=== PATIENT | female | born 1945 | race Hispanic/Latino ===

== ENCOUNTER 2025-04-10 13:24 | Inpatient (IN) | payer OTHER ==
--- OUTSIDE RECORDS SUMMARY | 2025-04-10 13:35 | XMS REPORT | Continuity of Care Document ---
Author Name Unknown Address [address] [facility] [address] [place] [address] [facility] Address [address] [facility] [address] [place] [address] Care Team Providers [employer] Name Role Phone Fidel Jeana MILLER Primary Care Physician Mariely Santo CNP Attending Clinician [phone] Ying Georges RN Attending Clinician EDDIE Nogueira Attending Clinician EDDIE Leonard Admitting Clinician William evans Payers Payer Name Policy Type Policy Number Effective Date Expirati on Date Source [facility] DUAL COMP HMO-POS D SNP [id number] 2024 00:00:00 [facility] (MEDICARE REPLACEMENT HMO) [id number] 2020 00:00:00 Problems Condition Name Condition Details Condition Category Status Onset Date Resolution Date Last Treatment Date Treating Clinician Comments Source DEBBIE (acute kidney injury) DEBBIE (acute kidney injury) Disease Active 03-27 00:00: 00 [facility] HTN (hypertens ion) HTN (hypertens ion) Disease Active 03-27 00:00: 00 [facility] HLD (hyperlipi demia) HLD (hyperlipi demia) Disease Active 03-27 00:00: 00 [facility] Type 2 diabetes mellitus without complicati on Type 2 diabetes mellitus without complicati on Disease Active 03-27 00:00: 00 [facility] High anion gap metabolic acidosis High anion gap metabolic acidosis Disease Active 03-27 00:00: 00 [facility] Uremia Uremia Disease Active 03-27 00:00: 00 [facility] Acute cystitis Acute cystitis Disease Active 03-27 00:00: 00 [facility] Dehydratio n Dehydratio n Disease Active 03-27 00:00: 00 [facility] Allergies, Adverse Reactions, Alerts Allergy Name Allergy Type Status Severity Reaction(s) Onset Date Inactive Date Treating Clinician Comments Source NO KNOWN ALLERGIE S Drug Class Active [facility] Social History Social Habit Start Date Stop Date Quantity Comments Source ASSERTION Possible [facility] Tobacco use and exposure 2025-03-26 00:00:00 2025-03-26 00:00:00 Smokeless tobacco non-user [facility] History of Social function 2025-03-26 00:00:00 2025-03-26 00:00:00 [facility] Sex assigned at 1945 00:00:00 1945 00:00:00 [facility] Smoking Status Start Date Stop Date Source Never smoked tobacco [facility] Medications Ordered Medication Name Filled Medication Name Start Date Stop Date Current Medication? Ordering Clinician Indication Dosage Frequency Signature (SIG) Comments Components Source Nitrofurant oin&Nit. Macrocryst 100 mg capsule 04-10 00:00: 00 04-18 04:59 :00 Yes [id number] 100mg Take 1 capsule by mouth 2 times daily for 7 days. [facility] doxycycline hyclate 100 mg capsule 04-10 00:00: 00 04-18 04:59 :00 Yes [id number] 100mg Take 1 capsule by mouth 2 times daily for 7 days. [facility] D5W 0.45% NaCl (1/2NS) IV infusion 1,000 mL D5W 0.45% NaCl (1/2NS) IV infusion 1,000 mL 03-28 15:45: 00 03-30 01:55 :42 Yes 1000mL at 125 mL/hr, 1,000 mL, IV Infusion, CONTINUOUS , Starting on Mon03/28/25 at 1045, Until Mon03/29/25 at 2055, Routine [facility] lactated ringers IV infusion 1,000 mL 03-28 12:00: 00 03-28 14:36 :48 No 1000mL at 150 mL/hr, 1,000 mL, IV Infusion, CONTINUOUS , Starting on Mon03/28/25 at 0700, Until Mon03/28/25 at 0936, Routine [facility] lactated ringers IV infusion 1,000 mL 03-27 21:00: 00 03-28 11:51 :07 No 1000mL at 100 mL/hr, 1,000 mL, IV Infusion, CONTINUOUS , Starting on Mon03/27/25 at 1600, Until Mon03/28/25 at 0651, Routine [facility] cefTRIAXone (ROCEPHIN) 1,000 mg in sterile water for injection 10 mL IV Push cefTRIAXone (ROCEPHIN) 1,000 mg in sterile water for injection 10 mL IV Push 03-27 20:00: 00 03-28 17:09 :59 Yes 1000mg 1,000 mg, Intravenou s, DAILY AT 1500, 6 doses, First dose on Mon03/27/25 at 1500, Last dose on Mon04/01/25 at 1500, 10 mL, Reason for Anti-Infec tive: Documented Infection, Documented Infection Site: Urine, Duration of therapy: 7 days [facility] cholecalcif kvng (vitamin D3) tablet 1,000 unit cholecalcif kvng (vitamin D3) tablet 1,000 unit 03-27 14:00: 00 03-30 01:55 :42 Yes 1000U 1,000 unit, Oral, DAILY, First dose on Mon03/27/25 at 0900, Until Discontinu ed, Routine [facility] aspirin chewable tablet 81 mg aspirin chewable tablet 81 mg 03-27 14:00: 00 03-27 21:07 :41 Yes 81mg 81 mg, Oral, DAILY, First dose on Mon03/27/25 at 0900, Until Discontinu ed, Routine [facility] lactated ringers IV infusion 1,000 mL 03-27 03:30: 00 03-27 17:29 :00 No 1000mL at 100 mL/hr, 1,000 mL, IV Infusion, CONTINUOUS , Starting on Mon03/26/25 at 2230, Until Angelia 03/27/25 at 1229, Routine [facility] heparin (porcine) injection 5,000 unit [id number] 9858-0 9-11 03:00: 00 03-30 01:55 :42 Yes 5000U 5,000 unit, Subcutaneo us, Q8H, First dose on Mon03/26/25 at 2200, Until Discontinu ed, Routine [facility] Sliding Scale Insulin - Lispro (HumaLOG) [id number] 1996-0 9-11 02:00: 00 03-30 01:55 :42 Yes Subcutaneo us, TID MEALS+HS, First dose on Mon03/26/25 at 2100, Until Discontinu ed, Routine [facility] acetaminoph en (TYLENOL) tablet 650 mg 03-26 23:45: 24 03-30 01:55 :42 No 650mg 650 mg, Oral, Q6HPRN, Starting on Mon03/26/25 at 1845, Until 03/29/25 at 2055, Routine, Pain (scale 1-3) [facility] NaCl 0.9% (NS) bolus infusion 500 mL 03-26 21:15: 00 03-26 21:35 :00 No 500mL at 999 mL/hr, 500 mL, IV Infusion, ONCE, 1 dose, On Mon03/26/25 at 1615, ROSA [facility] aspirin chewable tablet 324 mg 03-26 19:30: 00 03-26 18:40 :00 No 324mg 324 mg, Oral, ONCE NOW, 1 dose, On Mon03/26/25 at 1430, Routine [facility] cefTRIAXone (ROCEPHIN) 1,000 mg in sterile water for injection 10 mL IV Push 03-26 19:15: 00 03-26 19:36 :00 No 1000mg 1,000 mg, Intravenou s, ONCE, 1 dose, On Mon03/26/25 at 1415, 10 mL, Reason for Anti-Infec tive: Empiric Therapy for Suspected Infection, Empiric Therapy Site: Urine, Duration of therapy: Once (ED) [facility] NaCl 0.9% (NS) bolus infusion 1,000 mL 03-26 18:00: 00 03-26 19:32 :00 No 1000mL at 350 mL/hr, 1,000 mL, IV Infusion, ONCE, 1 dose, On Mon03/26/25 at 1300, ROSA [facility] amlodipine 10 mg tablet 03-07 00:00: 00 Yes 1mg Kentrell Almanza lisinopril 20 mg-hydrochl orothiazide 25 mg tablet 03-07 00:00: 00 Yes 1mg Kentrell Almanza Farxiga 5 mg tablet 03-07 00:00: 00 Yes 1mg Kentrell Almanza carvedilol 3.125 mg tablet 03-07 00:00: 00 Yes 1mg Kentrell Almanza amoxicillin 875 mg-potassiu saman clavulanate 125 mg tablet 03-07 00:00: 00 Yes 1mg Kentrell Almanza Lipitor 40 mg tablet 03-07 00:00: 00 Yes 1mg Kentrell Almanza Tylenol Extra Strength 500 mg tablet 03-07 00:00: 00 Yes 1mg Kentrell Almanza gabapentin 300 mg capsule 03-07 00:00: 00 Yes 1mg Kentrell Almanza amlodipine 10 mg tablet 12-23 00:00: 00 Yes 1mg Kentrell Almanza lisinopril 20 mg-hydrochl orothiazide 25 mg tablet 12-23 00:00: 00 Yes 1mg Kentrell Almanza Farxiga 5 mg tablet 12-23 00:00: 00 Yes 1mg Kentrell Almanza carvedilol 3.125 mg tablet 12-23 00:00: 00 Yes 1mg Kentrell Almanza Lipitor 40 mg tablet 12-23 00:00: 00 Yes 1mg Kentrell Almanza gabapentin 300 mg capsule 6-09 00:00: 00 Yes 1mg Kentrell Almanza carvedilol 3.125 mg tablet - 00:00: 00 Yes 1mg Kentrell Almanza amlodipine 10 mg tablet 2023-07- 00:00: 00 Yes 1mg Kentrell Almanza lisinopril 20 mg-hydrochl orothiazide 25 mg tablet 2023-07- 00:00: 00 Yes 1mg Kentrell Almanza Farxiga 5 mg tablet 2023-07- 00:00: 00 Yes 1mg Kentrell Almanza Lipitor 40 mg tablet 2023-07- 00:00: 00 Yes 1mg Kentrell Almanza Lipitor 20 mg tablet 2023-07 0-18 00:00: 00 Yes 1mg Kentrell Almanza amlodipine 10 mg tablet 2023-07 0-18 00:00: 00 Yes 1mg Kentrell Almanza lisinopril 20 mg-hydrochl orothiazide 25 mg tablet 2023-07 0-18 00:00: 00 Yes 1mg Kentrell Almanza metformin ER 1,000 mg tablet,exte nded release 24hr (osmotic) 2023-07 0-18 00:00: 00 Yes 1mg Kentrell Almanza gabapentin 300 mg capsule 2023-07 0-18 00:00: 00 Yes 1mg Kentrell Almanza metformin ER 1,000 mg 24 hr tablet,exte nded release (gastric reten.) 2023-07 0-18 00:00: 00 Yes 1mg Kentrell Almanza AMLODIPINE BESYLATE 10 MG TABS 2021-07 0-13 00:00: 00 06-06 00:00 :00 No Kentrell Almanza AMLODIPINE BESYLATE 5 MG TABS 2021-07 0-10 00:00: 00 No LISINOPRIL/ HYDROCHLORO THIAZIDE 20-25 MG TABS 2021-07 0-10 00:00: 00 No AMLODIPINE BESYLATE 5 MG TABS 2021-07 0-10 00:00: 00 Yes Kentrell Almanza LISINOPRIL/ HYDROCHLORO THIAZIDE 20-25 MG TABS 2021-07 0-10 00:00: 00 06-06 00:00 :00 No Kentrell Genoveva Archie Dose Unknown 2021-0 4-06 00:00: 00 No Dose Unknown 2-0 4-06 00:00: 00 No Dose Unknown 2021-0 4-06 00:00: 00 No Dose Unknown 2021-0 4-06 00:00: 00 No Dose Unknown 2021-0 4-06 00:00: 00 No Dose Unknown 2021-0 4-06 00:00: 00 Yes Kentrell Tomas Archie Dose Unknown 2021-0 4-06 00:00: 00 Yes Kentrell F Archie Dose Unknown 2021-0 4-06 00:00: 00 Yes Kentrell F Archie Dose Unknown 2021-0 4-06 00:00: 00 Yes Kentrell F Archie Dose Unknown 2021-0 4-06 00:00: 00 Yes Kentrell Tomas Archie Dose Unknown 0 4- 00:00: 00 No Dose Unknown 2021-0 4- 00:00: 00 Yes Kentrell Genoveva Archie Dose Unknown 1 2-07 00:00: 00 No Dose Unknown 1 2-07 00:00: 00 No Dose Unknown 1 2-07 00:00: 00 No Dose Unknown 1 2-07 00:00: 00 No Dose Unknown 1 2-07 00:00: 00 Yes Kentrell Genoveva Archie Dose Unknown 1 2-07 00:00: 00 Yes Kentrell Tomas Archie Dose Unknown 1 2-07 00:00: 00 Yes Kentrell Tomas Archie Dose Unknown 1 2-07 00:00: 00 Yes Kentrell Tomas Archie Dose Unknown 2019-0 5-18 00:00: 00 No Dose Unknown 2019-0 5-18 00:00: 00 Yes Kentrell Almanza amlodipine 5 mg tablet 2018-07- 00:00: 00 No 1mg lisinopril 20 mg-hydrochl orothiazide 25 mg tablet 2018-07 2- 00:00: 00 No 1mg metformin 1,000 mg tablet 2018-07- 00:00: 00 No 1mg lovastatin 20 mg tablet 2018-07 2 00:00: 00 No 1mg amlodipine 5 mg tablet 2018-07 2- 00:00: 00 Yes 1mg Kentrell Almanza lisinopril 20 mg-hydrochl orothiazide 25 mg tablet 2018-07 00:00: 00 Yes 1mg Kentrell Almanza metformin 1,000 mg tablet 2018-07 00:00: 00 Yes 1mg Kentrell Almanza lovastatin 20 mg tablet 2018-07 00:00: 00 Yes 1mg Kentrell Almanza amlodipine 5 mg tablet 12-27 00:00: 00 No 1mg lisinopril 20 mg-hydrochl orothiazide 25 mg tablet 12-27 00:00: 00 No 1mg metformin 1,000 mg tablet 12-27 00:00: 00 No 1mg lovastatin 20 mg tablet 12-27 00:00: 00 No 1mg amlodipine 5 mg tablet 12-27 00:00: 00 Yes 1mg Kentrell Almanza lisinopril 20 mg-hydrochl orothiazide 25 mg tablet 12-27 00:00: 00 Yes 1mg Kentrell Almanza metformin 1,000 mg tablet 12-27 00:00: 00 Yes 1mg Kentrell Almanza lovastatin 20 mg tablet 12-27 00:00: 00 Yes 1mg Kentrell Almanza amlodipine 5 mg tablet 09-13 00:00: 00 No 1mg amlodipine 5 mg tablet 09-13 00:00: 00 Yes 1mg Kentrell Almanza lisinopril 20 mg-hydrochl orothiazide 25 mg tablet 08-09 00:00: 00 No 1mg metformin 1,000 mg tablet 08-09 00:00: 00 No 1mg lovastatin 20 mg tablet 08-09 00:00: 00 No 1mg lisinopril 20 mg-hydrochl orothiazide 25 mg tablet 08-09 00:00: 00 Yes 1mg Kentrell Almanza metformin 1,000 mg tablet 08-09 00:00: 00 Yes 1mg Kentrell Almanza lovastatin 20 mg tablet 08-09 00:00: 00 Yes 1mg Kentrell Almanza lisinopril 20 mg-hydrochl orothiazide 25 mg tablet 2016-07 00:00: 00 No 1mg metformin 1,000 mg tablet 2016-07 00:00: 00 No 1mg lovastatin 20 mg tablet 2016-07 00:00: 00 No 1mg lisinopril 20 mg-hydrochl orothiazide 25 mg tablet 2016-07 00:00: 00 Yes 1mg Kentrell Almanza metformin 1,000 mg tablet 2016-07 00:00: 00 Yes 1mg Kentrell Almanza lovastatin 20 mg tablet 2016-07 00:00: 00 Yes 1mg Kentrell Almanza lovastatin 10 mg tablet 2016-07 00:00: 00 No 1mg lisinopril 20 mg-hydrochl orothiazide 25 mg tablet 2016-07 00:00: 00 No 1mg metformin 500 mg tablet 2016-07 00:00: 00 No 1mg lovastatin 10 mg tablet 2016-07 00:00: 00 Yes 1mg Kentrell Almanza lisinopril 20 mg-hydrochl orothiazide 25 mg tablet 2016-07 00:00: 00 Yes 1mg Kentrell Almanza metformin 500 mg tablet 2016-07 00:00: 00 Yes 1mg Kentrell Almanza metformin 500 mg tablet 12-28 00:00: 00 No 1mg lisinopril 20 mg-hydrochl orothiazide 25 mg tablet 12-28 00:00: 00 No 1mg lovastatin 10 mg tablet 12-28 00:00: 00 No 1mg lisinopril 20 mg-hydrochl orothiazide 25 mg tablet 12-28 00:00: 00 Yes 1mg Kentrell Almanza lovastatin 10 mg tablet 12-28 00:00: 00 Yes 1mg Kentrell Almanza metformin 500 mg tablet 12-28 00:00: 00 Yes 1mg Kentrell Almanza lisinopril 20 mg-hydrochl orothiazide 25 mg tablet 11-04 00:00: 00 No 1mg glipizide 5 mg tablet 11-04 00:00: 00 No 1mg lisinopril 20 mg-hydrochl orothiazide 25 mg tablet 11-04 00:00: 00 Yes 1mg Kentrell Almanza glipizide 5 mg tablet 11-04 00:00: 00 Yes 1mg Kentrell Almanza lisinopril 20 mg-hydrochl orothiazide 25 mg tablet 09-09 00:00: 00 No 1mg glipizide 5 mg tablet 09-09 00:00: 00 No 1mg lisinopril 20 mg-hydrochl orothiazide 25 mg tablet 09-09 00:00: 00 Yes 1mg Kentrell Almanza glipizide 5 mg tablet 09-09 00:00: 00 Yes 1mg Kentrell Almanza metformin 500 mg tablet 2014-07 00:00: 00 No mg metformin 500 mg tablet 2014-07 00:00: 00 Yes mg Kentrell Almanza Vital Signs Vital Name Observation Time Observation Value Comments S aiden Systolic blood pressure 2025-03-29 20:29:00 153 mm[Hg] Andreas o [facility] Diastolic blood pressure 2025-03-29 20:29:00 56 mm[Hg] [facility] Heart rate 2025-03-29 20:29:00 64 /min [facility] Oxygen saturation in Arterial blood by Pulse oximetry 2025-03-29 20:29:00 97 /min [facility] Body temperature 2025-03-29 20:28:00 36.28 Mela [facility] Respiratory rate 2025-03-29 20:28:00 16 /min [facility] Body height 2025-03-26 23:56:00 160 cm [facility] Body weight 2025-03-26 23:56:00 65 kg [facility] BMI 2025-03-26 23:56:00 25.38 kg/m2 [facility] BP Systolic 2025-03-07 13:27:00 158 mm[Hg] Jefry Almanza BP Diastolic 2025-03-07 13:27:00 70 mm[Hg] Tom Almanza Weight Measured 2025-03-07 13:27:00 153.40 pounds Kentrell Almanza Height Measured 2025-03-07 13:27:00 63.00 inches Kentrell Almanza Body Temperature 2025-03-07 13:27:00 97.60 degrees Kentrell Almanza Heart Rate 2025-03-07 13:27:00 89.00 /min Mariia Almanza Respiratory Rate 2025-03-07 13:27:00 Kentrell F Archie BP Systolic 2024-12-23 14:46:00 188 mm[Hg] Step hen F Archie BP Diastolic 2024-12-23 14:46:00 76 mm[Hg] Tom phen F Archie Weight Measured 2024-12-23 14:46:00 170.80 pounds Kentrell F Archie Height Measured 2024-12-23 14:46:00 63.00 inches Kentrell F Archie Body Temperature 2024-12-23 14:46:00 97.90 degrees Kentrell F Archie Heart Rate 2024-12-23 14:46:00 71.00 /min Mariia en F Archie Respiratory Rate 2024-12-23 14:46:00 Kentrell F Archie BP Systolic 2024-07-23 10:43:00 172 mm[Hg] Step hen F Archie BP Diastolic 2024-07-23 10:43:00 68 mm[Hg] Tom phen F Archie Weight Measured 2024-07-23 10:43:00 157.00 pounds Kentrell F Archie Height Measured 2024-07-23 10:43:00 63.00 inches Kentrell F Archie Body Temperature 2024-07-23 10:43:00 97.20 degrees Kentrell F Archie Heart Rate 2024-07-23 10:43:00 67.00 /min Mariia en F Archie Respiratory Rate 2024-07-23 10:43:00 Kentrell F Archie BP Systolic 2024-06-17 09:28:00 166 mm[Hg] Step hen F Archie BP Diastolic 2024-06-17 09:28:00 64 mm[Hg] Tom phen F Archie Weight Measured 2024-06-17 09:28:00 160.20 pounds Kentrell F Archie Height Measured 2024-06-17 09:28:00 63.00 inches Kentrell F Archie Body Temperature 2024-06-17 09:28:00 97.60 degrees Kentrell F Archie Heart Rate 2024-06-17 09:28:00 76.00 /min Mariia en F Archie Respiratory Rate 2024-06-17 09:28:00 17.00 /min Kentrell F Archie Heart Rate 2024-05-03 09:20:00 73.00 /min Mariia en F Archie Respiratory Rate 2024-05-03 09:20:00 18.00 /min Kentrell F Archie BP Systolic 2024-05-03 09:20:00 185 mm[Hg] Step hen F Archie BP Diastolic 2024-05-03 09:20:00 66 mm[Hg] Tom phen F Archie Weight Measured 2024-05-03 09:20:00 161.60 pounds Kentrell F Archie Height Measured 2024-05-03 09:20:00 63.00 inches Kentrell F Archie Body Temperature 2024-05-03 09:20:00 97.20 degrees Kentrell F Archie BP Systolic 2022-05-02 10:36:00 138 mm[Hg] Step hen F Archie BP Diastolic 2022-05-02 10:36:00 72 mm[Hg] Tom phen F Archie Weight Measured 2022-05-02 10:36:00 161.20 pounds Kentrell F Archie Height Measured 2022-05-02 10:36:00 63.00 inches Kentrell F Archie Body Temperature 2022-05-02 10:36:00 97.20 degrees Kentrell F Archie Heart Rate 2022-05-02 10:36:00 66.00 /min Mariia en F Archie Respiratory Rate 2022-05-02 10:36:00 Kentrell F Archie BP Systolic 2022-04-25 10:41:00 Step hen F Archie BP Diastolic 2022-04-25 10:41:00 Tom phen F Archie Weight Measured 2022-04-25 10:41:00 Kentrell F Archie Height Measured 2022-04-25 10:41:00 Kentrell F Archie Body Temperature 2022-04-25 10:41:00 Kentrell F Archie Heart Rate 2022-04-25 10:41:00 Mariia en F Archie Respiratory Rate 2022-04-25 10:41:00 Kentrell F Archie BP Systolic 2022-04-25 10:29:00 179 mm[Hg] Step hen F Archie BP Diastolic 2022-04-25 10:29:00 66 mm[Hg] Tom phen F Archie Weight Measured 2022-04-25 10:29:00 164.20 pounds Kentrell F Archie Height Measured 2022-04-25 10:29:00 63.00 inches Kentrell F Archie Body Temperature 2022-04-25 10:29:00 97.60 degrees Kentrell F Archie Heart Rate 2022-04-25 10:29:00 67.00 /min Mariia en F Archie Respiratory Rate 2022-04-25 10:29:00 Kentrell F Archie BP Systolic 2021-10-20 10:13:00 196 mm[Hg] Step hen F Archie BP Diastolic 2021-10-20 10:13:00 71 mm[Hg] Otm phen F Archie Weight Measured 2021-10-20 10:13:00 165.00 pounds Kentrell F Archie Height Measured 2021-10-20 10:13:00 63.00 inches Kentrell F Archie Body Temperature 2021-10-20 10:13:00 97.60 degrees Kentrell F Archie Heart Rate 2021-10-20 10:13:00 96.00 /min Mariia en F Archie Respiratory Rate 2021-10-20 10:13:00 21.00 /min Kentrell F Archie BP Systolic 2020-06-22 10:41:00 191 mm[Hg] Step hen F Archie BP Diastolic 2020-06-22 10:41:00 67 mm[Hg] Tom phen F Archie Weight Measured 2020-06-22 10:41:00 161.40 pounds Kentrell F Archie Height Measured 2020-06-22 10:41:00 63.00 inches Kentrell F Archie Body Temperature 2020-06-22 10:41:00 98.40 degrees Kentrell F Archie Heart Rate 2020-06-22 10:41:00 70.00 /min Mariia en F Archie Respiratory Rate 2020-06-22 10:41:00 17.00 /min Kentrell F Archie BP Systolic 2019-12-02 16:53:00 147 mm[Hg] Step hen F Archie BP Diastolic 2019-12-02 16:53:00 63 mm[Hg] Tom phen F Archie Weight Measured 2019-12-02 16:53:00 157.20 pounds Kentrell F Archie Height Measured 2019-12-02 16:53:00 63.00 inches Kentrell F Archie Body Temperature 2019-12-02 16:53:00 98.60 degrees Kentrell F Archie Heart Rate 2019-12-02 16:53:00 81.00 /min Mariia en F Archie Respiratory Rate 2019-12-02 16:53:00 16.00 /min Kentrell F Archie BP Systolic 2019-06-21 10:52:00 127 mm[Hg] Step hen F Archie BP Diastolic 2019-06-21 10:52:00 67 mm[Hg] Tom phen F Archie Weight Measured 2019-06-21 10:52:00 159.60 pounds Kentrell F Archie Height Measured 2019-06-21 10:52:00 63.00 inches Kentrell F Archie Body Temperature 2019-06-21 10:52:00 98.50 degrees Kentrell F Archie Heart Rate 2019-06-21 10:52:00 68.00 /min Mariia en F Archie Respiratory Rate 2019-06-21 10:52:00 16.00 /min Kentrell F Archie BP Systolic 2018-12-27 15:30:00 132 mm[Hg] Step hen F Archie BP Diastolic 2018-12-27 15:30:00 58 mm[Hg] Tom phen F Archie Weight Measured 2018-12-27 15:30:00 163.00 pounds Kentrell F Archie Height Measured 2018-12-27 15:30:00 63.00 inches Kentrell F Archie Body Temperature 2018-12-27 15:30:00 97.70 degrees Kentrell F Archie Heart Rate 2018-12-27 15:30:00 63.00 /min Mariia en F Archie Respiratory Rate 2018-12-27 15:30:00 16.00 /min Kentrell F Archie BP Systolic 2018-09-21 10:27:00 129 mm[Hg] Step hen F Archie BP Diastolic 2018-09-21 10:27:00 61 mm[Hg] Tom phen F Archie Weight Measured 2018-09-21 10:27:00 164.60 pounds Kentrell F Archie Height Measured 2018-09-21 10:27:00 63.00 inches Kentrell F Archie Body Temperature 2018-09-21 10:27:00 98.70 degrees Kentrell F Archie Heart Rate 2018-09-21 10:27:00 69.00 /min Mariia en F Archie Respiratory Rate 2018-09-21 10:27:00 16.00 /min Kentrell F Archie BP Systolic 2018-09-13 10:10:00 166 mm[Hg] BP Diastolic 2018-09-13 10:10:00 74 mm[Hg] Weight Measured 2018-09-13 10:10:00 165.60 pounds Height Measured 2018-09-13 10:10:00 63.00 inches Body Temperature 2018-09-13 10:10:00 97.50 degrees Heart Rate 2018-09-13 10:10:00 63.00 /min Respiratory Rate 2018-09-13 10:10:00 16.00 /min BP Systolic 2018-08-09 17:22:00 178 mm[Hg] BP Diastolic 2018-08-09 17:22:00 70 mm[Hg] Weight Measured 2018-08-09 17:22:00 167.80 pounds Height Measured 2018-08-09 17:22:00 63.00 inches Body Temperature 2018-08-09 17:22:00 98.20 degrees Heart Rate 2018-08-09 17:22:00 68.00 /min Respiratory Rate 2018-08-09 17:22:00 16.00 /min Procedures Procedure Date / Time Performed Performing Clinician Source BASIC METABOLIC PANEL (NA, K, CL, CO2, GLUCOSE, BUN, CREATININE, CA) 2025-03-29 21:59:00 Shelia Dwyer [facility] POCT GLUCOSE (AUTOMATED) 2025-03-29 17:01:00 Barby Sherwood [facility] POCT GLUCOSE (AUTOMATED) 2025-03-29 14:11:00 Barby Sherwood [facility] MAGNESIUM 2025-03-29 10:12:00 [facility] (NA, K, CL, CO2, GLUCOSE, BUN, CREATININE, CA) 2025-03-29 10:12:00 Marcus Llanes [facility] LIPID PANEL (04694)(TOTAL CHOLESTEROL, TRIGLYCERIDES, HDL) 2025-03-29 10:12:00 Marcus Llanes [facility] CBC WITH DIFF 2025-03-29 10:12:00 Marcus Llanes [facility] POCT GLUCOSE (AUTOMATED) 2025-03-29 01:58:00 Barby Sherwood [facility] POCT GLUCOSE (AUTOMATED) 2025-03-28 23:00:00 Barby Sherwood [facility] BASIC METABOLIC PANEL (NA, K, CL, CO2, GLUCOSE, BUN, CREATININE, CA) 2025-03-28 19:57:00 Marcus Llanes [facility] POCT GLUCOSE (AUTOMATED) 2025-03-28 17:13:00 Barby Sherwood [facility] POCT GLUCOSE (AUTOMATED) 2025-03-28 14:33:00 Barby Sherwood [facility] MAGNESIUM 2025-03-28 08:45:00 Shelia Dwyer [facility] BASIC METABOLIC PANEL (NA, K, CL, CO2, GLUCOSE, BUN, CREATININE, CA) 2025-03-28 08:45:00 Shelia Dwyer [facility] CBC WITH DIFF 2025-03-28 08:45:00 Shelia Dwyer [facility] POCT GLUCOSE (AUTOMATED) 2025-03-28 02:08:00 Barby Sherwood [facility] BASIC METABOLIC PANEL (NA, K, CL, CO2, GLUCOSE, BUN, CREATININE, CA) 2025-03-28 01:43:00 Shelia Dwyer [facility] POCT GLUCOSE (AUTOMATED) 2025-03-27 22:09:00 Barby Sherwood [facility] POCT GLUCOSE (AUTOMATED) 2025-03-27 17:06:00 [facility] POCT GLUCOSE (AUTOMATED) 2025-03-27 14:28:00 Barby Sherwood [facility] US RETROPERITONEAL LIMITED 2025-03-27 12:34:56 Asya Jones [facility] MAGNESIUM 2025-03-27 08:59:[address] [facility] BASIC METABOLIC PANEL (NA, K, CL, CO2, GLUCOSE, BUN, CREATININE, CA) 2025-03-27 08:59:00 Winifred Cohen [facility] CBC WITH DIFF 2025-03-27 08:59:00 Winifred Cohen [facility] VITAMIN D, 25-OH 2025-03-27 08:59:00 Asya Jones [facility] PHOSPHORUS 2025-03-27 03:08:00 Asya Jones [facility] TROPONIN I 2025-03-27 03:08:00 Winifred Cohen [facility] BASIC METABOLIC PANEL (NA, K, CL, CO2, GLUCOSE, BUN, CREATININE, CA) 2025-03-27 03:08:00 Winifred Cohen [facility] AC PANEL 21 + LACTIC ACID 2025-03-27 03:07:00 Asya Jones [facility] HB ECG ROUTINE & RHYTHM STRIP 2025-03-27 02:36:02 Asya Jones [facility] CBC WITH DIFF 2025-03-27 02:09:00 Winifred Cohen [facility] CREATININE, URINE RANDOM 2025-03-27 02:06:00 Asya Jones [facility] UREA NITROGEN, URINE RANDOM 2025-03-27 02:06:00 Asya Jones [facility] SODIUM, URINE RANDOM 2025-03-27 02:06:00 Norah Jones [facility] POCT GLUCOSE (AUTOMATED) 2025-03-27 01:58:00 Barby Sherwood [facility] LACTIC ACID WITH 2 HOUR REFLEX 2025-03-26 21:35:00 Farrah Espitia [facility] XR CHEST 1 VW 2025-03-26 19:49:31 Farrah Espitia [facility] BLOOD CULTURE SCREEN 2025-03-26 19:37:00 Lay Espitia [facility] LACTIC ACID WITH 2 HOUR REFLEX 2025-03-26 19:30:00 Farrah Espitia [facility] CREATINE KINASE 2025-03-26 19:30:00 Farrah Espitia [facility] BLOOD CULTURE SCREEN 2025-03-26 19:23:00 Lay Espitia [facility] ACUTE CARE VENOUS BLOOD GAS 2025-03-26 18:50:00 Farrah Espitia [facility] URINE CULTURE 2025-03-26 18:08:00 Farrah Espitia [facility] URINALYSIS 2025-03-26 18:03:00 Farrah Espitia [facility] CT HEAD WO CONTRAST 2025-03-26 17:34:35 Farrah Espitia [facility] MAGNESIUM 2025-03-26 17:07:00 Farrah Espitia [facility] TROPONIN I 2025-03-26 17:07:00 Farrah Espitia [facility] THYROID STIMULATING HORMONE 2025-03-26 17:07:00 Farrah Espitia [facility] COMP. METABOLIC PANEL (77187) 2025-03-26 17:07:00 Farrah Espitia [facility] CBC WITH DIFF 2025-03-26 17:07:00 Farrah Espitia [facility] GLYCOSYLATED HEMOGLOBIN (A1C) 2025-03-26 17:07:00 Winifred Cohen [facility] INFLUENZA A/B RSV COVID NAAT 2025-03-26 17:07:00 Farrah Espitia [facility] EKG-12 LEAD 2025-03-26 17:00:53 Farrah Espitia [facility] HB ECG ROUTINE & RHYTHM STRIP 2025-03-26 16:48:33 Farrah Espitia [facility] CRITICAL CARE 2025-03-26 16:05:00 Farrah Espitia [facility] Plan of Care Planned Activity Planned Date Details Comments Source Goal Plan of Care Note [code = 50188-5] Goal Plan of Care Note [code = 85452-6] Goal Plan of Care Note [code = 09651-8] Goal Plan of Care Note [code = 13228-8] Goal Plan of Care Note [code = 12078-5] Goal Plan of Care Note [code = 04853-0] Goal Plan of Care Note [code = 03989-4] Goal Plan of Care Note [code = 42971-0] Goal Plan of Care Note [code = 53917-0] Goal Plan of Care Note [code = 17943-4] Goal Plan of Care Note [code = 17226-2] Goal Plan of Care Note [code = 71504-3] Goal Plan of Care Note [code = 89062-5] Goal Plan of Care Note [code = 56043-3] Goal Plan of Care Note [code = 11482-0] Goal Plan of Care Note [code = 28476-6] Goal Plan of Care Note [code = 76550-7] Goal Plan of Care Note [code = 96073-2] Encounters Start Date/Time End Date/Time Encounter Type Admission Type Attending [facility] Care Department Encounter ID Source 2025-04-10 00:00:00 2025-04-10 10:34:10 Telephone Mariely Santo [facility] ([facility]) [id number] [facility] 2025-03-31 00:00:00 2025-04-01 14:04:27 Transition of Care Ying Georges Christine [facility] [address] [address] [facility] [id number] [id number] [facility] 2025-03-26 11:22:00 2025-03-29 19:00:00 Hospital Encounter [facility] [id number] [facility] 2025-03-07 13:23:10 2025-03-07 13:23:10 Outpatient [facility] [id number] Kentrell Tomas Archie 2025-03-07 00:00:00 2025-03-07 00:00:00 Outpatient Visit [facility] [id number] Kentrell Tomas Archie 2024-12-23 14:36:14 2024-12-23 14:36:14 Outpatient [facility] [id number] Kentrell F Archie 2024-12-23 00:00:00 2024-12-23 00:00:00 Outpatient Visit [facility] [id number] Kentrell Almanza 2024-07-23 10:38:53 2024-07-23 10:38:53 Outpatient [facility] [id number] Kentrell Almanza 2024-07-23 00:00:00 2024-07-23 00:00:00 Outpatient Visit [facility] [id number] Kentrell Almanza 2024-06-17 09:16:11 2024-06-17 09:16:11 Outpatient [facility] [id number] Kentrell Almanza 2024-06-17 00:00:00 2024-06-17 00:00:00 Outpatient Visit [facility] [id number] Kentrell Almanza 2024-05-03 09:09:40 2024-05-03 09:09:40 Outpatient [facility] [id number] Kentrell Almanza 2024-05-03 00:00:00 2024-05-03 00:00:00 Outpatient Visit [facility] [id number] Kentrell Almanza 2022-05-02 10:15:01 2022-05-02 10:15:01 Outpatient [facility] 1017 Kentrell Almanza 2022-04-25 10:31:21 2022-04-25 10:31:21 Outpatient [facility] 1010 Kentrell Almanza 2022-04-25 00:00:00 2022-04-25 00:00:00 Outpatient Visit [id number] Results Test Description Test Time Test Comments Results Result Co mments Source [facility] Metabolic Panel (NA, K, CL, CO2, GLUCOSE, BUN, CREATININE, CA)2025-03-29 14:24:55* Test Item Value Reference Range Interpretation Comme nts NA (test code = 3384273856) 152 mmol/L 135-145 H K (test code = 3863983730) 3.9 mmol/L 3.5-5.0 Slight hemolysis CL (test code = 7363541652) 121 mmol/L 98-108 H CO2 TOTAL (test code = 1186704280) 25 mmol/L 23-31 AGAP (test code = 4507252699) 6 2-16 BUN (test code = 3532911841) 52 mg/dL 7-23 H Slight hemolysis GLUCOSE (test code = 8113651453) 215 mg/dL 70-110 H CREATININE (test code = 2160-0) 1.22 mg/dL 0.50-1.04 H CALCIUM (test code = 3264649890) 8.7 mg/dL 8.6-10.6 eGFR (test code = 91103-3) 44.7 mL/min/1.73m2 CKD-EPI eGFR (2020). Assuming creatinine has been stable day-to-day for at least three months, the eGFR indicates Category G3a (45 - 59 mL/min/1.73 m2) Lab Interpretation (test code = 65513-5) [facility] 14:15:35* Test Item Value Reference Range Interpretation Comme nts MAGNESIUM (test code = 1880513323) 1.9 mg/dL 1.7-2.4 Slight hemolysis Lab Interpretation (test code = 17624-6) [facility]2025-03-29 14:13:09* Test Item Value Reference Range Interpretation Comme nts POCT GLU (test code = 3699038429) 201 mg/dL 70-110 H Lab Interpretation (test cod e = 99212-5) Abnormal [facility] Hospital[facility] (00800)(Total Cholesterol, Triglycerides, HDL)2025-03-29 11:30:34* Test Item Value Reference Range Interpretation Comme nts CHOL (test code = 7002614823) 120 mg/dL 120-200 HDL (test code = 4240728831) 39 mg/dL >=50 L HDLC RATIO (test code = 0118062990) 3.1 <=4.5 TRIG (test code = 8132060192) 102 mg/dL 30-170 LDL CHOL (test code = 43335-1) 61 mg/dL <=160 VLDL (test code = 2095481241) 20 mg/dL 5-60 Lab Interpretation (test cod e = 81996-7) Abnormal [facility] with [id number] 11:18:28* Test Item Value Reference Range Interpretation Comme nts WBC (test code = 6690-2) 10.1 4.30-11.10 RBC (test code = 789-8) 3.76 3.93-5.25 L HGB (test code = 718-7) 10.8 g/dL 11.6-15.0 L HCT (test code = 4544-3) 35.4 % 35.7-45.2 L MCV (test code = 787-2) 94.1 fL 80.6-95.5 MCH (test code = 785-6) 28.7 pg 25.9-32.8 MCHC (test code = 786-4) 30.5 g/dL 31.6-35.1 L RDW-SD (test code = 77144-1) 46.1 fL 39.0-49.9 RDW-CV (test code = 788-0) 13.5 % 12.0-15.5 PLT (test code = 777-3) 236 166-358 MPV (test code = 56210-4) 11.2 fL 9.5-12.9 NRBC/100 WBC (test code = 1804875671) 0 0.0-10.0 NRBC x10^3 (test code = 7298959376) See_Comment [Automated messa ge] The system which generated this result transmitted reference range: 10*3/?L. The reference range was not used to interpret this result as normal/abnormal. GRAN MAT (NEUT) % (test code = 770-8) 71.9 % IMM GRAN % (test code = 9483831507) 1.7 % LYMPH % (test code = 736-9) 16.8 % MONO % (test code = 5905-5) 7.5 % EOS % (test code = 713-8) 1.6 % BASO % (test code = 706-2) 0.5 % GRAN MAT x10^3(ANC) (test code = 9273451664) 7.26 10*3/uL 1.88-7.09 H IMM GRAN x10^3 (test code = 1930775092) 0.17 10*3/uL 0.00-0.06 H LYMPH x10^3 (test code = 731-0) 1.7 10*3/uL 1.32-3.29 MONO x10^3 (test code = 742-7) 0.76 10*3/uL 0.33-0.92 EOS x10^3 (test code = 711-2) 0.16 10*3/uL 0.03-0.39 BASO x10^3 (test code = 704-7) 0.05 10*3/uL 0.01-0.07 Lab Interpretation (test code = 76385-0) Abnormal [facility] GLUCOSE (AUTOMATED)2025-03-29 01:58:37* Test Item Value Reference Range Interpretation Comme nts POCT GLU (test code = 9504075637) 214 mg/dL 70-110 H Lab Interpretation (test cod e = 15515-9) Abnormal [facility] GLUCOSE (AUTOMATED)2025-03-28 23:02:04* Test Item Value Reference Range Interpretation Comme nts POCT GLU (test code = 2558484197) 252 mg/dL 70-110 H Lab Interpretation (test cod e = 28569-8) Abnormal [facility] Metabolic Panel (NA, K, CL, CO2, GLUCOSE, BUN, CREATININE, CA)2025-03-28 20:22:08* Test Item Value Reference Range Interpretation Comme nts NA (test code = 0063224629) 155 mmol/L 135-145 H K (test code = 3353119320) 4.1 mmol/L 3.5-5.0 CL (test code = 8103349855) 118 mmol/L 98-108 H CO2 TOTAL (test code = 9448600447) 23 mmol/L 23-31 AGAP (test code = 6810514760) 14 2-16 BUN (test code = 4972272674) 71 mg/dL 7-23 H GLUCOSE (test code = 4858903003) 249 mg/dL 70-110 H CREATININE (test code = 2160-0) 1.49 mg/dL 0.50-1.04 H CALCIUM (test code = 3605933608) 9.1 mg/dL 8.6-10.6 eGFR (test code = 87526-4) 35.1 mL/min/1.73m2 CKD-EPI eGFR (2020). Assuming creatinine has been stable day-to-day for at least three months, the eGFR indicates Category G3b (30 - 44 mL/min/1.73 m2) Lab Interpretation (test code = 30704-1) Abnormal [facility] GLUCOSE (AUTOMATED)2025-03-28 17:14:06* Test Item Value Reference Range Interpretation Comme nts POCT GLU (test code = 8126759332) 149 mg/dL 70-110 H Lab Interpretation (test cod e = 43232-3) Abnormal [facility] GLUCOSE (AUTOMATED)2025-03-28 14:34:33* Test Item Value Reference Range Interpretation Comme nts POCT GLU (test code = 9825921939) 118 mg/dL 70-110 H Lab Interpretation (test cod e = 07747-0) Abnormal [facility] GLUCOSE (AUTOMATED)2025-03-28 02:09:30* Test Item Value Reference Range Interpretation Comme nts POCT GLU (test code = 4688670088) 139 mg/dL 70-110 H Lab Interpretation (test cod e = 57159-6) Abnormal [facility] GLUCOSE (AUTOMATED)2025-03-27 22:10:27* Test Item Value Reference Range Interpretation Comme nts POCT GLU (test code = 8636837324) 140 mg/dL 70-110 H Lab Interpretation (test cod e = 23204-0) Abnormal [facility] GLUCOSE (AUTOMATED)2025-03-27 17:08:28* Test Item Value Reference Range Interpretation Comme nts POCT GLU (test code = 0549941685) 126 mg/dL 70-110 H Lab Interpretation (test cod e = 77730-8) [facility] Ret[facility]peritoneal [id number] 15:13:02 EXAM: US RETROPERITONEAL LIMITED HISTORY: 79 years-old Female; rule out hydronephrosis or signs of CKD TECHNIQUE: Survey ultrasound of the kidneys was performed. Representativeimages were obtained for the record. COMPARISON: None FINDINGS: Limited study due to the patient's body habitus and limited mobility, aswell as shadowing from bowel gas. RIGHT KIDNEY:Size: The right kidney is small and measures 7.6 x 3.7 x 3.8 cm.Parenchyma: The renal cortex appears hyperechoic. No solid or cystic lesionis detected.Collecting System: No hydronephrosis is seen. LEFT KIDNEY:Size: The left kidney is smalland measures 9.2 x 4.7 x 4.6 cm.Parenchyma: The renal parenchyma exhibits normal cortical echogenicity andthickness. No solid or cystic lesion is detected.Collecting System: No hydronephrosis is seen.[facility] GLUCOSE (AUTOMATED)2025-03-27 14:34:25* Test Item Value Reference Range Interpretation Comme [facility] POCT GLU (test code = 7653585694) 128 mg/dL 70-110 H Lab Interpretation (test cod e = 16305-4) Abnormal [facility] GLUCOSE (AUTOMATED)2025-03-27 01:59:51* Test Item Value Reference Range Interpretation Comme [facility] POCT GLU (test code = 2054446275) 138 mg/dL 70-110 H Lab Interpretation (test cod e = 88786-0) Abnormal [facility] HospitalGlycosylated Hemoglobin [id number] 00:26:30 * Test Item Value Reference Range Interpretation Comme [facility] HGB A1C (test code = 4548-4) 7.3 % 4.0-5.7 H ZULMA (test code = ZULMA) Reference RangesNormal: <5.7%Prediabetes: 5.7 - 6.4%Diabetes: > 6.5% Lab Interpretation (test code = 09521-9) Abnormal [facility] HospitalLanvic Acid with 2 Hour [id number] 21:42:05* Test Item Value Reference Range Interpretation Comme [facility] LACTIC ACID (test code = 9437199475) 2.04 mmol/L 0.50-2.20 Lab Interpretation (test cod e = 95781-2) Normal [facility] 1 [id number] 21:30:14EXAM: XR CHEST 1 VW COMPARISON: None HISTORY: weakness, ? DEBBIE FINDINGS: Lungs: Low lung volumes. Nofocal consolidation, pleural effusion, orpneumothorax. Heart/Mediastinum: The cardiac silhouette appears normal. Bones and soft tissues: No acute findings are detected.[facility] Creatine [id number] 19:59:46* Test Item Value Reference Range Interpretation Comme nts CK (test code = 5893182405) 67 U/L 33-194 Lab Interpretation (test cod e = 85263-3) Normal [facility] HospitalLactic Acid with 2 Hour [id number] 19:45:28* Test Item Value Reference Range Interpretation Comme nts LACTIC ACID (test code = 2141432163) 2.55 mmol/L 0.50-2.20 H Lab Interpretation (test cod e = 48406-5) Abnormal [facility] VEN[facility] BLOOD [id number] 18:51:58 * Test Item Value Reference Range Interpretation Comme nts PH (test code = 6970525310) 7.27 7.32-7.42 L PCO2 ALEJANDRO (test code = 2079223993) 47 41-51 PO2 ALEJANDRO (test code = 5454731342) 26 25-40 HCO3 ALEJANDRO (test code = 9225536740) 21 24-28 L AC VBE (test code = 5611287362) -5.8 -3.0-3.0 Lab Interpretation (test cod e = 01348-1) Abnormal [facility] HospitalTROPONIN [id number] 18:24:15* Test Item Value Reference Range Interpretation Comme nts TROPONIN I (test code = 9548760565) 0.055 ng/mL <=0.034 H ZULMA (test code = ZULMA) Reference (Normal) Range (defined by the 99th percentile reference limit): <= 0.034 ng/mL Note: Cardiac troponin begins to rise 3-4 hours after the onset of ischemia. Repeat in 4-6 hours if the sample was drawn within 3-4 hours of the onset of the symptom and found normal. Diagnosis of myocardial injury is made with acute changes in cTn concentrations with at least one serial sample above the 99th percentile upper reference limit (URL), taken together with the patient's clinical presentation. Biotin has been reported to cause a negative bias, interpret results relative to patient's use of biotin. Lab Interpretation (test code = 31808-0) Abnormal [facility]. METABOLIC PANEL (48385)2025-03-26 18:22:27* Test Item Value Reference Range Interpretation Comme nts NA (test code = 9962286041) 146 mmol/L 135-145 H K (test code = 2814478203) 4.7 mmol/L 3.5-5.0 CL (test code = 7860419561) 109 mmol/L 98-108 H CO2 TOTAL (test code = 9143378368) 16 mmol/L 23-31 L AGAP (test code = 2214724994) 21 2-16 H BUN (test code = 6225379448) 144 mg/dL 7-23 H Previous prelimi nary verified result was >120 mg/dL on 03/26/2025 at 1240 CDT GLUCOSE (test code = 5078874984) 235 mg/dL 70-110 H CREATININE (test code = 2160-0) 3.56 mg/dL 0.50-1.04 H TOTAL BILI (test code = 7479957504) 1 mg/dL 0.1-1.1 CALCIUM (test code = 1810359711) 9.4 mg/dL 8.6-10.6 T PROTEIN (test code = 2775991894) 8.8 g/dL 6.3-8.2 H ALBUMIN (test code = 4771788123) 4.2 g/dL 3.5-5.0 ALK PHOS (test code = 1798476267) 93 U/L 34-122 ALTv (test code = 1742-6) 16 U/L 5-35 AST(SGOT) (test code = 9289759926) 20 U/L 13-40 eGFR (test code = 98067-5) 12.4 mL/min/1.73m2 CKD-EPI eGFR (20 21). Assuming creatinine has been stable day-to-day for at least three months, the eGFR indicates Category G5 (<= 14mL/min/1.73 m2) Lab Interpretation (test code = 02455-7) Abnormal [facility] HospitalThyroid Stimulating [id number] 18:03:30 * Test Item Value Reference Range Interpretation Comme nts TSH (test code = 4514309710) 2.42 0.45-4.70 Biotin has been reported to cause a negative bias, interpret results relative to patient's use of biotin. Lab Interpretation (test code = 83580-8) Normal [facility] WITH [id number] 17:53:37* Test Item Value Reference Range Interpretation Comme nts WBC (test code = 6690-2) 15.15 4.30-11.10 H RBC (test code = 789-8) 5.12 3.93-5.25 HGB (test code = 718-7) 14.2 g/dL 11.6-15.0 HCT (test code = 4544-3) 48 % 35.7-45.2 H MCV (test code = 787-2) 93.8 fL 80.6-95.5 MCH (test code = 785-6) 27.7 pg 25.9-32.8 MCHC (test code = 786-4) 29.6 g/dL 31.6-35.1 L RDW-SD (test code = 72839-9) 46.2 fL 39.0-49.9 RDW-CV (test code = 788-0) 13.4 % 12.0-15.5 PLT (test code = 777-3) 350 166-358 MPV (test code = 26444-5) 10.2 fL 9.5-12.9 NRBC/100 WBC (test code = 3848129129) 0 0.0-10.0 NRBC x10^3 (test code = 4801634840) See_Comment [Automated message] The system which generated this result transmitted reference range: 10*3/?L. The reference range was not used to interpret this result as normal/abnormal. GRAN MAT (NEUT) % (test code = 770-8) 81.2 % IMM GRAN % (test code = 5600251168) 2.2 % LYMPH % (test code = 736-9) 10.1 % MONO % (test code = 5905-5) 5.7 % EOS % (test code = 713-8) 0.3 % BASO % (test code = 706-2) 0.5 % GRAN MAT x10^3(ANC) (test code = 9806750063) 12.28 10*3/uL 1.88-7.09 H IMM GRAN x10^3 (test code = 5073627940) 0.34 10*3/uL 0.00-0.06 H LYMPH x10^3 (test code = 731-0) 1.53 10*3/uL 1.32-3.29 MONO x10^3 (test code = 742-7) 0.87 10*3/uL 0.33-0.92 EOS x10^3 (test code = 711-2) 0.05 10*3/uL 0.03-0.39 BASO x10^3 (test code = 704-7) 0.08 10*3/uL 0.01-0.07 H REACT LYMPHS (test code = 9626784252) Rare PLT ESTIMATE (test code = 9317-9) Normal Normal Lab Interpretation (test code = 96190-0) [facility]normal [facility] wo [id number] 17:46:34CT HEAD WO CONTRAST HISTORY: Mental status change, unknown cause COMPARISON: None TECHNIQUE: Non-contrast CT head with multi-planar reformats. FINDINGS: The ventricles and cerebral sulci are normal in caliber and configuration.No hydrocephalus, midline shift or pathological extra-axial fluidcollection is present. The basal cisterns are unremarkable. There is no acute intracranial hemorrhage or significant mass effect. Noparenchymal attenuation abnormality. The florian-white matter differentiationis preserved. Partial right mastoidectomy with opacification of the residual rightmastoid air cells and right tympanic cavity. The calvarium and centralskull base are unremarkable.[facility] HospitalMagnesium2025-09-10 17:33:46* Test Item Value Reference Range Interpretation Comme nts MAGNESIUM (test code = 0618611581) 2.9 mg/dL 1.7-2.4 H Lab Interpretation (test cod e = 22686-7) Abnormal [facility] HospitalCritical [id number] 16:05:00Leandro Lau DO ? ? 03/26/2025 11:18 PMCritical Care Performed by: Farrah Espitia FNPAuthorized by: Farrah Espitia FNP ?Critical care provider statement: ?Critical care time (minutes): ?35 ?Critical care time was exclusive of: ?Separately billable procedures and treating other patients and teaching time ?Critical care was necessary to treat or prevent imminent or life-threatening deterioration of the following conditions: ?Renal failure, shock, sepsis and dehydration ?Critical care was time spent personally by me on the following activities: ?Development of treatment plan with patientor surrogate, evaluation of patient's response to treatment, examination of patient, obtaining history from patient or surrogate, re-evaluation of patient's condition, pulse oximetry, ordering and review of radiographic studies, ordering and review of laboratory studies and ordering and performing treatments and interventions ?Care discussed with: admitting provider and accepting provider at another facility ?[facility] HospitalCOMPREHENSIVE METABOLIC [id number] 00:00:00* Test Item Value Reference Range Interpretation Comme nts GLUCOSE (test code = 2345-7) 118 mg/dL UREA NITROGEN (BUN) (test code = 3094-0) 26 mg/dL CREATININE (test code = 2160-0) 1.50 mg/dL EGFR (test code = 79453-8) 35 mL/min/1.73m2 BUN/CREATININE RATIO (test code = 3097-3) 17 (calc) SODIUM (test code = 2951-2) 137 mmol/L POTASSIUM (test code = 2823-3) 3.8 mmol/L CHLORIDE (test code = 2075-0) 106 mmol/L CARBON DIOXIDE (test code = 2027-9) 26 mmol/L CALCIUM (test code = 64272-3) 8.6 mg/dL PROTEIN, TOTAL (test code = 2885-2) 6.4 g/dL ALBUMIN (test code = 1751-7) 3.8 g/dL GLOBULIN (test code = 93059-3) 2.6 g/dL(calc) ALBUMIN/GLOBULIN RATIO (test code = 1759-0) 1.5 (calc) BILIRUBIN, TOTAL (test code = 1975-2) 0.8 mg/dL ALKALINE PHOSPHATASE (test code = 6768-6) 100 U/L AST (test code = 1920-8) 18 U/L ALT (test code = 1742-6) 6 U/L Kentrell AlmanzaHEMOGLOBIN [id number] 00:00:00* Test Item Value Reference Range Interpretation Comme nts HEMOGLOBIN A1c (test code = 4548-4) 6.8 % Kentrell AlmanzaLIPID [id number] 00:00:00* Test Item Value Reference Range Interpretation Comme nts CHOLESTEROL, TOTAL (test cod e = 2093-3) 214 mg/dL HDL CHOLESTEROL (test code = 2085-9) 64 mg/dL TRIGLYCERIDES (test code = 2571-8) 127 mg/dL LDL-CHOLESTEROL (test code = 01284-2) 126 mg/dL(calc) CHOL/HDLC RATIO (test code = 9830-1) 3.3 (calc) NON HDL CHOLESTEROL (test code = 38557-8) 150 mg/dL(calc) Kentrell AlmanzaRjfiusDBL4702-95-88 00:00:00* Test Item Value Reference Range Interpretation Comme nts TSH (test code = 3016-3) 4.14 mIU/L Kentrell AlmanzaCOMPREHENSIVE METABOLIC [id number] 00:00:00* Test Item Value Reference Range Interpretation Comme nts GLUCOSE (test code = 2345-7) 118 mg/dL UREA NITROGEN (BUN) (test code = 3094-0) 26 mg/dL CREATININE (test code = 2160-0) 1.50 mg/dL EGFR (test code = 04946-6) 35 mL/min/1.73m2 BUN/CREATININE RATIO (test code = 3097-3) 17 (calc) SODIUM (test code = 2951-2) 137 mmol/L POTASSIUM (test code = 2823-3) 3.8 mmol/L CHLORIDE (test code = 2075-0) 106 mmol/L CARBON DIOXIDE (test code = 2027-9) 26 mmol/L CALCIUM (test code = 45987-6) 8.6 mg/dL PROTEIN, TOTAL (test code = 2885-2) 6.4 g/dL ALBUMIN (test code = 1751-7) 3.8 g/dL GLOBULIN (test code = 05082-3) 2.6 g/dL(calc) ALBUMIN/GLOBULIN RATIO (test code = 1759-0) 1.5 (calc) BILIRUBIN, TOTAL (test code = 1975-2) 0.8 mg/dL ALKALINE PHOSPHATASE (test code = 6768-6) 100 U/L AST (test code = 1920-8) 18 U/L ALT (test code = 1742-6) 6 U/L Kentrell AlmanzaHEMOGLOBIN [id number] 00:00:00* Test Item Value Reference Range Interpretation Comme nts HEMOGLOBIN A1c (test code = 4548-4) 6.8 % Kentrell AlmanzaLIPID [id number] 00:00:00* Test Item Value Reference Range Interpretation Comme nts CHOLESTEROL, TOTAL (test cod e = 2093-3) 214 mg/dL HDL CHOLESTEROL (test code = 2085-9) 64 mg/dL TRIGLYCERIDES (test code = 2571-8) 127 mg/dL LDL-CHOLESTEROL (test code = 45822-2) 126 mg/dL(calc) CHOL/HDLC RATIO (test code = 9830-1) 3.3 (calc) NON HDL CHOLESTEROL (test code = 67840-1) 150 mg/dL(calc) Kentrell [id number] 00:00:00* Test Item Value Reference Range Interpretation Comme nts TSH (test code = 3016-3) 4.14 mIU/L Kentrell AlmanzaALBUMIN/CREATININE RATIO, URINE, [id number] 05:56:30* Test Item Value Reference Range Interpretation Comme nts CREATININE, URINE, CONC. (test code = 207) 83.5 MG/DL NOT ESTAB ALBUMIN, URINE, RANDOM (test code = 22596) 1.6 MG/DL NOT ESTAB CALC ALBUMIN/CREAT, RND (test code = 62894) 19 MG/G <30 Note: Albumin/Cr eatinine ratio reference interval reflects ADA and NKF guidelines. UNLESS OTHERWISE INDICATED, ALL TESTING PERFORMED AT [facility] [address] [place] [id number] [place] HEAD: YING ABRAMS M.D. CLIA NUMBER [id number] [place]. [id number] ALBUMIN/CREATININE RATIO, RANDOM [id number] 00:00:00* Test Item Value Reference Range Interpretation Comme nts CREATININE, URINE, CONC. (te st code = 207) 83.5 MG/DL ALBUMIN, URINE, RANDOM (test code = 25987) 1.6 MG/DL CALC ALBUMIN/CREAT, RND (mayo t code = 14325) 19 MG/G Kentrell AlmanzaALBUMIN/CREATININE RATIO, RANDOM [id number] 00:00:00* Test Item Value Reference Range Interpretation Comme nts CREATININE, URINE, CONC. (te st code = 2071) 83.5 MG/DL ALBUMIN, URINE, RANDOM (test code = 30376) 1.6 MG/DL CALC ALBUMIN/CREAT, RND (mayo t code = 50357) 19 MG/G Kentrell AlmanzaALBUMIN/CREATININE RATIO, RANDOM [id number] 00:00:00* Test Item Value Reference Range Interpretation Comme nts CREATININE, URINE, CONC. (te st code = 2071) 83.5 MG/DL ALBUMIN, URINE, RANDOM (test code = 73656) 1.6 MG/DL CALC ALBUMIN/CREAT, RND (mayo t code = 75876) 19 MG/G Kentrell AlmanzaCOMPREHENSIVE METABOLIC [id number] 05:08:30* Test Item Value Reference Range Interpretation Comme nts GLUCOSE (test code = 2216) 149 MG/DL 70-99 H BUN (test code = 2207) 21 MG/DL 8-23 CREATININE (test code = 221) 1.43 MG/DL 0.60-1.30 H eGFR (2020 CKD-EPI) (test co de = 93396) 37 ML/MIN/1.73 >60 L CALC BUN/CREAT (test code = 2235) 15 RATIO 6-28 SODIUM (test code = 223) 143 MEQ/L 133-146 POTASSIUM (test code = 2228) 4.0 MEQ/L 3.5-5.4 CHLORIDE (test code = 2215) 104 MEQ/L 95-107 CARBON DIOXIDE (test code = 2206) 26 MEQ/L 19-31 CALCIUM (test code = 2209) 9.4 MG/DL 8.5-10.5 PROTEIN, TOTAL (test code = 222) 7.0 G/DL 6.1-8.3 ALBUMIN (test code = 220) 4.2 G/DL 3.5-5.2 CALC GLOBULIN (test code = 2240) 2.8 G/DL 1.9-3.7 CALC A/G RATIO (test code = 2234) 1.5 RATIO 1.0-2.6 BILIRUBIN, TOTAL (test code = 2207) 0.7 MG/DL <=1.2 ALKALINE PHOSPHATASE (test code = 2204) 102 U/L 40-142 AST (test code = 2218) 18 U/L 9-40 ALT (test code = 2219) 12 U/L 5-40 LIPID [id number] 05:08:30* Test Item Value Reference Range Interpretation Comme nts CHOLESTEROL (test code = 2210) 217 MG/DL <200 H TRIGLYCERIDES (test code = 2232) 99 MG/DL <150 HDL CHOLESTEROL (test code = 2220) 66 MG/DL >39 CALC LDL CHOL (test code = 2237) 130 MG/DL <100 H NOTE: CALCULATED LDL IS BASED ON BENSON-VARGAS METHOD WHICHINCLUDES ADJUSTABLE TRIGLYCERIDE:VLDL CHOLESTEROL RATIO.THIS FACTOR VARIES BY MEASURED TRIGLYCERIDE AND NON-HDLCHOLESTEROL CONCENTRATIONS WITH INCREASED CALCULATED LDL SEENIN HIGHER TRIGLYCERIDE OR LOWER NON-HDL SPECIMENS. FOR MOREINFORMATION, SEE CLIENT ANNOUNCEMENT AT [email or web address] RISK RATIO LDL/HDL (test code = 2238) 1.97 RATIO <3.22 HEMOGLOBIN [id number] 02:52:01* Test Item Value Reference Range Interpretation Comme nts HEMOGLOBIN A1c (test code = 05214) 6.0 % 4.2-5.6 H [employer] GUIDELINES FOR HGB A1C: PREDIABETES/INCREASED RISK . . . . . . . 5.7-6.4% DIAGNOSIS OF DIABETES . . . . . . . . . >=6.5% WITH CONFIRMATION OR APPROPRIATE SYMPTOMS NOTE: ASSAY MAY BE AFFECTED BY HEMOGLOBINOPATHIES (SICKLE CELL ANEMIA, S-C DISEASE, OTHERS) OR ARTIFICIALLY LOWERED BY DECREASED RED CELL SURVIVAL (HEMOLYTIC ANEMIAS, BLOOD LOSS, ETC.). CONSIDER ALTERNATE TESTING OR LABORATORY CONSULTATION. UNLESS OTHERWISE INDICATED, ALL TESTING PERFORMED AT [facility] [address] [place] [address] BUTCHER HEAD: YING ABRAMS M.D. CLIA NUMBER [id number] [facility] [place]. [id number] COMPREHENSIVE METABOLIC [id number] 00:00:00* Test Item Value Reference Range Interpretation Comme nts GLUCOSE (test code = 2217) 149 MG/DL BUN (test code = 2208) 21 MG/DL CREATININE (test code = 2214) 1.43 MG/DL eGFR (2020 CKD-EPI) (test co de = 22503) 37 ML/MIN/1.73 CALC BUN/CREAT (test code = 2235) 15 RATIO SODIUM (test code = 2231) 143 MEQ/L POTASSIUM (test code = 2228) 4.0 MEQ/L CHLORIDE (test code = 2215) 104 MEQ/L CARBON DIOXIDE (test code = 2206) 26 MEQ/L CALCIUM (test code = 2209) 9.4 MG/DL PROTEIN, TOTAL (test code = 2229) 7.0 G/DL ALBUMIN (test code = 2201) 4.2 G/DL CALC GLOBULIN (test code = 2240) 2.8 G/DL CALC A/G RATIO (test code = 2234) 1.5 RATIO BILIRUBIN, TOTAL (test code = 2207) 0.7 MG/DL ALKALINE PHOSPHATASE (test code = 2204) 102 U/L AST (test code = 2218) 18 U/L ALT (test code = 2219) 12 U/L Kentrell AlmanzaLIPID [id number] 00:00:00* Test Item Value Reference Range Interpretation Comme nts CHOLESTEROL (test code = 2210) 217 MG/DL TRIGLYCERIDES (test code = 2232) 99 MG/DL HDL CHOLESTEROL (test code = 2220) 66 MG/DL CALC LDL CHOL (test code = 2237) 130 MG/DL RISK RATIO LDL/HDL (test cod e = 2238) 1.97 RATIO Kentrell AlmanzaHEMOGLOBIN [id number] 00:00:00* Test Item Value Reference Range Interpretation Comme nts HEMOGLOBIN A1c (test code = 82721) 6.0 % Kentrell AlmanzaCOMPREHENSIVE METABOLIC [id number] 00:00:00* Test Item Value Reference Range Interpretation Comme nts GLUCOSE (test code = 2217) 149 MG/DL BUN (test code = 2208) 21 MG/DL CREATININE (test code = 2214) 1.43 MG/DL eGFR (2020 CKD-EPI) (test co de = 82401) 37 ML/MIN/1.73 CALC BUN/CREAT (test code = 2235) 15 RATIO SODIUM (test code = 2231) 143 MEQ/L POTASSIUM (test code = 2228) 4.0 MEQ/L CHLORIDE (test code = 2215) 104 MEQ/L CARBON DIOXIDE (test code = 2206) 26 MEQ/L CALCIUM (test code = 2209) 9.4 MG/DL PROTEIN, TOTAL (test code = 2229) 7.0 G/DL ALBUMIN (test code = 2201) 4.2 G/DL CALC GLOBULIN (test code = 2240) 2.8 G/DL CALC A/G RATIO (test code = 2234) 1.5 RATIO BILIRUBIN, TOTAL (test code = 2207) 0.7 MG/DL ALKALINE PHOSPHATASE (test code = 2204) 102 U/L AST (test code = 2218) 18 U/L ALT (test code = 2219) 12 U/L Kentrell AlmanzaLIPID [id number] 00:00:00* Test Item Value Reference Range Interpretation Comme nts CHOLESTEROL (test code = 2210) 217 MG/DL TRIGLYCERIDES (test code = 2232) 99 MG/DL HDL CHOLESTEROL (test code = 2220) 66 MG/DL CALC LDL CHOL (test code = 2237) 130 MG/DL RISK RATIO LDL/HDL (test cod e = 2238) 1.97 RATIO Kentrell AlmanzaHEMOGLOBIN [id number] 00:00:00* Test Item Value Reference Range Interpretation Comme [facility] HEMOGLOBIN A1c (test code = 00944) 6.0 % Kentrell AlmanzaCOMPREHENSIVE METABOLIC [id number] 00:00:00* Test Item Value Reference Range Interpretation Comme nts GLUCOSE (test code = 2217) 149 MG/DL BUN (test code = 2208) 21 MG/DL CREATININE (test code = 2214) 1.43 MG/DL eGFR (2020 CKD-EPI) (test co de = 88367) 37 ML/MIN/1.73 CALC BUN/CREAT (test code = 2235) 15 RATIO SODIUM (test code = 2231) 143 MEQ/L POTASSIUM (test code = 2228) 4.0 MEQ/L CHLORIDE (test code = 2215) 104 MEQ/L CARBON DIOXIDE (test code = 2206) 26 MEQ/L CALCIUM (test code = 2209) 9.4 MG/DL PROTEIN, TOTAL (test code = 2229) 7.0 G/DL ALBUMIN (test code = 2201) 4.2 G/DL CALC GLOBULIN (test code = 2240) 2.8 G/DL CALC A/G RATIO (test code = 2234) 1.5 RATIO BILIRUBIN, TOTAL (test code = 2207) 0.7 MG/DL ALKALINE PHOSPHATASE (test code = 2204) 102 U/L AST (test code = 2218) 18 U/L ALT (test code = 2219) 12 U/L Kentrell Tomas AustinLIPID [id number] 00:00:00* Test Item Value Reference Range Interpretation Comme nts CHOLESTEROL (test code = 2210) 217 MG/DL TRIGLYCERIDES (test code = 2232) 99 MG/DL HDL CHOLESTEROL (test code = 2220) 66 MG/DL CALC LDL CHOL (test code = 2237) 130 MG/DL RISK RATIO LDL/HDL (test cod e = 2238) 1.97 RATIO Kentrell AlmanzaHEMOGLOBIN [id number] 00:00:00* Test Item Value Reference Range Interpretation Comme nts HEMOGLOBIN A1c (test code = 09882) 6.0 % Kentrell AlmanzaCOMPREHENSIVE METABOLIC [id number] 00:00:00* Test Item Value Reference Range Interpretation Comme nts GLUCOSE (test code = 2217) 149 MG/DL BUN (test code = 2208) 21 MG/DL CREATININE (test code = 2214) 1.43 MG/DL eGFR (2020 CKD-EPI) (test co de = 47024) 37 ML/MIN/1.73 CALC BUN/CREAT (test code = 2235) 15 RATIO SODIUM (test code = 2231) 143 MEQ/L POTASSIUM (test code = 2228) 4.0 MEQ/L CHLORIDE (test code = 2215) 104 MEQ/L CARBON DIOXIDE (test code = 2206) 26 MEQ/L CALCIUM (test code = 2209) 9.4 MG/DL PROTEIN, TOTAL (test code = 2229) 7.0 G/DL ALBUMIN (test code = 2201) 4.2 G/DL CALC GLOBULIN (test code = 2240) 2.8 G/DL CALC A/G RATIO (test code = 2234) 1.5 RATIO BILIRUBIN, TOTAL (test code = 2207) 0.7 MG/DL ALKALINE PHOSPHATASE (test code = 2204) 102 U/L AST (test code = 2218) 18 U/L ALT (test code = 2219) 12 U/L Kentrell AlmanzaLIPID [id number] 00:00:00* Test Item Value Reference Range Interpretation Comme nts CHOLESTEROL (test code = 2210) 217 MG/DL TRIGLYCERIDES (test code = 2232) 99 MG/DL HDL CHOLESTEROL (test code = 2220) 66 MG/DL CALC LDL CHOL (test code = 2237) 130 MG/DL RISK RATIO LDL/HDL (test cod e = 2238) 1.97 RATIO Kentrell AlmanzaHEMOGLOBIN [id number] 00:00:00* Test Item Value Reference Range Interpretation Comme nts HEMOGLOBIN A1c (test code = 46066) 6.0 % Kentrell Tomas AustinLIPID [id number] 05:05:28* Test Item Value Reference Range Interpretation Comme nts CHOLESTEROL (test code = 2210) 205 MG/DL <200 H TRIGLYCERIDES (test code = 2232) 125 MG/DL <150 HDL CHOLESTEROL (test code = 2220) 63 MG/DL >39 CALC LDL CHOL (test code = 2237) 118 MG/DL <100 H NOTE: CALCULATED LDL IS BASED ON BENSON-VARGAS METHOD WHICHINCLUDES ADJUSTABLE TRIGLYCERIDE:VLDL CHOLESTEROL RATIO.THIS FACTOR VARIES BY MEASURED TRIGLYCERIDE AND NON-HDLCHOLESTEROL CONCENTRATIONS WITH INCREASED CALCULATED LDL SEENIN HIGHER TRIGLYCERIDE OR LOWER NON-HDL SPECIMENS. FOR MOREINFORMATION, SEE CLIENT ANNOUNCEMENT AT [email or web address] RISK RATIO LDL/HDL (test code = 2238) 1.87 RATIO <3.22 COMPREHENSIVE METABOLIC [id number] 05:05:28* Test Item Value Reference Range Interpretation Comme nts GLUCOSE (test code = 2217) 125 MG/DL 70-99 H BUN (test code = 2208) 22 MG/DL 8-23 CREATININE (test code = 2214) 1.30 MG/DL 0.60-1.30 eGFR (2020 CKD-EPI) (test code = 18340) 42 ML/MIN/1.73 >60 L CALC BUN/CREAT (test code = 2235) 17 RATIO 6-28 SODIUM (test code = 2231) 144 MEQ/L 133-146 POTASSIUM (test code = 2228) 3.9 MEQ/L 3.5-5.4 CHLORIDE (test code = 2215) 108 MEQ/L 95-107 H CARBON DIOXIDE (test code = 2206) 23 MEQ/L 19-31 CALCIUM (test code = 2209) 8.5 MG/DL 8.5-10.5 PROTEIN, TOTAL (test code = 2229) 6.3 G/DL 6.1-8.3 ALBUMIN (test code = 2201) 4.0 G/DL 3.5-5.2 CALC GLOBULIN (test code = 2240) 2.3 G/DL 1.9-3.7 CALC A/G RATIO (test code = 2234) 1.7 RATIO 1.0-2.6 BILIRUBIN, TOTAL (test code = 2207) 0.5 MG/DL See_Comment [Automated me ssage] The system which generated this result transmitted reference range: <=1.2. The reference range was not used to interpret this result as normal/abnormal. ALKALINE PHOSPHATASE (test code = 2204) 92 U/L 40-142 AST (test code = 2218) 17 U/L 9-40 ALT (test code = 2219) 11 U/L 5-40 UNLESS OTHERWISE INDICATED, ALL TESTING PERFORMED [facility] [address] [place] [address] BUTCHER HEAD: ROBIN KING M.D. IA NUMBER [id number] [facility] [place]. [id number] HEMOGLOBIN [id number] 02:12:00* Test Item Value Reference Range Interpretation Comme nts HEMOGLOBIN A1c (test code = 37720) 6.6 % 4.2-5.6 H [employer] GUIDELINES FOR HGB A1C: PREDIABETES/INCREASED RISK . . . . . . . 5.7-6.4% DIAGNOSIS OF DIABETES . . . . . . . . . >=6.5% WITH CONFIRMATION OR APPROPRIATE SYMPTOMS NOTE: ASSAY MAY BE AFFECTED BY HEMOGLOBINOPATHIES (SICKLE CELL ANEMIA, S-C DISEASE, OTHERS) OR ARTIFICIALLY LOWERED BY DECREASED RED CELL SURVIVAL (HEMOLYTIC ANEMIAS, BLOOD LOSS, ETC.). CONSIDER ALTERNATE TESTING OR LABORATORY CONSULTATION. HEMOGLOBIN [id number] 00:00:00* Test Item Value Reference Range Interpretation Comme nts HEMOGLOBIN A1c (test code = 22794) 6.6 % Kentrell Tomas AustinLIPID [id number] 00:00:00* Test Item Value Reference Range Interpretation Comme nts CHOLESTEROL (test code = 2210) 205 MG/DL TRIGLYCERIDES (test code = 2232) 125 MG/DL HDL CHOLESTEROL (test code = 2220) 63 MG/DL CALC LDL CHOL (test code = 2237) 118 MG/DL RISK RATIO LDL/HDL (test cod e = 2238) 1.87 RATIO Kentrell AlmanzaCOMPREHENSIVE METABOLIC [id number] 00:00:00* Test Item Value Reference Range Interpretation Comme nts GLUCOSE (test code = 2217) 125 MG/DL BUN (test code = 2208) 22 MG/DL CREATININE (test code = 2214) 1.30 MG/DL eGFR (2020 CKD-EPI) (test co de = 10223) 42 ML/MIN/1.73 CALC BUN/CREAT (test code = 2235) 17 RATIO SODIUM (test code = 2231) 144 MEQ/L POTASSIUM (test code = 2228) 3.9 MEQ/L CHLORIDE (test code = 2215) 108 MEQ/L CARBON DIOXIDE (test code = 2206) 23 MEQ/L CALCIUM (test code = 2209) 8.5 MG/DL PROTEIN, TOTAL (test code = 2229) 6.3 G/DL ALBUMIN (test code = 2201) 4.0 G/DL CALC GLOBULIN (test code = 2240) 2.3 G/DL CALC A/G RATIO (test code = 2234) 1.7 RATIO BILIRUBIN, TOTAL (test code = 2207) 0.5 MG/DL ALKALINE PHOSPHATASE (test code = 2204) 92 U/L AST (test code = 2218) 17 U/L ALT (test code = 2219) 11 U/L Kentrell AlmanzaHEMOGLOBIN [id number] 00:00:00* Test Item Value Reference Range Interpretation Comme nts HEMOGLOBIN A1c (test code = 05559) 6.6 % Kentrell AlmanzaLIPID [id number] 00:00:00* Test Item Value Reference Range Interpretation Comme nts CHOLESTEROL (test code = 2210) 205 MG/DL TRIGLYCERIDES (test code = 2232) 125 MG/DL HDL CHOLESTEROL (test code = 2220) 63 MG/DL CALC LDL CHOL (test code = 2237) 118 MG/DL RISK RATIO LDL/HDL (test cod e = 2238) 1.87 RATIO Kentrell Tomas AustinCOMPREHENSIVE METABOLIC [id number] 00:00:00* Test Item Value Reference Range Interpretation Comme nts GLUCOSE (test code = 2217) 125 MG/DL BUN (test code = 2208) 22 MG/DL CREATININE (test code = 2214) 1.30 MG/DL eGFR (2020 CKD-EPI) (test co de = 41712) 42 ML/MIN/1.73 CALC BUN/CREAT (test code = 2235) 17 RATIO SODIUM (test code = 2231) 144 MEQ/L POTASSIUM (test code = 2228) 3.9 MEQ/L CHLORIDE (test code = 2215) 108 MEQ/L CARBON DIOXIDE (test code = 2206) 23 MEQ/L CALCIUM (test code = 2209) 8.5 MG/DL PROTEIN, TOTAL (test code = 2229) 6.3 G/DL ALBUMIN (test code = 2201) 4.0 G/DL CALC GLOBULIN (test code = 2240) 2.3 G/DL CALC A/G RATIO (test code = 2234) 1.7 RATIO BILIRUBIN, TOTAL (test code = 2207) 0.5 MG/DL ALKALINE PHOSPHATASE (test code = 2204) 92 U/L AST (test code = 2218) 17 U/L ALT (test code = 2219) 11 U/L Kentrell AlmanzaHEMOGLOBIN [id number] 00:00:00* Test Item Value Reference Range Interpretation Comme nts HEMOGLOBIN A1c (test code = 80710) 6.6 % Kentrell AlmanzaLIPID [id number] 00:00:00* Test Item Value Reference Range Interpretation Comme nts CHOLESTEROL (test code = 2210) 205 MG/DL TRIGLYCERIDES (test code = 2232) 125 MG/DL HDL CHOLESTEROL (test code = 2220) 63 MG/DL CALC LDL CHOL (test code = 2237) 118 MG/DL RISK RATIO LDL/HDL (test cod e = 2238) 1.87 RATIO Kentrell AlmanzaCOMPREHENSIVE METABOLIC [id number] 00:00:00* Test Item Value Reference Range Interpretation Comme nts GLUCOSE (test code = 2217) 125 MG/DL BUN (test code = 2208) 22 MG/DL CREATININE (test code = 2214) 1.30 MG/DL eGFR (2020 CKD-EPI) (test co de = 62345) 42 ML/MIN/1.73 CALC BUN/CREAT (test code = 2235) 17 RATIO SODIUM (test code = 2231) 144 MEQ/L POTASSIUM (test code = 2228) 3.9 MEQ/L CHLORIDE (test code = 2215) 108 MEQ/L CARBON DIOXIDE (test code = 2206) 23 MEQ/L CALCIUM (test code = 2209) 8.5 MG/DL PROTEIN, TOTAL (test code = 2229) 6.3 G/DL ALBUMIN (test code = 2201) 4.0 G/DL CALC GLOBULIN (test code = 2240) 2.3 G/DL CALC A/G RATIO (test code = 2234) 1.7 RATIO BILIRUBIN, TOTAL (test code = 2207) 0.5 MG/DL ALKALINE PHOSPHATASE (test code = 2204) 92 U/L AST (test code = 2218) 17 U/L ALT (test code = 2219) 11 U/L Kentrell AlmanzaHEMOGLOBIN [id number] 00:00:00* Test Item Value Reference Range Interpretation Comme nts HEMOGLOBIN A1c (test code = 14590) 6.6 % Kentrell AlmanzaLIPID [id number] 00:00:00* Test Item Value Reference Range Interpretation Comme nts CHOLESTEROL (test code = 2210) 205 MG/DL TRIGLYCERIDES (test code = 2232) 125 MG/DL HDL CHOLESTEROL (test code = 2220) 63 MG/DL CALC LDL CHOL (test code = 2237) 118 MG/DL RISK RATIO LDL/HDL (test cod e = 2238) 1.87 RATIO Kentrell AlmanzaCOMPREHENSIVE METABOLIC [id number] 00:00:00* Test Item Value Reference Range Interpretation Comme nts GLUCOSE (test code = 2217) 125 MG/DL BUN (test code = 2208) 22 MG/DL CREATININE (test code = 2214) 1.30 MG/DL eGFR (2020 CKD-EPI) (test co de = 40450) 42 ML/MIN/1.73 CALC BUN/CREAT (test code = 2235) 17 RATIO SODIUM (test code = 2231) 144 MEQ/L POTASSIUM (test code = 2228) 3.9 MEQ/L CHLORIDE (test code = 2215) 108 MEQ/L CARBON DIOXIDE (test code = 2206) 23 MEQ/L CALCIUM (test code = 2209) 8.5 MG/DL PROTEIN, TOTAL (test code = 2229) 6.3 G/DL ALBUMIN (test code = 2201) 4.0 G/DL CALC GLOBULIN (test code = 2240) 2.3 G/DL CALC A/G RATIO (test code = 2234) 1.7 RATIO BILIRUBIN, TOTAL (test code = 2207) 0.5 MG/DL ALKALINE PHOSPHATASE (test code = 2204) 92 U/L AST (test code = 2218) 17 U/L ALT (test code = 2219) 11 U/L Kentrell AlmanzaHEMOGLOBIN [id number] 00:00:00* Test Item Value Reference Range Interpretation Comme nts HEMOGLOBIN A1c (test code = 21859) 6.6 % Kentrell Tomas AustinLIPID [id number] 00:00:00* Test Item Value Reference Range Interpretation Comme nts CHOLESTEROL (test code = 2210) 205 MG/DL TRIGLYCERIDES (test code = 2232) 125 MG/DL HDL CHOLESTEROL (test code = 2220) 63 MG/DL CALC LDL CHOL (test code = 2237) 118 MG/DL RISK RATIO LDL/HDL (test cod e = 2238) 1.87 RATIO Kentrell AlmanzaCOMPREHENSIVE METABOLIC [id number] 00:00:00* Test Item Value Reference Range Interpretation Comme nts GLUCOSE (test code = 2217) 125 MG/DL BUN (test code = 2208) 22 MG/DL CREATININE (test code = 2214) 1.30 MG/DL eGFR (2020 CKD-EPI) (test co de = 10889) 42 ML/MIN/1.73 CALC BUN/CREAT (test code = 2235) 17 RATIO SODIUM (test code = 2231) 144 MEQ/L POTASSIUM (test code = 2228) 3.9 MEQ/L CHLORIDE (test code = 2215) 108 MEQ/L CARBON DIOXIDE (test code = 2206) 23 MEQ/L CALCIUM (test code = 2209) 8.5 MG/DL PROTEIN, TOTAL (test code = 2229) 6.3 G/DL ALBUMIN (test code = 2201) 4.0 G/DL CALC GLOBULIN (test code = 2240) 2.3 G/DL CALC A/G RATIO (test code = 2234) 1.7 RATIO BILIRUBIN, TOTAL (test code = 2207) 0.5 MG/DL ALKALINE PHOSPHATASE (test code = 2204) 92 U/L AST (test code = 2218) 17 U/L ALT (test code = 2219) 11 U/L Kentrell AlmanzaHEMOGLOBIN [id number] 09:35:46* Test Item Value Reference Range Interpretation Comme nts HEMOGLOBIN A1c (test code = 79532) 6.2 % 4.2-5.6 H UNLESS OTHERWISE INDICATED, ALL TESTING PERFORMED [facility] [address] [place] [address] BUTCHER HEAD: ROBIN KING M.D. IA NUMBER [id number] [facility] [place]. [id number] CBC W/AUTO DIFF WITH [id number] 08:35:24* Test Item Value Reference Range Interpretation Comme nts WBC (test code = 1001) 6.5 K/UL 3.5-11.0 RBC (test code = 1002) 4.00 M/UL 3.80-5.40 HEMOGLOBIN (test code = 1003) 11.8 G/DL 11.5-15.5 HEMATOCRIT (test code = 1004) 35.3 % 34.0-45.0 MCV (test code = 1005) 88.3 fL 80.0-99.0 MCH (test code = 1006) 29.5 PG 25.0-33.0 MCHC (test code = 1007) 33.4 G/DL 31.0-36.0 RDW (test code = 1038) 13.4 % 11.5-15.0 NEUTROPHILS (test code = 1008) 52.8 % LYMPHOCYTES (test code = 1010) 32.1 % MONOCYTES (test code = 1011) 6.4 % EOSINOPHILS (test code = 1012) 6.6 % BASOPHILS (test code = 1013) 1.8 % IMMATURE GRANULOCYTES (test code = 1036) 0.3 % NUCLEATED RBCS (test code = 1065) 0.0 /100 WBC'S See_Comment [Automated messa ge] The system which generated this result transmitted reference range: 0.0. The reference range was not used to interpret this result as normal/abnormal. PLATELET COUNT (test code = 1015) 255 K/UL 130-400 ABSOLUTE NEUTROPHILS (test code = 1066) 3.44 K/UL 1.50-7.50 ABSOLUTE LYMPHOCYTES (test code = 1067) 2.09 K/UL 1.00-4.00 ABSOLUTE MONOCYTES (test code = 1068) 0.42 K/UL 0.20-1.00 ABSOLUTE EOSINOPHILS (test code = 1040) 0.43 K/UL 0.00-0.50 ABSOLUTE BASOPHILS (test code = 1069) 0.12 K/UL 0.00-0.20 ABS IMMATURE GRANULOCYTES (test code = 1020) 0.02 K/UL 0.00-0.10 ABS NUCLEATED RBCS (test code = 84634) 0.00 K/UL 0.00-0.11 CBC W/AUTO [id number] 00:00:00* Test Item Value Reference Range Interpretation Comme nts WBC (test code = 1001) 6.5 K/UL RBC (test code = 1002) 4.00 M/UL HEMOGLOBIN (test code = 1003) 11.8 G/DL HEMATOCRIT (test code = 1004) 35.3 % MCV (test code = 1005) 88.3 fL MCH (test code = 1006) 29.5 PG MCHC (test code = 1007) 33.4 G/DL RDW (test code = 1038) 13.4 % NEUTROPHILS (test code = 1008) 52.8 % LYMPHOCYTES (test code = 1010) 32.1 % MONOCYTES (test code = 1011) 6.4 % EOSINOPHILS (test code = 1012) 6.6 % BASOPHILS (test code = 1013) 1.8 % IMMATURE GRANULOCYTES (test code = 1036) 0.3 % NUCLEATED RBCS (test code = 1065) 0.0 /100WBC'S PLATELET COUNT (test code = 1015) 255 K/UL ABSOLUTE NEUTROPHILS (test c ode = 1066) 3.44 K/UL ABSOLUTE LYMPHOCYTES (test c ode = 1067) 2.09 K/UL ABSOLUTE MONOCYTES (test cod e = 1068) 0.42 K/UL ABSOLUTE EOSINOPHILS (test c ode = 1040) 0.43 K/UL ABSOLUTE BASOPHILS (test cod e = 1069) 0.12 K/UL ABS IMMATURE GRANULOCYTES (t est code = 1020) 0.02 K/UL ABS NUCLEATED RBCS (test cod e = 74517) 0.00 K/UL HEMOGLOBIN [id number] 00:00:00* Test Item Value Reference Range Interpretation Comme nts HEMOGLOBIN A1c (test code = 91756) 6.2 % CBC W/AUTO [id number] 00:00:00* Test Item Value Reference Range Interpretation Comme nts WBC (test code = 1001) 6.5 K/UL RBC (test code = 1002) 4.00 M/UL HEMOGLOBIN (test code = 1003) 11.8 G/DL HEMATOCRIT (test code = 1004) 35.3 % MCV (test code = 1005) 88.3 fL MCH (test code = 1006) 29.5 PG MCHC (test code = 1007) 33.4 G/DL RDW (test code = 1038) 13.4 % NEUTROPHILS (test code = 1008) 52.8 % LYMPHOCYTES (test code = 1010) 32.1 % MONOCYTES (test code = 1011) 6.4 % EOSINOPHILS (test code = 1012) 6.6 % BASOPHILS (test code = 1013) 1.8 % IMMATURE GRANULOCYTES (test code = 1036) 0.3 % NUCLEATED RBCS (test code = 1065) 0.0 /100WBC'S PLATELET COUNT (test code = 1015) 255 K/UL ABSOLUTE NEUTROPHILS (test c ode = 1066) 3.44 K/UL ABSOLUTE LYMPHOCYTES (test c ode = 1067) 2.09 K/UL ABSOLUTE MONOCYTES (test cod e = 1068) 0.42 K/UL ABSOLUTE EOSINOPHILS (test c ode = 1040) 0.43 K/UL ABSOLUTE BASOPHILS (test cod e = 1069) 0.12 K/UL ABS IMMATURE GRANULOCYTES (t est code = 1020) 0.02 K/UL ABS NUCLEATED RBCS (test cod e = 78811) 0.00 K/UL Kentrellnona AlmanzaHEMOGLOBIN [id number] 00:00:00* Test Item Value Reference Range Interpretation Comme nts HEMOGLOBIN A1c (test code = 17857) 6.2 % Kentrell Genoveva AlmanzaCBC W/AUTO [id number] 00:00:00* Test Item Value Reference Range Interpretation Comme nts WBC (test code = 1001) 6.5 K/UL RBC (test code = 1002) 4.00 M/UL HEMOGLOBIN (test code = 1003) 11.8 G/DL HEMATOCRIT (test code = 1004) 35.3 % MCV (test code = 1005) 88.3 fL MCH (test code = 1006) 29.5 PG MCHC (test code = 1007) 33.4 G/DL RDW (test code = 1038) 13.4 % NEUTROPHILS (test code = 1008) 52.8 % LYMPHOCYTES (test code = 1010) 32.1 % MONOCYTES (test code = 1011) 6.4 % EOSINOPHILS (test code = 1012) 6.6 % BASOPHILS (test code = 1013) 1.8 % IMMATURE GRANULOCYTES (test code = 1036) 0.3 % NUCLEATED RBCS (test code = 1065) 0.0 /100WBC'S PLATELET COUNT (test code = 1015) 255 K/UL ABSOLUTE NEUTROPHILS (test c ode = 1066) 3.44 K/UL ABSOLUTE LYMPHOCYTES (test c ode = 1067) 2.09 K/UL ABSOLUTE MONOCYTES (test cod e = 1068) 0.42 K/UL ABSOLUTE EOSINOPHILS (test c ode = 1040) 0.43 K/UL ABSOLUTE BASOPHILS (test cod e = 1069) 0.12 K/UL ABS IMMATURE GRANULOCYTES (t est code = 1020) 0.02 K/UL ABS NUCLEATED RBCS (test cod e = 55536) 0.00 K/UL Kentrell AlmanzaHEMOGLOBIN [id number] 00:00:00* Test Item Value Reference Range Interpretation Comme nts HEMOGLOBIN A1c (test code = 62440) 6.2 % Kentrell AlmanzaCBC W/AUTO [id number] 00:00:00* Test Item Value Reference Range Interpretation Comme nts WBC (test code = 1001) 6.5 K/UL RBC (test code = 1002) 4.00 M/UL HEMOGLOBIN (test code = 1003) 11.8 G/DL HEMATOCRIT (test code = 1004) 35.3 % MCV (test code = 1005) 88.3 fL MCH (test code = 1006) 29.5 PG MCHC (test code = 1007) 33.4 G/DL RDW (test code = 1038) 13.4 % NEUTROPHILS (test code = 1008) 52.8 % LYMPHOCYTES (test code = 1010) 32.1 % MONOCYTES (test code = 1011) 6.4 % EOSINOPHILS (test code = 1012) 6.6 % BASOPHILS (test code = 1013) 1.8 % IMMATURE GRANULOCYTES (test code = 1036) 0.3 % NUCLEATED RBCS (test code = 1065) 0.0 /100WBC'S PLATELET COUNT (test code = 1015) 255 K/UL ABSOLUTE NEUTROPHILS (test c ode = 1066) 3.44 K/UL ABSOLUTE LYMPHOCYTES (test c ode = 1067) 2.09 K/UL ABSOLUTE MONOCYTES (test cod e = 1068) 0.42 K/UL ABSOLUTE EOSINOPHILS (test c ode = 1040) 0.43 K/UL ABSOLUTE BASOPHILS (test cod e = 1069) 0.12 K/UL ABS IMMATURE GRANULOCYTES (t est code = 1020) 0.02 K/UL ABS NUCLEATED RBCS (test cod e = 27223) 0.00 K/UL Kentrell AlmanzaHEMOGLOBIN [id number] 00:00:00* Test Item Value Reference Range Interpretation Comme nts HEMOGLOBIN A1c (test code = 78153) 6.2 % Kentrell AlmanzaCBC W/AUTO [id number] 00:00:00* Test Item Value Reference Range Interpretation Comme nts WBC (test code = 1001) 6.5 K/UL RBC (test code = 1002) 4.00 M/UL HEMOGLOBIN (test code = 1003) 11.8 G/DL HEMATOCRIT (test code = 1004) 35.3 % MCV (test code = 1005) 88.3 fL MCH (test code = 1006) 29.5 PG MCHC (test code = 1007) 33.4 G/DL RDW (test code = 1038) 13.4 % NEUTROPHILS (test code = 1008) 52.8 % LYMPHOCYTES (test code = 1010) 32.1 % MONOCYTES (test code = 1011) 6.4 % EOSINOPHILS (test code = 1012) 6.6 % BASOPHILS (test code = 1013) 1.8 % IMMATURE GRANULOCYTES (test code = 1036) 0.3 % NUCLEATED RBCS (test code = 1065) 0.0 /100WBC'S PLATELET COUNT (test code = 1015) 255 K/UL ABSOLUTE NEUTROPHILS (test c ode = 1066) 3.44 K/UL ABSOLUTE LYMPHOCYTES (test c ode = 1067) 2.09 K/UL ABSOLUTE MONOCYTES (test cod e = 1068) 0.42 K/UL ABSOLUTE EOSINOPHILS (test c ode = 1040) 0.43 K/UL ABSOLUTE BASOPHILS (test cod e = 1069) 0.12 K/UL ABS IMMATURE GRANULOCYTES (t est code = 1020) 0.02 K/UL ABS NUCLEATED RBCS (test cod e = 82208) 0.00 K/UL Kentrell Tomas AustinHEMOGLOBIN [id number] 00:00:00* Test Item Value Reference Range Interpretation Comme nts HEMOGLOBIN A1c (test code = 38388) 6.2 % Kentrell AlmanzaCBC W/AUTO [id number] 00:00:00* Test Item Value Reference Range Interpretation Comme nts WBC (test code = 1001) 6.5 K/UL RBC (test code = 1002) 4.00 M/UL HEMOGLOBIN (test code = 1003) 11.8 G/DL HEMATOCRIT (test code = 1004) 35.3 % MCV (test code = 1005) 88.3 fL MCH (test code = 1006) 29.5 PG MCHC (test code = 1007) 33.4 G/DL RDW (test code = 1038) 13.4 % NEUTROPHILS (test code = 1008) 52.8 % LYMPHOCYTES (test code = 1010) 32.1 % MONOCYTES (test code = 1011) 6.4 % EOSINOPHILS (test code = 1012) 6.6 % BASOPHILS (test code = 1013) 1.8 % IMMATURE GRANULOCYTES (test code = 1036) 0.3 % NUCLEATED RBCS (test code = 1065) 0.0 /100WBC'S PLATELET COUNT (test code = 1015) 255 K/UL ABSOLUTE NEUTROPHILS (test c ode = 1066) 3.44 K/UL ABSOLUTE LYMPHOCYTES (test c ode = 1067) 2.09 K/UL ABSOLUTE MONOCYTES (test cod e = 1068) 0.42 K/UL ABSOLUTE EOSINOPHILS (test c ode = 1040) 0.43 K/UL ABSOLUTE BASOPHILS (test cod e = 1069) 0.12 K/UL ABS IMMATURE GRANULOCYTES (t est code = 1020) 0.02 K/UL ABS NUCLEATED RBCS (test cod e = 08200) 0.00 K/UL Kentrell Tomas AustinHEMOGLOBIN [id number] 00:00:00* Test Item Value Reference Range Interpretation Comme nts HEMOGLOBIN A1c (test code = 88523) 6.2 % Kentrell AlmanzaLIPID [id number] 00:00:00* Test Item Value Reference Range Interpretation Comme nts CHOLESTEROL (test code = 2210) 251 MG/DL TRIGLYCERIDES (test code = 2232) 173 MG/DL HDL CHOLESTEROL (test code = 2220) 69 MG/DL CALC LDL CHOL (test code = 2237) 151 MG/DL RISK RATIO LDL/HDL (test cod e = 2238) 2.19 RATIO COMPREHENSIVE METABOLIC [id number] 00:00:00* Test Item Value Reference Range Interpretation Comme nts GLUCOSE (test code = 2217) 119 MG/DL BUN (test code = 2208) 17 MG/DL CREATININE (test code = 2214) 1.14 MG/DL eGFR AMER. (test cod e = 75835) 54 ML/MIN/1.73 eGFR NON- AMER. (test code = 25779) 46 ML/MIN/1.73 CALC BUN/CREAT (test code = 2235) 15 RATIO SODIUM (test code = 2231) 142 MEQ/L POTASSIUM (test code = 2228) 4.6 MEQ/L CHLORIDE (test code = 2215) 105 MEQ/L CARBON DIOXIDE (test code = 2206) 19 MEQ/L CALCIUM (test code = 2209) 8.9 MG/DL PROTEIN, TOTAL (test code = 2229) 6.8 G/DL ALBUMIN (test code = 2201) 4.1 G/DL CALC GLOBULIN (test code = 2240) 2.7 G/DL CALC A/G RATIO (test code = 2234) 1.5 RATIO BILIRUBIN, TOTAL (test code = 2207) 0.5 MG/DL ALKALINE PHOSPHATASE (test code = 2204) 97 U/L AST (test code = 2218) 25 U/L ALT (test code = 2219) 8 U/L CBC W/AUTO [id number] 00:00:00* Test Item Value Reference Range Interpretation Comme nts WBC (test code = 1001) 6.9 K/UL RBC (test code = 1002) 4.18 M/UL HEMOGLOBIN (test code = 1003) 12.3 G/DL HEMATOCRIT (test code = 1004) 37.2 % MCV (test code = 1005) 89.0 fL MCH (test code = 1006) 29.4 PG MCHC (test code = 1007) 33.1 G/DL RDW (test code = 1038) 12.8 % NEUTROPHILS (test code = 1008) 63.9 % LYMPHOCYTES (test code = 1010) 27.2 % MONOCYTES (test code = 1011) 6.7 % EOSINOPHILS (test code = 1012) 1.0 % BASOPHILS (test code = 1013) 1.2 % PLATELET COUNT (test code = 1015) 222 K/UL HEMOGLOBIN [id number] 00:00:00* Test Item Value Reference Range Interpretation Comme nts HEMOGLOBIN A1c (test code = 83569) 5.7 % COMPREHENSIVE METABOLIC [id number] 00:00:00* Test Item Value Reference Range Interpretation Comme nts GLUCOSE (test code = 2217) 119 MG/DL BUN (test code = 2208) 17 MG/DL CREATININE (test code = 2214) 1.14 MG/DL eGFR AMER. (test cod e = 36209) 54 ML/MIN/1.73 eGFR NON- AMER. (test code = 95409) 46 ML/MIN/1.73 CALC BUN/CREAT (test code = 2235) 15 RATIO SODIUM (test code = 2231) 142 MEQ/L POTASSIUM (test code = 2228) 4.6 MEQ/L CHLORIDE (test code = 2215) 105 MEQ/L CARBON DIOXIDE (test code = 2206) 19 MEQ/L CALCIUM (test code = 2209) 8.9 MG/DL PROTEIN, TOTAL (test code = 2229) 6.8 G/DL ALBUMIN (test code = 2201) 4.1 G/DL CALC GLOBULIN (test code = 2240) 2.7 G/DL CALC A/G RATIO (test code = 2234) 1.5 RATIO BILIRUBIN, TOTAL (test code = 2207) 0.5 MG/DL ALKALINE PHOSPHATASE (test code = 2204) 97 U/L AST (test code = 2218) 25 U/L ALT (test code = 2219) 8 U/L Kentrell AlmanzaCBC W/AUTO [id number] 00:00:00* Test Item Value Reference Range Interpretation Comme nts WBC (test code = 1001) 6.9 K/UL RBC (test code = 1002) 4.18 M/UL HEMOGLOBIN (test code = 1003) 12.3 G/DL HEMATOCRIT (test code = 1004) 37.2 % MCV (test code = 1005) 89.0 fL MCH (test code = 1006) 29.4 PG MCHC (test code = 1007) 33.1 G/DL RDW (test code = 1038) 12.8 % NEUTROPHILS (test code = 1008) 63.9 % LYMPHOCYTES (test code = 1010) 27.2 % MONOCYTES (test code = 1011) 6.7 % EOSINOPHILS (test code = 1012) 1.0 % BASOPHILS (test code = 1013) 1.2 % PLATELET COUNT (test code = 1015) 222 K/UL Kentrell AlmanzaHEMOGLOBIN [id number] 00:00:00* Test Item Value Reference Range Interpretation Comme [facility] HEMOGLOBIN A1c (test code = 85272) 5.7 % Kentrell AlmanzaLIPID [id number] 00:00:00* Test Item Value Reference Range Interpretation Comme nts CHOLESTEROL (test code = 2210) 251 MG/DL TRIGLYCERIDES (test code = 2232) 173 MG/DL HDL CHOLESTEROL (test code = 2220) 69 MG/DL CALC LDL CHOL (test code = 2237) 151 MG/DL RISK RATIO LDL/HDL (test cod e = 2238) 2.19 RATIO Kentrell AlmanzaCOMPREHENSIVE METABOLIC [id number] 00:00:00* Test Item Value Reference Range Interpretation Comme nts GLUCOSE (test code = 2217) 119 MG/DL BUN (test code = 2208) 17 MG/DL CREATININE (test code = 2214) 1.14 MG/DL eGFR AMER. (test cod e = 23428) 54 ML/MIN/1.73 eGFR NON- AMER. (test code = 10348) 46 ML/MIN/1.73 CALC BUN/CREAT (test code = 2235) 15 RATIO SODIUM (test code = 2231) 142 MEQ/L POTASSIUM (test code = 2228) 4.6 MEQ/L CHLORIDE (test code = 2215) 105 MEQ/L CARBON DIOXIDE (test code = 2206) 19 MEQ/L CALCIUM (test code = 2209) 8.9 MG/DL PROTEIN, TOTAL (test code = 2229) 6.8 G/DL ALBUMIN (test code = 2201) 4.1 G/DL CALC GLOBULIN (test code = 2240) 2.7 G/DL CALC A/G RATIO (test code = 2234) 1.5 RATIO BILIRUBIN, TOTAL (test code = 2207) 0.5 MG/DL ALKALINE PHOSPHATASE (test code = 2204) 97 U/L AST (test code = 2218) 25 U/L ALT (test code = 2219) 8 U/L Kentrell AlmanzaCBC W/AUTO [id number] 00:00:00* Test Item Value Reference Range Interpretation Comme nts WBC (test code = 1001) 6.9 K/UL RBC (test code = 1002) 4.18 M/UL HEMOGLOBIN (test code = 1003) 12.3 G/DL HEMATOCRIT (test code = 1004) 37.2 % MCV (test code = 1005) 89.0 fL MCH (test code = 1006) 29.4 PG MCHC (test code = 1007) 33.1 G/DL RDW (test code = 1038) 12.8 % NEUTROPHILS (test code = 1008) 63.9 % LYMPHOCYTES (test code = 1010) 27.2 % MONOCYTES (test code = 1011) 6.7 % EOSINOPHILS (test code = 1012) 1.0 % BASOPHILS (test code = 1013) 1.2 % PLATELET COUNT (test code = 1015) 222 K/UL Kentrell AlmanzaHEMOGLOBIN [id number] 00:00:00* Test Item Value Reference Range Interpretation Comme [facility] HEMOGLOBIN A1c (test code = 51429) 5.7 % Kentrell AlmanzaLIPID [id number] 00:00:00* Test Item Value Reference Range Interpretation Comme nts CHOLESTEROL (test code = 2210) 251 MG/DL TRIGLYCERIDES (test code = 2232) 173 MG/DL HDL CHOLESTEROL (test code = 2220) 69 MG/DL CALC LDL CHOL (test code = 2237) 151 MG/DL RISK RATIO LDL/HDL (test cod e = 2238) 2.19 RATIO Kentrell AlmanzaCOMPREHENSIVE METABOLIC [id number] 00:00:00* Test Item Value Reference Range Interpretation Comme nts GLUCOSE (test code = 2217) 119 MG/DL BUN (test code = 2208) 17 MG/DL CREATININE (test code = 2214) 1.14 MG/DL eGFR AMER. (test cod e = 65607) 54 ML/MIN/1.73 eGFR NON- AMER. (test code = 54922) 46 ML/MIN/1.73 CALC BUN/CREAT (test code = 2235) 15 RATIO SODIUM (test code = 2231) 142 MEQ/L POTASSIUM (test code = 2228) 4.6 MEQ/L CHLORIDE (test code = 2215) 105 MEQ/L CARBON DIOXIDE (test code = 2206) 19 MEQ/L CALCIUM (test code = 2209) 8.9 MG/DL PROTEIN, TOTAL (test code = 2229) 6.8 G/DL ALBUMIN (test code = 2201) 4.1 G/DL CALC GLOBULIN (test code = 2240) 2.7 G/DL CALC A/G RATIO (test code = 2234) 1.5 RATIO BILIRUBIN, TOTAL (test code = 2207) 0.5 MG/DL ALKALINE PHOSPHATASE (test code = 2204) 97 U/L AST (test code = 2218) 25 U/L ALT (test code = 2219) 8 U/L Kentrell AlmanzaCBC W/AUTO [id number] 00:00:00* Test Item Value Reference Range Interpretation Comme nts WBC (test code = 1001) 6.9 K/UL RBC (test code = 1002) 4.18 M/UL HEMOGLOBIN (test code = 1003) 12.3 G/DL HEMATOCRIT (test code = 1004) 37.2 % MCV (test code = 1005) 89.0 fL MCH (test code = 1006) 29.4 PG MCHC (test code = 1007) 33.1 G/DL RDW (test code = 1038) 12.8 % NEUTROPHILS (test code = 1008) 63.9 % LYMPHOCYTES (test code = 1010) 27.2 % MONOCYTES (test code = 1011) 6.7 % EOSINOPHILS (test code = 1012) 1.0 % BASOPHILS (test code = 1013) 1.2 % PLATELET COUNT (test code = 1015) 222 K/UL Kentrell AlmanzaHEMOGLOBIN [id number] 00:00:00* Test Item Value Reference Range Interpretation Comme nts HEMOGLOBIN A1c (test code = 90722) 5.7 % Kentrell Genoveva ArchieLIPID [id number] 00:00:00* Test Item Value Reference Range Interpretation Comme nts CHOLESTEROL (test code = 2210) 251 MG/DL TRIGLYCERIDES (test code = 2232) 173 MG/DL HDL CHOLESTEROL (test code = 2220) 69 MG/DL CALC LDL CHOL (test code = 2237) 151 MG/DL RISK RATIO LDL/HDL (test cod e = 2238) 2.19 RATIO Kentrell AlmanzaCOMPREHENSIVE METABOLIC [id number] 00:00:00* Test Item Value Reference Range Interpretation Comme nts GLUCOSE (test code = 2217) 119 MG/DL BUN (test code = 2208) 17 MG/DL CREATININE (test code = 2214) 1.14 MG/DL eGFR AMER. (test cod e = 01579) 54 ML/MIN/1.73 eGFR NON- AMER. (test code = 33261) 46 ML/MIN/1.73 CALC BUN/CREAT (test code = 2235) 15 RATIO SODIUM (test code = 2231) 142 MEQ/L POTASSIUM (test code = 2228) 4.6 MEQ/L CHLORIDE (test code = 2215) 105 MEQ/L CARBON DIOXIDE (test code = 2206) 19 MEQ/L CALCIUM (test code = 2209) 8.9 MG/DL PROTEIN, TOTAL (test code = 2229) 6.8 G/DL ALBUMIN (test code = 2201) 4.1 G/DL CALC GLOBULIN (test code = 2240) 2.7 G/DL CALC A/G RATIO (test code = 2234) 1.5 RATIO BILIRUBIN, TOTAL (test code = 2207) 0.5 MG/DL ALKALINE PHOSPHATASE (test code = 2204) 97 U/L AST (test code = 2218) 25 U/L ALT (test code = 2219) 8 U/L Kentrell AlmanzaCBC W/AUTO [id number] 00:00:00* Test Item Value Reference Range Interpretation Comme nts WBC (test code = 1001) 6.9 K/UL RBC (test code = 1002) 4.18 M/UL HEMOGLOBIN (test code = 1003) 12.3 G/DL HEMATOCRIT (test code = 1004) 37.2 % MCV (test code = 1005) 89.0 fL MCH (test code = 1006) 29.4 PG MCHC (test code = 1007) 33.1 G/DL RDW (test code = 1038) 12.8 % NEUTROPHILS (test code = 1008) 63.9 % LYMPHOCYTES (test code = 1010) 27.2 % MONOCYTES (test code = 1011) 6.7 % EOSINOPHILS (test code = 1012) 1.0 % BASOPHILS (test code = 1013) 1.2 % PLATELET COUNT (test code = 1015) 222 K/UL Kentrell AlmanzaHEMOGLOBIN [id number] 00:00:00* Test Item Value Reference Range Interpretation Comme nts HEMOGLOBIN A1c (test code = 50543) 5.7 % Kentrell AlmanzaLIPID [id number] 00:00:00* Test Item Value Reference Range Interpretation Comme nts CHOLESTEROL (test code = 2210) 251 MG/DL TRIGLYCERIDES (test code = 2232) 173 MG/DL HDL CHOLESTEROL (test code = 2220) 69 MG/DL CALC LDL CHOL (test code = 2237) 151 MG/DL RISK RATIO LDL/HDL (test cod e = 2238) 2.19 RATIO Kentrell AlmanzaCOMPREHENSIVE METABOLIC [id number] 00:00:00* Test Item Value Reference Range Interpretation Comme nts GLUCOSE (test code = 2217) 119 MG/DL BUN (test code = 2208) 17 MG/DL CREATININE (test code = 2214) 1.14 MG/DL eGFR AMER. (test cod e = 61472) 54 ML/MIN/1.73 eGFR NON- AMER. (test code = 18346) 46 ML/MIN/1.73 CALC BUN/CREAT (test code = 2235) 15 RATIO SODIUM (test code = 2231) 142 MEQ/L POTASSIUM (test code = 2228) 4.6 MEQ/L CHLORIDE (test code = 2215) 105 MEQ/L CARBON DIOXIDE (test code = 2206) 19 MEQ/L CALCIUM (test code = 2209) 8.9 MG/DL PROTEIN, TOTAL (test code = 2229) 6.8 G/DL ALBUMIN (test code = 2201) 4.1 G/DL CALC GLOBULIN (test code = 2240) 2.7 G/DL CALC A/G RATIO (test code = 2234) 1.5 RATIO BILIRUBIN, TOTAL (test code = 2207) 0.5 MG/DL ALKALINE PHOSPHATASE (test code = 2204) 97 U/L AST (test code = 2218) 25 U/L ALT (test code = 2219) 8 U/L Kentrell AlmanzaCBC W/AUTO [id number] 00:00:00* Test Item Value Reference Range Interpretation Comme nts WBC (test code = 1001) 6.9 K/UL RBC (test code = 1002) 4.18 M/UL HEMOGLOBIN (test code = 1003) 12.3 G/DL HEMATOCRIT (test code = 1004) 37.2 % MCV (test code = 1005) 89.0 fL MCH (test code = 1006) 29.4 PG MCHC (test code = 1007) 33.1 G/DL RDW (test code = 1038) 12.8 % NEUTROPHILS (test code = 1008) 63.9 % LYMPHOCYTES (test code = 1010) 27.2 % MONOCYTES (test code = 1011) 6.7 % EOSINOPHILS (test code = 1012) 1.0 % BASOPHILS (test code = 1013) 1.2 % PLATELET COUNT (test code = 1015) 222 K/UL Kentrell Tomas AustinHEMOGLOBIN [id number] 00:00:00* Test Item Value Reference Range Interpretation Comme nts HEMOGLOBIN A1c (test code = 97338) 5.7 % Kentrell Tomas AustinLIPID [id number] 00:00:00* Test Item Value Reference Range Interpretation Comme nts CHOLESTEROL (test code = 2210) 251 MG/DL TRIGLYCERIDES (test code = 2232) 173 MG/DL HDL CHOLESTEROL (test code = 2220) 69 MG/DL CALC LDL CHOL (test code = 2237) 151 MG/DL RISK RATIO LDL/HDL (test cod e = 2238) 2.19 RATIO Kentrell Tomas AustinHEMOGLOBIN [id number] 00:00:00* Test Item Value Reference Range Interpretation Comme nts HEMOGLOBIN A1c (test code = 62085) 6.3 % LIPID [id number] 00:00:00* Test Item Value Reference Range Interpretation Comme nts CHOLESTEROL (test code = 2210) 199 MG/DL TRIGLYCERIDES (test code = 2232) 162 MG/DL HDL CHOLESTEROL (test code = 2220) 59 MG/DL CALC LDL CHOL (test code = 2237) 108 MG/DL RISK RATIO LDL/HDL (test cod e = 2238) 1.82 RATIO [id number] 00:00:00* Test Item Value Reference Range Interpretation Comme nts TSH, THIRD GENERATION (test code = 2821) 3.220 UIU/ML ALBUMIN/CREATININE RATIO, RANDOM URINE [ADDED]2019-06-22 00:00:00* Test Item Value Reference Range Interpretation Comme nts CREATININE, URINE, CONC. (te st code = 2072) 72.5 MG/DL ALBUMIN, URINE, RANDOM (test code = 36537) 3.8 MG/DL CALC ALBUMIN/CREAT, RND (mayo t code = 38974) 52 MG/G CBC W/AUTO [id number] 00:00:00* Test Item Value Reference Range Interpretation Comme nts WBC (test code = 1001) 7.1 K/UL RBC (test code = 1002) 3.62 M/UL HEMOGLOBIN (test code = 1003) 10.8 G/DL HEMATOCRIT (test code = 1004) 30.7 % MCV (test code = 1005) 84.8 fL MCH (test code = 1006) 29.8 PG MCHC (test code = 1007) 35.2 G/DL RDW (test code = 1038) 12.8 % NEUTROPHILS (test code = 1008) 63.7 % LYMPHOCYTES (test code = 1010) 29.0 % MONOCYTES (test code = 1011) 5.5 % EOSINOPHILS (test code = 1012) 0.8 % BASOPHILS (test code = 1013) 1.0 % PLATELET COUNT (test code = 1015) 247 K/UL COMPREHENSIVE METABOLIC [id number] 00:00:00* Test Item Value Reference Range Interpretation Comme nts GLUCOSE (test code = 2217) 147 MG/DL BUN (test code = 2208) 18 MG/DL CREATININE (test code = 2214) 1.35 MG/DL eGFR AMER. (test cod e = 96661) 44 ML/MIN/1.73 eGFR NON- AMER. (test code = 38466) 38 ML/MIN/1.73 CALC BUN/CREAT (test code = 2235) 13 RATIO SODIUM (test code = 2231) 137 MEQ/L POTASSIUM (test code = 2228) 4.0 MEQ/L CHLORIDE (test code = 2215) 99 MEQ/L CARBON DIOXIDE (test code = 2206) 26 MEQ/L CALCIUM (test code = 2209) 8.9 MG/DL PROTEIN, TOTAL (test code = 2229) 6.6 G/DL ALBUMIN (test code = 2201) 4.2 G/DL CALC GLOBULIN (test code = 2240) 2.4 G/DL CALC A/G RATIO (test code = 2234) 1.8 RATIO BILIRUBIN, TOTAL (test code = 2207) 0.5 MG/DL ALKALINE PHOSPHATASE (test code = 2204) 86 U/L AST (test code = 2218) 17 U/L ALT (test code = 2219) 10 U/L LIPID [id number] 00:00:00* Test Item Value Reference Range Interpretation Comme nts CHOLESTEROL (test code = 2210) 199 MG/DL TRIGLYCERIDES (test code = 2232) 162 MG/DL HDL CHOLESTEROL (test code = 2220) 59 MG/DL CALC LDL CHOL (test code = 2237) 108 MG/DL RISK RATIO LDL/HDL (test cod e = 2238) 1.82 RATIO Kentrell [id number] 00:00:00* Test Item Value Reference Range Interpretation Comme [facility] TSH, THIRD GENERATION (test code = 2821) 3.220 UIU/ML Kentrell Tomas ArchieALBUMIN/CREATININE RATIO, RANDOM URINE [ADDED]2019-06-22 00:00:00* Test Item Value Reference Range Interpretation Comme nts CREATININE, URINE, CONC. (te st code = 2072) 72.5 MG/DL ALBUMIN, URINE, RANDOM (test code = 25812) 3.8 MG/DL CALC ALBUMIN/CREAT, RND (mayo t code = 92346) 52 MG/G Kentrell AlmanzaCBC W/AUTO [id number] 00:00:00* Test Item Value Reference Range Interpretation Comme nts WBC (test code = 1001) 7.1 K/UL RBC (test code = 1002) 3.62 M/UL HEMOGLOBIN (test code = 1003) 10.8 G/DL HEMATOCRIT (test code = 1004) 30.7 % MCV (test code = 1005) 84.8 fL MCH (test code = 1006) 29.8 PG MCHC (test code = 1007) 35.2 G/DL RDW (test code = 1038) 12.8 % NEUTROPHILS (test code = 1008) 63.7 % LYMPHOCYTES (test code = 1010) 29.0 % MONOCYTES (test code = 1011) 5.5 % EOSINOPHILS (test code = 1012) 0.8 % BASOPHILS (test code = 1013) 1.0 % PLATELET COUNT (test code = 1015) 247 K/UL Kentrell AlmanzaCOMPREHENSIVE METABOLIC [id number] 00:00:00* Test Item Value Reference Range Interpretation Comme nts GLUCOSE (test code = 2217) 147 MG/DL BUN (test code = 2208) 18 MG/DL CREATININE (test code = 2214) 1.35 MG/DL eGFR AMER. (test cod e = 59437) 44 ML/MIN/1.73 eGFR NON- AMER. (test code = 52738) 38 ML/MIN/1.73 CALC BUN/CREAT (test code = 2235) 13 RATIO SODIUM (test code = 2231) 137 MEQ/L POTASSIUM (test code = 2228) 4.0 MEQ/L CHLORIDE (test code = 2215) 99 MEQ/L CARBON DIOXIDE (test code = 2206) 26 MEQ/L CALCIUM (test code = 2209) 8.9 MG/DL PROTEIN, TOTAL (test code = 2229) 6.6 G/DL ALBUMIN (test code = 2201) 4.2 G/DL CALC GLOBULIN (test code = 2240) 2.4 G/DL CALC A/G RATIO (test code = 2234) 1.8 RATIO BILIRUBIN, TOTAL (test code = 2207) 0.5 MG/DL ALKALINE PHOSPHATASE (test code = 2204) 86 U/L AST (test code = 2218) 17 U/L ALT (test code = 2219) 10 U/L Kentrell AlmanzaHEMOGLOBIN [id number] 00:00:00* Test Item Value Reference Range Interpretation Comme [facility] HEMOGLOBIN A1c (test code = 91110) 6.3 % Kentrell AlmanzaLIPID [id number] 00:00:00* Test Item Value Reference Range Interpretation Comme nts CHOLESTEROL (test code = 2210) 199 MG/DL TRIGLYCERIDES (test code = 2232) 162 MG/DL HDL CHOLESTEROL (test code = 2220) 59 MG/DL CALC LDL CHOL (test code = 2237) 108 MG/DL RISK RATIO LDL/HDL (test cod e = 2238) 1.82 RATIO Kentrell [id number] 00:00:00* Test Item Value Reference Range Interpretation Comme nts TSH, THIRD GENERATION (test code = 2821) 3.220 UIU/ML Kentrell AlmanzaALBUMIN/CREATININE RATIO, RANDOM URINE [ADDED]2019-06-22 00:00:00* Test Item Value Reference Range Interpretation Comme nts CREATININE, URINE, CONC. (te st code = 2072) 72.5 MG/DL ALBUMIN, URINE, RANDOM (test code = 42699) 3.8 MG/DL CALC ALBUMIN/CREAT, RND (mayo t code = 06785) 52 MG/G Kentrell AlmanzaCBC W/AUTO [id number] 00:00:00* Test Item Value Reference Range Interpretation Comme nts WBC (test code = 1001) 7.1 K/UL RBC (test code = 1002) 3.62 M/UL HEMOGLOBIN (test code = 1003) 10.8 G/DL HEMATOCRIT (test code = 1004) 30.7 % MCV (test code = 1005) 84.8 fL MCH (test code = 1006) 29.8 PG MCHC (test code = 1007) 35.2 G/DL RDW (test code = 1038) 12.8 % NEUTROPHILS (test code = 1008) 63.7 % LYMPHOCYTES (test code = 1010) 29.0 % MONOCYTES (test code = 1011) 5.5 % EOSINOPHILS (test code = 1012) 0.8 % BASOPHILS (test code = 1013) 1.0 % PLATELET COUNT (test code = 1015) 247 K/UL Kentrell AlmanzaCOMPREHENSIVE METABOLIC [id number] 00:00:00* Test Item Value Reference Range Interpretation Comme nts GLUCOSE (test code = 2217) 147 MG/DL BUN (test code = 2208) 18 MG/DL CREATININE (test code = 2214) 1.35 MG/DL eGFR AMER. (test cod e = 69179) 44 ML/MIN/1.73 eGFR NON- AMER. (test code = 77361) 38 ML/MIN/1.73 CALC BUN/CREAT (test code = 2235) 13 RATIO SODIUM (test code = 2231) 137 MEQ/L POTASSIUM (test code = 2228) 4.0 MEQ/L CHLORIDE (test code = 2215) 99 MEQ/L CARBON DIOXIDE (test code = 2206) 26 MEQ/L CALCIUM (test code = 2209) 8.9 MG/DL PROTEIN, TOTAL (test code = 2229) 6.6 G/DL ALBUMIN (test code = 2201) 4.2 G/DL CALC GLOBULIN (test code = 2240) 2.4 G/DL CALC A/G RATIO (test code = 2234) 1.8 RATIO BILIRUBIN, TOTAL (test code = 2207) 0.5 MG/DL ALKALINE PHOSPHATASE (test code = 2204) 86 U/L AST (test code = 2218) 17 U/L ALT (test code = 2219) 10 U/L Kentrell AlmanzaHEMOGLOBIN [id number] 00:00:00* Test Item Value Reference Range Interpretation Comme quinn HEMOGLOBIN A1c (test code = 32909) 6.3 % Kentrell AlmanzaLIPID [id number] 00:00:00* Test Item Value Reference Range Interpretation Comme nts CHOLESTEROL (test code = 2210) 199 MG/DL TRIGLYCERIDES (test code = 2232) 162 MG/DL HDL CHOLESTEROL (test code = 2220) 59 MG/DL CALC LDL CHOL (test code = 2237) 108 MG/DL RISK RATIO LDL/HDL (test cod e = 2238) 1.82 RATIO Kentrell [id number] 00:00:00* Test Item Value Reference Range Interpretation Comme nts TSH, THIRD GENERATION (test code = 2821) 3.220 UIU/ML Kentrell AlmanzaALBUMIN/CREATININE RATIO, RANDOM URINE [ADDED]2019-06-22 00:00:00* Test Item Value Reference Range Interpretation Comme quinn CREATININE, URINE, CONC. (te st code = 2072) 72.5 MG/DL ALBUMIN, URINE, RANDOM (test code = 99303) 3.8 MG/DL CALC ALBUMIN/CREAT, RND (mayo t code = 76762) 52 MG/G Kentrell AlmanzaCBC W/AUTO [id number] 00:00:00* Test Item Value Reference Range Interpretation Comme nts WBC (test code = 1001) 7.1 K/UL RBC (test code = 1002) 3.62 M/UL HEMOGLOBIN (test code = 1003) 10.8 G/DL HEMATOCRIT (test code = 1004) 30.7 % MCV (test code = 1005) 84.8 fL MCH (test code = 1006) 29.8 PG MCHC (test code = 1007) 35.2 G/DL RDW (test code = 1038) 12.8 % NEUTROPHILS (test code = 1008) 63.7 % LYMPHOCYTES (test code = 1010) 29.0 % MONOCYTES (test code = 1011) 5.5 % EOSINOPHILS (test code = 1012) 0.8 % BASOPHILS (test code = 1013) 1.0 % PLATELET COUNT (test code = 1015) 247 K/UL Kentrell AlmanzaCOMPREHENSIVE METABOLIC [id number] 00:00:00* Test Item Value Reference Range Interpretation Comme nts GLUCOSE (test code = 2217) 147 MG/DL BUN (test code = 2208) 18 MG/DL CREATININE (test code = 2214) 1.35 MG/DL eGFR AMER. (test cod e = 17370) 44 ML/MIN/1.73 eGFR NON- AMER. (test code = 20420) 38 ML/MIN/1.73 CALC BUN/CREAT (test code = 2235) 13 RATIO SODIUM (test code = 2231) 137 MEQ/L POTASSIUM (test code = 2228) 4.0 MEQ/L CHLORIDE (test code = 2215) 99 MEQ/L CARBON DIOXIDE (test code = 2206) 26 MEQ/L CALCIUM (test code = 2209) 8.9 MG/DL PROTEIN, TOTAL (test code = 2229) 6.6 G/DL ALBUMIN (test code = 2201) 4.2 G/DL CALC GLOBULIN (test code = 2240) 2.4 G/DL CALC A/G RATIO (test code = 2234) 1.8 RATIO BILIRUBIN, TOTAL (test code = 2207) 0.5 MG/DL ALKALINE PHOSPHATASE (test code = 2204) 86 U/L AST (test code = 2218) 17 U/L ALT (test code = 2219) 10 U/L Kentrell AlmanzaHEMOGLOBIN [id number] 00:00:00* Test Item Value Reference Range Interpretation Comme nts HEMOGLOBIN A1c (test code = 95105) 6.3 % Kentrell AlmanzaLIPID [id number] 00:00:00* Test Item Value Reference Range Interpretation Comme nts CHOLESTEROL (test code = 2210) 199 MG/DL TRIGLYCERIDES (test code = 2232) 162 MG/DL HDL CHOLESTEROL (test code = 2220) 59 MG/DL CALC LDL CHOL (test code = 2237) 108 MG/DL RISK RATIO LDL/HDL (test cod e = 2238) 1.82 RATIO Kentrell [id number] 00:00:00* Test Item Value Reference Range Interpretation Comme nts TSH, THIRD GENERATION (test code = 2821) 3.220 UIU/ML Kentrell AlmanzaALBUMIN/CREATININE RATIO, RANDOM URINE [ADDED]2019-06-22 00:00:00* Test Item Value Reference Range Interpretation Comme nts CREATININE, URINE, CONC. (te st code = 2072) 72.5 MG/DL ALBUMIN, URINE, RANDOM (test code = 62659) 3.8 MG/DL CALC ALBUMIN/CREAT, RND (mayo t code = 89142) 52 MG/G Kentrell AlmanzaCBC W/AUTO [id number] 00:00:00* Test Item Value Reference Range Interpretation Comme nts WBC (test code = 1001) 7.1 K/UL RBC (test code = 1002) 3.62 M/UL HEMOGLOBIN (test code = 1003) 10.8 G/DL HEMATOCRIT (test code = 1004) 30.7 % MCV (test code = 1005) 84.8 fL MCH (test code = 1006) 29.8 PG MCHC (test code = 1007) 35.2 G/DL RDW (test code = 1038) 12.8 % NEUTROPHILS (test code = 1008) 63.7 % LYMPHOCYTES (test code = 1010) 29.0 % MONOCYTES (test code = 1011) 5.5 % EOSINOPHILS (test code = 1012) 0.8 % BASOPHILS (test code = 1013) 1.0 % PLATELET COUNT (test code = 1015) 247 K/UL Kentrell AlmanzaCOMPREHENSIVE METABOLIC [id number] 00:00:00* Test Item Value Reference Range Interpretation Comme nts GLUCOSE (test code = 2217) 147 MG/DL BUN (test code = 2208) 18 MG/DL CREATININE (test code = 2214) 1.35 MG/DL eGFR AMER. (test cod e = 33241) 44 ML/MIN/1.73 eGFR NON- AMER. (test code = 47276) 38 ML/MIN/1.73 CALC BUN/CREAT (test code = 2235) 13 RATIO SODIUM (test code = 2231) 137 MEQ/L POTASSIUM (test code = 2228) 4.0 MEQ/L CHLORIDE (test code = 2215) 99 MEQ/L CARBON DIOXIDE (test code = 2206) 26 MEQ/L CALCIUM (test code = 2209) 8.9 MG/DL PROTEIN, TOTAL (test code = 2229) 6.6 G/DL ALBUMIN (test code = 2201) 4.2 G/DL CALC GLOBULIN (test code = 2240) 2.4 G/DL CALC A/G RATIO (test code = 2234) 1.8 RATIO BILIRUBIN, TOTAL (test code = 2207) 0.5 MG/DL ALKALINE PHOSPHATASE (test code = 2204) 86 U/L AST (test code = 2218) 17 U/L ALT (test code = 2219) 10 U/L Kentrell AlmanzaHEMOGLOBIN [id number] 00:00:00* Test Item Value Reference Range Interpretation Comme [facility] HEMOGLOBIN A1c (test code = 78758) 6.3 % Kentrell AlmanzaLIPID [id number] 00:00:00* Test Item Value Reference Range Interpretation Comme nts CHOLESTEROL (test code = 2210) 199 MG/DL TRIGLYCERIDES (test code = 2232) 162 MG/DL HDL CHOLESTEROL (test code = 2220) 59 MG/DL CALC LDL CHOL (test code = 2237) 108 MG/DL RISK RATIO LDL/HDL (test cod e = 2238) 1.82 RATIO Kentrell [id number] 00:00:00* Test Item Value Reference Range Interpretation Comme [facility] TSH, THIRD GENERATION (test code = 2821) 3.220 UIU/ML Kentrell AlmanzaALBUMIN/CREATININE RATIO, RANDOM URINE [ADDED]2019-06-22 00:00:00* Test Item Value Reference Range Interpretation Comme nts CREATININE, URINE, CONC. (te st code = 2072) 72.5 MG/DL ALBUMIN, URINE, RANDOM (test code = 39048) 3.8 MG/DL CALC ALBUMIN/CREAT, RND (mayo t code = 35826) 52 MG/G Kentrell AlmanzaCBC W/AUTO [id number] 00:00:00* Test Item Value Reference Range Interpretation Comme nts WBC (test code = 1001) 7.1 K/UL RBC (test code = 1002) 3.62 M/UL HEMOGLOBIN (test code = 1003) 10.8 G/DL HEMATOCRIT (test code = 1004) 30.7 % MCV (test code = 1005) 84.8 fL MCH (test code = 1006) 29.8 PG MCHC (test code = 1007) 35.2 G/DL RDW (test code = 1038) 12.8 % NEUTROPHILS (test code = 1008) 63.7 % LYMPHOCYTES (test code = 1010) 29.0 % MONOCYTES (test code = 1011) 5.5 % EOSINOPHILS (test code = 1012) 0.8 % BASOPHILS (test code = 1013) 1.0 % PLATELET COUNT (test code = 1015) 247 K/UL Kentrell AlmanzaCOMPREHENSIVE METABOLIC [id number] 00:00:00* Test Item Value Reference Range Interpretation Comme nts GLUCOSE (test code = 2217) 147 MG/DL BUN (test code = 2208) 18 MG/DL CREATININE (test code = 2214) 1.35 MG/DL eGFR AMER. (test cod e = 28586) 44 ML/MIN/1.73 eGFR NON- AMER. (test code = 25574) 38 ML/MIN/1.73 CALC BUN/CREAT (test code = 2235) 13 RATIO SODIUM (test code = 2231) 137 MEQ/L POTASSIUM (test code = 2228) 4.0 MEQ/L CHLORIDE (test code = 2215) 99 MEQ/L CARBON DIOXIDE (test code = 2206) 26 MEQ/L CALCIUM (test code = 2209) 8.9 MG/DL PROTEIN, TOTAL (test code = 2229) 6.6 G/DL ALBUMIN (test code = 2201) 4.2 G/DL CALC GLOBULIN (test code = 2240) 2.4 G/DL CALC A/G RATIO (test code = 2234) 1.8 RATIO BILIRUBIN, TOTAL (test code = 2207) 0.5 MG/DL ALKALINE PHOSPHATASE (test code = 2204) 86 U/L AST (test code = 2218) 17 U/L ALT (test code = 2219) 10 U/L Kentrell AlmanzaHEMOGLOBIN [id number] 00:00:00* Test Item Value Reference Range Interpretation Comme nts HEMOGLOBIN A1c (test code = 07899) 6.3 % Kentrell Tomas MonticelloCOMPREHENSIVE METABOLIC [id number] 00:00:00* Test Item Value Reference Range Interpretation Comme nts GLUCOSE (test code = 2217) 117 MG/DL BUN (test code = 2208) 30 MG/DL CREATININE (test code = 2214) 1.64 MG/DL eGFR AMER. (test cod e = 62441) 35 ML/MIN/1.73 eGFR NON- AMER. (test code = 35305) 30 ML/MIN/1.73 CALC BUN/CREAT (test code = 2235) 18 RATIO SODIUM (test code = 2231) 138 MEQ/L POTASSIUM (test code = 2228) 4.5 MEQ/L CHLORIDE (test code = 2215) 102 MEQ/L CARBON DIOXIDE (test code = 2206) 23 MEQ/L CALCIUM (test code = 2209) 8.9 MG/DL PROTEIN, TOTAL (test code = 2229) 6.7 G/DL ALBUMIN (test code = 2201) 4.1 G/DL CALC GLOBULIN (test code = 2240) 2.6 G/DL CALC A/G RATIO (test code = 2234) 1.6 RATIO BILIRUBIN, TOTAL (test code = 2207) 0.4 MG/DL ALKALINE PHOSPHATASE (test code = 2204) 83 U/L AST (test code = 2218) 18 U/L ALT (test code = 2219) 11 U/L COMPREHENSIVE METABOLIC [id number] 00:00:00* Test Item Value Reference Range Interpretation Comme nts GLUCOSE (test code = 2217) 117 MG/DL BUN (test code = 2208) 30 MG/DL CREATININE (test code = 2214) 1.64 MG/DL eGFR AMER. (test cod e = 88146) 35 ML/MIN/1.73 eGFR NON- AMER. (test code = 39034) 30 ML/MIN/1.73 CALC BUN/CREAT (test code = 2235) 18 RATIO SODIUM (test code = 2231) 138 MEQ/L POTASSIUM (test code = 2228) 4.5 MEQ/L CHLORIDE (test code = 2215) 102 MEQ/L CARBON DIOXIDE (test code = 2206) 23 MEQ/L CALCIUM (test code = 2209) 8.9 MG/DL PROTEIN, TOTAL (test code = 2229) 6.7 G/DL ALBUMIN (test code = 2201) 4.1 G/DL CALC GLOBULIN (test code = 2240) 2.6 G/DL CALC A/G RATIO (test code = 2234) 1.6 RATIO BILIRUBIN, TOTAL (test code = 2207) 0.4 MG/DL ALKALINE PHOSPHATASE (test code = 2204) 83 U/L AST (test code = 2218) 18 U/L ALT (test code = 2219) 11 U/L Kentrell F MonticelloCOMPREHENSIVE METABOLIC [id number] 00:00:00* Test Item Value Reference Range Interpretation Comme nts GLUCOSE (test code = 2217) 117 MG/DL BUN (test code = 2208) 30 MG/DL CREATININE (test code = 2214) 1.64 MG/DL eGFR AMER. (test cod e = 20537) 35 ML/MIN/1.73 eGFR NON- AMER. (test code = 62239) 30 ML/MIN/1.73 CALC BUN/CREAT (test code = 2235) 18 RATIO SODIUM (test code = 2231) 138 MEQ/L POTASSIUM (test code = 2228) 4.5 MEQ/L CHLORIDE (test code = 2215) 102 MEQ/L CARBON DIOXIDE (test code = 2206) 23 MEQ/L CALCIUM (test code = 2209) 8.9 MG/DL PROTEIN, TOTAL (test code = 2229) 6.7 G/DL ALBUMIN (test code = 2201) 4.1 G/DL CALC GLOBULIN (test code = 2240) 2.6 G/DL CALC A/G RATIO (test code = 2234) 1.6 RATIO BILIRUBIN, TOTAL (test code = 2207) 0.4 MG/DL ALKALINE PHOSPHATASE (test code = 2204) 83 U/L AST (test code = 2218) 18 U/L ALT (test code = 2219) 11 U/L Kentrell F MonticelloCOMPREHENSIVE METABOLIC [id number] 00:00:00* Test Item Value Reference Range Interpretation Comme nts GLUCOSE (test code = 2217) 117 MG/DL BUN (test code = 2208) 30 MG/DL CREATININE (test code = 2214) 1.64 MG/DL eGFR AMER. (test cod e = 31735) 35 ML/MIN/1.73 eGFR NON- AMER. (test code = 51939) 30 ML/MIN/1.73 CALC BUN/CREAT (test code = 2235) 18 RATIO SODIUM (test code = 2231) 138 MEQ/L POTASSIUM (test code = 2228) 4.5 MEQ/L CHLORIDE (test code = 2215) 102 MEQ/L CARBON DIOXIDE (test code = 2206) 23 MEQ/L CALCIUM (test code = 2209) 8.9 MG/DL PROTEIN, TOTAL (test code = 2229) 6.7 G/DL ALBUMIN (test code = 2201) 4.1 G/DL CALC GLOBULIN (test code = 2240) 2.6 G/DL CALC A/G RATIO (test code = 2234) 1.6 RATIO BILIRUBIN, TOTAL (test code = 2207) 0.4 MG/DL ALKALINE PHOSPHATASE (test code = 2204) 83 U/L AST (test code = 2218) 18 U/L ALT (test code = 2219) 11 U/L Kentrell AlmanzaCOMPREHENSIVE METABOLIC [id number] 00:00:00* Test Item Value Reference Range Interpretation Comme nts GLUCOSE (test code = 2217) 117 MG/DL BUN (test code = 2208) 30 MG/DL CREATININE (test code = 2214) 1.64 MG/DL eGFR AMER. (test cod e = 52771) 35 ML/MIN/1.73 eGFR NON- AMER. (test code = 00915) 30 ML/MIN/1.73 CALC BUN/CREAT (test code = 2235) 18 RATIO SODIUM (test code = 2231) 138 MEQ/L POTASSIUM (test code = 2228) 4.5 MEQ/L CHLORIDE (test code = 2215) 102 MEQ/L CARBON DIOXIDE (test code = 2206) 23 MEQ/L CALCIUM (test code = 2209) 8.9 MG/DL PROTEIN, TOTAL (test code = 2229) 6.7 G/DL ALBUMIN (test code = 2201) 4.1 G/DL CALC GLOBULIN (test code = 2240) 2.6 G/DL CALC A/G RATIO (test code = 2234) 1.6 RATIO BILIRUBIN, TOTAL (test code = 2207) 0.4 MG/DL ALKALINE PHOSPHATASE (test code = 2204) 83 U/L AST (test code = 2218) 18 U/L ALT (test code = 2219) 11 U/L Kentrell AlmanzaCOMPREHENSIVE METABOLIC [id number] 00:00:00* Test Item Value Reference Range Interpretation Comme nts GLUCOSE (test code = 2217) 117 MG/DL BUN (test code = 2208) 30 MG/DL CREATININE (test code = 2214) 1.64 MG/DL eGFR AMER. (test cod e = 11251) 35 ML/MIN/1.73 eGFR NON- AMER. (test code = 84065) 30 ML/MIN/1.73 CALC BUN/CREAT (test code = 2235) 18 RATIO SODIUM (test code = 2231) 138 MEQ/L POTASSIUM (test code = 2228) 4.5 MEQ/L CHLORIDE (test code = 2215) 102 MEQ/L CARBON DIOXIDE (test code = 2206) 23 MEQ/L CALCIUM (test code = 2209) 8.9 MG/DL PROTEIN, TOTAL (test code = 2229) 6.7 G/DL ALBUMIN (test code = 2201) 4.1 G/DL CALC GLOBULIN (test code = 2240) 2.6 G/DL CALC A/G RATIO (test code = 2234) 1.6 RATIO BILIRUBIN, TOTAL (test code = 2207) 0.4 MG/DL ALKALINE PHOSPHATASE (test code = 2204) 83 U/L AST (test code = 2218) 18 U/L ALT (test code = 2219) 11 U/L Kentrell AlmanzaHEMOGLOBIN [id number] 00:00:00* Test Item Value Reference Range Interpretation Comme nts HEMOGLOBIN A1c (test code = 16408) 7.0 % [id number] 00:00:00* Test Item Value Reference Range Interpretation Comme nts TSH, THIRD GENERATION (test code = 2821) 3.380 UIU/ML MICROALBUMIN/CREATININE, RANDOM AND [id number] 00:00:00* Test Item Value Reference Range Interpretation Comme nts CREATININE, URINE, CONC. (te st code = 2072) 63.2 MG/DL ALBUMIN, URINE, RANDOM (test code = 18140) 21.8 MG/DL CALC ALBUMIN/CREAT, RND (mayo t code = 82898) 345 MG/G COMPREHENSIVE METABOLIC [id number] 00:00:00* Test Item Value Reference Range Interpretation Comme nts GLUCOSE (test code = 2217) 128 MG/DL BUN (test code = 2208) 29 MG/DL CREATININE (test code = 2214) 1.40 MG/DL eGFR AMER. (test cod e = 74396) 42 ML/MIN/1.73 eGFR NON- AMER. (test code = 37164) 37 ML/MIN/1.73 CALC BUN/CREAT (test code = 2235) 21 RATIO SODIUM (test code = 2231) 145 MEQ/L POTASSIUM (test code = 2228) 4.4 MEQ/L CHLORIDE (test code = 2215) 103 MEQ/L CARBON DIOXIDE (test code = 2206) 25 MEQ/L CALCIUM (test code = 2209) 9.3 MG/DL PROTEIN, TOTAL (test code = 2229) 6.8 G/DL ALBUMIN (test code = 2201) 4.4 G/DL CALC GLOBULIN (test code = 2240) 2.4 G/DL CALC A/G RATIO (test code = 2234) 1.8 RATIO BILIRUBIN, TOTAL (test code = 2207) 0.5 MG/DL ALKALINE PHOSPHATASE (test code = 2204) 91 U/L AST (test code = 2218) 20 U/L ALT (test code = 2219) 12 U/L LIPID [id number] 00:00:00* Test Item Value Reference Range Interpretation Comme nts CHOLESTEROL (test code = 2210) 226 MG/DL TRIGLYCERIDES (test code = 2232) 165 MG/DL HDL CHOLESTEROL (test code = 2220) 67 MG/DL CALC LDL CHOL (test code = 2237) 126 MG/DL RISK RATIO LDL/HDL (test cod e = 2238) 1.88 RATIO CBC W/AUTO [id number] 00:00:00* Test Item Value Reference Range Interpretation Comme nts WBC (test code = 1001) 8.5 K/UL RBC (test code = 1002) 4.39 M/UL HEMOGLOBIN (test code = 1003) 12.8 G/DL HEMATOCRIT (test code = 1004) 37.7 % MCV (test code = 1005) 85.9 fL MCH (test code = 1006) 29.2 PG MCHC (test code = 1007) 34.0 G/DL RDW (test code = 1038) 13.0 % NEUTROPHILS (test code = 1008) 64.6 % LYMPHOCYTES (test code = 1010) 28.4 % MONOCYTES (test code = 1011) 5.4 % EOSINOPHILS (test code = 1012) 0.9 % BASOPHILS (test code = 1013) 0.7 % PLATELET COUNT (test code = 1015) 222 K/UL [id number] 00:00:00* Test Item Value Reference Range Interpretation Comme nts TSH, THIRD GENERATION (test code = 2821) 3.380 UIU/ML Kentrell Tomas AustinMICROALBUMIN/CREATININE, RANDOM AND [id number] 00:00:00* Test Item Value Reference Range Interpretation Comme nts CREATININE, URINE, CONC. (te st code = 2072) 63.2 MG/DL ALBUMIN, URINE, RANDOM (test code = 87461) 21.8 MG/DL CALC ALBUMIN/CREAT, RND (mayo t code = 65318) 345 MG/G Kentrell Tomas ArchieCOMPREHENSIVE METABOLIC [id number] 00:00:00* Test Item Value Reference Range Interpretation Comme nts GLUCOSE (test code = 2217) 128 MG/DL BUN (test code = 2208) 29 MG/DL CREATININE (test code = 2214) 1.40 MG/DL eGFR AMER. (test cod e = 49481) 42 ML/MIN/1.73 eGFR NON- AMER. (test code = 59746) 37 ML/MIN/1.73 CALC BUN/CREAT (test code = 2235) 21 RATIO SODIUM (test code = 2231) 145 MEQ/L POTASSIUM (test code = 2228) 4.4 MEQ/L CHLORIDE (test code = 2215) 103 MEQ/L CARBON DIOXIDE (test code = 2206) 25 MEQ/L CALCIUM (test code = 2209) 9.3 MG/DL PROTEIN, TOTAL (test code = 2229) 6.8 G/DL ALBUMIN (test code = 2201) 4.4 G/DL CALC GLOBULIN (test code = 2240) 2.4 G/DL CALC A/G RATIO (test code = 2234) 1.8 RATIO BILIRUBIN, TOTAL (test code = 2207) 0.5 MG/DL ALKALINE PHOSPHATASE (test code = 2204) 91 U/L AST (test code = 2218) 20 U/L ALT (test code = 2219) 12 U/L Kentrell AlmanzaLIPID [id number] 00:00:00* Test Item Value Reference Range Interpretation Comme nts CHOLESTEROL (test code = 2210) 226 MG/DL TRIGLYCERIDES (test code = 2232) 165 MG/DL HDL CHOLESTEROL (test code = 2220) 67 MG/DL CALC LDL CHOL (test code = 2237) 126 MG/DL RISK RATIO LDL/HDL (test cod e = 2238) 1.88 RATIO Kentrell AlmanzaCBC W/AUTO [id number] 00:00:00* Test Item Value Reference Range Interpretation Comme nts WBC (test code = 1001) 8.5 K/UL RBC (test code = 1002) 4.39 M/UL HEMOGLOBIN (test code = 1003) 12.8 G/DL HEMATOCRIT (test code = 1004) 37.7 % MCV (test code = 1005) 85.9 fL MCH (test code = 1006) 29.2 PG MCHC (test code = 1007) 34.0 G/DL RDW (test code = 1038) 13.0 % NEUTROPHILS (test code = 1008) 64.6 % LYMPHOCYTES (test code = 1010) 28.4 % MONOCYTES (test code = 1011) 5.4 % EOSINOPHILS (test code = 1012) 0.9 % BASOPHILS (test code = 1013) 0.7 % PLATELET COUNT (test code = 1015) 222 K/UL Kentrell AlmanzaHEMOGLOBIN [id number] 00:00:00* Test Item Value Reference Range Interpretation Comme [facility] HEMOGLOBIN A1c (test code = 95018) 7.0 % Kentrell [id number] 00:00:00* Test Item Value Reference Range Interpretation Comme [facility] TSH, THIRD GENERATION (test code = 2821) 3.380 UIU/ML Kentrell AlmanzaMICROALBUMIN/CREATININE, RANDOM AND [id number] 00:00:00* Test Item Value Reference Range Interpretation Comme nts CREATININE, URINE, CONC. (te st code = 2072) 63.2 MG/DL ALBUMIN, URINE, RANDOM (test code = 47200) 21.8 MG/DL CALC ALBUMIN/CREAT, RND (mayo t code = 03900) 345 MG/G Kentrell AlmanzaCOMPREHENSIVE METABOLIC [id number] 00:00:00* Test Item Value Reference Range Interpretation Comme nts GLUCOSE (test code = 2217) 128 MG/DL BUN (test code = 2208) 29 MG/DL CREATININE (test code = 2214) 1.40 MG/DL eGFR AMER. (test cod e = 47357) 42 ML/MIN/1.73 eGFR NON- AMER. (test code = 02770) 37 ML/MIN/1.73 CALC BUN/CREAT (test code = 2235) 21 RATIO SODIUM (test code = 2231) 145 MEQ/L POTASSIUM (test code = 2228) 4.4 MEQ/L CHLORIDE (test code = 2215) 103 MEQ/L CARBON DIOXIDE (test code = 2206) 25 MEQ/L CALCIUM (test code = 2209) 9.3 MG/DL PROTEIN, TOTAL (test code = 2229) 6.8 G/DL ALBUMIN (test code = 2201) 4.4 G/DL CALC GLOBULIN (test code = 2240) 2.4 G/DL CALC A/G RATIO (test code = 2234) 1.8 RATIO BILIRUBIN, TOTAL (test code = 2207) 0.5 MG/DL ALKALINE PHOSPHATASE (test code = 2204) 91 U/L AST (test code = 2218) 20 U/L ALT (test code = 2219) 12 U/L Kentrell AlmanzaLIPID [id number] 00:00:00* Test Item Value Reference Range Interpretation Comme nts CHOLESTEROL (test code = 2210) 226 MG/DL TRIGLYCERIDES (test code = 2232) 165 MG/DL HDL CHOLESTEROL (test code = 2220) 67 MG/DL CALC LDL CHOL (test code = 2237) 126 MG/DL RISK RATIO LDL/HDL (test cod e = 2238) 1.88 RATIO Kentrell AlmanzaCBC W/AUTO [id number] 00:00:00* Test Item Value Reference Range Interpretation Comme nts WBC (test code = 1001) 8.5 K/UL RBC (test code = 1002) 4.39 M/UL HEMOGLOBIN (test code = 1003) 12.8 G/DL HEMATOCRIT (test code = 1004) 37.7 % MCV (test code = 1005) 85.9 fL MCH (test code = 1006) 29.2 PG MCHC (test code = 1007) 34.0 G/DL RDW (test code = 1038) 13.0 % NEUTROPHILS (test code = 1008) 64.6 % LYMPHOCYTES (test code = 1010) 28.4 % MONOCYTES (test code = 1011) 5.4 % EOSINOPHILS (test code = 1012) 0.9 % BASOPHILS (test code = 1013) 0.7 % PLATELET COUNT (test code = 1015) 222 K/UL Kentrell AlmanzaHEMOGLOBIN [id number] 00:00:00* Test Item Value Reference Range Interpretation Comme [facility] HEMOGLOBIN A1c (test code = 97849) 7.0 % Kentrell [id number] 00:00:00* Test Item Value Reference Range Interpretation Comme [facility] TSH, THIRD GENERATION (test code = 2821) 3.380 UIU/ML Kentrell AlmanzaMICROALBUMIN/CREATININE, RANDOM AND [id number] 00:00:00* Test Item Value Reference Range Interpretation Comme [facility] CREATININE, URINE, CONC. (te st code = 2072) 63.2 MG/DL ALBUMIN, URINE, RANDOM (test code = 98845) 21.8 MG/DL CALC ALBUMIN/CREAT, RND (mayo t code = 31122) 345 MG/G Kentrell AlmanzaCOMPREHENSIVE METABOLIC [id number] 00:00:00* Test Item Value Reference Range Interpretation Comme nts GLUCOSE (test code = 2217) 128 MG/DL BUN (test code = 2208) 29 MG/DL CREATININE (test code = 2214) 1.40 MG/DL eGFR AMER. (test cod e = 07811) 42 ML/MIN/1.73 eGFR NON- AMER. (test code = 24900) 37 ML/MIN/1.73 CALC BUN/CREAT (test code = 2235) 21 RATIO SODIUM (test code = 2231) 145 MEQ/L POTASSIUM (test code = 2228) 4.4 MEQ/L CHLORIDE (test code = 2215) 103 MEQ/L CARBON DIOXIDE (test code = 2206) 25 MEQ/L CALCIUM (test code = 2209) 9.3 MG/DL PROTEIN, TOTAL (test code = 2229) 6.8 G/DL ALBUMIN (test code = 2201) 4.4 G/DL CALC GLOBULIN (test code = 2240) 2.4 G/DL CALC A/G RATIO (test code = 2234) 1.8 RATIO BILIRUBIN, TOTAL (test code = 2207) 0.5 MG/DL ALKALINE PHOSPHATASE (test code = 2204) 91 U/L AST (test code = 2218) 20 U/L ALT (test code = 2219) 12 U/L Kentrell AlmanzaLIPID [id number] 00:00:00* Test Item Value Reference Range Interpretation Comme nts CHOLESTEROL (test code = 2210) 226 MG/DL TRIGLYCERIDES (test code = 2232) 165 MG/DL HDL CHOLESTEROL (test code = 2220) 67 MG/DL CALC LDL CHOL (test code = 2237) 126 MG/DL RISK RATIO LDL/HDL (test cod e = 2238) 1.88 RATIO Kentrell AlmanzaCBC W/AUTO [id number] 00:00:00* Test Item Value Reference Range Interpretation Comme nts WBC (test code = 1001) 8.5 K/UL RBC (test code = 1002) 4.39 M/UL HEMOGLOBIN (test code = 1003) 12.8 G/DL HEMATOCRIT (test code = 1004) 37.7 % MCV (test code = 1005) 85.9 fL MCH (test code = 1006) 29.2 PG MCHC (test code = 1007) 34.0 G/DL RDW (test code = 1038) 13.0 % NEUTROPHILS (test code = 1008) 64.6 % LYMPHOCYTES (test code = 1010) 28.4 % MONOCYTES (test code = 1011) 5.4 % EOSINOPHILS (test code = 1012) 0.9 % BASOPHILS (test code = 1013) 0.7 % PLATELET COUNT (test code = 1015) 222 K/UL Kentrell AlmanzaHEMOGLOBIN [id number] 00:00:00* Test Item Value Reference Range Interpretation Comme [facility] HEMOGLOBIN A1c (test code = 46349) 7.0 % Kentrell [id number] 00:00:00* Test Item Value Reference Range Interpretation Comme nts TSH, THIRD GENERATION (test code = 2821) 3.380 UIU/ML Kentrell AlmanzaMICROALBUMIN/CREATININE, RANDOM AND [id number] 00:00:00* Test Item Value Reference Range Interpretation Comme nts CREATININE, URINE, CONC. (te st code = 2072) 63.2 MG/DL ALBUMIN, URINE, RANDOM (test code = 70709) 21.8 MG/DL CALC ALBUMIN/CREAT, RND (mayo t code = 42976) 345 MG/G Kentrell AlmanzaCOMPREHENSIVE METABOLIC [id number] 00:00:00* Test Item Value Reference Range Interpretation Comme nts GLUCOSE (test code = 2217) 128 MG/DL BUN (test code = 2208) 29 MG/DL CREATININE (test code = 2214) 1.40 MG/DL eGFR AMER. (test cod e = 73491) 42 ML/MIN/1.73 eGFR NON- AMER. (test code = 63932) 37 ML/MIN/1.73 CALC BUN/CREAT (test code = 2235) 21 RATIO SODIUM (test code = 2231) 145 MEQ/L POTASSIUM (test code = 2228) 4.4 MEQ/L CHLORIDE (test code = 2215) 103 MEQ/L CARBON DIOXIDE (test code = 2206) 25 MEQ/L CALCIUM (test code = 2209) 9.3 MG/DL PROTEIN, TOTAL (test code = 2229) 6.8 G/DL ALBUMIN (test code = 2201) 4.4 G/DL CALC GLOBULIN (test code = 2240) 2.4 G/DL CALC A/G RATIO (test code = 2234) 1.8 RATIO BILIRUBIN, TOTAL (test code = 2207) 0.5 MG/DL ALKALINE PHOSPHATASE (test code = 2204) 91 U/L AST (test code = 2218) 20 U/L ALT (test code = 2219) 12 U/L Kentrell AlmanzaLIPID [id number] 00:00:00* Test Item Value Reference Range Interpretation Comme nts CHOLESTEROL (test code = 2210) 226 MG/DL TRIGLYCERIDES (test code = 2232) 165 MG/DL HDL CHOLESTEROL (test code = 2220) 67 MG/DL CALC LDL CHOL (test code = 2237) 126 MG/DL RISK RATIO LDL/HDL (test cod e = 2238) 1.88 RATIO Kentrell AlmanzaCBC W/AUTO [id number] 00:00:00* Test Item Value Reference Range Interpretation Comme nts WBC (test code = 1001) 8.5 K/UL RBC (test code = 1002) 4.39 M/UL HEMOGLOBIN (test code = 1003) 12.8 G/DL HEMATOCRIT (test code = 1004) 37.7 % MCV (test code = 1005) 85.9 fL MCH (test code = 1006) 29.2 PG MCHC (test code = 1007) 34.0 G/DL RDW (test code = 1038) 13.0 % NEUTROPHILS (test code = 1008) 64.6 % LYMPHOCYTES (test code = 1010) 28.4 % MONOCYTES (test code = 1011) 5.4 % EOSINOPHILS (test code = 1012) 0.9 % BASOPHILS (test code = 1013) 0.7 % PLATELET COUNT (test code = 1015) 222 K/UL Kentrell AlmanzaHEMOGLOBIN [id number] 00:00:00* Test Item Value Reference Range Interpretation Comme [facility] HEMOGLOBIN A1c (test code = 41674) 7.0 % Kentrell [id number] 00:00:00* Test Item Value Reference Range Interpretation Comme [facility] TSH, THIRD GENERATION (test code = 2821) 3.380 UIU/ML Kentrell AlmanzaMICROALBUMIN/CREATININE, RANDOM AND [id number] 00:00:00* Test Item Value Reference Range Interpretation Comme [facility] CREATININE, URINE, CONC. (te st code = 2072) 63.2 MG/DL ALBUMIN, URINE, RANDOM (test code = 52511) 21.8 MG/DL CALC ALBUMIN/CREAT, RND (mayo t code = 30041) 345 MG/G Kentrell AlmanzaCOMPREHENSIVE METABOLIC [id number] 00:00:00* Test Item Value Reference Range Interpretation Comme nts GLUCOSE (test code = 2217) 128 MG/DL BUN (test code = 2208) 29 MG/DL CREATININE (test code = 2214) 1.40 MG/DL eGFR AMER. (test cod e = 66200) 42 ML/MIN/1.73 eGFR NON- AMER. (test code = 97005) 37 ML/MIN/1.73 CALC BUN/CREAT (test code = 2235) 21 RATIO SODIUM (test code = 2231) 145 MEQ/L POTASSIUM (test code = 2228) 4.4 MEQ/L CHLORIDE (test code = 2215) 103 MEQ/L CARBON DIOXIDE (test code = 2206) 25 MEQ/L CALCIUM (test code = 2209) 9.3 MG/DL PROTEIN, TOTAL (test code = 2229) 6.8 G/DL ALBUMIN (test code = 2201) 4.4 G/DL CALC GLOBULIN (test code = 2240) 2.4 G/DL CALC A/G RATIO (test code = 2234) 1.8 RATIO BILIRUBIN, TOTAL (test code = 2207) 0.5 MG/DL ALKALINE PHOSPHATASE (test code = 2204) 91 U/L AST (test code = 2218) 20 U/L ALT (test code = 2219) 12 U/L Kentrell Genoveva MonticelloLIPID [id number] 00:00:00* Test Item Value Reference Range Interpretation Comme nts CHOLESTEROL (test code = 2210) 226 MG/DL TRIGLYCERIDES (test code = 2232) 165 MG/DL HDL CHOLESTEROL (test code = 2220) 67 MG/DL CALC LDL CHOL (test code = 2237) 126 MG/DL RISK RATIO LDL/HDL (test cod e = 2238) 1.88 RATIO Kentrell Tomas ArchieCBC W/AUTO [id number] 00:00:00* Test Item Value Reference Range Interpretation Comme nts WBC (test code = 1001) 8.5 K/UL RBC (test code = 1002) 4.39 M/UL HEMOGLOBIN (test code = 1003) 12.8 G/DL HEMATOCRIT (test code = 1004) 37.7 % MCV (test code = 1005) 85.9 fL MCH (test code = 1006) 29.2 PG MCHC (test code = 1007) 34.0 G/DL RDW (test code = 1038) 13.0 % NEUTROPHILS (test code = 1008) 64.6 % LYMPHOCYTES (test code = 1010) 28.4 % MONOCYTES (test code = 1011) 5.4 % EOSINOPHILS (test code = 1012) 0.9 % BASOPHILS (test code = 1013) 0.7 % PLATELET COUNT (test code = 1015) 222 K/UL eKntrell Tomas AustinHEMOGLOBIN [id number] 00:00:00* Test Item Value Reference Range Interpretation Comme nts HEMOGLOBIN A1c (test code = 06494) 7.0 % Kentrell Tomas AustinHEMOGLOBIN [id number] 00:00:00* Test Item Value Reference Range Interpretation Comme nts HEMOGLOBIN A1c (test code = 24812) 7.0 % COMPREHENSIVE METABOLIC [id number] 00:00:00* Test Item Value Reference Range Interpretation Comme nts GLUCOSE (test code = 2217) 137 MG/DL BUN (test code = 2208) 20 MG/DL CREATININE (test code = 2214) 1.01 MG/DL eGFR AMER. (test cod e = 64614) 64 ML/MIN/1.73 eGFR NON- AMER. (test code = 09635) 55 ML/MIN/1.73 CALC BUN/CREAT (test code = 2235) 20 RATIO SODIUM (test code = 2231) 141 MEQ/L POTASSIUM (test code = 2228) 4.4 MEQ/L CHLORIDE (test code = 2215) 103 MEQ/L CARBON DIOXIDE (test code = 2206) 22 MEQ/L CALCIUM (test code = 2209) 9.0 MG/DL PROTEIN, TOTAL (test code = 2229) 6.8 G/DL ALBUMIN (test code = 2201) 4.0 G/DL CALC GLOBULIN (test code = 2240) 2.8 G/DL CALC A/G RATIO (test code = 2234) 1.4 RATIO BILIRUBIN, TOTAL (test code = 2207) 0.3 MG/DL ALKALINE PHOSPHATASE (test code = 2204) 80 U/L AST (test code = 2218) 20 U/L ALT (test code = 2219) 14 U/L LIPID [id number] 00:00:00* Test Item Value Reference Range Interpretation Comme nts CHOLESTEROL (test code = 2210) 232 MG/DL TRIGLYCERIDES (test code = 2232) 214 MG/DL HDL CHOLESTEROL (test code = 2220) 57 MG/DL CALC LDL CHOL (test code = 2237) 132 MG/DL RISK RATIO LDL/HDL (test cod e = 2238) 2.32 RATIO COMPREHENSIVE METABOLIC [id number] 00:00:00* Test Item Value Reference Range Interpretation Comme nts GLUCOSE (test code = 7) 137 MG/DL BUN (test code = 2208) 20 MG/DL CREATININE (test code = 2214) 1.01 MG/DL eGFR AMER. (test cod e = 85790) 64 ML/MIN/1.73 eGFR NON- AMER. (test code = 89986) 55 ML/MIN/1.73 CALC BUN/CREAT (test code = 2235) 20 RATIO SODIUM (test code = 2231) 141 MEQ/L POTASSIUM (test code = 2228) 4.4 MEQ/L CHLORIDE (test code = 2215) 103 MEQ/L CARBON DIOXIDE (test code = 2206) 22 MEQ/L CALCIUM (test code = 2209) 9.0 MG/DL PROTEIN, TOTAL (test code = 2229) 6.8 G/DL ALBUMIN (test code = 2201) 4.0 G/DL CALC GLOBULIN (test code = 2240) 2.8 G/DL CALC A/G RATIO (test code = 2234) 1.4 RATIO BILIRUBIN, TOTAL (test code = 2207) 0.3 MG/DL ALKALINE PHOSPHATASE (test code = 2204) 80 U/L AST (test code = 2218) 20 U/L ALT (test code = 2219) 14 U/L Kentrell AlmanzaLIPID [id number] 00:00:00* Test Item Value Reference Range Interpretation Comme nts CHOLESTEROL (test code = 2210) 232 MG/DL TRIGLYCERIDES (test code = 2232) 214 MG/DL HDL CHOLESTEROL (test code = 2220) 57 MG/DL CALC LDL CHOL (test code = 223) 132 MG/DL RISK RATIO LDL/HDL (test cod e = 2238) 2.32 RATIO Kentrell AlmanzaHEMOGLOBIN [id number] 00:00:00* Test Item Value Reference Range Interpretation Comme nts HEMOGLOBIN A1c (test code = 00940) 7.0 % Kentrell Tomas ArchieCOMPREHENSIVE METABOLIC [id number] 00:00:00* Test Item Value Reference Range Interpretation Comme nts GLUCOSE (test code = 2216) 137 MG/DL BUN (test code = 8) 20 MG/DL CREATININE (test code = 2214) 1.01 MG/DL eGFR AMER. (test cod e = 75650) 64 ML/MIN/1.73 eGFR NON- AMER. (test code = 85052) 55 ML/MIN/1.73 CALC BUN/CREAT (test code = 2235) 20 RATIO SODIUM (test code = 2231) 141 MEQ/L POTASSIUM (test code = 2228) 4.4 MEQ/L CHLORIDE (test code = 2215) 103 MEQ/L CARBON DIOXIDE (test code = 2206) 22 MEQ/L CALCIUM (test code = 2209) 9.0 MG/DL PROTEIN, TOTAL (test code = 2229) 6.8 G/DL ALBUMIN (test code = 2201) 4.0 G/DL CALC GLOBULIN (test code = 2240) 2.8 G/DL CALC A/G RATIO (test code = 2234) 1.4 RATIO BILIRUBIN, TOTAL (test code = 220) 0.3 MG/DL ALKALINE PHOSPHATASE (test code = 220) 80 U/L AST (test code = 2218) 20 U/L ALT (test code = 2219) 14 U/L Kentrell Tomas MonticelloLIPID [id number] 00:00:00* Test Item Value Reference Range Interpretation Comme nts CHOLESTEROL (test code = 2210) 232 MG/DL TRIGLYCERIDES (test code = 2232) 214 MG/DL HDL CHOLESTEROL (test code = 0) 57 MG/DL CALC LDL CHOL (test code = 7) 132 MG/DL RISK RATIO LDL/HDL (test cod e = 2238) 2.32 RATIO Kentrell AlmanzaHEMOGLOBIN [id number] 00:00:00* Test Item Value Reference Range Interpretation Comme nts HEMOGLOBIN A1c (test code = 73813) 7.0 % Kentrell Tomas MonticelloCOMPREHENSIVE METABOLIC [id number] 00:00:00* Test Item Value Reference Range Interpretation Comme nts GLUCOSE (test code = 2217) 137 MG/DL BUN (test code = 2208) 20 MG/DL CREATININE (test code = 2214) 1.01 MG/DL eGFR AMER. (test cod e = 75188) 64 ML/MIN/1.73 eGFR NON- AMER. (test code = 13035) 55 ML/MIN/1.73 CALC BUN/CREAT (test code = 2235) 20 RATIO SODIUM (test code = 2231) 141 MEQ/L POTASSIUM (test code = 2228) 4.4 MEQ/L CHLORIDE (test code = 2215) 103 MEQ/L CARBON DIOXIDE (test code = 2206) 22 MEQ/L CALCIUM (test code = 2209) 9.0 MG/DL PROTEIN, TOTAL (test code = 2229) 6.8 G/DL ALBUMIN (test code = 2201) 4.0 G/DL CALC GLOBULIN (test code = 2240) 2.8 G/DL CALC A/G RATIO (test code = 2234) 1.4 RATIO BILIRUBIN, TOTAL (test code = 2207) 0.3 MG/DL ALKALINE PHOSPHATASE (test code = 2204) 80 U/L AST (test code = 2218) 20 U/L ALT (test code = 2219) 14 U/L Kentrell AlmanzaLIPID [id number] 00:00:00* Test Item Value Reference Range Interpretation Comme nts CHOLESTEROL (test code = 2210) 232 MG/DL TRIGLYCERIDES (test code = 2232) 214 MG/DL HDL CHOLESTEROL (test code = 2220) 57 MG/DL CALC LDL CHOL (test code = 223) 132 MG/DL RISK RATIO LDL/HDL (test cod e = 2238) 2.32 RATIO Kentrell AlmanzaHEMOGLOBIN [id number] 00:00:00* Test Item Value Reference Range Interpretation Comme nts HEMOGLOBIN A1c (test code = 85144) 7.0 % Kentrell AlmanzaCOMPREHENSIVE METABOLIC [id number] 00:00:00* Test Item Value Reference Range Interpretation Comme nts GLUCOSE (test code = 2217) 137 MG/DL BUN (test code = 8) 20 MG/DL CREATININE (test code = 2214) 1.01 MG/DL eGFR AMER. (test cod e = 27821) 64 ML/MIN/1.73 eGFR NON- AMER. (test code = 08864) 55 ML/MIN/1.73 CALC BUN/CREAT (test code = 2235) 20 RATIO SODIUM (test code = 2231) 141 MEQ/L POTASSIUM (test code = 2228) 4.4 MEQ/L CHLORIDE (test code = 2215) 103 MEQ/L CARBON DIOXIDE (test code = 2206) 22 MEQ/L CALCIUM (test code = 2209) 9.0 MG/DL PROTEIN, TOTAL (test code = 2229) 6.8 G/DL ALBUMIN (test code = 2201) 4.0 G/DL CALC GLOBULIN (test code = 2240) 2.8 G/DL CALC A/G RATIO (test code = 2234) 1.4 RATIO BILIRUBIN, TOTAL (test code = 2207) 0.3 MG/DL ALKALINE PHOSPHATASE (test code = 2204) 80 U/L AST (test code = 2218) 20 U/L ALT (test code = 2219) 14 U/L Kentrell Tomas MonticelloLIPID [id number] 00:00:00* Test Item Value Reference Range Interpretation Comme nts CHOLESTEROL (test code = 2210) 232 MG/DL TRIGLYCERIDES (test code = 2232) 214 MG/DL HDL CHOLESTEROL (test code = 2220) 57 MG/DL CALC LDL CHOL (test code = 223) 132 MG/DL RISK RATIO LDL/HDL (test cod e = 2238) 2.32 RATIO Kentrell AlmanzaHEMOGLOBIN [id number] 00:00:00* Test Item Value Reference Range Interpretation Comme quinn HEMOGLOBIN A1c (test code = 31145) 7.0 % Kentrell AlmanzaCOMPREHENSIVE METABOLIC [id number] 00:00:00* Test Item Value Reference Range Interpretation Comme nts GLUCOSE (test code = 2216) 137 MG/DL BUN (test code = 2207) 20 MG/DL CREATININE (test code = 2214) 1.01 MG/DL eGFR AMER. (test cod e = 17968) 64 ML/MIN/1.73 eGFR NON- AMER. (test code = 88377) 55 ML/MIN/1.73 CALC BUN/CREAT (test code = 2235) 20 RATIO SODIUM (test code = 2231) 141 MEQ/L POTASSIUM (test code = 2228) 4.4 MEQ/L CHLORIDE (test code = 2215) 103 MEQ/L CARBON DIOXIDE (test code = 2206) 22 MEQ/L CALCIUM (test code = 2209) 9.0 MG/DL PROTEIN, TOTAL (test code = 2229) 6.8 G/DL ALBUMIN (test code = 2201) 4.0 G/DL CALC GLOBULIN (test code = 2240) 2.8 G/DL CALC A/G RATIO (test code = 2234) 1.4 RATIO BILIRUBIN, TOTAL (test code = 2207) 0.3 MG/DL ALKALINE PHOSPHATASE (test code = 2204) 80 U/L AST (test code = 2218) 20 U/L ALT (test code = 2219) 14 U/L Kentrell AlmanzaLIPID [id number] 00:00:00* Test Item Value Reference Range Interpretation Comme nts CHOLESTEROL (test code = 2210) 232 MG/DL TRIGLYCERIDES (test code = 2232) 214 MG/DL HDL CHOLESTEROL (test code = 2220) 57 MG/DL CALC LDL CHOL (test code = 2237) 132 MG/DL RISK RATIO LDL/HDL (test cod e = 2238) 2.32 RATIO Kentrell AlmanzaHEMOGLOBIN [id number] 00:00:00* Test Item Value Reference Range Interpretation Comme quinn HEMOGLOBIN A1c (test code = 12259) 7.0 % Kentrell AlmanzaMICROALBUMIN/CREATININE, RANDOM AND RATIO [ADDED]2016-12-28 00:00:00* Test Item Value Reference Range Interpretation Comme nts CREATININE, URINE, CONC. (te st code = 2072) 121.2 MG/DL MICROALBUMIN, RANDOM (test c ode = 29876) 37.8 MG/DL CALC MICROALB/CREAT RND (mayo t code = 45022) 312 MG/G HEMOGLOBIN [id number] 00:00:00* Test Item Value Reference Range Interpretation Comme quinn HEMOGLOBIN A1c (test code = 04842) 6.2 % COMPREHENSIVE METABOLIC [id number] 00:00:00* Test Item Value Reference Range Interpretation Comme nts GLUCOSE (test code = 2217) 109 MG/DL BUN (test code = 2208) 28 MG/DL CREATININE (test code = 2214) 1.33 MG/DL eGFR AMER. (test cod e = 02527) 46 ML/MIN/1.73 eGFR NON- AMER. (test code = 22441) 40 ML/MIN/1.73 CALC BUN/CREAT (test code = 2235) 21 RATIO SODIUM (test code = 2231) 143 MEQ/L POTASSIUM (test code = 2228) 4.7 MEQ/L CHLORIDE (test code = 2215) 105 MEQ/L CARBON DIOXIDE (test code = 2206) 18 MEQ/L CALCIUM (test code = 2209) 9.4 MG/DL PROTEIN, TOTAL (test code = 2229) 7.3 G/DL ALBUMIN (test code = 2201) 4.3 G/DL CALC GLOBULIN (test code = 2240) 3.0 G/DL CALC A/G RATIO (test code = 2234) 1.4 RATIO BILIRUBIN, TOTAL (test code = 2207) 0.4 MG/DL ALKALINE PHOSPHATASE (test code = 2204) 94 U/L AST (test code = 2218) 25 U/L ALT (test code = 2219) 14 U/L HEMOGLOBIN [id number] 00:00:00* Test Item Value Reference Range Interpretation Comme nts HEMOGLOBIN A1c (test code = 00156) 6.2 % Kentrell AlmanzaCOMPREHENSIVE METABOLIC [id number] 00:00:00* Test Item Value Reference Range Interpretation Comme nts GLUCOSE (test code = 2217) 109 MG/DL BUN (test code = 2208) 28 MG/DL CREATININE (test code = 2214) 1.33 MG/DL eGFR AMER. (test cod e = 80644) 46 ML/MIN/1.73 eGFR NON- AMER. (test code = 75949) 40 ML/MIN/1.73 CALC BUN/CREAT (test code = 2235) 21 RATIO SODIUM (test code = 2231) 143 MEQ/L POTASSIUM (test code = 2228) 4.7 MEQ/L CHLORIDE (test code = 2215) 105 MEQ/L CARBON DIOXIDE (test code = 2206) 18 MEQ/L CALCIUM (test code = 2209) 9.4 MG/DL PROTEIN, TOTAL (test code = 2229) 7.3 G/DL ALBUMIN (test code = 2201) 4.3 G/DL CALC GLOBULIN (test code = 2240) 3.0 G/DL CALC A/G RATIO (test code = 2234) 1.4 RATIO BILIRUBIN, TOTAL (test code = 2207) 0.4 MG/DL ALKALINE PHOSPHATASE (test code = 2204) 94 U/L AST (test code = 2218) 25 U/L ALT (test code = 2219) 14 U/L Kentrell AlmanzaMICROALBUMIN/CREATININE, RANDOM AND RATIO [ADDED]2016-12-28 00:00:00* Test Item Value Reference Range Interpretation Comme nts CREATININE, URINE, CONC. (te st code = 2071) 121.2 MG/DL MICROALBUMIN, RANDOM (test c ode = 20686) 37.8 MG/DL CALC MICROALB/CREAT RND (mayo t code = 86286) 312 MG/G Kentrell AlmanzaHEMOGLOBIN [id number] 00:00:00* Test Item Value Reference Range Interpretation Comme nts HEMOGLOBIN A1c (test code = 88311) 6.2 % Kentrell AlmanzaCOMPREHENSIVE METABOLIC [id number] 00:00:00* Test Item Value Reference Range Interpretation Comme nts GLUCOSE (test code = 2217) 109 MG/DL BUN (test code = 2208) 28 MG/DL CREATININE (test code = 2214) 1.33 MG/DL eGFR AMER. (test cod e = 72096) 46 ML/MIN/1.73 eGFR NON- AMER. (test code = 00990) 40 ML/MIN/1.73 CALC BUN/CREAT (test code = 2235) 21 RATIO SODIUM (test code = 2231) 143 MEQ/L POTASSIUM (test code = 2228) 4.7 MEQ/L CHLORIDE (test code = 2215) 105 MEQ/L CARBON DIOXIDE (test code = 2206) 18 MEQ/L CALCIUM (test code = 2209) 9.4 MG/DL PROTEIN, TOTAL (test code = 2229) 7.3 G/DL ALBUMIN (test code = 2201) 4.3 G/DL CALC GLOBULIN (test code = 2240) 3.0 G/DL CALC A/G RATIO (test code = 2234) 1.4 RATIO BILIRUBIN, TOTAL (test code = 2207) 0.4 MG/DL ALKALINE PHOSPHATASE (test code = 2204) 94 U/L AST (test code = 2218) 25 U/L ALT (test code = 2219) 14 U/L Kentrell AlmanzaMICROALBUMIN/CREATININE, RANDOM AND RATIO [ADDED]2016-12-28 00:00:00* Test Item Value Reference Range Interpretation Comme nts CREATININE, URINE, CONC. (te st code = 2071) 121.2 MG/DL MICROALBUMIN, RANDOM (test c ode = 71183) 37.8 MG/DL CALC MICROALB/CREAT RND (mayo t code = 25210) 312 MG/G Kentrell Tomas AustinHEMOGLOBIN [id number] 00:00:00* Test Item Value Reference Range Interpretation Comme nts HEMOGLOBIN A1c (test code = 26598) 6.2 % Kentrell Tomas AustinCOMPREHENSIVE METABOLIC [id number] 00:00:00* Test Item Value Reference Range Interpretation Comme nts GLUCOSE (test code = 2217) 109 MG/DL BUN (test code = 2208) 28 MG/DL CREATININE (test code = 2214) 1.33 MG/DL eGFR AMER. (test cod e = 26503) 46 ML/MIN/1.73 eGFR NON- AMER. (test code = 00525) 40 ML/MIN/1.73 CALC BUN/CREAT (test code = 2235) 21 RATIO SODIUM (test code = 2231) 143 MEQ/L POTASSIUM (test code = 2228) 4.7 MEQ/L CHLORIDE (test code = 2215) 105 MEQ/L CARBON DIOXIDE (test code = 2206) 18 MEQ/L CALCIUM (test code = 2209) 9.4 MG/DL PROTEIN, TOTAL (test code = 2229) 7.3 G/DL ALBUMIN (test code = 2201) 4.3 G/DL CALC GLOBULIN (test code = 2240) 3.0 G/DL CALC A/G RATIO (test code = 2234) 1.4 RATIO BILIRUBIN, TOTAL (test code = 2207) 0.4 MG/DL ALKALINE PHOSPHATASE (test code = 2204) 94 U/L AST (test code = 2218) 25 U/L ALT (test code = 2219) 14 U/L Kentrell AlmanzaMICROALBUMIN/CREATININE, RANDOM AND RATIO [ADDED]2016-12-28 00:00:00* Test Item Value Reference Range Interpretation Comme nts CREATININE, URINE, CONC. (te st code = 2072) 121.2 MG/DL MICROALBUMIN, RANDOM (test c ode = 46200) 37.8 MG/DL CALC MICROALB/CREAT RND (mayo t code = 46312) 312 MG/G Kentrell AlmanzaHEMOGLOBIN [id number] 00:00:00* Test Item Value Reference Range Interpretation Comme nts HEMOGLOBIN A1c (test code = 47720) 6.2 % Kentrell Tomas AustinCOMPREHENSIVE METABOLIC [id number] 00:00:00* Test Item Value Reference Range Interpretation Comme nts GLUCOSE (test code = 2217) 109 MG/DL BUN (test code = 2208) 28 MG/DL CREATININE (test code = 2214) 1.33 MG/DL eGFR AMER. (test cod e = 91781) 46 ML/MIN/1.73 eGFR NON- AMER. (test code = 59115) 40 ML/MIN/1.73 CALC BUN/CREAT (test code = 2235) 21 RATIO SODIUM (test code = 2231) 143 MEQ/L POTASSIUM (test code = 2228) 4.7 MEQ/L CHLORIDE (test code = 2215) 105 MEQ/L CARBON DIOXIDE (test code = 2206) 18 MEQ/L CALCIUM (test code = 2209) 9.4 MG/DL PROTEIN, TOTAL (test code = 2229) 7.3 G/DL ALBUMIN (test code = 2201) 4.3 G/DL CALC GLOBULIN (test code = 2240) 3.0 G/DL CALC A/G RATIO (test code = 2234) 1.4 RATIO BILIRUBIN, TOTAL (test code = 2207) 0.4 MG/DL ALKALINE PHOSPHATASE (test code = 2204) 94 U/L AST (test code = 2218) 25 U/L ALT (test code = 2219) 14 U/L Kentrell AlmanzaMICROALBUMIN/CREATININE, RANDOM AND RATIO [ADDED]2016-12-28 00:00:00* Test Item Value Reference Range Interpretation Comme nts CREATININE, URINE, CONC. (te st code = 2072) 121.2 MG/DL MICROALBUMIN, RANDOM (test c ode = 04915) 37.8 MG/DL CALC MICROALB/CREAT RND (mayo t code = 14492) 312 MG/G Kentrell AlmanzaHEMOGLOBIN [id number] 00:00:00* Test Item Value Reference Range Interpretation Comme nts HEMOGLOBIN A1c (test code = 53222) 6.2 % Kentrell AlmanzaCOMPREHENSIVE METABOLIC [id number] 00:00:00* Test Item Value Reference Range Interpretation Comme nts GLUCOSE (test code = 2217) 109 MG/DL BUN (test code = 2208) 28 MG/DL CREATININE (test code = 2214) 1.33 MG/DL eGFR AMER. (test cod e = 72154) 46 ML/MIN/1.73 eGFR NON- AMER. (test code = 01448) 40 ML/MIN/1.73 CALC BUN/CREAT (test code = 2235) 21 RATIO SODIUM (test code = 2231) 143 MEQ/L POTASSIUM (test code = 2228) 4.7 MEQ/L CHLORIDE (test code = 2215) 105 MEQ/L CARBON DIOXIDE (test code = 2206) 18 MEQ/L CALCIUM (test code = 2209) 9.4 MG/DL PROTEIN, TOTAL (test code = 2229) 7.3 G/DL ALBUMIN (test code = 2201) 4.3 G/DL CALC GLOBULIN (test code = 2240) 3.0 G/DL CALC A/G RATIO (test code = 2234) 1.4 RATIO BILIRUBIN, TOTAL (test code = 2207) 0.4 MG/DL ALKALINE PHOSPHATASE (test code = 2204) 94 U/L AST (test code = 2218) 25 U/L ALT (test code = 2219) 14 U/L Kentrell AlmanzaMICROALBUMIN/CREATININE, RANDOM AND RATIO [ADDED]2016-12-28 00:00:00* Test Item Value Reference Range Interpretation Comme nts CREATININE, URINE, CONC. (te st code = 2072) 121.2 MG/DL MICROALBUMIN, RANDOM (test c ode = 89596) 37.8 MG/DL CALC MICROALB/CREAT RND (mayo t code = 03986) 312 MG/G Kentrell Tomas AustinHEMOGLOBIN [id number] 00:00:00* Test Item Value Reference Range Interpretation Comme nts HEMOGLOBIN A1c (test code = 66143) 6.8 % COMPREHENSIVE METABOLIC [id number] 00:00:00* Test Item Value Reference Range Interpretation Comme nts GLUCOSE (test code = 2217) 237 MG/DL BUN (test code = 2208) 22 MG/DL CREATININE (test code = 2214) 1.54 MG/DL eGFR AMER. (test cod e = 67902) 38 ML/MIN/1.73 eGFR NON- AMER. (test code = 76898) 33 ML/MIN/1.73 CALC BUN/CREAT (test code = 2235) 14 RATIO SODIUM (test code = 2231) 138 MEQ/L POTASSIUM (test code = 2228) 4.8 MEQ/L CHLORIDE (test code = 2215) 98 MEQ/L CARBON DIOXIDE (test code = 2206) 26 MEQ/L CALCIUM (test code = 2209) 9.1 MG/DL PROTEIN, TOTAL (test code = 2229) 6.4 G/DL ALBUMIN (test code = 2201) 4.0 G/DL CALC GLOBULIN (test code = 2240) 2.4 G/DL CALC A/G RATIO (test code = 2234) 1.7 RATIO BILIRUBIN, TOTAL (test code = 2207) 0.5 MG/DL ALKALINE PHOSPHATASE (test code = 2204) 95 U/L AST (test code = 2218) 19 U/L ALT (test code = 2219) 14 U/L LIPID [id number] 00:00:00* Test Item Value Reference Range Interpretation Comme nts CHOLESTEROL (test code = 2210) 250 MG/DL TRIGLYCERIDES (test code = 2232) 294 MG/DL HDL CHOLESTEROL (test code = 2220) 54 MG/DL CALC LDL CHOL (test code = 2237) 137 MG/DL RISK RATIO LDL/HDL (test cod e = 2238) 2.54 RATIO COMPREHENSIVE METABOLIC [id number] 00:00:00* Test Item Value Reference Range Interpretation Comme nts GLUCOSE (test code = 2217) 237 MG/DL BUN (test code = 2208) 22 MG/DL CREATININE (test code = 2214) 1.54 MG/DL eGFR AMER. (test cod e = 42201) 38 ML/MIN/1.73 eGFR NON- AMER. (test code = 20267) 33 ML/MIN/1.73 CALC BUN/CREAT (test code = 2235) 14 RATIO SODIUM (test code = 2231) 138 MEQ/L POTASSIUM (test code = 2228) 4.8 MEQ/L CHLORIDE (test code = 2215) 98 MEQ/L CARBON DIOXIDE (test code = 2206) 26 MEQ/L CALCIUM (test code = 2209) 9.1 MG/DL PROTEIN, TOTAL (test code = 2229) 6.4 G/DL ALBUMIN (test code = 2201) 4.0 G/DL CALC GLOBULIN (test code = 2240) 2.4 G/DL CALC A/G RATIO (test code = 2234) 1.7 RATIO BILIRUBIN, TOTAL (test code = 2207) 0.5 MG/DL ALKALINE PHOSPHATASE (test code = 2204) 95 U/L AST (test code = 2218) 19 U/L ALT (test code = 2219) 14 U/L Kentrell AlmanzaLIPID [id number] 00:00:00* Test Item Value Reference Range Interpretation Comme nts CHOLESTEROL (test code = 2210) 250 MG/DL TRIGLYCERIDES (test code = 2232) 294 MG/DL HDL CHOLESTEROL (test code = 2220) 54 MG/DL CALC LDL CHOL (test code = 2237) 137 MG/DL RISK RATIO LDL/HDL (test cod e = 2238) 2.54 RATIO Kentrell AlmanzaHEMOGLOBIN [id number] 00:00:00* Test Item Value Reference Range Interpretation Comme quinn HEMOGLOBIN A1c (test code = 05637) 6.8 % Kentrell AlmanzaCOMPREHENSIVE METABOLIC [id number] 00:00:00* Test Item Value Reference Range Interpretation Comme nts GLUCOSE (test code = 2217) 237 MG/DL BUN (test code = 2208) 22 MG/DL CREATININE (test code = 2214) 1.54 MG/DL eGFR AMER. (test cod e = 54602) 38 ML/MIN/1.73 eGFR NON- AMER. (test code = 45843) 33 ML/MIN/1.73 CALC BUN/CREAT (test code = 2235) 14 RATIO SODIUM (test code = 2231) 138 MEQ/L POTASSIUM (test code = 2228) 4.8 MEQ/L CHLORIDE (test code = 2215) 98 MEQ/L CARBON DIOXIDE (test code = 2206) 26 MEQ/L CALCIUM (test code = 2209) 9.1 MG/DL PROTEIN, TOTAL (test code = 2229) 6.4 G/DL ALBUMIN (test code = 2201) 4.0 G/DL CALC GLOBULIN (test code = 2240) 2.4 G/DL CALC A/G RATIO (test code = 2234) 1.7 RATIO BILIRUBIN, TOTAL (test code = 2207) 0.5 MG/DL ALKALINE PHOSPHATASE (test code = 2204) 95 U/L AST (test code = 2218) 19 U/L ALT (test code = 2219) 14 U/L Kentrell Tomas AustinLIPID [id number] 00:00:00* Test Item Value Reference Range Interpretation Comme nts CHOLESTEROL (test code = 2210) 250 MG/DL TRIGLYCERIDES (test code = 2232) 294 MG/DL HDL CHOLESTEROL (test code = 2220) 54 MG/DL CALC LDL CHOL (test code = 2237) 137 MG/DL RISK RATIO LDL/HDL (test cod e = 2238) 2.54 RATIO Kentrell AlmanzaHEMOGLOBIN [id number] 00:00:00* Test Item Value Reference Range Interpretation Comme nts HEMOGLOBIN A1c (test code = 47939) 6.8 % Kentrell AlmanzaCOMPREHENSIVE METABOLIC [id number] 00:00:00* Test Item Value Reference Range Interpretation Comme nts GLUCOSE (test code = 2217) 237 MG/DL BUN (test code = 2208) 22 MG/DL CREATININE (test code = 2214) 1.54 MG/DL eGFR AMER. (test cod e = 66831) 38 ML/MIN/1.73 eGFR NON- AMER. (test code = 88546) 33 ML/MIN/1.73 CALC BUN/CREAT (test code = 2235) 14 RATIO SODIUM (test code = 2231) 138 MEQ/L POTASSIUM (test code = 2228) 4.8 MEQ/L CHLORIDE (test code = 2215) 98 MEQ/L CARBON DIOXIDE (test code = 2206) 26 MEQ/L CALCIUM (test code = 2209) 9.1 MG/DL PROTEIN, TOTAL (test code = 2229) 6.4 G/DL ALBUMIN (test code = 2201) 4.0 G/DL CALC GLOBULIN (test code = 2240) 2.4 G/DL CALC A/G RATIO (test code = 2234) 1.7 RATIO BILIRUBIN, TOTAL (test code = 2207) 0.5 MG/DL ALKALINE PHOSPHATASE (test code = 2204) 95 U/L AST (test code = 2218) 19 U/L ALT (test code = 2219) 14 U/L Kentrell AlmanzaLIPID [id number] 00:00:00* Test Item Value Reference Range Interpretation Comme nts CHOLESTEROL (test code = 2210) 250 MG/DL TRIGLYCERIDES (test code = 2232) 294 MG/DL HDL CHOLESTEROL (test code = 2220) 54 MG/DL CALC LDL CHOL (test code = 2237) 137 MG/DL RISK RATIO LDL/HDL (test cod e = 2238) 2.54 RATIO Kentrell AlmanzaHEMOGLOBIN [id number] 00:00:00* Test Item Value Reference Range Interpretation Comme nts HEMOGLOBIN A1c (test code = 81609) 6.8 % Kentrell AlmanzaCOMPREHENSIVE METABOLIC [id number] 00:00:00* Test Item Value Reference Range Interpretation Comme nts GLUCOSE (test code = 2217) 237 MG/DL BUN (test code = 2208) 22 MG/DL CREATININE (test code = 2214) 1.54 MG/DL eGFR AMER. (test cod e = 29888) 38 ML/MIN/1.73 eGFR NON- AMER. (test code = 13840) 33 ML/MIN/1.73 CALC BUN/CREAT (test code = 2235) 14 RATIO SODIUM (test code = 2231) 138 MEQ/L POTASSIUM (test code = 2228) 4.8 MEQ/L CHLORIDE (test code = 2215) 98 MEQ/L CARBON DIOXIDE (test code = 2206) 26 MEQ/L CALCIUM (test code = 2209) 9.1 MG/DL PROTEIN, TOTAL (test code = 2229) 6.4 G/DL ALBUMIN (test code = 2201) 4.0 G/DL CALC GLOBULIN (test code = 2240) 2.4 G/DL CALC A/G RATIO (test code = 2234) 1.7 RATIO BILIRUBIN, TOTAL (test code = 2207) 0.5 MG/DL ALKALINE PHOSPHATASE (test code = 2204) 95 U/L AST (test code = 2218) 19 U/L ALT (test code = 2219) 14 U/L Kentrell Tomas AustinLIPID [id number] 00:00:00* Test Item Value Reference Range Interpretation Comme nts CHOLESTEROL (test code = 2210) 250 MG/DL TRIGLYCERIDES (test code = 2232) 294 MG/DL HDL CHOLESTEROL (test code = 2220) 54 MG/DL CALC LDL CHOL (test code = 2237) 137 MG/DL RISK RATIO LDL/HDL (test cod e = 2238) 2.54 RATIO Kentrell AlmanzaHEMOGLOBIN [id number] 00:00:00* Test Item Value Reference Range Interpretation Comme nts HEMOGLOBIN A1c (test code = 47143) 6.8 % Kentrell Tomas ArchieCOMPREHENSIVE METABOLIC [id number] 00:00:00* Test Item Value Reference Range Interpretation Comme nts GLUCOSE (test code = 2217) 237 MG/DL BUN (test code = 2208) 22 MG/DL CREATININE (test code = 2214) 1.54 MG/DL eGFR AMER. (test cod e = 83153) 38 ML/MIN/1.73 eGFR NON- AMER. (test code = 09302) 33 ML/MIN/1.73 CALC BUN/CREAT (test code = 2235) 14 RATIO SODIUM (test code = 2231) 138 MEQ/L POTASSIUM (test code = 2228) 4.8 MEQ/L CHLORIDE (test code = 2215) 98 MEQ/L CARBON DIOXIDE (test code = 2206) 26 MEQ/L CALCIUM (test code = 2209) 9.1 MG/DL PROTEIN, TOTAL (test code = 2229) 6.4 G/DL ALBUMIN (test code = 2201) 4.0 G/DL CALC GLOBULIN (test code = 2240) 2.4 G/DL CALC A/G RATIO (test code = 2234) 1.7 RATIO BILIRUBIN, TOTAL (test code = 2207) 0.5 MG/DL ALKALINE PHOSPHATASE (test code = 2204) 95 U/L AST (test code = 2218) 19 U/L ALT (test code = 2219) 14 U/L Kentrell Tomas ArchieLIPID [id number] 00:00:00* Test Item Value Reference Range Interpretation Comme nts CHOLESTEROL (test code = 2210) 250 MG/DL TRIGLYCERIDES (test code = 2232) 294 MG/DL HDL CHOLESTEROL (test code = 2220) 54 MG/DL CALC LDL CHOL (test code = 2237) 137 MG/DL RISK RATIO LDL/HDL (test cod e = 2238) 2.54 RATIO Kentrell AlmanzaHEMOGLOBIN [id number] 00:00:00* Test Item Value Reference Range Interpretation Comme nts HEMOGLOBIN A1c (test code = 20554) 6.8 % Kentrell Genoveva Archie Consult Notes Date/Time Note Provider Source 2025-03-28 18:37:30 Associated Order(s): CONSULT FOOD AND NUTRITION MEDICAL NUTRITION THERAPY ASSESSMENT NOTE REASON FOR CONSULT: MD Consult for oral supplements NUTRITION ASSESSMENT: PMH/PSH: Past Medical History: Diagnosis Date HLD (hyperlipidemia) HTN (hypertension) Type 2 diabetes mellitus without complications History reviewed. No pertinent surgical history. Current Medical Condition: per provider note- pt admitted d/t dehydration and weakness. Subjective: Chart review: pt poor historian d/t confusion. Per flowsheet pt ate ~25% of breakfast today. No further documentation of po intake documented. Per providers nite pt denied any symptoms over night. No documentation of N/V/D/C. Per providers consult pt with poor appetite for "months". Unsure of timeline. RD attempted to call pt's alternate pets salesperson however, number is not in service. Noted pt with on going hypernatremia. RD recommend Ensure Plus HP BID to aid meet needs. (Order pended). RD to continue to monitor progress. 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 Lab and Medical Test Results: CBC: Recent Labs 03/26/25 2109 03/27/25 0359 03/28/25 0345 WBC 14.79* 12.50* 9.65 RBC 4.01 3.90* 3.97 HGB 11.6 11.3* 11.4* HCT 36.6 35.2* 35.9 MCV 91.3 90.3 90.4 MCH 28.9 29.0 28.7 MCHC 31.7 32.1 31.8 BMP: Recent Labs 03/26/25 1207 03/26/25 2208 03/27/25 0359 03/27/25 2043 03/28/25 0345 03/28/25 1457 NA 146* 147* 152* 153* 155* 155* K 4.7 4.5 4.1 4.1 4.0 4.1 CL 109* 113* 116* 119* 121* 118* TCO2 16* 17* 18* 20* 22* 23 AGAP 21* 17* 18* 14 12 14 MG 2.9* -- 2.6* -- 2.2 -- PHOS -- 4.9 -- -- -- -- GLU 235* 160* 145* 146* 118* 249* BUN 144* 128* 117* 93* 82* 71* CREAT 3.56* 2.43* 2.27* 1.70* 1.53* 1.49* EGFR 12.4 19.5 21.2 30.0 34.0 35.1 CA 9.4 8.6 8.7 9.1 8.9 9.1 ALB 4.2 -- -- -- -- -- HGBA1C 7.3* -- -- -- -- -- POC Glucose: 252 mg/dL Anthropometrics: 79 year old female Ht Readings from Last 1 Encounters: 03/26/25 1.6 m (5' 3") Weight History: Wt Readings from Last 3 Encounters: 03/26/25 65 kg (143 lb 4.8 oz) Usual Body Weight: 64.9 kg (143 lb) Percent of weight change: Percent of Weight change: 0.22% Timeframe of weight change: BMI: Body mass index is 25.38 kg/m?. 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 Nutrition Intervention-1: Add Oral Nutrition Supplement-Recommend Ensure Plus HP BID too aid meet needs. -Provides 700 kcal and 40 g of protein. NUTRITION MONITORING AND EVALUATION: A registered dietitian will f/u in as indicated and review patients progress towards nutrition goals, report nutrition related information and to revise the nutrition recommendations and interventions. Nutrition Risk Level: Nutritional Risk: High Goals: 1. Patient will consume at least one Ensure supplement per day (New Goal Identified) 2. Patient will consume >75% of meals within 4 days (New Goal Identified) Discharge Needs: Undetermined at this time Argentina Hernandez RD, LD Clinical Dietitian Office Argentina Hernandez [facility] 2025-03-28 09:05:00 OT GENERAL EVALUATION In conjunction with club manager Krish. Consult received via [employer], EMR reviewed and evaluation completed 03/28/25. Patient referred to occupational therapy for evaluation and treatment secondary to DEBBIE and Elevated Tropinin. Patient agreeable to participate in occupational therapy. Patient found bathroom with PCT, Nursing present. Discharge Recommendations: Therapy Needs and Potential:- Patient would benefit from continued skilled occupational therapy services to address: Decline in basic activities of daily living, Decline in instrumental activities of daily living, and Decreased endurance - Patient demonstrates good potential to improve and meet therapy goals with further skilled occupational therapy services. - Patient appears motivated to improve their BADLS and IADLs and return to their previous level of function. - Patient demonstrates ability to tolerate at least 30-60 minutes of active participation in occupational therapy. - Patient able to follow commands: 1-step Yes, Multi-step No, Inconsistencies No Challenges to Home Transition:- Requires physical assistance for BADLS - Requires physical assistance for IADLS - Requires supervision or verbal cues for BADLS - Requires supervision or verbal cues for IADLS - Limited caregiver availability - Decreased safety awareness/judgement - Increased risk of falls - Environmental barriers Equipment Recommendations:None PLAN OF CARE: At least 2x/week Precautions: Weight bearing status: NA General: Fall Bracing: N/A Subjective: " My son can help me when I get home. He lives right behind me." Current Occupational Performance and/or Treatment: AM-PAC 6 Clicks (Raw Score 0=Dependent, 24=Independent; Low function Raw Score 0= Dependent, 32=Independent): Raw Score - Daily Activity: 19 T-Scale Score - Daily Activity: 40.22 Feeding: Independent, after s/ u Grooming: Supervision, standing at sink for hand hand hygiene and washing face. Patient declined oral care d/t to break,fast arrival. LB Dressing: Supervision, with increased time for sock management. Toilet Transfer: Supervision, without AD. Toileting Hygiene: Moderate Assistance, with brief management. Functional Mobility: Sit to Stand with Supervision. Patient/caregiver educated on:ADL training, Fall prevention, General strengthening, Role of OT, and Safety awareness Patient left sitting upright in bedside chair with call thapa in reach. Nursing present. Please, see full evaluation below for more detail. OT EVALUATION: 79 year old female Admit date: 03/26/2025 Date of onset: 03/28/2025 Admit Diagnosis: Dehydration [E86.0] OT Diagnosis: Impaired BADL independence, Impaired IADL independence, Decreased endurance, and Impaired self-care mobility PMH: Past Medical History: Diagnosis Date HLD (hyperlipidemia) HTN (hypertension) Type 2 diabetes mellitus without complications PSH: History reviewed. No pertinent surgical history. PAIN: Denies pain before and after session. 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 Patient state son lives close and assist her with laundry, cooking, and grocery shopping. Bathroom access: Yes Bathroom setup: Shower with grab bars. Occupation(s): --- Function prior to admission: Household ambulation without AD and Independent with BADLs Suspected ischemic or hemorraghic stroke patient: No Equipment prior to admission: None PERFORMANCE SKILLS/FACTORS: UE Muscle Tone: bilateral WNL UE ROM: bilateral AROM WFL UE Strength: TINO UE 4/5 Hand dominance: right Dexterity/Coordination: bilateral Intact Endurance - Sitting: Good Standing: Fair+ Sitting Balance - Static: Good Dynamic: Good Standing: Balance - Static Fair+ Dynamic: Fair+ Dizziness: No Skin Integrity: defer full skin assessment to nursing Sensation: Patient denies numbness and tingling. Oral Motor: WFL Communication: Able to verbalize needs Yes Other: N/A Vision: WFL Yes Other: N/A Hearing: good; with increased volume. COGNITION: Orientation: person, place, and situation " Ricci" "2023" Follows Commands: 1-step Yes Multi-step No Inconsistencies No Safety Awareness/Judgment: Fair PROBLEM LIST: Decreased independence with ADL and Decreased strength/endurance for functional activity REHAB POTENTIAL/PROGNOSIS: good PATIENT/FAMILY GOALS: "I want to go home." TREATMENT/INTERVENTION PLAN: Patient/Caregiver Education, Equipment recommendations, Daily living activities, and Therapeutic exercises GOAL(S): By discharge, patient will increase independence in daily living skills as follows: 1 Patient will perform toilet transfer with independence. 2 Patient will perform simulated shower transfer and simulated bathing task with supervision. 3 Patient will perform LB dressing with independence. 4 Patient will complete 3 grooming tasks with independence while standing at the sink. 5 Patient will complete toileting hygiene, including clothing management, with independence. 6 Patient will increase endurance for functional activity as evidenced by ability to sustain 30 minutes of active participation. 7 Patient/caregiver will verbalize/demonstrate understanding/proficiency in the following home programs: Compensatory techniques/adaptive strategies, Fall prevention, and General strengthening PATIENT-FAMILY TEACHING Patient provided with preferred teaching of verbal information and demonstration on ADL training, Compensatory techniques/adaptive strategies, Fall prevention, General strengthening, Role of OT, and Safety awareness. Shows readiness to learn. Verbal instruction and Demonstration teaching provided. Individual unable to formally assess and verbalizes understanding of teaching provided. ROD Martinez OTR Pager: [phone] Total Timed Treatment Codes: 10 Min Total Treatment Time: 28 Min Patient Complexity Level Moderate - An occupational therapy evaluation of moderate complexity was completed using the above tests and measures. The following information was obtained: An occupational profile and medical and therapy history, including an expanded review of medical and/or therapy records and additional review of physical, cognitive, or psychosocial history related to current functional performance, Various standardized and non-standardized assessments were used to identify at least 3-5 performance deficits related to physical, cognitive, or psychosocial skills that result in activity limitations and/or participation restrictions, and Clinical decision making of moderate analytic complexity, which includes an analysis of the occupational profile, analysis of data from detailed assessment(s), and consideration of several treatment options. Patient may present with comorbidities that affect occupational performance. Minimal to moderate modification of tasks or assistance (e.g., physical or verbal) with assessment(s) is necessary to enable patient to complete evaluation component. SANDART Amrita Martinez OT [facility] 2025-03-28 09:05:00 Associated Order(s): CONSULT ADULT OCCUPATIONAL THERAPY 03/28/2025 0905 OCCUPATIONAL THERAPY NOTE: Consult received and evaluation completed by Jayden Martinez OT. Refer to note in consult sections for details. Vicenta Garibay OTR, OTD, C/NDT Georgnia Garibay OT [facility] 2025-03-27 15:40:00 Associated Order(s): CONSULT ADULT PHYSICAL THERAPY Patient agreeable to working with physical therapy. Patient sitting upright in bedside chair and Heels offloaded? No: not required as patient is alert and oriented, as well as exhibits sufficient LE strength and ability to move/reposition LEs/heels throughout the day, Nursing present and Medline chair alarm engaged. Recommend nursing staff utilize Minimal Assistance and walker to safely assist patient with mobility out of the bed or chair. PHYSICAL THERAPY EVALUATION Consult received, chart reviewed and evaluation complete this date. Patient is referred to PT for evaluation and treatment. Patient is a 79 year old female who presents to hospital for Dehydration [E86.0]. Discharge Recommendations: Therapy Needs and Potential: Patient would benefit from continued physical therapy services to address: decline in bed mobility decline in transfers decline in gait and/or balance decline in stair/step negotiation decreased strength decreased endurance decreased coordination decreased motor planning Patient demonstrates good potential to improve and meet therapy goals with further physical therapy services. Patient appears motivated to improve their functional mobility and return to their previous level of function. Challenges to Home Transition: increased risk of falls decreased caregiver availability decreased safety awareness Equipment recommendations: Possibly rolling walker, will continue to assess equipment needs as patient progresses with physical therapy. Current Functional Status and/or Treatment: AM-PAC 6 Clicks (Raw Score 0=Dependent, 24=Independent; Low function Raw Score 0= Dependent, 32=Independent): Raw Score - Basic Mobility : 18 T-Scale Score - Basic Mobility : 41.05 Bed Mobility: Defer due to not assessed as patient in recliner chair at start and at end of session. Per nursing patient performed bed mobility tasks without assistance. Transfers: Sit to stand: Supervision using no device Stand to sit: Supervision using no device Static/dynamic standing balance: Fair Patient requires supervision fro safety due to mild postural sway Patient instructed to assure that stable sitting surface is within close proximity and to reach back prior to sitting for optimal safety Dizziness No Ambulation: Assisted patient with ambulation as follows: 60 feet using handheld assist and Minimal Assistance. Patient presenting with Step-to gait pattern. Instructed patient in directional changes and head movements in all planes during gait trial resulting in mild instability and no LOB. Patient requires Min A for trunk support during ambulation trial Patient provided with verbal cues to improve step lengths for a more normalized gait Patient reports moderate fatigue after ambulation trial, requiring a seated rest break to recover. Dizziness No Therapeutic exercise: patient educated in Fall prevention, Relaxation/breathing techniques, and Safety awareness. and patient/caregiver verbalizes understanding of instructions. Patient was educated on the importance of calling the staff for assistance to ensure safety and to prevent injury Patient educated on fall prevention strategies to reduce risks of falls. Patient educated on safe progression of activities in order to safely return to prior level of function. Patient educated on breathing techniques for improved activity tolerance Functional Outcome Measures: (Values within the past 12 hours) Tinetti Gait Score- # / 12 Initiation of gait: Hesitancy or multiple attempts to start Step length: Neither foot passes the other Foot clearance: Only one foot clears the floor during swing phase Step Symmetry: Step lengths not equal Step continuity: Steps appear continuous Path: Mild/moderate deviation or uses AD Trunk: No sway, but flex of knees/ back or spreads arms Walking: Heels almost touching Tinetti Gait Score: 5 Tinetti Gait Score Interpretation: < 7 - Increased risk for falls After session, patient sitting upright in bedside chair and Heels offloaded? No: not required as patient is alert and oriented, as well as exhibits sufficient LE strength and ability to move/reposition LEs/heels throughout the day, Medline chair alarm engaged. Call button provided. All needs met, and nursing notified and aware. PLAN OF CARE: While in the hospital, PT will follow patient at least 3 times per week,once or twice a day, per patient's tolerance and needs. See below for complete details. Admit Date: 03/26/2025 Hospital Diagnosis:Dehydration [E86.0] PT Diagnosis: Difficulty walking, Weakness, Malaise/fatigue, and Abnormality of gait and balance Weight Bearing Precaution: NA General Precautions: PPE used:Gloves, General, Fall, Lines/Tubes,IV B UE, oxygen: Room air Bracing/Cast present or required:N/A PMH: Past Medical History: Diagnosis Date HLD (hyperlipidemia) HTN (hypertension) Type 2 diabetes mellitus without complications PSH: History reviewed. No pertinent surgical history. PRIOR LIVING SITUATION: lives alone and in a house, family is nearby in same neighborhood , 4 Stairs with bilateral hand rails to enter DME: No device Prior level of Mobility: house hold ambulation, ambulates with no device Suspected ischemic or hemorraghic stroke:No Subjective: "Ok" Patient/Family Goals: Patient/territory account representative encouraged by therapist to set a goal,but did not state a goal this visit Patient/Family verbalizes understanding of condition: No, pleasantly confused PAIN: denies pain before and after session COMMUNICATION Primary Language: Marshallese Able to Verbalize needs: Yes Vision:good; no issues reported and glasses occasionally Hearing: severely hard of hearing ORIENTATION/COGNITION: Oriented to: person and place Awake: Yes Alert: Yes Dizzy: No Follows Commands: Yes 1-Step Yes Multi-Step Yes Inconsistent: Yes NEUROLOGICAL Light Touch: within functional limits bilateral LE, Heel to steven: Impaired B LE Tone: Normal B LE BALANCE: Sitting: Static: Fair+ Dynamic: Fair+ Standing: Static: Fair+ Dynamic: Fair+ RANGE OF MOTION: within functional limits bilateral LE, STRENGTH: 4/5 (Good), bilateral LE ENDURANCE: Fair, Room air SKIN INTEGRITY: intact, please see nursing note for details. PROBLEM LIST: Decline in gait, Difficulty with stairs, Decreased strength, Decreased endurance, Decreased balance, Decreased Coordination, and Decreased Motor Planning ASSESSMENT: Patient is a 79 year old female seen secondary to the above listed diagnosis. Patient would benefit from continued PT to address the above listed deficits to maximize independence and safety with functional mobility. Rehabilitation Potential: good Goals: The following goals are to maximize independence and safety with functional mobility to eventually return to prior living situation and prior functional status. Upon discharge, patient and/or family will demonstrate the followin. Sit to supine: Independent Supine-sit: Independent Sitting balance Good 2. Sit to stand: Independent using no device Stand to sit: Independent using no device 3. Independent with ambulation, Feet: 150 using least assistive device. 4. Independent up/down 4 stairs using bilateral hand rails. Treatment Plan: Gait training, Gait training on stairs, Therapeutic exercise, Transfer training, Balance training, Bed mobility training, Equipment needs assessment, Safety education, patient/caregiver education, Pain management, Neuromuscular Re-Education, and Functional Motor Training PATIENT EDUCATION: Patient provided with preferred teaching of verbal information on role of PT, plan of care, home safety, and fall prevention. Shows readiness to learn. Verbal instruction teaching provided. Individual has difficulty with reading and Indicates understanding of teaching provided. Total Time Tx Codes in Minutes: 12 min Total Treatment Time in Minutes: 22 min Les Huber PT, DPT Staff Physical Therapist [facility] Rehabilitation Services License Number: [id number] A physical therapy evaluation of moderate complexity was completed based on meeting the criteria below: A history of present problem with at least 1-2 personal factors (includes environmental factors) and/or comorbidities that impact the plan of care An examination of body systems using standardized tests and measures in addressing at least 3 or more elements from any of the following: body structures and functions, activity limitations and/or participation restrictions An evolving clinical presentation with changing characteristics Les Huber PT [facility] - Health History and Physical Notes Date/Time Note Provider Source 2025-03-26 17:21:48 MEDICINE Abimbola STEWARTIT H&P PCP: Jeana Parra Date of Service: 03/26/2025 CHIEF COMPLAINT: weakness Subjective History of Present Illness Myra Vines is a 79 year old woman with HTN, HLD, T2DM presenting as a transfer from with chief complaint of weakness. Per patient, denies any symptoms. Says she feels well and that she never really had any symptoms. Per chart review and further discussions with family - patient's appetite and physical activity decreased within the last few months, worsening the last 2 weeks. Per documentation from ED physician, one son reports concerns for confusion as patient requested ice cream cone and a tomato slice, which was abnormal for her. However, additional family members do not think she is confused. Attempted to call child Ines Jackman [phone] for medication reconciliation but phone number does not work At OSH: Vitals: BP 108/61, HR 99 initially and then 59-67, spo2 99%, RR 16, afebrile Labs: CBC: WBC 15.15 with left shift, BMP: Na 146, Cl 109, bicarb 16, AGAP 21, glucose 235, Cr 3.56, BUN 144 VBG: pH 7.27, LA 2.55 Respiratory: COVID/flu/RSV negative UA: LE 250, WBC 20, few bacteria Other: trop 0.055 Pending: blood, urine cultures Imaging: CTH w/o contrast: unremarkable CXR: unremarkable Interventions: 1.5 L NS bolus, 1 g ceftriaxone, 324 mg aspirin PAST MEDICAL HISTORY Past Medical History: Diagnosis Date HLD (hyperlipidemia) HTN (hypertension) Type 2 diabetes mellitus without complications History reviewed. No pertinent surgical history. Family History Problem Relation Age of Onset Other - see comments (Other - see comments) Brother kidney disease on hemodialysis ALLERGIES No Known Allergies MEDICATIONS No current facility-administered medications on file prior to encounter. No current outpatient medications on file prior to encounter. SOCIAL HISTORY Social History Socioeconomic History Marital status: Tobacco Use Smoking status: Never Passive exposure: Never Smokeless tobacco: Never REVIEW OF SYSTEMS ROS negative for all symptoms. Objective PHYSICAL EXAMINATION Vitals: 03/26/25 1700 03/26/25 1704 03/26/25 1856 03/26/25 1916 BP: 123/49 127/44 BP Location: Left arm Patient Position: Supine Pulse: 62 63 Resp: 13 17 Temp: 36.6 ?C (97.9 ?F) 36 ?C (96.8 ?F) TempSrc: Oral SpO2: 100% 100% Weight: 65 kg (143 lb 4.8 oz) Height: 1.6 m (5' 3") General: NAD; a&ox2-3 Cardiac: RRR; no murmurs Resp: CTAB Abd: soft; NT; ND Ext: no peripheral edema; no asterixis LABS/IMAGING - reviewed EKG: pending CHART REVIEW: pertinent information as below: From ED HPI 03/26/2025: 79 yo F with pmh of HTN, NIDDM presents from home with daughter, patient's son (whom patient lives with) provides majority of HPI via telephone call. Son reports that in the past 2 months her appetite has declined, becoming more noticeable in the past 2 weeks with decreased physical activity; she doesn't walk as much as she used to. States she hardly eats or drinks. About 3 weeks ago, she complained of right ear pain, was taken to a doctor, received Rx for antibiotics in which she took and had a few days of nonbloody diarrhea which has since resolved. Son presumes possible confusion as patient requested an ice cream cone and a tomato slice yesterday, which he states is unusual for her. Otherwise, he denies any other confusion/disorientation, notable falls, fever, speech changes, cough, SOB, vomiting, stool changes or any other symptoms. Upon arrival, difficult to obtain HPI from patient, she denies any complaints and states she is only here because her daughter brought her to the ER. Assessment & Plan Myra Vines is a 79 year old female with PMH as listed above, admitted to the hospital with: Assessment & Plan Weakness | Fatigue UTI DEBBIE vs DEBBIE on CKD, likely pre-renal Anion gap metabolic acidosis Hypernatremia Patient presenting with severe DEBBIE in the setting of dehydration likely 2/2 underlying infection (WBC elevated with left shift, UA indicative of UTI) causing weakness and fatigue. Will continue infectious work up, pending urine and blood cultures. Agap metabolic acidosis is likely 2/2 uremia, which may also be the cause of confusion/altered mental status. Although DEBBIE is likely pre-renal, will consider ATN given low normal BP (especially given history of HTN). UA negative for ketones, ruling out DKA. No urgent need for dialysis or nephrology consult at this time. Of note, BUN is unexpectedly high with this Cr value, GFR may actually be lower than predicted. Patient with a family history of kidney disease, brother was on dialysis. Per family, patient previously stated that she does not want dialysis like her brother. - admit to [place] - urine studies - f/u blood and urine cultures - ceftriaxone 1 g daily pending cultures - maintenance fluids LR @ 100 cc/hr - renal US to assess for hydronephrosis and signs of CKD - consider nephro consult if change in urine output or if lack of improvement with fluids - consider cystatin c to better check for CKD - patient presented with Silva, unclear if for retention or for strict I/Os in the setting of DEBBIE - consider silva trial tomorrow Elevated troponin, likely type 2 WI HLD Hx of HTN Patient loaded with aspirin at OSH. Troponin elevation likely type 2 WI in the setting of dehydration, possible infection, and DEBBIE. - s/p 324 mg aspirin, continue 81 mg daily - admission EKG - trend trop COMPLICATIONS/SECONDARY DIAGNOSIS None Pain Not an active problemTylenol Prophylaxis: DVT- heparin Stress Ulcer: no indication for prophylaxis Code Status: Full Code Asya Jones MD Internal Medicine | PGY-3 Cosigned by Steff Arteaga MD at 03/27/2025 4:37 AM CDT Associated attestation - Steff Arteaga MD - 03/27/2025 4:37 AM CDT Date of service: 03/27/2025 04:27 I discussed this patient in detail with Asya Flowers MD, including the patient s history, exam findings, assessment and plan. I independently performed relevant portions of history and exam and jointly participated in the decision making process. Please see resident s note for details. 1. DEBBIE, uremia, AGMA Labs repeated on admission with improvement in Cr 3.5 --> 2.43, BUN 144 --> 128, and AG 21 --> 17 following IVF. BUN elevation seems out of proportion to Cr elevation - no hx GI bleed, excessive protein intake. Query whether Cr is an accurate marker of GFR for her and if she does have a degree of CKD at baseline. Will continue IVF given presumed prerenal DEBBIE in the setting of poor PO intake. Silva placed prior to admission without documentation of urinary retention; will maintain for strict I/Os for now. Renal US to evaluate tract. Low threshold to engage nephrology given degree of uremia and slightly decreased mental sharpness per family, though it will be worth exploring further if dialysis is within her GOC given daughter's report that patient had previously said she would not want to be on dialysis. 2. UTI UA with 20 WBC. Will continue CTX for possible UTI given significant DEBBIE and f/u UCX to narrow abx. 3. Elevated troponin Troponin 0.055 --> 0.051. Possibly mildly elevated due to decreased renal clearance. No cardiopulmonary symptoms, unlikely to represent cardiac ischemia. 4. T2DM 5. HTN 6. HLD 7. Home meds - will need to clarify home medication list with patient's son with whom she lives. Steff Arteaga MD Traveling Storekeeper, Division of General Medicine [facility] Department of Internal Medicine [facility] Notes Date/Time Note Provider Source 2025-04-10 10:23:38 Patient's granddaughter called regarding receiving letter concerning urine culture results. Results were reviewed and prescription for Doxycylcine was sent to patient's pharmacy. Result Notes Urine Culture >100,000 CFU/mL Staphylococcus simulans Abnormal Resulting Agency: Susceptibility Staphylococcus simulans SUSCEPTIBILITY TESTING Nitrofurantoin <=32 ?g/mL [place] Susceptible Oxacillin <=0.25 ?g/m... Susceptible Rifampin <=1 ?g/mL [place] Susceptible Tetracycline <=4 ?g/mL [place] Susceptible Trimethoprim/Sulfamethoxazole <=0.5/9.5 ?... Susceptible Vancomycin 1 ?g/mL [place] Susceptible I have no personal relationship with this patient nor did I see or evaluate them. My only involvement in their care was to review culture or radiology results and contact them if changes to medication or further imaging or evaluation is warranted. [facility] 2025-03-29 18:20:03 Problem: Falls, Risk of Goal: Absence of falls 03/29/20251818 by Terrance Glover RN Outcome: Adequate for discharge 03/29/20251718 by Terrance Glover RN Outcome: Progressing as expected Problem: Pain Goal: Control of pain at or below patient's documented comfort goal 03/29/20251818 by Terrance Glover RN Outcome: Adequate for discharge 03/29/20251718 by Terrance Glover RN Outcome: Progressing as expected Goal: Reduction in pain sensation 03/29/20251818 by Terrance Glover RN Outcome: Adequate for discharge 03/29/20251718 by Terrance Glover RN Outcome: Progressing as expected Problem: Discharge Planning Goal: Adequate for discharge 03/29/20251818 by Terrance Glover RN Outcome: Adequate for discharge 03/29/20251718 by Terrance Glover RN Outcome: Progressing as expected Goal: Effective communication 03/29/2025 1819 by Terrance Glover RN Outcome: Adequate for discharge 03/29/2025 1719 by Terrance Glover RN Outcome: Progressing as expected Terrance Glover RN [facility] 2025-03-29 17:19:31 Problem: Falls, Risk of Goal: Absence of falls Outcome: Progressing as expected Problem: Pain Goal: Control of pain at or below patient's documented comfort goal Outcome: Progressing as expected Goal: Reduction in pain sensation Outcome: Progressing as expected Problem: Discharge Planning Goal: Adequate for discharge Outcome: Progressing as expected Goal: Effective communication Outcome: Progressing as expected [facility] 2025-03-28 21:56:02 Problem: Falls, Risk of Goal: Absence of falls Outcome: Progressing as expected Problem: Pain Goal: Control of pain at or below patient's documented comfort goal Outcome: Progressing as expected Renee De Luna RN [facility] 2025-03-28 18:47:05 Problem: Falls, Risk of Goal: Absence of falls Outcome: Progressing as expected Problem: Pain Goal: Control of pain at or below patient's documented comfort goal Outcome: Progressing as expected Goal: Reduction in pain sensation Outcome: Progressing as expected Problem: Discharge Planning Goal: Adequate for discharge Outcome: Progressing as expected Goal: Effective communication Outcome: Progressing as expected Ahsley Hsu RN [facility] 2025-03-28 11:10:44 Antimicrobial Stewardship Program Note Based on review of [facility] chart and microbiology and susceptibility results, the antimicrobial stewardship program recommends the following: - Consider discontinuing ceftriaxone as WBC in the UA does not necessarily mean the patient has a UTI and the DEBBIE could have been due to dehydration. Over treatment of asymptomatic bacteriuria can lead to increased antimicrobial resistance and adverse effects like C. Diff infection Please call with questions or concerns. Cony Agarwal, PharmD, [facility] Clinical Exhibit Designer - Infectious Diseases Ant[facility] [place] Pager: [phone] Extension: [id number] 03/28/2025 11:10 Evan Agarwal [facility] 2025-03-28 03:22:21 Problem: Falls, Risk of Goal: Absence of falls Outcome: Progressing as expected Problem: Pain Goal: Control of pain at or below patient's documented comfort goal Outcome: Progressing as expected Goal: Reduction in pain sensation Outcome: Progressing as expected Problem: Discharge Planning Goal: Adequate for discharge Outcome: Progressing as expected [facility] 2025-03-27 16:29:27 Problem: Falls, Risk of Goal: Absence of falls Outcome: Progressing as expected Problem: Pain Goal: Control of pain at or below patient's documented comfort goal Outcome: Progressing as expected Goal: Reduction in pain sensation Outcome: Progressing as expected Problem: Discharge Planning Goal: Adequate for discharge Outcome: Progressing as expected Goal: Effective communication Outcome: Progressing as expected Avani Acosta RN [facility] 2025-03-27 03:01:55 Problem: Falls, Risk of Goal: Absence of falls Outcome: Progressing as expected Problem: Pain Goal: Control of pain at or below patient's documented comfort goal Outcome: Progressing as expected Goal: Reduction in pain sensation Outcome: Progressing as expected Problem: Discharge Planning Goal: Adequate for discharge Outcome: Progressing as expected Goal: Effective communication Outcome: Progressing as expected [facility] 2025-03-26 17:05:42 Patient transferred to [place] for diagnosis of dehydration, DEBBIE and Hypernatremia . Patient agrees to transfer, discussed plan of care with patient and family. Patient is awake, A&Ox4, RR even and unlabored on RA. Color appropriate for race. PIV intact x2. No adverse reaction to medications administered while in ED. Belongings with patient to unit. T Karli Block RN [facility] 2025-03-26 16:56:37 [facility] ambulance arrives to transport pt to [place]. Report to medic. [facility] 2025-03-26 16:43:57 Nurse Report Report given to Avani DOLL. Chief complaint, assessment findings, infusion verify and orders reviewed. Karli Block RN [facility] 2025-03-26 11:16:22 Pt arrived with daughter who states pt is weak x2 weeks, not eating, but does not c/o pain, went to ER 03/18 and was discharged. Hx HTN, high cholesterol, NIDDM [facility] 2025-03-26 11:05:00 Associated Order(s): EKG-12 Lead ROUTINE ONCE; Critical Care Pre-Procedure Diagnose(s): Generalized weakness Post-Procedure Diagnose(s): Dehydration; Hypernatremia; Elevated troponin; DEBBIE (acute kidney injury) [facility] Emergency Department Note Patient Name: Myra Vines Date of : 1945 79 year old female Treatment Room: [facility] Primary Care Physician: No primary care provider on file. 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 Son reports that in the past 2 months her appetite has declined, becoming more noticeable in the past 2 weeks with decreased physical activity; she doesn't walk as much as she used to. States she hardly eats or drinks. About 3 weeks ago, she complained of right ear pain, was taken to a doctor, received Rx for antibiotics in which she took and had a few days of nonbloody diarrhea which has since resolved. Son presumes possible confusion as patient requested an ice cream cone and a tomato slice yesterday, which he states is unusual for her. Otherwise, he denies any other confusion/disorientation, notable falls, fever, speech changes, cough, SOB, vomiting, stool changes or any other symptoms. Upon arrival, difficult to obtain HPI from patient, she denies any complaints and states she is only here because her daughter brought her to the ER. History provided by: Patient (pt's son) History limited by: pt reluctant to speak and significantly hard of hearing. 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 Tetanus received in last 5 years: Unknown Childhood immunizations: Up-to-date Allergies: No Known Allergies Past Social History: Substance & Sexual Activity No substance use or sexual activity history on file. Past Surgical History: No past surgical history on file. Review of Systems: Review of Systems Constitutional: Positive for appetite change. Neurological: Positive for weakness. All other systems reviewed and are negative. Physical Exam: Physical Exam ED Triage Vitals [03/26/25 1120] Weight 65.8 kg (145 lb) Actual or estimated Height 1.6 m (5' 3") BP 108/61 Pulse 99 Resp 16 Temp 36.3 ?C (97.3 ?F) Temp source Axillary SpO2 99 % Measured on Room air Physical Exam General: alert, oriented, no apparent distress, appearing age appropriate, well developed Head: normocephalic, atraumatic Eyes: pupils midline, sclera NL Nose: no audible congestion Oropharynx: mucous membranes dry, airway patent Neck: neck supple, no meningismus Lungs: CTAB, non-labored, no wheezes, rhonchi or crackles Heart: regular rate and rhythm, no murmurs audible Abdomen: abdomen soft, NTND, no palpable masses, no guarding, negative McBurney's point TTP, negative Brown's Back: painless ROM Extremities/Musculoskeletal: no cyanosis, no edema, no obvious deformities, ROJAS Neuro: GCS 14 (unable to state current year), without focal findings, CN II-VII grossly intact, no droop, drift or slurred speech Skin: normal and no rashes or suspicious lesions are seen Radiology: XR Chest 1 vw Final Result EXAM: XR CHEST 1 VW COMPARISON: None HISTORY: weakness, ? DEBBIE FINDINGS: Lungs: Low lung volumes. No focal consolidation, pleural effusion, or pneumothorax. Heart/Mediastinum: The cardiac silhouette appears normal. Bones and soft tissues: No acute findings are detected. IMPRESSION No radiographic evidence of acute cardiopulmonary process. Preliminary Report Dictated by Resident: Mariana Moreno MD., have reviewed this study and agree with the above report. CT Head wo contrast Final Result CT HEAD WO CONTRAST HISTORY: Mental status change, unknown cause COMPARISON: None TECHNIQUE: Non-contrast CT head with multi-planar reformats. FINDINGS: The ventricles and cerebral sulci are normal in caliber and configuration. No hydrocephalus, midline shift or pathological extra-axial fluid collection is present. The basal cisterns are unremarkable. There is no acute intracranial hemorrhage or significant mass effect. No parenchymal attenuation abnormality. The florian-white matter differentiation is preserved. Partial right mastoidectomy with opacification of the residual right mastoid air cells and right tympanic cavity. The calvarium and central skull base are unremarkable. IMPRESSION No acute intracranial findings. Lab Results: Lab Results CBC WITH DIFF - Abnormal Result Value Ref Range WBC 15.15 (*) 4.30 - 11.10 10*3/?L RBC 5.12 3.93 - 5.25 10*6/?L HGB 14.2 11.6 - 15.0 g/dL HCT 48.0 (*) 35.7 - 45.2 % MCV 93.8 80.6 - 95.5 fL MCH 27.7 25.9 - 32.8 pg MCHC 29.6 (*) 31.6 - 35.1 g/dL RDW-SD 46.2 39.0 - 49.9 fL RDW-CV 13.4 12.0 - 15.5 % PLT 350 166 - 358 10*3/?L MPV 10.2 9.5 - 12.9 fL NRBC/100 WBC 0.0 0.0 - 10.0 /100 WBCs NRBC x10 3 <0.01 10*3/?L GRAN MAT (NEUT) % 81.2 % IMM GRAN % 2.20 % LYMPH % 10.1 % MONO % 5.7 % EOS % 0.3 % BASO % 0.5 % GRAN MAT x10 3 (ANC) 12.28 (*) 1.88 - 7.09 10*3/uL IMM GRAN x10 3 0.34 (*) 0.00 - 0.06 10*3/uL LYMPH x10 3 1.53 1.32 - 3.29 10*3/uL MONO x10 3 0.87 0.33 - 0.92 10*3/uL EOS x10 3 0.05 0.03 - 0.39 10*3/uL BASO x10 3 0.08 (*) 0.01 - 0.07 10*3/uL REACT LYMPHS Rare PLT ESTIMATE Normal Normal URINALYSIS - Abnormal APPEARANCE Cloudy (*) Clear COLOR Yellow Yellow PH 5.0 4.8 - 8.0 SP GRAVITY 1.012 1.003 - 1.030 GLU U QUAL Normal Normal BLOOD Negative Negative KETONES Negative Negative PROTEIN Negative Negative UROBILIN Normal Normal BILIRUBIN Negative Negative NITRITE Negative Negative LEUK JED 250/uL (*) Negative RBC/HPF 1 0 - 3 HPF WBC/HPF 20 (*) 0 - 5 HPF BACTERIA Few (*) Negative SQ EPITH 3 HPF COMP. METABOLIC PANEL (29011) - Abnormal NA 146 (*) 135 - 145 mmol/L K 4.7 3.5 - 5.0 mmol/L CL 109 (*) 98 - 108 mmol/L CO2 TOTAL 16 (*) 23 - 31 mmol/L AGAP 21 (*) 2 - 16 BUN 144 (*) 7 - 23 mg/dL GLUCOSE 235 (*) 70 - 110 mg/dL CREATININE 3.56 (*) 0.50 - 1.04 mg/dL TOTAL BILI 1.0 0.1 - 1.1 mg/dL CALCIUM 9.4 8.6 - 10.6 mg/dL T PROTEIN 8.8 (*) 6.3 - 8.2 g/dL ALBUMIN 4.2 3.5 - 5.0 g/dL ALK PHOS 93 34 - 122 U/L ALTv 16 5 - 35 U/L AST(SGOT) 20 13 - 40 U/L eGFR 12.4 mL/min/1.73m2 MAGNESIUM - Abnormal MAGNESIUM 2.9 (*) 1.7 - 2.4 mg/dL TROPONIN I - Abnormal TROPONIN I 0.055 (*) <=0.034 ng/mL ACUTE CARE VENOUS BLOOD GAS - Abnormal PH 7.27 (*) 7.32 - 7.42 PCO2 ALEJANDRO 47 41 - 51 mmHg PO2 ALEJANDRO 26 25 - 40 mmHg HCO3 ALEJANDRO 21 (*) 24 - 28 mEq/L AC VBE -5.8 -3.0 - 3.0 mEq/L LACTIC ACID WITH 2 HOUR REFLEX - Abnormal LACTIC ACID 2.55 (*) 0.50 - 2.20 mmol/L INFLUENZA A/B RSV COVID NAAT - Normal Influenza A NAAT Negative Negative Influenza B NAAT Negative Negative RSV by PCR Negative Negative SARS-CoV-2 NAAT Negative Negative THYROID STIMULATING HORMONE - Normal TSH 2.42 0.45 - 4.70 mIU/L CREATINE KINASE - Normal CK 67 33 - 194 U/L LACTIC ACID WITH 2 HOUR REFLEX - Normal LACTIC ACID 2.04 0.50 - 2.20 mmol/L URINE CULTURE BLOOD CULTURE SCREEN BLOOD CULTURE SCREEN EKG: If EKG completed, see Procedure Note. Orders and Treatments: Orders Placed This Encounter Procedures Critical Care CT Head wo contrast XR Chest 1 vw CBC WITH DIFF Influenza A B RSV COVID NAAT URINALYSIS URINE CULTURE COMP. METABOLIC PANEL (55448) Magnesium Thyroid Stimulating Hormone TROPONIN I ACUTE CARE VENOUS BLOOD GAS Lactic Acid with 2 Hour Reflex Blood Culture Screen Creatine Kinase Blood Culture Screen Lactic Acid with 2 Hour Reflex Orders Placed This Encounter Medications NaCl 0.9% (NS) bolus infusion 1,000 mL DISCONTD: aspirin chewable tablet 324 mg aspirin chewable tablet 324 mg cefTRIAXone (ROCEPHIN) 1,000 mg in sterile water for injection 10 mL IV Push NaCl 0.9% (NS) bolus infusion 500 mL First Provider Eval: ED Events Date/Time Event User Comments 03/26/25 1132 Medical Screening Begins FARRAH LEAHY -- 03/26/25 1132 First Provider Evaluation FARRAH LEAHY -- ED COURSE ED Course as of 03/26/25 1758 MonMar 26, 2025 1710 LACTIC ACID WHOLE BLOOD: 2.04 [EY] 1354 PH ALEJANDRO(!): 7.27 [EY] 1326 TROPONIN I(!): 0.055 [EY] 1324 WBC x10 3 (!): 15.15 [EY] 1324 NA(!): 146 [EY] 1324 CO2 TOTAL(!): 16 [EY] 1324 AGAP(!): 21 [EY] 1323 GLUCOSE(!): 235 [EY] 1323 CREATININE(!): 3.56 [EY] 1323 MAGNESIUM(!): 2.9 [EY] ED Course User Index [EY] Farrah Espitia FNP Diagnosis/Impression as of 03/26/25 175 Dehydration DEBBIE (acute kidney injury) Hypernatremia Elevated troponin Results Procedures: EKG-12 Lead ROUTINE ONCE Date/Time: 03/26/2025 12:20 PM Performed by: Farrah Espitia FNP Authorized by: Farrah Espitia FNP Previous ECG: Previous ECG comparison: none for comparison. Interpretation: Interpretation: abnormal Rate: ECG rate: 95 ECG rate assessment: normal Rhythm: Rhythm: sinus rhythm Ectopy: Ectopy: PVCs QRS: QRS axis: Normal ST segments: ST segments: Non-specific (abnormal) T waves: T waves: peaked Peaked: V4, V5 and V6 Critical Care Performed by: Farrah Espitia FNP Authorized by: Farrah Espitia FNP Critical care provider statement: Critical care time (minutes): 35 Critical care time was exclusive of: Separately billable procedures and treating other patients and teaching time Critical care was necessary to treat or prevent imminent or life-threatening deterioration of the following conditions: Renal failure, shock, sepsis and dehydration Critical care was time spent personally by me on the following activities: Development of treatment plan with patient or surrogate, evaluation of patient's response to treatment, examination of patient, obtaining history from patient or surrogate, re-evaluation of patient's condition, pulse oximetry, ordering and review of radiographic studies, ordering and review of laboratory studies and ordering and performing treatments and interventions Care discussed with: admitting provider and accepting provider at another facility MDM: Assessment & Plan Medical Decision Making Pt p/w above clinical hx and PE. Pertinent PE findings include: dry mucous membranes, generalized weakness w/o focal deficits. Ddx is vast but includes: Viral illness, autoimmune dz, hypovolemia, hypoglycemia, electrolyte derangement, renal impairment, cystitis, STEMI/NSTEMI, vitamin deficiency, med side effect. I initiated and interpreted the above workup which is notable for: Multiple significant lab abnormalities as noted above. Unclear initial clinical picture but suspicion is for possible DEBBIE on CKD leading to severe dehydration which in turn, lead to hypernatremia, positive anion gap, hypocarbia, and cardiac demand ischemia. pH was 7.27 so possibly including mild DKA, however primary suspicion is severe dehydration. Family reported a nonspecific hx of kidney problems but could not elaborate further. Elevated troponin as well, unable to rule out NSTEMI at this time. Patient is asymptomatic from cardiac standpoint. WBC elevated with small shift however vital signs did not trigger SIRS, urosepsis remains in differential. Blood and urine cultures pending at time of admit. Empiric Rocephin initiated. Making the clinical picture more difficult however, is that here are no prior medical records and patient and family are poor historians. There was improvement of lactic acid after IVF bolus. Essentially, patient condition warrants admission with renal and cardiology consults and further care. Patient was ultimately transferred due to capacity. Problems Addressed: DEBBIE (acute kidney injury): acute illness or injury that poses a threat to life or bodily functions Dehydration: acute illness or injury that poses a threat to life or bodily functions Hypernatremia: acute illness or injury Amount and/or Complexity of Data Reviewed Labs: ordered. Decision-making details documented in ED Course. Radiology: ordered. Decision-making details documented in ED Course. ECG/medicine tests: ordered. Decision-making details documented in ED Course. Details: Reviewed with Dr. Sid Anderson OTC drugs. Prescription drug management. Decision regarding hospitalization. Flowsheet Documentation: Scoring Tools: No data recorded Disposition/Condition: ED Disposition [facility] Condition -- Comment -- Discharge Medications: There are no discharge medications for this patient. Follow-up: Follow-up Information None Associated attestation - Leandro Lau DO - 03/26/2025 11:18 PM CDT This patient was examined, evaluated and cared for by the advanced practice provider. I did not examine or evaluate this patient. I was present for consultation as needed. [facility]2025-06-09 00:00:00 [facility]2025-01-07 00:00:00 [facility]2024-12-02 00:00:00 [facility]2024-10-18 00:00:00 [facility]
[2025-04-10] MEDS ORDERED: NA CHLORIDE 0.9% 1,000 ML ONE (13:52)
--- NOTE | 2025-04-10 14:08 | RAD REPORT ---
EXAMINATION: ONE VIEW CHEST XR CLINICAL INDICATION: ams TECHNIQUE: Frontal chest projection is submitted. Examination is limited by patient positioning and t echnique. COMPARISON: 01/27/2025 FINDINGS: The lungs are well inflated and clear. The heart is normal in size. No displaced fractures identified . IMPRESSION: No acute intrathoracic abnormalities.
--- NOTE | 2025-04-10 14:23 | RAD REPORT ---
EXAM: CT brain without contrast HISTORY: Confused;Declining state COMPARISON: None TECHNIQUE: Multiple contiguous axial images were obtained and a CT of the brain without contrast. Sag ittal and coronal reformats were performed. One or more of the following dose reduction techniques were used: Automated exposure control, adjust ment of the mA and/or kV according to patient size, and/or iterative reconstruction. FINDINGS: No evidence of hydrocephalus, intracranial hemorrhage, or extra-axial fluid collection. Mild brain atrophy with mild periventricular and deep white matter chronic microvascular ischemic ch anges present. No evidence of midline shift or areas of brain edema. The calvarium is intact. The visualized paranasal sinuses and mastoid air cells are essentially clear , except for opacification and coalescence of the right mastoid air cell. IMPRESSION: No evidence of acute intracranial abnormality.
[2025-04-10 14:31] LABS: Sqamous Epithelial None Seen /HPF (None Seen); Urine Culture Reflex Order NOT NEEDED; Urine Microscopic Reflex YN ORDER UMIC
[2025-04-10 15:03] LABS: Absolute Lymphocytes (CBC) 1.4 K/uL (0.7-4.9); Hematocrit 42.7 % (36.0-45.0); Hemoglobin 13.4 g/dL (12.0-15.0); MCH 28.3 pg (27.0-35.0); MCHC 31.3 g/dL (32.0-36.0); MCV 90.4 fL (80-100); MPV 10.8 fL (7.6-11.3); Nucleated RBC Absolute Count 0.0 (0-0); Nucleated Red Blood Cells % 0.2 % (0-0); RBC Red Blood Cell Count 4.72 M/uL (3.86-4.86); White Blood Count 14.70 thou/uL (4.3-10.9)
[2025-04-10 15:08] LABS: ALT/SGPT 33.0 U/L (13-56); AST/SGOT 29.0 U/L (15-37); Albumin 2.2 g/dL (3.4-5.0); Albumin/Globulin Ratio 0.5 (1.1-1.8); Alkaline Phosphatase 79.0 U/L (45-117); Anion Gap 18.9 mEq/L (5.0-15.0); BUN Blood Urea Nitrogen 207.0 mg/dL (7-18); Globulin 4.6 g/dL (2.3-3.5); Glucose Level 196.0 mg/dL (74-106); Potassium 4.9 mEq/L (3.5-5.1)
--- NOTE | 2025-04-10 15:36 | ER ---
Nurse's Notes [facility] Name: Madelyn Vines Age: 79 yrs Sex: Female : 1945 Arrival Date: 04/10/2025 Time: 13:24 Bed 6 Private MD: Diagnosis: Hyperosmolality and hypernatremia Presentation: 04/10 13:29 Chief complaint: EMS states: AMS, has not left the bed or consumed food/drink for 3 hb days. Coronavirus screen: At this time, the client does not indicate any symptoms associated with coronavirus-19. Ebola Screen: No symptoms or risks identified at this time. Initial Sepsis Screen: Does the patient meet any 2 criteria? No. Patient's initial sepsis screen is negative. Does the patient have a suspected source of infection? No. Patient's initial sepsis screen is negative. Risk Assessment: Do you want to hurt yourself or someone else? Patient reports no desire to harm self or others. Onset of symptoms was April 07, 2025. 13:29 Method Of Arrival: EMS: [facility] hb 13:29 Acuity: HEDY 2 hb Historical: - Allergies: 13:31 No Known Allergies; hb Vital Signs: 13:29 BP 112 / 53; Pulse 88; Resp 16; Temp 97.9(O); Pulse Ox 100% on R/A; hb ED Course: 13:28 Patient arrived in ED. sb4 13:28 [facility] sb4 13:28 Liam Hampton MD is Attending Physician. sb4 13:31 Triage completed. hb 13:31 Arm band placed on. hb 13:58 Chest Single View XRAY In Process Unspecified. EDMS 14:15 Head Brain Wo Cont CT In Process Unspecified. EDMS 14:15 Accessed peripheral vein via ultrasound, utilizing dynamic ultrasound technique using hb per hospital protocol. Clean \T\ dry. Dressing intact. Good blood return. Flushes easily. 20g RAC. 14:16 Lynsey Carter, RN is Primary Nurse. hb 15:35 Grace Arboleda MD is Hospitalizing Provider. sb4 Administered Medications: 14:15 Drug: NS 0.9% IV 1000 ml IV at 1000 ml once; to be given as a bolus over 60 minutes hb Route: IV; Rate: 1000 ml; Site: right antecubital; Outcome: 15:36 Decision to Hospitalize by Provider. sb4 17:31 Patient left the ED. bc6 Signatures: Dispatcher [employer] Lynsey Vidal RN RN hb Brown, Sophia, TIA PAAdry sb4 Alize Araya bc6
--- NOTE | 2025-04-10 15:36 | EDPHYS ---
Physician Documentation [facility] Name: Madelyn Vines Age: 79 yrs Sex: Female : 1945 Arrival Date: 04/10/2025 Time: 13:24 Bed 6 Private MD: ED Physician Liam Hampton HPI: 04/10 13:32 This 79 yrs old Female presents to ER via EMS with complaints of Altered sb4 Mental Status. 13:32 Family states that patient has not gotten out of bed, spoke him, eaten, or drink sb4 anything in 3 days. They states that she had a prior occurrence of this a few months back and was diagnosed with a UTI. They are unsure of her medical history or if she takes any daily medications. Patient can follow commands, just does not verbalize anything. Historical: - Allergies: 13:31 No Known Allergies; hb ROS: 13:32 Constitutional: Negative for fever, chills, and weight loss, sb4 13:32 All other systems are negative, Exam: 13:32 Head/Face: Normocephalic, atraumatic. Eyes: Extra-ocular motions intact. Periorbital sb4 areas with no swelling, redness, or edema. Respiratory: No increased work of breathing, no retractions or nasal flaring. Skin: Warm, dry with normal turgor. Normal color with no rashes, no lesions, and no evidence of cellulitis. 13:32 Constitutional: The patient appears alert, awake, smells of urine, 13:32 ENT: Mouth: Oral mucosa: dry, Vital Signs: 13:29 BP 112 / 53; Pulse 88; Resp 16; Temp 97.9(O); Pulse Ox 100% on R/A; hb MDM: 13:29 Medical Screening Exam initiated sb4 13:32 Differential Diagnosis: CVA, electrolyte abnormality, hypoglycemia, intracranial bleed, sb4 pneumonia, UTI, volume depletion. 18:25 Data reviewed: vital signs, nurses notes, EMS record, lab test result(s), EKG, sb4 radiologic studies, I have discussed the patient's presentation/case with the attending Emergency Department Physician; and as a result, I will admit patient. Consideration of Admission/Observation Patient was admitted/placed on observation. Counseling: I had a detailed discussion with the patient and/or guardian regarding the historical points, exam findings, and any diagnostic results supporting the discharge/admit diagnosis, lab results, radiology results, the need for further work-up and treatment in the hospital. 18:25 Management of patient was discussed with the following: Home Care Assistant: Dr. Carbone, 4 recommends admission for aggressive IV hydration. ED course: Initial BMP came back with significant hypernatremia and acute kidney failure. I opted to repeat this to ensure it was not lab error and the repeat came back without any significant labs. Later on, RN and I discussed that is possible that specimens were swabbed as there were 2 patients with very similar names and rooms next which other so a third BMP was drawn which did confirm hypernatremia. Patient is already admitted and is upstairs, will notify hospitalist and chief revenue officer of repeat labs. 04/10 13:29 Order name: UA Rfx Frank Cult if indicated; Complete Time: 14:33 [facility] 04/10 13:29 Order name: CK; Complete Time: 15:12 [facility] 04/10 13:29 Order name: CBC with Diff; Complete Time: 15:05 [facility] 04/10 13:29 Order name: CMP; Complete Time: 15:12 sb 04/10 15:13 Order name: BMP; Complete Time: 15:58 sb 04/10 16:11 Order name: CBC with Automated Diff [facility] 04/10 16:11 Order name: CBC with Automated Diff [facility] 04/10 16:11 Order name: CBC with Automated Diff [facility] 04/10 16:11 Order name: CBC with Automated Diff [facility] 04/10 16:11 Order name: Comprehensive Metabolic Panel [facility] 04/10 16:11 Order name: Comprehensive Metabolic Panel [facility] 04/10 16:11 Order name: Comprehensive Metabolic Panel [facility] 04/10 16:11 Order name: Comprehensive Metabolic Panel [facility] 04/10 13:29 Order name: Head Brain Wo Cont CT; Complete Time: 14:24 sb 04/10 13:33 Order name: Chest Single View XRAY; Complete Time: 14:11 [facility] 04/10 16:11 Order name: CONS Physician Consult [facility] 04/10 13:29 Order name: IV Start; Complete Time: 14:59 [facility] 04/10 13:29 Order name: Rosenbaum; Complete Time: 13:51 sb4 Administered Medications: 14:15 Drug: NS 0.9% IV 1000 ml IV at 1000 ml once; to be given as a bolus over 60 minutes hb Route: IV; Rate: 1000 ml; Site: right antecubital; Disposition: 17:37 Co-signature as Attending Physician, Liam Hampton MD I reviewed the patient's care rn provided by the Advanced Practice Provider and agree with the diagnosis and treatment plan. 19:57 Critical Care:. sb4 Disposition Summary: 04/10/25 15:36 Hospitalization Ordered Notes: Hospitalization Status: Inpatient Admission sb4 Provider: Grace Arboleda sb4 [facility] sb[facility] Condition: Fair sb4 Problem: new sb4 Symptoms: are unchanged sb4 Bed/Room Type: Standard sb4 Room Assignment: 201(04/10/25 16:16) bc6 Diagnosis - Hyperosmolality and hypernatremia sb4 Forms: - Medication Reconciliation Form sb4 - SBAR form sb4 - Leadership Thank You Letter sb4 Critical care time excluding procedures: 19:57 Critical care time: Bedside Care: 10 minutes, Consultation: 25 minutes. Total time: 35 sb4 minutes Signatures: Dispatcher [employer] EDLiam Mccall MD MD rn Baxter, Heather, RN RN hb Brown, Sophia, PA-C PAAdry sb4 Alize Araya bc6 Corrections: (The following items were deleted from the chart) 13:29 13:29 UA Rfx Frank Cult if indicated+U.LAB.BRZ ordered. EDMS EDMS 13:29 13:29 CREATINE PHOSPHOKINASE+C.LAB.BRZ ordered. EDMS EDMS 13:29 13:29 CBC+H.LAB.BRZ ordered. EDMS EDMS 13:29 13:29 COMPREHENSIVE METABOLIC PANEL+C.LAB.BRZ ordered. EDMS EDMS 13:33 13:33 Chest Single View+RAD.RAD.BRZ ordered. EDMS EDMS 15:13 15:13 BASIC METABOLIC PANEL+C.LAB.BRZ ordered. EDMS EDMS 16:16 15:36 sb4 bc6
[2025-04-10 15:56] LABS: Anion Gap 9.5 mEq/L (5.0-15.0); BUN Blood Urea Nitrogen 16.0 mg/dL (7-18); Glucose Level 232.0 mg/dL (74-106); Potassium 3.5 mEq/L (3.5-5.1)
[2025-04-10] MEDS ORDERED: MORPHINE 2 MG/ML SYR IV PRN (16:06)
[2025-04-10] MEDS ORDERED: MAGNESIUM SULFATE 1 gm IVPB 1 GM/100 ML BAG IV ONE (16:33)
--- NOTE | 2025-04-10 17:25 | P.CNS ---
Date of Consult: 04/10/25 Reason for Consult: DEBBIE/ Hypernatremia Requesting Physician: Grace Arboleda Chief Complaint: AMS History of Present Illness: 79-year-old female with a past medical history of chronic kidney disease and unable to elicit any history from her given her encephalopathy. There is no family at bedside. Per ED report patient's family states that she has not gotten out of bed eating or drinking anything in 3 days. She was diagnosed with a urinary tract infection 3 years ago. In the ED blood work was obtained initially showing a sodium level of 170. Repeat chemistries were within normal limits. There may have been a mixup with patients in the ED. 13:32 This 79 yrs old Female presents to ER via EMS with complaints of Altered sb4 Mental Status. 13:32 Family states that patient has not gotten out of bed, spoke him, eaten, or drink sb4 anything in 3 days. They states that she had a prior occurrence of this a few months back and was diagnosed with a UTI. They are unsure of her medical history or if she takes any daily medications. Patient can follow commands, just does not verbalize anything. Limited HPI/ ROS due to AMS. Family was not at the bedside during the evaluation. Allergies No Known Allergies Allergy (Unverified 01/27/15 17:42) Home medications list reviewed: No - Past Medical/Surgical History Diabetic: Yes -: DM II - Social History Smoking Status: Unknown if ever smoked Review of Systems is unable to be obtained Physical Examination General: In no apparent distress, Delirious HEENT: Atraumatic Respiratory: Clear to auscultation bilaterally, Normal air movement Cardiovascular: No edema, Regular rate/rhythm Gastrointestinal: Soft and benign, Non-distended Musculoskeletal: No clubbing, No contractures Integumentary: No rashes, No cyanosis Laboratory Data (last 24 hrs) 04/10/25 04/10/25 04/10/25 15:22 14:07 14:07 WBC 14.70 H Hgb 13.4 Hct 42.7 Plt Count 136 L Sodium 136 D 171 H* Potassium 3.5 D 4.9 BUN 16 207 H Creatinine 1.06 H 8.89 H Glucose 232 H 196 H Total Bilirubin 1.0 AST 29 ALT 33 Alkaline Phosphatase 79 Imagings Data: EXAMINATION: ONE VIEW CHEST XR CLINICAL INDICATION: ams TECHNIQUE: Frontal chest projection is submitted. Examination is limited by patient positioning and technique. COMPARISON: 01/27/2025 FINDINGS: The lungs are well inflated and clear. The heart is normal in size. No displaced fractures identified. IMPRESSION: No acute intrathoracic abnormalities. Conclusions/Impression: Stage III DEBBIE likely due to hypovolemia possibly complicated by ATN Uremia Proteinuria -No NSAIDs -Check HBV panel -May need to consider dialysis -Increase IVF Hypernatremia/ Dehydration -Increase IVF with 1/2NS -BMP q4h Acute Metabolic Acidosis -Continue IVF -IV Bicarb prn HTN with CKD -Hold antihypertensives at this time Leukocytosis Thrombocytopenia -Monitor CBC -Continue Rocephin Metabolic Encephalopathy -Continue IVF -HD prn Hospitalist and ER notes reviewed Case reviewed with the ER provider and Dr. Arboleda Thank you kindly for the consultation 45min patient care
--- NOTE | 2025-04-10 17:33 | P.HP ---
Patient History Date of Service: 04/10/25 History of Present Illness: 79-year-old female with a past medical history of chronic kidney disease and unable to elicit any history from her given her encephalopathy. There is no family at bedside. Per ED report patient's family states that she has not gotten out of bed eating or drinking anything in 3 days. She was diagnosed with a urinary tract infection 3 years ago. In the ED blood work was obtained initially showing a sodium level of 170. Repeat chemistries were within normal limits. There may have been a mixup with patients in the ED. Repeat blood work is pending. Allergies No Known Allergies Allergy (Unverified 01/27/15 17:42) Review of Systems is unable to be obtained Physical Examination - Physical Exam General: In no apparent distress, Confused HEENT: Atraumatic Neck: Supple Respiratory: Clear to auscultation bilaterally Cardiovascular: No edema Capillary refill: <2 Seconds Gastrointestinal: Normal bowel sounds Musculoskeletal: No swelling Integumentary: No rashes - Studies Laboratory Data (last 24 hrs) 04/10/25 04/10/25 04/10/25 15:22 14:07 14:07 WBC 14.70 H Hgb 13.4 Hct 42.7 Plt Count 136 L Sodium 136 D 171 H* Potassium 3.5 D 4.9 BUN 16 207 H Creatinine 1.06 H 8.89 H Glucose 232 H 196 H Total Bilirubin 1.0 AST 29 ALT 33 Alkaline Phosphatase 79 Assessment and Plan - Plan Acute metabolic encephalopathy Leukocytosis Thrombocytopenia Type 2 diabetes mellitus with hyperglycemia Admit to floor CBC and CMP repeat are pending. Likely lab error Start gentle hydration, discussed with Dr. Carbone Start Rocephin given history of UTI leukocytosis Await urinalysis Chest x-ray reviewed with no acute abnormality Head CT with no gross abnormality Uncontrolled type 2 diabetes with hyperglycemia: Start sliding scale insulin insulin Swallow eval Hydralazine as needed DVT prophylaxis with Lovenox - Advance Directives Does patient have a Living Will: No Does patient have a Durable POA for Healthcare: No
[2025-04-10] MEDS ORDERED: GLUCAGON 1 MG/VIAL IM PRN (17:52)
[2025-04-10] MEDS ORDERED: D10W 125 ML IV PRN (17:52)
[2025-04-10] MEDS: NA CHLORIDE 0.9% 1,000 ML IV SCH (18:00)
[2025-04-10 18:25] LABS: Anion Gap 18.7 mEq/L (5.0-15.0); BUN Blood Urea Nitrogen 207.0 mg/dL (7-18); Glucose Level 219.0 mg/dL (74-106); Potassium 4.7 mEq/L (3.5-5.1)
[2025-04-10] MEDS: INSULIN REGULAR (HUMAN) 100 UNIT/ML SQ SCH (21:00)
[2025-04-10] MEDS: NACHLORIDE 0.45% 1,000 ML IV SCH ×2 (21:18→21:48)
[2025-04-10] MEDS: HEPARIN 5000 UNIT/ML 1 ML VIAL SQ SCH (21:59)
[2025-04-10] MEDS ORDERED: NACHLORIDE 0.45% 1,000 ML IV SCH (22:00)
[2025-04-11 02:07] LABS: Anion Gap 22.8 mEq/L (5.0-15.0); BUN Blood Urea Nitrogen 204.0 mg/dL (7-18); Glucose Level 228.0 mg/dL (74-106); Potassium 4.8 mEq/L (3.5-5.1)
[2025-04-11 05:19] LABS: Urine Micro Reflex YN NO BILL MICROSCOPIC; Urine WBC Clump Rare /HPF (None Seen)
[2025-04-11 05:47] LABS: MA/CREAT RATIO 57.2 (< 30.0); UR CREAT 152.0 mg/dL (20-320); UR MICROALBUMIN 8.7 mg/dL (< 1.9)
[2025-04-11 06:13] LABS: Absolute Lymphocytes (CBC) 1.1 K/uL (0.7-4.9); Hematocrit 32.7 % (36.0-45.0); Hemoglobin 10.2 g/dL (12.0-15.0); MCH 28.2 pg (27.0-35.0); MCHC 31.1 g/dL (32.0-36.0); MCV 90.8 fL (80-100); MPV 11.4 fL (7.6-11.3); Nucleated RBC Absolute Count 0.0 (0-0); Nucleated Red Blood Cells % 0.2 % (0-0); RBC Red Blood Cell Count 3.61 M/uL (3.86-4.86); White Blood Count 14.10 thou/uL (4.3-10.9)
[2025-04-11 06:48] LABS: ALT/SGPT 23.0 U/L (13-56); AST/SGOT 18.0 U/L (15-37); Albumin 1.8 g/dL (3.4-5.0); Albumin/Globulin Ratio 0.5 (1.1-1.8); Alkaline Phosphatase 66.0 U/L (45-117); Anion Gap 20.8 mEq/L (5.0-15.0); BUN Blood Urea Nitrogen 192.0 mg/dL (7-18); C-Reactive Protein 124.0 mg/L (<3.00); Globulin 3.5 g/dL (2.3-3.5); Glucose Level 177.0 mg/dL (74-106); Magnesium 2.7 mg/dL (1.6-2.4); Potassium 4.8 mEq/L (3.5-5.1); Uric Acid 16.9 mg/dL (2.6-6.0)
[2025-04-11 08:09] LABS: Hepatitis B Surface Ab - Quant < 3.10 mIU/mL (<8.0); Hepatitis B surface AG Interp. Nonreactive (Nonreactive)
[2025-04-11 08:10] LABS: HBsAG Nonreactive Report Report
[2025-04-11] MEDS: ALBUMIN HUMAN 25% 100 ML IV SCH (08:56)
[2025-04-11] MEDS: CEFTRIAXONE 2,000 MG in NA CHLORIDE 0.9% 100 ML IV SCH (09:28)
--- NOTE | 2025-04-11 09:38 | P.PN ---
Nephrology note (S) Pt remains in the ICU, hemodynamically stable without need for pressor support, remains largely obtunded but not requiring O2 support, she is non anuric but no sig improvement in renal function tests or metab profile with initial saline hydration. Spoke with daughter, Ana Shankar, there is no designated surrogate medical decision maker/MPOA, pt lives with one of her sons. Pt was hospitalized at [facility] in Feb for acute illness then which may have included UTI then and prior to that was doing fair (O) Vitals reviewed in the EMR General: Obtunded, appears chronically ill HEENT: Atraumatic, eyes closed, dry oral mucosa, not needing O2 Respiratory: Clear to auscultation bilaterally mostly, Normal air movement Cardiovascular: No edema, tachy, mostly regular Gastrointestinal: Soft and benign, Non-distended, no guarding Musculoskeletal: No contractures noted, no muscle spasms noted Integumentary: No rashes Neuro: Obtunded, with sternal rub does not open eyes, moans intermittently, no tremors or myoclonus noted Laboratory Data (last 24 hrs) Reviewed in the EMR A/P) Stage III sub acute renal failure per KETTY definition on likely underlying CKD NOS 2nd to severe dehydration, pre-renal state which in the setting of hypovolemic hypotension has likely led to at least some degree of ATN although pt is non oliguric and automated UA does not report casts Severe azotemia -Cont hydration with hypotonic IVF, trend metab profile closely, pt's family was cautioned about the potential need for GLASS SMOOTHER over the next 24-36h if chemistries do not improve or worsen Severe hypertonic hypernatremia -Water deficit > 6L, switch to D5W hypotonic IVF, pt is not hypotensive or septic and does not require saline fluid of which she received initial challenge and colloid support. Trend Na levels closely Acute Metabolic Acidosis, AG present, bicarb deficit around 150 meq -Add one amp of sodium bicarb to the D5W bag Hypocalcemia, hyperphosphatemia, hyperuricemia -In the setting of above mentioned, vol depletion, illness, low albumin state, other -trend lytes and uric acid closely with hydration
[2025-04-11] MEDS ORDERED: D5W 1,000 ML IV SCH ×3 (10:00)
[2025-04-11] MEDS: D5W 1,000 ML with NA BICARB 8.4% 50 MEQ IV SCH ×2 (10:27→21:44)
[2025-04-11 11:27] LABS: Blood Morphology Comment NOT SEEN (NOT SEEN); White Blood Cell Scan OK (OK)
--- NOTE | 2025-04-11 15:09 | P.PN ---
Date of Service: 04/11/25 Subjective: Family at bedside. Stated she was at home and ate and drink less and less. They deny exposure to sick contacts or recent fevers. Review of Systems is unable to be obtained Physical Examination - Physical Exam General: In no apparent distress, Confused HEENT: Atraumatic Neck: Supple Respiratory: Clear to auscultation bilaterally Cardiovascular: No edema Capillary refill: <2 Seconds Gastrointestinal: Normal bowel sounds Musculoskeletal: No swelling Integumentary: No rashes - Studies Laboratory Data (last 24 hrs) 04/10/25 04/10/25 04/10/25 15:22 14:07 14:07 WBC 14.70 H Hgb 13.4 Hct 42.7 Plt Count 136 L Sodium 136 D 171 H* Potassium 3.5 D 4.9 BUN 16 207 H Creatinine 1.06 H 8.89 H Glucose 232 H 196 H Total Bilirubin 1.0 AST 29 ALT 33 Alkaline Phosphatase 79 Assessment and Plan - Plan Acute metabolic encephalopathy Leukocytosis Thrombocytopenia Type 2 diabetes mellitus with hyperglycemia Metabolic acidosis Hypernatremia Uremia Acute kidney failure /acute kidney injury Hyperglycemia 04/11 - hypernatremia: Sodium 172, creatinine 8.5 anion gap 22.8, BUN 204, carbon dioxide 18 - Discussed with director case management and patient's last hospitalization resulted with hospice. - Family states the hospice company never contacted them once discharged - Will discuss with family if they would like to pursue hospice as this patients prognosis is very poor - Discussed with nephrology Admit to floor CBC and CMP repeat are pending. Likely lab error Start gentle hydration, discussed with Dr. Carbone Start Rocephin given history of UTI leukocytosis Await urinalysis Chest x-ray reviewed with no acute abnormality Head CT with no gross abnormality Uncontrolled type 2 diabetes with hyperglycemia: Start sliding scale insulin insulin Swallow eval Hydralazine as needed DVT prophylaxis with Lovenox Disposition: Home with hospice I spent a total of 55 minutes in direct counseling with the patient's family, discussing goals of care and the patient's overall condition in the context of her transition to hospice discussion included detailed review of her current laboratory findings these results are consistent with significant metabolic derangements, including acute renal failure and metabolic acidosis, contributing to her overall decline. I explained the implications of these findings, the limited benefit of aggressive interventions given her hospice status, and the focus on comfort directed measures moving forward. Family verbalized understanding, had the opportunity to ask questions, and expressed alignment with the plan of care prioritizing the patient's comfort - Advance Directives Does patient have a Living Will: No Does patient have a Durable POA for Healthcare: No
[2025-04-11] MEDS ORDERED: ENOXAPARIN 40 MG/0.4 ML SQ SCH (17:00)
--- NOTE | 2025-04-11 18:42 | P.PN ---
Brief F/u renal note Updated by Dr. Arboleda that additional information received indicate that pt was supposedly discharged on home hospice from [facility], will need to review those records but given potential plan to (re-)initiate or pursue hospice with CM talking to family regarding that, will follow from a distance while IVF hydration is continued. Certainly no plans for AQUATICS MANAGER at this time and would not be recommended given the above information. Will defer to IM team to take the lead with hospice discussions/transition. Pls call our service if there are qu, Dr. Carbone is covering for the group this evening and weekend.
[2025-04-11 20:42] LABS: Anion Gap 18.2 mEq/L (5.0-15.0); Glucose Level 353.0 mg/dL (74-106); Potassium 4.2 mEq/L (3.5-5.1)
[2025-04-11 20:52] LABS: BUN Blood Urea Nitrogen 191.0 mg/dL (7-18)
[2025-04-11] MEDS: Meropenem 1,000 MG in NA CHLORIDE 0.9% 100 ML IV SCH (21:42)
[2025-04-11] MEDS: INSULIN GLARGINE 100 UNIT/ML SQ SCH (21:42)
[2025-04-12 01:29] LABS: Anion Gap 15.9 mEq/L (5.0-15.0); BUN Blood Urea Nitrogen 184.0 mg/dL (7-18); Glucose Level 360.0 mg/dL (74-106); Potassium 3.9 mEq/L (3.5-5.1)
[2025-04-12 04:42] LABS: Absolute Lymphocytes (CBC) 1.2 K/uL (0.7-4.9); Hematocrit 31.0 % (36.0-45.0); Hemoglobin 10.0 g/dL (12.0-15.0); MCH 28.8 pg (27.0-35.0); MCHC 32.1 g/dL (32.0-36.0); MCV 89.7 fL (80-100); MPV 11.6 fL (7.6-11.3); Nucleated RBC Absolute Count 0.0 (0-0); Nucleated Red Blood Cells % 0.1 % (0-0); RBC Red Blood Cell Count 3.46 M/uL (3.86-4.86); White Blood Count 10.60 thou/uL (4.3-10.9)
[2025-04-12 04:53] LABS: PT Prothrombin Time 15.3 SECONDS (10-13.0); PTT, Activated Partial Thromb 48.2 SECONDS (27.2-37.4); Protime INR 1.37
[2025-04-12 05:03] LABS: ALT/SGPT 24.0 U/L (13-56); AST/SGOT 26.0 U/L (15-37); Albumin 2.1 g/dL (3.4-5.0); Albumin/Globulin Ratio 0.6 (1.1-1.8); Alkaline Phosphatase 64.0 U/L (45-117); Anion Gap 15.7 mEq/L (5.0-15.0); BUN Blood Urea Nitrogen 174.0 mg/dL (7-18); Globulin 3.4 g/dL (2.3-3.5); Glucose Level 345.0 mg/dL (74-106); Potassium 3.7 mEq/L (3.5-5.1)
[2025-04-12] MEDS: D5W 1,000 ML IV SCH ×2 (08:00→21:55)
[2025-04-12] MEDS ORDERED: NA CHLORIDE 0.9% 1,000 ML IV PRN (08:11)
[2025-04-12] MEDS ORDERED: MANNITOL 25% 12.5 GM/50 ML VIAL IV PRN (08:11)
[2025-04-12] MEDS ORDERED: EPOETIN ALFA 10,000 UNIT/ML VIAL IV SCH (08:15)
[2025-04-12] MEDS ORDERED: ALBUMIN HUMAN 25% 50 ML IV SCH (09:00)
[2025-04-12] MEDS: Mupirocin NASAL 2 APPL/1 GM TUBE NAS SCH (09:09)
[2025-04-12] MEDS: ONDANSETRON 4 MG/2 ML VIAL IV PRN (09:09)
[2025-04-12] MEDS: HYDRALAZINE HCL 20 MG/ML VIAL IV PRN (09:09)
[2025-04-12] MEDS: INSULIN GLARGINE 100 UNIT/ML SQ ONE (09:10)
[2025-04-12] MEDS: INSULIN REGULAR (HUMAN) 100 UNIT/ML SQ SCH (09:39)
[2025-04-12] MEDS: ALBUMIN HUMAN 25% 100 ML IV ONE ×2 (12:16→13:00)
[2025-04-12] MEDS ORDERED: ETOMIDATE 20 MG/10 ML VIAL IV ONE (13:43)
[2025-04-12] MEDS ORDERED: ONDANSETRON 4 MG/2 ML VIAL ONE (13:44)
[2025-04-12] MEDS: NA CHLORIDE 0.9% 500 ML ONE (13:50)
[2025-04-12] MEDS: NA CHLORIDE 0.9% 100 ML ONE (14:03)
[2025-04-12] MEDS ORDERED: FENTANYL CITR 100 MCG/2 ML ONE (14:18)
[2025-04-12] MEDS: HEPARIN 5000 UNIT/ML 1 ML VIAL ONE (14:47)
[2025-04-12] MEDS: BUPIVACAINE 0.5% PF 10 ML VIAL ONE (14:47)
--- NOTE | 2025-04-12 15:21 | P.BOP ---
Preoperative diagnosis: ESRD Postoperative diagnosis: same Primary procedure: 1. Placement of hemosplit tunneled cuffed hemodialysis catheter Secondary procedure: 2. interpretation of fluoroscopy Other procedure(s): 3. Right jugular ultrasound Estimated blood loss: <10cc Specimen: none Findings: as above Anesthesia: General Complications: None Implants: hemosplit Transferred to: Recovery Room Condition: Good
--- NOTE | 2025-04-12 15:47 | RAD REPORT ---
Procedure: Chest Single View HISTORY: Hemodialysis catheter placement FINDINGS: Hemodialysis catheter with its tip in the superior vena cava. No pneumothorax. There is a possible kink within the catheter at the level of the lower neck.
--- NOTE | 2025-04-12 16:18 | P.PN ---
Date of Service: 04/12/25 Subjective: Remains obtunded. Family at bedside. Electing to continue to pursue care. States that there was some discussion about her terminal prognosis however family elects to continue care for now Review of Systems is unable to be obtained Physical Examination - Physical Exam General: In no apparent distress, Confused HEENT: Atraumatic Neck: Supple Respiratory: Clear to auscultation bilaterally Cardiovascular: No edema Capillary refill: <2 Seconds Gastrointestinal: Normal bowel sounds Musculoskeletal: No swelling Integumentary: No rashes - Studies Laboratory Data (last 24 hrs) 04/10/25 04/10/25 04/10/25 15:22 14:07 14:07 WBC 14.70 H Hgb 13.4 Hct 42.7 Plt Count 136 L Sodium 136 D 171 H* Potassium 3.5 D 4.9 BUN 16 207 H Creatinine 1.06 H 8.89 H Glucose 232 H 196 H Total Bilirubin 1.0 AST 29 ALT 33 Alkaline Phosphatase 79 Assessment and Plan - Plan Acute metabolic encephalopathy Leukocytosis Thrombocytopenia Type 2 diabetes mellitus with hyperglycemia Metabolic acidosis Hypernatremia Uremia Acute kidney failure /acute kidney injury Hyperglycemia 04/12 - Placement of HemoSplit tunneled cuffed hemodialysis catheter By Dr. Ramirez - Family electing to pursue care - Continue fluids as sodium levels improved from 1 72-1 6 - Leukocytosis resolved - Replace calcium - Continue Merrem - Further discussions of goals with family had. There are different family members saying different things. We will touch base with all of the family and either pursue hospice or continue aggressive care 04/11 - hypernatremia: Sodium 172, creatinine 8.5 anion gap 22.8, BUN 204, carbon dioxide 18 - Discussed with director of casework department and patient's last hospitalization resulted with hospice. - Family states the hospice company never contacted them once discharged - Will discuss with family if they would like to pursue hospice as this patients prognosis is very poor - Discussed with nephrology Admit to floor CBC and CMP repeat are pending. Likely lab error Start gentle hydration, discussed with Dr. Raf Carringtonepidania given history of UTI leukocytosis Await urinalysis Chest x-ray reviewed with no acute abnormality Head CT with no gross abnormality Uncontrolled type 2 diabetes with hyperglycemia: Start sliding scale insulin insulin Swallow eval Hydralazine as needed DVT prophylaxis with Lovenox Disposition: Hospice I spent a total of 55 minutes in direct counseling with the patient's family, discussing goals of care and the patient's overall condition in the context of her transition to hospice discussion included detailed review of her current laboratory findings these results are consistent with significant metabolic derangements, including acute renal failure and metabolic acidosis, contributing to her overall decline. I explained the implications of these findings, the limited benefit of aggressive interventions given her hospice status, and the focus on comfort directed measures moving forward. Family verbalized understanding, had the opportunity to ask questions, and expressed alignment with the plan of care prioritizing the patient's comfort - Advance Directives Does patient have a Living Will: No Does patient have a Durable POA for Healthcare: No
--- NOTE | 2025-04-12 16:18 | CON ---
Date of Consultation: 04/12/2025 Diagnosis: Renal failure. History Of Present Illness: This is the case of an 79-year-old patient with multiple medical problem s, admitted to the hospital with encephalopathy, found to have renal insufficiency. The Renal doctor has been following her for few days. Last night, Dr. Carbone called me that he got into the service last night and determined the patient will need a hemodialysis catheter and he asked me to see if I can put one today. There is a conversation before about the hospice, but that decision by the family has not been done yet, so they want everything done. I cannot get any information from the patient, so I get information from the family members, son, and another family member at bedside. Allergies: NONE. Review of Systems: Unable to be obtained. Medical Problems: Include encephalopathy, leukocytosis, diabetes, and thrombocytopenia. Past Surgical History: Unknown. Social History: She does not smoke. She does not drink alcohol. Family History: Noncontributory. Review of Systems: Unable to be obtained. Physical Examination: Vital Signs: Blood pressure is 123/92 with respirations of 20 and O2 saturation 97%. General: The patient is sleepy. I cannot get any information from the patient. Eyes: Pupils anicteric. Neck: Supple. Chest: Bilateral breath sounds. Abdomen: Soft and depressible. Extremities: Good capillary refill. Laboratory Data: Blood work shows WBC count of 10.0, hemoglobin of 10, and platelets of 85. Sodium is 160, chloride is 124, calcium is 6.7. Assessment: An 79-year-old patient in need of hemodialysis. The patient does have increased sodium. I asked Dr. Mckinney to talk to Dr. Carbone to adjust from medical standpoint the pros and cons of anes thesia in this patient and placement of a hemodialysis catheter under fluoroscopy. The patient does not cooperate and she is just moving spontaneously, so we are going to trying to give her something t o at least make it a little bit safer. The placement of hemodialysis catheter was fully explained to the patient and family which include, but not limited to infection, bleeding, damage to adjacent str uctures, anesthesia complication, hemothorax, pneumothorax, pericardial tamponade, DVTs, MA, and even . They also understand this may not relieve symptoms, she might need more than one surgical in tervention. She understood. The family signed the informed consent. /RADHA Voice ID: [id number] Report ID: [id number]
--- NOTE | 2025-04-12 19:38 | OP ---
Date of Procedure: 04/12/2025 Surgeon: Jermain Ramirez MD Preoperative Diagnosis: Renal failure. Postoperative Diagnosis: Renal failure. Procedures: 1. Placement of a HemoSplit tunneled cuffed hemodialysis catheter. 2. Interpretation of fluoroscopy. 3. Right jugular ultrasound. Estimated Blood Loss: Less than 10 cc. Findings: A viable jugular. Anesthesia: Sedation plus local. Implant: HemoSplit hemodialysis catheter. Complications: None. Indications: This is the case of an 79-year-old patient renal dialysis. Benefits, altern atives, and risks of placement of a HemoSplit tunneled hemodialysis catheter were fully explained, wh ich include, but not limited to infection, bleeding, damage to adjacent structures, anesthesia compli cation, hemothorax, pneumothorax, DVTs, PE, DC, and . She also understands this may not relieve symptoms. The family signed a consent. Description Of Procedure: The patient was brought to the operating room, placed in supine position. Anesthesia was induced without complication. Right neck and chest were prepped and draped in a ster ile fashion. The patient was placed in Trendelenburg position. A time-out was called. Ultrasound o f the right jugular was done, noticing a viable jugular vein. So, with the help of an ultrasound aft er injecting local anesthetic and the patient in Trendelenburg, we put an 18-gauge needle in the righ t jugular vein in the first attempt. The guidewire was passed through. Needle was removed. A small HemoSplit catheter was placed, tunneled from the right upper chest into the neck incision. After th at serial dilators were done with fluoroscopic guidance catheter was placed and the dilato r was carefully peel off. Excellent backflow. No bleeding and the line was secured in place with he parinized solution. Monocryl was used for the subcutaneous tissue and then the catheter was attached to the skin with a nylon. The patient was brought back to normal position. Sterile dressings were placed over the area. The patient tolerated the procedure well. The patient was sent to Recovery in stable condition. A chest x-ray was ordered. RANDELL/RADHA Voice ID: [id number] Report ID: [id number]
[2025-04-12] MEDS: INSULIN GLARGINE 100 UNIT/ML SQ SCH (21:00)
--- NOTE | 2025-04-12 21:09 | RAD REPORT ---
Exam: Fluoroscopy less than one hour Clinical history hemodialysis catheter placement FINDINGS: Fluoroscopy time 0.5 minutes. 5 fluoroscopic spot images submitted. Please refer to the surgeons repo rt for additional findings
--- NOTE | 2025-04-12 21:23 | P.PN ---
Date of Service: 04/12/25 Vital Signs Temp Pulse Resp BP Pulse Ox 97.8 F 84 13 125/52 L 94 04/12/25 20:00 04/12/25 21:00 04/12/25 21:00 04/12/25 21:00 04/12/25 21:00 Medications Dextrose (D50w 25 Gm/50 Ml Syringe) 12.5 gm IV PRN PRN; Protocol PRN Reason: HYPOGLYCEMIA PROTOCOL Epoetin Neel (Epoetin Neel 10,000 Unit/Ml Vial) 10,000 unit IV EVERY HD [facility] Glucagon (Glucagon 1 Mg/Vial) 1 mg IM 1X PRN PRN Reason: HYPOGLYCEMIA Heparin Sodium (Porcine) (Heparin 5000 Unit/Ml 1 Ml Vial) 5,000 unit SQ Q8H [facility] Last Admin: 04/12/25 14:00 Dose: Not Given Heparin Sodium (Porcine) (Heparin 1,000 Unit/Ml Vial) 6,000 unit IV EVERY HD PRN PRN Reason: AFTER EACH Hydralazine HCl (Hydralazine Hcl 20 Mg/Ml Vial) 10 mg IV Q6HP PRN PRN Reason: FOR SBP>160 OR DBP>100 MMHG Last Admin: 04/12/25 09:09 Dose: 10 mg Meropenem 1,000 mg/ Sodium (Chloride) 100 mls @ 200 mls/hr IV Q12HR [facility] Last Admin: 04/12/25 21:13 Dose: 100 mls Sodium Chloride (Ns 1000 Ml Ivbag) 1,000 mls @ 0 mls/hr IV .Q0M PRN; Protocol PRN Reason: Priming and BP support at HD Stop: 04/12/25 23:59 Albumin Human (Albumin 25%) 50 mls @ 100 mls/hr IV EVERY HD [facility] Insulin Glargine (Insulin Glargine 100 Unit/Ml) 14 unit SQ BEDTIME [facility] Insulin Human Regular (Insulin Regular (Human) 100 Unit/Ml) 0 unit SQ Q6HR [facility]; Protocol Last Admin: 04/12/25 18:00 Dose: Not Given Mannitol (Mannitol 25% 12.5 Gm/50 Ml Vial) 12.5 gm IV EVERY HD PRN PRN Reason: Titrate to SBP (MUST DEFINE) Mupirocin (Mupirocin Nasal 2 Appl/1 Gm Tube) 0 appl LINN BID [facility] Stop: 04/16/25 21:01 Last Admin: 04/12/25 21:13 Dose: 2 appl Ondansetron HCl (Ondansetron 4 Mg/2 Ml Vial) 4 mg IV Q8H PRN PRN Reason: NAUSEA / VOMITING Last Admin: 04/12/25 09:09 Dose: 4 mg Assessment/ Plan: Nephrology No acute events overnight Limited IH/ROS due to mental status Case reviewed with the family at the bedside Seen and examined in PreOp Vitals, medications, blood work and imaging reviewed in the chart Physical Examination General: In no apparent distress, Delirious HEENT: Atraumatic Respiratory: Clear to auscultation bilaterally, Normal air movement Cardiovascular: No edema, Regular rate/rhythm Gastrointestinal: Soft and benign, Non-distended Musculoskeletal: No clubbing, No contractures Integumentary: No rashes, No cyanosis Laboratory Data (last 24 hrs) 04/10/25 04/10/25 04/10/25 15:22 14:07 14:07 WBC 14.70 H Hgb 13.4 Hct 42.7 Plt Count 136 L Sodium 136 D 171 H* Potassium 3.5 D 4.9 BUN 16 207 H Creatinine 1.06 H 8.89 H Glucose 232 H 196 H Total Bilirubin 1.0 AST 29 ALT 33 Alkaline Phosphatase 79 Imagings Data: EXAMINATION: ONE VIEW CHEST XR CLINICAL INDICATION: ams TECHNIQUE: Frontal chest projection is submitted. Examination is limited by patient positioning and technique. COMPARISON: 01/27/2025 FINDINGS: The lungs are well inflated and clear. The heart is normal in size. No displaced fractures identified. IMPRESSION: No acute intrathoracic abnormalities. Conclusions/Impression: Stage III DEBBIE likely due to hypovolemia possibly complicated by ATN Uremia Proteinuria -No NSAIDs -Surgery consult for HD CVC placement today 04-12-25 -Initiate dialysis today 04-12-25 Hypernatremia/ Dehydration -Continue IVF Acute Metabolic Acidosis -Continue IVF -IV Bicarb prn HTN with CKD -Hold antihypertensives at this time Leukocytosis Thrombocytopenia -Monitor CBC -Continue Rocephin Metabolic Encephalopathy -Continue IVF -HD prn Hospitalist note reviewed; case reviewed with Dr. Ramirez 40min patient care
[2025-04-13 05:34] LABS: Absolute Lymphocytes (CBC) 0.6 K/uL (0.7-4.9); Hematocrit 28.7 % (36.0-45.0); Hemoglobin 9.2 g/dL (12.0-15.0); MCH 28.3 pg (27.0-35.0); MCHC 32.1 g/dL (32.0-36.0); MCV 88.2 fL (80-100); MPV 11.2 fL (7.6-11.3); Nucleated RBC Absolute Count 0.0 (0-0); Nucleated Red Blood Cells % 0.1 % (0-0); RBC Red Blood Cell Count 3.26 M/uL (3.86-4.86); White Blood Count 7.80 thou/uL (4.3-10.9)
[2025-04-13 06:00] LABS: ALT/SGPT 24.0 U/L (13-56); AST/SGOT 25.0 U/L (15-37); Albumin 2.2 g/dL (3.4-5.0); Albumin/Globulin Ratio 0.8 (1.1-1.8); Alkaline Phosphatase 63.0 U/L (45-117); Anion Gap 11.6 mEq/L (5.0-15.0); BUN Blood Urea Nitrogen 115.0 mg/dL (7-18); Globulin 2.8 g/dL (2.3-3.5); Glucose Level 266.0 mg/dL (74-106); Magnesium 1.9 mg/dL (1.6-2.4); Potassium 3.6 mEq/L (3.5-5.1); Uric Acid 10.6 mg/dL (2.6-6.0)
--- NOTE | 2025-04-13 07:03 | P.PN ---
Date of Service: 04/13/25 Subjective: Was unable to complete dialysis. Tunneled dialysis catheter has a kink in it. She remains obtunded. Review of Systems is unable to be obtained Physical Examination - Physical Exam General: In no apparent distress, Confused HEENT: Atraumatic Neck: Supple Respiratory: Clear to auscultation bilaterally Cardiovascular: No edema Capillary refill: <2 Seconds Gastrointestinal: Normal bowel sounds Musculoskeletal: No swelling Integumentary: No rashes - Studies Laboratory Data (last 24 hrs) 04/10/25 04/10/25 04/10/25 15:22 14:07 14:07 WBC 14.70 H Hgb 13.4 Hct 42.7 Plt Count 136 L Sodium 136 D 171 H* Potassium 3.5 D 4.9 BUN 16 207 H Creatinine 1.06 H 8.89 H Glucose 232 H 196 H Total Bilirubin 1.0 AST 29 ALT 33 Alkaline Phosphatase 79 Assessment and Plan - Plan Acute metabolic encephalopathy Leukocytosis Thrombocytopenia Type 2 diabetes mellitus with hyperglycemia Metabolic acidosis Hypernatremia Uremia Acute kidney failure /acute kidney injury Hyperglycemia 04/13 - Was able to pull off a little bit of fluid yesterday despite kinking dialysis catheter. Revision scheduled for tomorrow by Dr. Ramirez. Discussed with nephrology - Metabolic derangements improving overall - Prognosis still very guarded - Continue to replace electrolytes per protocol - Continue antibiotic - Continue supportive care - Discussed with Joyce 04/12 - Placement of HemoSplit tunneled cuffed hemodialysis catheter By Dr. Ramirez - Family electing to pursue care - Continue fluids as sodium levels improved from 1 72-1 6 - Leukocytosis resolved - Replace calcium - Continue Merrem - Further discussions of goals with family had. There are different family members saying different things. We will touch base with all of the family and either pursue hospice or continue aggressive care 04/11 - hypernatremia: Sodium 172, creatinine 8.5 anion gap 22.8, BUN 204, carbon dioxide 18 - Discussed with clinical case manager and patient's last hospitalization resulted with hospice. - Family states the hospice company never contacted them once discharged - Will discuss with family if they would like to pursue hospice as this patients prognosis is very poor - Discussed with nephrology Admit to floor CBC and CMP repeat are pending. Likely lab error Start gentle hydration, discussed with Dr. Raf Ye Rocephin given history of UTI leukocytosis Await urinalysis Chest x-ray reviewed with no acute abnormality Head CT with no gross abnormality Uncontrolled type 2 diabetes with hyperglycemia: Start sliding scale insulin insulin Swallow eval Hydralazine as needed DVT prophylaxis with Lovenox Disposition: Poor prognosis. Guarded. Possible hospice - Advance Directives Does patient have a Living Will: No Does patient have a Durable POA for Healthcare: No
[2025-04-13 09:09] LABS: UR CREAT 38.0 mg/dL (20-320); UR PROTEIN 85.4 mg/dL (<11.9)
--- NOTE | 2025-04-13 15:20 | P.PN ---
Date of Service: 04/13/25 Vital Signs Temp Pulse Resp BP Pulse Ox 97.9 F 73 12 129/46 L 96 04/13/25 12:00 04/13/25 14:00 04/13/25 14:00 04/13/25 14:00 04/13/25 14:00 Medications Dextrose (D50w 25 Gm/50 Ml Syringe) 12.5 gm IV PRN PRN; Protocol PRN Reason: HYPOGLYCEMIA PROTOCOL Epoetin Neel (Epoetin Neel 10,000 Unit/Ml Vial) 10,000 unit IV EVERY HD [facility] Glucagon (Glucagon 1 Mg/Vial) 1 mg IM 1X PRN PRN Reason: HYPOGLYCEMIA Heparin Sodium (Porcine) (Heparin 5000 Unit/Ml 1 Ml Vial) 5,000 unit SQ Q8H [facility] Last Admin: 04/13/25 06:00 Dose: Not Given Heparin Sodium (Porcine) (Heparin 1,000 Unit/Ml Vial) 6,000 unit IV EVERY HD PRN PRN Reason: AFTER EACH Hydralazine HCl (Hydralazine Hcl 20 Mg/Ml Vial) 10 mg IV Q6HP PRN PRN Reason: FOR SBP>160 OR DBP>100 MMHG Last Admin: 04/12/25 09:09 Dose: 10 mg Meropenem 1,000 mg/ Sodium (Chloride) 100 mls @ 200 mls/hr IV Q12HR [facility]; Pr otocol Last Admin: 04/13/25 08:22 Dose: 100 mls Albumin Human (Albumin 25%) 50 mls @ 100 mls/hr IV EVERY HD [facility] Dextrose/Water (Dextrose In Water (1-Liter)) 1,000 mls @ 100 mls/hr IV .Q10H [facility] Last Admin: 04/13/25 08:22 Dose: 1,000 mls Insulin Glargine (Insulin Glargine 100 Unit/Ml) 14 unit SQ BEDTIME [facility] Last Admin: 04/12/25 21:00 Dose: Not Given Insulin Human Regular (Insulin Regular (Human) 100 Unit/Ml) 0 unit SQ Q6HR [facility]; Protocol Last Admin: 04/13/25 12:08 Dose: 5 unit Mannitol (Mannitol 25% 12.5 Gm/50 Ml Vial) 12.5 gm IV EVERY HD PRN PRN Reason: Titrate to SBP (MUST DEFINE) Mupirocin (Mupirocin Nasal 2 Appl/1 Gm Tube) 0 appl LINN BID [facility] Stop: 04/16/25 21:01 Last Admin: 04/13/25 08:22 Dose: 2 appl Ondansetron HCl (Ondansetron 4 Mg/2 Ml Vial) 4 mg IV Q8H PRN PRN Reason: NAUSEA / VOMITING Last Admin: 04/13/25 10:07 Dose: 4 mg Assessment/ Plan: Nephrology No acute events overnight Limited IH/ROS due to mental status Case reviewed with the family at the bedside Seen and examined in the ICU Vitals, medications, blood work and imaging reviewed in the chart Physical Examination General: In no apparent distress. Somnolent HEENT: Atraumatic Respiratory: Clear to auscultation bilaterally, Normal air movement Cardiovascular: No edema, Regular rate/rhythm Gastrointestinal: Soft and benign, Non-distended Musculoskeletal: No clubbing, No contractures Integumentary: No rashes, No cyanosis Laboratory Data (last 24 hrs) 04/10/25 04/10/25 04/10/25 15:22 14:07 14:07 WBC 14.70 H Hgb 13.4 Hct 42.7 Plt Count 136 L Sodium 136 D 171 H* Potassium 3.5 D 4.9 BUN 16 207 H Creatinine 1.06 H 8.89 H Glucose 232 H 196 H Total Bilirubin 1.0 AST 29 ALT 33 Alkaline Phosphatase 79 Imagings Data: EXAMINATION: ONE VIEW CHEST XR CLINICAL INDICATION: ams TECHNIQUE: Frontal chest projection is submitted. Examination is limited by patient positioning and technique. COMPARISON: 01/27/2025 FINDINGS: The lungs are well inflated and clear. The heart is normal in size. No displaced fractures identified. IMPRESSION: No acute intrathoracic abnormalities. Conclusions/Impression: Stage III DEBBIE likely due to hypovolemia possibly complicated by ATN Uremia Proteinuria -No NSAIDs -HD CVC placement 04-12-25 -First dialysis 04-12-25 -HD CVC may need to be replaced due to kink -Will reevaluate for next HD tomorrow Hypernatremia/ Dehydration -Continue IVF Acute Metabolic Acidosis -Continue IVF -IV Bicarb prn HTN with CKD -Hold antihypertensives at this time DM II with CKD -Continue Lantus -RISS Leukocytosis Anemia in chronic illness Thrombocytopenia -Monitor CBC -Continue Meropenem -Retacrit X1 Metabolic Encephalopathy -Continue IVF -HD prn Hospitalist note reviewed; case reviewed with Dr. Arboleda 40min patient care
[2025-04-13] MEDS: EPOETIN ALFA-EPBX 10,000 UNIT/ML VIAL SQ ONE (16:08)
--- NOTE | 2025-04-13 18:06 | RAD REPORT ---
EXAMINATION: TWO VIEW NECK XR CLINICAL INDICATION: Female, 79 years old. [facility] HD catheter placement--post repositioning 2 View TECHNIQUE: 2 view radiographs of the neck were performed. COMPARISON: Chest radiograph 04/12/2025. FINDINGS: Right IJ dialysis catheter in satisfactory position, with loop projecting to the level of the mid nec k, however without evidence of kinking. Tip projects at the level of the superior cavoatrial junction. The visualized lung thorpe are clear. IMPRESSION: Right IJ dialysis catheter as above.
--- NOTE | 2025-04-13 19:28 | PN ---
Date of Progress Note: 04/13/2025 Subjective: The patient is doing better. They called me because they are having some issues with di alysis catheter. She tends to put her face all the way down to the left that is , so we we re there and examined the area today. There is no hematoma. There is no swelling. The catheter was manipulated in a way. We moved her neck to the right a little bit. It seems to have a very nice cu rve shape to it. We did an x-ray just to confirm that and shows no evidence of any kinking. Plan: We will see with the dialysis people tomorrow to see if this manipulation of the catheter some how improve the flow in that catheter. If not, then we might have to then replace it. RANDELL/RADHA Voice ID: [id number] Report ID: [id number]
[2025-04-13 20:52] LABS: Anion Gap 8.1 mEq/L (5.0-15.0); BUN Blood Urea Nitrogen 110.0 mg/dL (7-18); Glucose Level 186.0 mg/dL (74-106); Potassium 3.1 mEq/L (3.5-5.1)
[2025-04-13] MEDS: KCL 20 MEQ/100 mL IVPB 20 MEQ/100 ML BAG IV SCH (21:56)
[2025-04-14 06:35] LABS: Absolute Lymphocytes (CBC) 1.5 K/uL (0.7-4.9); Hematocrit 30.9 % (36.0-45.0); Hemoglobin 10.0 g/dL (12.0-15.0); MCH 28.5 pg (27.0-35.0); MCHC 32.4 g/dL (32.0-36.0); MCV 88.1 fL (80-100); MPV 11.1 fL (7.6-11.3); Nucleated RBC Absolute Count 0.0 (0-0); Nucleated Red Blood Cells % 0.1 % (0-0); RBC Red Blood Cell Count 3.51 M/uL (3.86-4.86); White Blood Count 8.60 thou/uL (4.3-10.9)
[2025-04-14 07:20] LABS: Albumin 2.0 g/dL (3.4-5.0); Anion Gap 8.7 mEq/L (5.0-15.0); BUN Blood Urea Nitrogen 102.0 mg/dL (7-18); Glucose Level 161.0 mg/dL (74-106); Potassium 3.7 mEq/L (3.5-5.1); Thyroid Stimulating Hormone 3.17 uIU/mL (0.358-3.740); Uric Acid 9.3 mg/dL (2.6-6.0)
[2025-04-14 08:57] LABS: White Blood Cell Scan OK (OK)
[2025-04-14 08:58] LABS: Blood Morphology Comment NOT SEEN (NOT SEEN)
[2025-04-14] MEDS: INSULIN REGULAR (HUMAN) 100 UNIT/ML SQ SCH (16:30)
[2025-04-14] MEDS ORDERED: ACETAMINOPHEN 325 MG TABLET PO PRN (17:27)
[2025-04-14] MEDS: FLUCONAZOLE 200mg IVPB 200 MG/100 ML BAG IV SCH (18:21)
--- NOTE | 2025-04-14 21:03 | P.PN ---
Date of Service: 04/14/25 Vital Signs Temp Pulse Resp BP Pulse Ox 96.8 F 70 13 117/43 L 100 04/14/25 16:00 04/14/25 19:00 04/14/25 19:00 04/14/25 19:00 04/14/25 19:00 Medications Acetaminophen (Acetaminophen 325 Mg Tablet) 650 mg PO Q6H PRN PRN Reason: Pain scale 2-4 (Mild) Calcitriol (Calcitrol 0.25 Mcg Cap) 0.5 mcg PO DAILY [facility] Dextrose (D50w 25 Gm/50 Ml Syringe) 12.5 gm IV PRN PRN; Protocol PRN Reason: HYPOGLYCEMIA PROTOCOL Epoetin Neel (Epoetin Neel 10,000 Unit/Ml Vial) 10,000 unit IV EVERY HD [facility] Ergocalciferol (Drisdol (Vitamin D=Ergocalciferol) 00842 Unit Cap) 50,000 unit PO Q7D@0900 [facility] Glucagon (Glucagon 1 Mg/Vial) 1 mg IM 1X PRN PRN Reason: HYPOGLYCEMIA Heparin Sodium (Porcine) (Heparin 5000 Unit/Ml 1 Ml Vial) 5,000 unit SQ Q8H [facility] Last Admin: 04/14/25 13:25 Dose: Not Given Heparin Sodium (Porcine) (Heparin 1,000 Unit/Ml Vial) 6,000 unit IV EVERY HD NE N PRN Reason: AFTER EACH Hydralazine HCl (Hydralazine Hcl 20 Mg/Ml Vial) 10 mg IV Q6HP PRN PRN Reason: FOR SBP>160 OR DBP>100 MMHG Last Admin: 04/12/25 09:09 Dose: 10 mg Meropenem 1,000 mg/ Sodium (Chloride) 100 mls @ 200 mls/hr IV Q12HR [facility]; Protocol Last Admin: 04/14/25 08:36 Dose: 100 mls Albumin Human (Albumin 25%) 50 mls @ 100 mls/hr IV EVERY HD JUAN Dextrose/Water (Dextrose In Water (1-Liter)) 1,000 mls @ 100 mls/hr IV .Q10H [facility] Last Admin: 04/14/25 15:58 Dose: 1,000 mls Fluconazole (Diflucan 200 Mg/100 Ml Ivpb (Premix)) 200 mg in 100 mls @ 100 mls/hr IV Q24H [facility]; Protocol Last Admin: 04/14/25 18:21 Dose: 100 mls Insulin Glargine (Insulin Glargine 100 Unit/Ml) 14 unit SQ BEDTIME [facility] Last Admin: 04/13/25 21:10 Dose: 14 unit Insulin Human Regular (Insulin Regular (Human) 100 Unit/Ml) 0 unit SQ ACHS [facility]; Protocol Last Admin: 04/14/25 16:30 Dose: Not Given Mannitol (Mannitol 25% 12.5 Gm/50 Ml Vial) 12.5 gm IV EVERY HD PRN PRN Reason: Titrate to SBP (MUST DEFINE) Mupirocin (Mupirocin Nasal 2 Appl/1 Gm Tube) 0 appl LINN BID [facility] Stop: 04/16/25 21:01 Last Admin: 04/14/25 08:36 Dose: 2 appl Nystatin (Nystatin 500,000 Unit/5 Ml Udc) 500,000 unit PO QID [facility] Ondansetron HCl (Ondansetron 4 Mg/2 Ml Vial) 4 mg IV Q8H PRN PRN Reason: NAUSEA / VOMITING Last Admin: 04/13/25 10:07 Dose: 4 mg Assessment/ Plan: Nephrology No acute events overnight Limited IH/ROS due to mental status Seen and examined in the ICU Vitals, medications, blood work and imaging reviewed in the chart Physical Examination General: In no apparent distress. Somnolent HEENT: Atraumatic Respiratory: Clear to auscultation bilaterally, Normal air movement Cardiovascular: No edema, Regular rate/rhythm Gastrointestinal: Soft and benign, Non-distended Musculoskeletal: No clubbing, No contractures Integumentary: No rashes, No cyanosis Laboratory Data (last 24 hrs) 04/10/25 04/10/25 04/10/25 15:22 14:07 14:07 WBC 14.70 H Hgb 13.4 Hct 42.7 Plt Count 136 L Sodium 136 D 171 H* Potassium 3.5 D 4.9 BUN 16 207 H Creatinine 1.06 H 8.89 H Glucose 232 H 196 H Total Bilirubin 1.0 AST 29 ALT 33 Alkaline Phosphatase 79 Imagings Data: EXAMINATION: ONE VIEW CHEST XR CLINICAL INDICATION: ams TECHNIQUE: Frontal chest projection is submitted. Examination is limited by patient positioning and technique. COMPARISON: 01/27/2025 FINDINGS: The lungs are well inflated and clear. The heart is normal in size. No displaced fractures identified. IMPRESSION: No acute intrathoracic abnormalities. Conclusions/Impression: Stage III DEBBIE likely due to hypovolemia possibly complicated by ATN Uremia CKD NOS with Proteinuria -No NSAIDs -HD CVC placement 04-12-25 -First dialysis 04-12-25 -Hold HD at this time -Continue IVF Hypernatremia/ Dehydration -Continue IVF Acute Metabolic Acidosis -Continue IVF -IV Bicarb prn HTN with CKD -Hold antihypertensives at this time DM II with CKD -Continue Lantus -RISS Leukocytosis Anemia in chronic illness Thrombocytopenia -Monitor CBC -Continue Meropenem -Retacrit prn Metabolic Encephalopathy -Continue IVF -HD prn Hospitalist note reviewed Case reviewed with Dr. Ramirez
[2025-04-14] MEDS: NYSTATIN 500,000 UNIT/5 ML UDC PO SCH (21:15)
[2025-04-15 08:10] LABS: Absolute Lymphocytes (CBC) 1.7 K/uL (0.7-4.9); Hematocrit 33.0 % (36.0-45.0); Hemoglobin 10.7 g/dL (12.0-15.0); MCH 28.1 pg (27.0-35.0); MCHC 32.4 g/dL (32.0-36.0); MCV 86.9 fL (80-100); MPV 11.0 fL (7.6-11.3); Nucleated RBC Absolute Count 0.0 (0-0); Nucleated Red Blood Cells % 0.3 % (0-0); RBC Red Blood Cell Count 3.79 M/uL (3.86-4.86); White Blood Count 12.80 thou/uL (4.3-10.9)
[2025-04-15 08:27] LABS: Anion Gap 11.8 mEq/L (5.0-15.0); BUN Blood Urea Nitrogen 75.0 mg/dL (7-18); Glucose Level 252.0 mg/dL (74-106); Magnesium 1.3 mg/dL (1.6-2.4); Potassium 3.8 mEq/L (3.5-5.1)
[2025-04-15] MEDS: CALCITROL 0.25 MCG CAP PO SCH (08:31)
[2025-04-15] MEDS: DRISDOL (VITAMIN D=ERGOCALCIFEROL) 50000 UNIT CAP PO SCH (08:31)
[2025-04-15 09:11] LABS: Differential Total Cells Count 100; Segmented Neutrophils 75 % (40-80)
[2025-04-15 09:12] LABS: Blood Morphology Comment NOTED (NOT SEEN); Ovalocytes SLIGHT
[2025-04-15] MEDS: ALBUMIN HUMAN 25% 100 ML IV ONE (11:45)
--- NOTE | 2025-04-15 11:58 | P.PN ---
Date of Service: 04/14/25 Subjective Mr. Vines is awake and when her son is at bedside. She does have significant amount of thrush on her tongue and it may be causing some of her odynophagia. Will go ahead and started on Diflucan. Her son states he has medical power of research attorney; however, there is no paperwork in the chart. Spoke to social media campaign manager and they are going to address this. Some family members are wanting palliative care while the son is stating that he wants to go ahead and proceed with what ever intervention is needed to try to get her better, as long as it does not cause her discomfort. Her son did sign off on her hemodialysis catheter placement. Physical Examination - Vitals Reviewed - Physical Exam General: In no apparent distress, Confused Respiratory: Clear to auscultation bilaterally Cardiovascular: Regular rate rhythm with no murmurs no edema Gastrointestinal: Soft, nontender/nondistended normal bowel sounds Musculoskeletal: No swelling Integumentary: No rashes Assessment and Plan - Assessment/Plan Acute metabolic encephalopathy; most likely related to acute kidney injury. Patient with significant uremia; however, it is been improving. Renal function has gotten much better. Patient has not had any hemodialysis since catheter placement. Will continue with current plan of care. Appreciate nephrology input. Leukocytosis; most likely related to oropharyngeal candidiasis. Patient may have esophageal candidiasis. Patient has significant odynophagia. Will continue with increasing appetite and will advance diet as tolerated Thrombocytopenia; platelet count stable Type 2 diabetes mellitus; blood sugars are stable Metabolic acidosis; is improved. 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 Hypernatremia; sodium is correcting and her mentation should improve Uremia with acute kidney failure /acute kidney injury; continue with gentle hydration. Will give her albumin as needed. Encourage oral intake DVT prophylaxis with Lovenox Disposition: Poor prognosis. Guarded. Possible hospice - Advance Directives Does patient have a Living Will: No Does patient have a Durable POA for Healthcare: No
--- NOTE | 2025-04-15 19:29 | P.PN ---
Date of Service: 04/15/25 Vital Signs Temp Pulse Resp BP Pulse Ox 98.6 F 81 15 108/46 L 99 04/15/25 16:00 04/15/25 19:00 04/15/25 19:00 04/15/25 19:00 04/15/25 19:00 Medications Acetaminophen (Acetaminophen 325 Mg Tablet) 650 mg PO Q6H PRN PRN Reason: Pain scale 2-4 (Mild) Calcitriol (Calcitrol 0.25 Mcg Cap) 0.5 mcg PO DAILY [facility] Last Admin: 04/15/25 09:00 Dose: Not Given Dextrose (D50w 25 Gm/50 Ml Syringe) 12.5 gm IV PRN PRN; Protocol PRN Reason: HYPOGLYCEMIA PROTOCOL Epoetin Neel (Epoetin Neel 10,000 Unit/Ml Vial) 10,000 unit IV EVERY HD [facility]UAN Ergocalciferol (Drisdol (Vitamin D=Ergocalciferol) 56749 Unit Cap) 50,000 unit PO Q7D@0900 [facility] Last Admin: 04/15/25 08:31 Dose: 50,000 unit Glucagon (Glucagon 1 Mg/Vial) 1 mg IM 1X PRN PRN Reason: HYPOGLYCEMIA Heparin Sodium (Porcine) (Heparin 5000 Unit/Ml 1 Ml Vial) 5,000 unit SQ Q8H [facility] Last Admin: 04/15/25 15:15 Dose: 5,000 unit Heparin Sodium (Porcine) (Heparin 1,000 Unit/Ml Vial) 6,000 unit IV EVERY HD PRN PRN Reason: AFTER EACH Hydralazine HCl (Hydralazine Hcl 20 Mg/Ml Vial) 10 mg IV Q6HP PRN PRN Reason: FOR SBP>160 OR DBP>100 MMHG Last Admin: 04/12/25 09:09 Dose: 10 mg Meropenem 1,000 mg/ Sodium (Chloride) 100 mls @ 200 mls/hr IV Q12HR [facility]; Protocol Last Admin: 04/15/25 08:30 Dose: 100 mls Albumin Human (Albumin 25%) 50 mls @ 100 mls/hr IV EVERY HD JUAN Dextrose/Water (Dextrose In Water (1-Liter)) 1,000 mls @ 100 mls/hr IV .Q10H [facility] Last Admin: 04/15/25 11:46 Dose: 1,000 mls Fluconazole (Diflucan 200 Mg/100 Ml Ivpb (Premix)) 200 mg in 100 mls @ 100 mls/hr IV Q24H [facility]; Protocol Last Admin: 04/15/25 17:55 Dose: 100 mls Magnesium Sulfate (Magnesium Sulfate 2 Gm/50ml Ivpb (Premix)) 2 g in 50 mls @ 50 mls/hr IV 1X ONE Stop: 04/15/25 20:22 Insulin Glargine (Insulin Glargine 100 Unit/Ml) 14 unit SQ BEDTIME [facility] Last Admin: 04/14/25 21:00 Dose: 14 unit Insulin Human Regular (Insulin Regular (Human) 100 Unit/Ml) 0 unit SQ ACHS [facility]; Protocol Last Admin: 04/15/25 16:26 Dose: Not Given Mannitol (Mannitol 25% 12.5 Gm/50 Ml Vial) 12.5 gm IV EVERY HD PRN PRN Reason: Titrate to SBP (MUST DEFINE) Mupirocin (Mupirocin Nasal 2 Appl/1 Gm Tube) 0 appl LINN BID JUAN Stop: 04/16/25 21:01 Last Admin: 04/15/25 08:34 Dose: 2 appl Nystatin (Nystatin 500,000 Unit/5 Ml Udc) 500,000 unit PO QID [facility] Last Admin: 04/15/25 16:27 Dose: Not Given Ondansetron HCl (Ondansetron 4 Mg/2 Ml Vial) 4 mg IV Q8H PRN PRN Reason: NAUSEA / VOMITING Last Admin: 04/13/25 10:07 Dose: 4 mg Assessment/ Plan: Nephrology No acute events overnight Limited IH/ROS due to mental status Seen and examined in the ICU Vitals, medications, blood work and imaging reviewed in the chart Physical Examination General: In no apparent distress. Somnolent HEENT: Atraumatic Respiratory: Clear to auscultation bilaterally, Normal air movement Cardiovascular: No edema, Regular rate/rhythm Gastrointestinal: Soft and benign, Non-distended Musculoskeletal: No clubbing, No contractures Integumentary: No rashes, No cyanosis Laboratory Data (last 24 hrs) 04/10/25 04/10/25 04/10/25 15:22 14:07 14:07 WBC 14.70 H Hgb 13.4 Hct 42.7 Plt Count 136 L Sodium 136 D 171 H* Potassium 3.5 D 4.9 BUN 16 207 H Creatinine 1.06 H 8.89 H Glucose 232 H 196 H Total Bilirubin 1.0 AST 29 ALT 33 Alkaline Phosphatase 79 Imagings Data: EXAMINATION: ONE VIEW CHEST XR CLINICAL INDICATION: ams TECHNIQUE: Frontal chest projection is submitted. Examination is limited by patient positioning and technique. COMPARISON: 01/27/2025 FINDINGS: The lungs are well inflated and clear. The heart is normal in size. No displaced fractures identified. IMPRESSION: No acute intrathoracic abnormalities. Conclusions/Impression: Stage III DEBBIE likely due to hypovolemia possibly complicated by ATN Uremia CKD NOS with Proteinuria -No NSAIDs -HD CVC placement 04-12-25 -First dialysis 04-12-25 -Hold HD at this time -Continue IVF Hypernatremia/ Dehydration -Continue IVF Acute Metabolic Acidosis -Continue IVF -IV Bicarb prn Hypomagnesemia -Replete as ordered HTN with CKD -Hold antihypertensives at this time DM II with CKD -Continue Lantus -RISS Leukocytosis Anemia in chronic illness Thrombocytopenia -Monitor CBC -Continue Meropenem -Retacrit prn Metabolic Encephalopathy -Continue IVF -HD prn Hospitalist note reviewed
[2025-04-15] MEDS: Magnesium Sulfate 2gm IVPB 2 G/50 ML BAG IV ONE (19:42)
[2025-04-15] MEDS: INSULIN GLARGINE 100 UNIT/ML SQ SCH (20:36)
[2025-04-16 07:05] LABS: Albumin 1.9 g/dL (3.4-5.0); Anion Gap 10.6 mEq/L (5.0-15.0); BUN Blood Urea Nitrogen 66.0 mg/dL (7-18); Glucose Level 165.0 mg/dL (74-106); Magnesium 2.0 mg/dL (1.6-2.4); Potassium 3.6 mEq/L (3.5-5.1)
[2025-04-16] MEDS: NACHLORIDE 0.45% 1,000 ML IV SCH (08:54)
--- NOTE | 2025-04-16 20:01 | P.PN ---
Date of Service: 04/16/25 Vital Signs Temp Pulse Resp BP Pulse Ox 96.7 F L 74 12 118/50 L 99 04/16/25 16:00 04/16/25 18:00 04/16/25 18:00 04/16/25 18:00 04/16/25 18:00 Medications Acetaminophen (Acetaminophen 325 Mg Tablet) 650 mg PO Q6H PRN PRN Reason: Pain scale 2-4 (Mild) Calcitriol (Calcitrol 0.25 Mcg Cap) 0.5 mcg PO DAILY [facility] Last Admin: 04/16/25 08:01 Dose: Not Given Dextrose (D50w 25 Gm/50 Ml Syringe) 12.5 gm IV PRN PRN; Protocol PRN Reason: HYPOGLYCEMIA PROTOCOL Ergocalciferol (Drisdol (Vitamin D=Ergocalciferol) 04258 Unit Cap) 50,000 unit PO Q7D@0900 [facility] Last Admin: 04/15/25 08:31 Dose: 50,000 unit Glucagon (Glucagon 1 Mg/Vial) 1 mg IM 1X PRN PRN Reason: HYPOGLYCEMIA Heparin Sodium (Porcine) (Heparin 5000 Unit/Ml 1 Ml Vial) 5,000 unit SQ Q8H [facility] Last Admin: 04/16/25 13:51 Dose: Not Given Heparin Sodium (Porcine) (Heparin 1,000 Unit/Ml Vial) 6,000 unit IV EVERY HD PRN PRN Reason: AFTER EACH Hydralazine HCl (Hydralazine Hcl 20 Mg/Ml Vial) 10 mg IV Q6HP PRN PRN Reason: FOR SBP>160 OR DBP>100 MMHG Last Admin: 04/12/25 09:09 Dose: 10 mg Meropenem 1,000 mg/ Sodium (Chloride) 100 mls @ 200 mls/hr IV Q12HR [facility]; Protocol Last Admin: 04/16/25 07:52 Dose: 100 mls Albumin Human (Albumin 25%) 50 mls @ 100 mls/hr IV EVERY HD JUAN Fluconazole (Diflucan 200 Mg/100 Ml Ivpb (Premix)) 200 mg in 100 mls @ 100 mls/hr IV Q24H [facility]; Protocol Last Admin: 04/16/25 16:57 Dose: 100 mls Sodium Chloride (Sodium Chloride 0.45%) 1,000 mls @ 100 mls/hr IV .Q10H [facility] Last Admin: 04/16/25 08:54 Dose: 1,000 mls Insulin Glargine (Insulin Glargine 100 Unit/Ml) 15 unit SQ BEDTIME [facility] Last Admin: 04/15/25 20:36 Dose: 15 unit Insulin Human Regular (Insulin Regular (Human) 100 Unit/Ml) 0 unit SQ ACHS [facility]; Protocol Last Admin: 04/16/25 16:15 Dose: Not Given Mannitol (Mannitol 25% 12.5 Gm/50 Ml Vial) 12.5 gm IV EVERY HD PRN PRN Reason: Titrate to SBP (MUST DEFINE) Mupirocin (Mupirocin Nasal 2 Appl/1 Gm Tube) 0 appl LINN BID [facility] Stop: 04/16/25 21:01 Last Admin: 04/16/25 07:54 Dose: 2 appl Nystatin (Nystatin 500,000 Unit/5 Ml Udc) 500,000 unit PO QID [facility] Last Admin: 04/16/25 16:57 Dose: 500,000 unit Ondansetron HCl (Ondansetron 4 Mg/2 Ml Vial) 4 mg IV Q8H PRN PRN Reason: NAUSEA / VOMITING Last Admin: 04/13/25 10:07 Dose: 4 mg Assessment/ Plan: Nephrology No acute events overnight Limited IH/ROS due to mental status Seen and examined in the ICU Vitals, medications, blood work and imaging reviewed in the chart Physical Examination General: In no apparent distress. Somnolent HEENT: Atraumatic Respiratory: Clear to auscultation bilaterally, Normal air movement Cardiovascular: No edema, Regular rate/rhythm Gastrointestinal: Soft and benign, Non-distended Musculoskeletal: No clubbing, No contractures Integumentary: No rashes, No cyanosis Laboratory Data (last 24 hrs) 04/10/25 04/10/25 04/10/25 15:22 14:07 14:07 WBC 14.70 H Hgb 13.4 Hct 42.7 Plt Count 136 L Sodium 136 D 171 H* Potassium 3.5 D 4.9 BUN 16 207 H Creatinine 1.06 H 8.89 H Glucose 232 H 196 H Total Bilirubin 1.0 AST 29 ALT 33 Alkaline Phosphatase 79 Imagings Data: EXAMINATION: ONE VIEW CHEST XR CLINICAL INDICATION: ams TECHNIQUE: Frontal chest projection is submitted. Examination is limited by patient positioning and technique. COMPARISON: 01/27/2025 FINDINGS: The lungs are well inflated and clear. The heart is normal in size. No displaced fractures identified. IMPRESSION: No acute intrathoracic abnormalities. Conclusions/Impression: Stage III DEBBIE likely due to hypovolemia possibly complicated by ATN Uremia CKD NOS with Proteinuria -No NSAIDs -HD CVC placement 04-12-25 -First dialysis 04-12-25 -Hold HD at this time -Change IVF to 1/2NS Hypernatremia/ Dehydration -Resolved -Change IVF to 1/2NS Acute Metabolic Acidosis -Continue IVF -IV Bicarb prn Hypomagnesemia -Replete as ordered HTN with CKD -Hold antihypertensives at this time DM II with CKD -Continue Lantus -RISS Leukocytosis Anemia in chronic illness Thrombocytopenia -Monitor CBC -Continue Meropenem -Retacrit prn Metabolic Encephalopathy -Continue IVF -HD prn Hospitalist note reviewed Case discussed with Dr. Baker
[2025-04-17 09:47] LABS: Absolute Lymphocytes (CBC) 1.4 K/uL (0.7-4.9); Hematocrit 31.7 % (36.0-45.0); Hemoglobin 10.2 g/dL (12.0-15.0); MCH 27.8 pg (27.0-35.0); MCHC 32.1 g/dL (32.0-36.0); MCV 86.5 fL (80-100); MPV 10.9 fL (7.6-11.3); Nucleated RBC Absolute Count 0.0 (0-0); Nucleated Red Blood Cells % 0.1 % (0-0); RBC Red Blood Cell Count 3.66 M/uL (3.86-4.86); White Blood Count 9.50 thou/uL (4.3-10.9)
[2025-04-17 09:50] LABS: Blood Morphology Comment NOT SEEN (NOT SEEN); White Blood Cell Scan OK (OK)
[2025-04-17 09:57] LABS: Anion Gap 14.6 mEq/L (5.0-15.0); BUN Blood Urea Nitrogen 53.0 mg/dL (7-18); Glucose Level 82.0 mg/dL (74-106); Magnesium 1.6 mg/dL (1.6-2.4); Potassium 3.6 mEq/L (3.5-5.1)
[2025-04-17] MEDS: NEPRO SHAKE 237 ML CAN PO SCH (20:17)
--- NOTE | 2025-04-17 21:33 | P.PN ---
Date of Service: 04/17/25 Vital Signs Temp Pulse Resp BP Pulse Ox 97.8 F 65 16 147/78 H 100 04/17/25 20:00 04/17/25 20:00 04/17/25 20:00 04/17/25 20:00 04/17/25 20:00 Medications Acetaminophen (Acetaminophen 325 Mg Tablet) 650 mg PO Q6H PRN PRN Reason: Pain scale 2-4 (Mild) Calcitriol (Calcitrol 0.25 Mcg Cap) 0.5 mcg PO DAILY [facility] Last Admin: 04/17/25 08:17 Dose: Not Given Dextrose (D50w 25 Gm/50 Ml Syringe) 12.5 gm IV PRN PRN; Protocol PRN Reason: HYPOGLYCEMIA PROTOCOL Enteral Nutritional Formula (Nepro Shake 237 Ml Can) 237 ml PO BID [facility] Last Admin: 04/17/25 20:17 Dose: Not Given Ergocalciferol (Drisdol (Vitamin D=Ergocalciferol) 59160 Unit Cap) 50,000 unit PO Q7D@0900 [facility] Last Admin: 04/15/25 08:31 Dose: 50,000 unit Glucagon (Glucagon 1 Mg/Vial) 1 mg IM 1X PRN PRN Reason: HYPOGLYCEMIA Heparin Sodium (Porcine) (Heparin 5000 Unit/Ml 1 Ml Vial) 5,000 unit SQ Q8H [facility] Last Admin: 04/17/25 21:15 Dose: Not Given Heparin Sodium (Porcine) (Heparin 1,000 Unit/Ml Vial) 6,000 unit IV EVERY HD PRN PRN Reason: AFTER EACH Hydralazine HCl (Hydralazine Hcl 20 Mg/Ml Vial) 10 mg IV Q6HP PRN PRN Reason: FOR SBP>160 OR DBP>100 [facility] Last Admin: 04/12/25 09:09 Dose: 10 mg Albumin Human (Albumin 25%) 50 mls @ 100 mls/hr IV EVERY HD [facility]UAN Fluconazole (Diflucan 200 Mg/100 Ml Ivpb (Premix)) 200 mg in 100 mls @ 100 mls/hr IV Q24H [facility]; Protocol Last Admin: 04/17/25 16:53 Dose: 100 mls Sodium Chloride (Sodium Chloride 0.45%) 1,000 mls @ 100 mls/hr IV .Q10H [facility] Last Admin: 04/17/25 20:17 Dose: 1,000 mls Insulin Glargine (Insulin Glargine 100 Unit/Ml) 15 unit SQ BEDTIME [facility] Last Admin: 04/17/25 20:06 Dose: Not Given Insulin Human Regular (Insulin Regular (Human) 100 Unit/Ml) 0 unit SQ ACHS [facility]; Protocol Last Admin: 04/17/25 20:05 Dose: Not Given Mannitol (Mannitol 25% 12.5 Gm/50 Ml Vial) 12.5 gm IV EVERY HD PRN PRN Reason: Titrate to SBP (MUST DEFINE) Nystatin (Nystatin 500,000 Unit/5 Ml Udc) 500,000 unit PO QID [facility] Last Admin: 04/17/25 20:17 Dose: Not Given Ondansetron HCl (Ondansetron 4 Mg/2 Ml Vial) 4 mg IV Q8H PRN PRN Reason: NAUSEA / VOMITING Last Admin: 04/13/25 10:07 Dose: 4 mg Assessment/ Plan: Nephrology No acute events overnight Limited IH/ROS due to mental status but more awake today Family reports poor oral intake Vitals, medications, blood work and imaging reviewed in the chart Physical Examination General: In no apparent distress. Somnolent HEENT: Atraumatic Respiratory: Clear to auscultation bilaterally, Normal air movement Cardiovascular: No edema, Regular rate/rhythm Gastrointestinal: Soft and benign, Non-distended Musculoskeletal: No clubbing, No contractures Integumentary: No rashes, No cyanosis Laboratory Data (last 24 hrs) 04/10/25 04/10/25 04/10/25 15:22 14:07 14:07 WBC 14.70 H Hgb 13.4 Hct 42.7 Plt Count 136 L Sodium 136 D 171 H* Potassium 3.5 D 4.9 BUN 16 207 H Creatinine 1.06 H 8.89 H Glucose 232 H 196 H Total Bilirubin 1.0 AST 29 ALT 33 Alkaline Phosphatase 79 Imagings Data: EXAMINATION: ONE VIEW CHEST XR CLINICAL INDICATION: ams TECHNIQUE: Frontal chest projection is submitted. Examination is limited by patient positioning and technique. COMPARISON: 01/27/2025 FINDINGS: The lungs are well inflated and clear. The heart is normal in size. No displaced fractures identified. IMPRESSION: No acute intrathoracic abnormalities. Conclusions/Impression: Stage III DEBBIE likely due to hypovolemia possibly complicated by ATN Uremia CKD NOS with Proteinuria -No NSAIDs -HD CVC placement 04-12-25 -First dialysis 04-12-25 -Dialysis does not appear necessary at this time; recommend HD CVC removal -Continue IVF to 1/2NS Hypernatremia/ Dehydration -Resolved -Continue IVF to 1/2NS Hypomagnesemia -Replete prn HTN with CKD -Hold antihypertensives at this time DM II with CKD -Continue Lantus -RISS Leukocytosis Anemia in chronic illness Thrombocytopenia -Monitor CBC -Continue Meropenem -Retacrit prn Metabolic Encephalopathy -Continue IVF Hospitalist note reviewed Case discussed with Dr. Baker
[2025-04-17] MEDS: CALCIUM GLUCONATE 1 GM IVPB 1 GM/50 ML BAG IV SCH (21:46)
[2025-04-18] MEDS: D50W 25 GM/50 ML SYRINGE IV PRN (08:25)
[2025-04-18 09:08] LABS: ALT/SGPT 52.0 U/L (13-56); AST/SGOT 67.0 U/L (15-37); Albumin 1.8 g/dL (3.4-5.0); Albumin/Globulin Ratio 0.6 (1.1-1.8); Alkaline Phosphatase 100.0 U/L (45-117); Anion Gap 14.3 mEq/L (5.0-15.0); BUN Blood Urea Nitrogen 51.0 mg/dL (7-18); Globulin 2.9 g/dL (2.3-3.5); Glucose Level 58.0 mg/dL (74-106); Potassium 3.3 mEq/L (3.5-5.1)
[2025-04-18] MEDS: NACHLORIDE 0.45% 1,000 ML IV SCH (10:27)
--- NOTE | 2025-04-18 11:22 | P.PN ---
Nephrology note (S) Course over the past week noted, it appears HD catheter was placed last Sat as family switched goals of care to active medical care from palliative but on review of CM notes, it appears there has been back and forth on this and on placement. Pt seen lying in bed, she is less obtunded and brief answers, she remains on IVF, no HD performed in past days (O) Vitals reviewed in the EMR General: Obtunded, appears chronically ill HEENT: Atraumatic, not needing O2 Respiratory: b/l air entry, Normal air movement without wheezing Cardiovascular: No edema, tachy, mostly regular Gastrointestinal: Soft and benign, Non-distended, no guarding Musculoskeletal: No contractures noted, no muscle spasms noted, mild distal edema, SCDs b/l Integumentary: No rashes Neuro: No longer obtunded, awake, tracks movements, responds briefly but non conversational, no tremors or myoclonus noted Laboratory Data (last 24 hrs) Reviewed in the EMR A/P) Stage III sub acute renal failure POA per KETTY definition on likely underlying CKD NOS 2nd to severe dehydration, pre-renal state which in the setting of hypovolemic hypotension had likely led to at least some degree of ATN although pt was non oliguric and automated UA did not report casts Severe azotemia now improved -Renal function has improved significantly, no plans for HD at this time, will ask gen surgery to d/c Rt IJ TDC prior to discharge Severe hypertonic hypernatremia -Resolved, unclear how much oral intake she is taking in, will lower 1/2 NS to 30 cc/hr Acute Metabolic Acidosis -Resolved Hypocalcemia, hyperphosphatemia, hyperuricemia -In the setting of above mentioned, vol depletion, illness, low albumin state, other -trend total Ca closely, pt has active and nutritional Vit D ordered, place on MVI, other
[2025-04-18] MEDS: Multi-VIT(Centravite Senior) 1 TAB TAB PO SCH (12:00)
[2025-04-18] MEDS: D5W 1,000 ML IV SCH (20:02)
--- NOTE | 2025-04-21 06:50 | P.PN ---
Date of Service: 04/15/25 Subjective Family seems a little divided. Been trying to get family to gather to me regarding long-term prognosis. Patient does seem to eat okay but she isn't really wanting to eat anything. Had a discussion with the family regarding this and regarding with proceeding with hospice but some family me mbers are wanting a feeding tube. Physical Examination - Vitals Reviewed - Physical Exam General: In no apparent distress, Confused Respiratory: Clear to auscultation bilaterally Cardiovascular: Regular rate rhythm with no murmurs no edema Gastrointestinal: Soft, nontender/nondistended normal bowel sounds Musculoskeletal: No swelling Integumentary: No rashes Assessment and Plan - Assessment/Plan Acute metabolic encephalopathy; Mentation has improved. Continuing with hydration. However, patient continues to refuse to eat. Leukocytosis; most likely related to oropharyngeal candidiasis. Patient may have esophageal candidiasis. Patient has significant odynophagia. Will continue with increasing appetite and will advance diet as tolerated Thrombocytopenia; platelet count stable Type 2 diabetes mellitus; blood sugars are stable DEBBIE with metabolic acidosis; renal function improved. Metabolic acidosis has improved. Uremic continues to improve as well. Continue with gentle hydration. Hypernatremia; sodium is correcting and her mentation should improve DVT prophylaxis with Lovenox Disposition: Poor prognosis. Guarded. Possible hospice - Advance Directives Does patient have a Living Will: No Does patient have a Durable POA for Healthcare: No
--- NOTE | 2025-04-21 06:53 | P.PN ---
Date of Service: 04/16/25 Subjective Pt with thrush; given diflucan. Family seems a little divided. Been trying to get family together to me regarding long-term prognosis. Patient does seem to eat okay but she isn't really wanting to eat anything. Had a discussion with the family regarding this and regarding with proceeding with hospice but some family me mbers are wanting a feeding tube. Physical Examination - Vitals Reviewed - Physical Exam General: In no apparent distress, Confused Respiratory: Clear to auscultation bilaterally Cardiovascular: Regular rate rhythm with no murmurs no edema Gastrointestinal: Soft, nontender/nondistended normal bowel sounds Musculoskeletal: No swelling Integumentary: No rashes Assessment and Plan - Assessment/Plan Acute metabolic encephalopathy; Mentation has improved. Continuing with hydration. However, patient continues to refuse to eat. Odynophagia; most likely related to oropharyngeal candidiasis. Patient may have esophageal candidiasis. Patient has significant odynophagia. Will continue with increasing appetite and will advance diet as tolerated. continue with Diflucan. Thrombocytopenia; platelet count stable Type 2 diabetes mellitus; blood sugars are stable DEBBIE with metabolic acidosis; renal function improved. Metabolic acidosis has improved. Uremic continues to improve as well. Continue with gentle hydration. Hypernatremia; sodium is correcting and her mentation should improve DVT prophylaxis with Lovenox Disposition: Poor prognosis. Guarded. Possible hospice - Advance Directives Does patient have a Living Will: No Does patient have a Durable POA for Healthcare: No
--- NOTE | 2025-04-21 06:55 | P.PN ---
Date of Service: 04/17/25 Subjective Patient eating better with family at bedside; however, still not eating well with staff. Continue with diflucan. Physical Examination - Vitals Reviewed - Physical Exam General: In no apparent distress, Confused HEENT: thrush Respiratory: Clear to auscultation bilaterally Cardiovascular: Regular rate rhythm with no murmurs no edema Gastrointestinal: Soft, nontender/nondistended normal bowel sounds Musculoskeletal: No swelling Integumentary: No rashes Assessment and Plan - Assessment/Plan Acute metabolic encephalopathy; Mentation has improved. Continuing with hydration. However, patient continues to refuse to eat. Odynophagia; most likely related to oropharyngeal candidiasis. Patient may have esophageal candidiasis. Patient has significant odynophagia. Will continue with increasing appetite and will advance diet as tolerated. continue with Diflucan. Thrombocytopenia; platelet count stable Type 2 diabetes mellitus; blood sugars are stable DEBBIE with metabolic acidosis; renal function improved. Metabolic acidosis has improved. Uremic continues to improve as well. Continue with gentle hydration. Hypernatremia; sodium is correcting and her mentation should improve DVT prophylaxis with Lovenox Disposition: Poor prognosis. Guarded. Possible hospice - Advance Directives Does patient have a Living Will: No Does patient have a Durable POA for Healthcare: No
--- NOTE | 2025-04-21 06:56 | P.PN ---
Date of Service: 04/18/25 Subjective Patient transferred to the floor. mentation improved but still not eating; had a family discussion re: hospice but they want feeding tube. Will d/w GI or surgery. Physical Examination - Vitals Reviewed - Physical Exam General: In no apparent distress, Confused HEENT: thrush Respiratory: Clear to auscultation bilaterally Cardiovascular: Regular rate rhythm with no murmurs no edema Gastrointestinal: Soft, nontender/nondistended normal bowel sounds Musculoskeletal: No swelling Integumentary: No rashes Assessment and Plan - Assessment/Plan Acute metabolic encephalopathy; Mentation has improved. Continuing with hydration. However, patient continues to refuse to eat. Odynophagia; most likely related to oropharyngeal candidiasis. Patient may have esophageal candidiasis. Patient has significant odynophagia. Will continue with increasing appetite and will advance diet as tolerated. continue with Diflucan. Thrombocytopenia; platelet count stable Type 2 diabetes mellitus; blood sugars are stable DEBBIE with metabolic acidosis; renal function improved. Metabolic acidosis has improved. Uremic continues to improve as well. Continue with gentle hydration. Hypernatremia; sodium is correcting and her mentation should improve DVT prophylaxis with Lovenox Disposition: Poor prognosis. Guarded. Possible hospice - Advance Directives Does patient have a Living Will: No Does patient have a Durable POA for Healthcare: No
--- NOTE | 2025-04-21 06:59 | P.PN ---
Date of Service: 04/19/25 Subjective Patient did not eat chocolate ice cream we got for her; ate 1 bite of the ice cream and did not want any more; prognosis is poor and if family wanting PEG tube may need to consider other options such as dobhofff; will d/w family in more details. Physical Examination - Vitals Reviewed - Physical Exam General: In no apparent distress, Confused HEENT: oropharyngeal dry but improved Respiratory: Clear to auscultation bilaterally Cardiovascular: Regular rate rhythm with no murmurs no edema Gastrointestinal: Soft, nontender/nondistended normal bowel sounds Musculoskeletal: No swelling Integumentary: No rashes Assessment and Plan - Assessment/Plan Acute metabolic encephalopathy; Mentation has improved but stagnant. Continuing with hydration. However, patient continues to refuse to eat. Odynophagia; most likely related to oropharyngeal candidiasis. Patient may have esophageal candidiasis. Patient has significant odynophagia. Will continue with increasing appetite and will advance diet as tolerated. continue with Diflucan. Thrombocytopenia; platelet count stable Type 2 diabetes mellitus; blood sugars are stable DEBBIE with metabolic acidosis; renal function improved. Metabolic acidosis has improved. Uremic continues to improve as well. Continue with gentle hydration. Hypernatremia; sodium is correcting and her mentation should improve DVT prophylaxis with Lovenox Disposition: Poor prognosis. Guarded. Possible hospice - Advance Directives Does patient have a Living Will: No Does patient have a Durable POA for Healthcare: No
--- NOTE | 2025-04-21 07:06 | P.PN ---
Date of Service: 04/20/25 Subjective Patient denies any new complaints. Clinical symptoms are stable. Spoke to the family and they are wanting a feeding tube placed. Do not really think patient will keep feeding btube in place. Will get surgery evaluation and get their input. Will get appetite stimulant to see if that improves patient's appetite although she does eat a little bit throughout the day. Dietary can do a calorie count but we already know that patient eats very minimal. Overall patient's long-term prognosis is poor and she really does seem like she does not want to eat or drink much at all. The family wants to take her home whenever feeding tube is placed. They do not want her going to a nursing facility. Physical Examination - Vitals Reviewed - Physical Exam General: In no apparent distress, Confused but follows commands and interacts if talking into her ear out loud HEENT: oropharyngeal dry but improved Respiratory: Clear to auscultation bilaterally Cardiovascular: Regular rate rhythm with no murmurs no edema Gastrointestinal: Soft, nontender/nondistended normal bowel sounds Musculoskeletal: No swelling Integumentary: No rashes Assessment and Plan - Assessment/Plan Acute metabolic encephalopathy; Mentation has improved but stagnant. Continuing with increased nutritional support; gentle hydration. However, patient continues to refuse to eat sufficiently. Odynophagia; most likely related to oropharyngeal candidiasis. Patient may have esophageal candidiasis. Patient has significant odynophagia. Will continue with increasing appetite and will advance diet as tolerated. continue with Diflucan. Thrombocytopenia; platelet count stable Type 2 diabetes mellitus; blood sugars are stable DEBBIE with metabolic acidosis; renal function improved. Metabolic acidosis/RTA has improved. Uremic continues to improve as well. Continue with gentle hydration. Hypernatremia; sodium is correcting and her mentation stable Hypocalcemia; calcium was 6.2 and albumin was 1.8; corrected calcium 8.0 DVT prophylaxis with Lovenox Disposition: Poor prognosis. Guarded. Possible hospice if not eating and refusing PEG tube - Advance Directives Does patient have a Living Will: No Does patient have a Durable POA for Healthcare: No
[2025-04-21] MEDS: METHYLPREDNISOLONE 125 MG INJ IV ONE (10:13)
[2025-04-21] MEDS: CALCIUM CARB 500MG/VIT D 200 IU TAB PO SCH (10:15)
[2025-04-21 11:50] LABS: Anion Gap 11.1 mEq/L (5.0-15.0); BUN Blood Urea Nitrogen 33.0 mg/dL (7-18); Glucose Level 92.0 mg/dL (74-106); Magnesium 1.3 mg/dL (1.6-2.4); Potassium 3.1 mEq/L (3.5-5.1)
[2025-04-21 12:43] LABS: Absolute Lymphocytes (CBC) 2.0 K/uL (0.7-4.9); Hematocrit 29.3 % (36.0-45.0); Hemoglobin 9.5 g/dL (12.0-15.0); MCH 28.3 pg (27.0-35.0); MCHC 32.5 g/dL (32.0-36.0); MCV 87.0 fL (80-100); MPV 11.0 fL (7.6-11.3); Nucleated RBC Absolute Count 0.0 (0-0); Nucleated Red Blood Cells % 0.2 % (0-0); RBC Red Blood Cell Count 3.37 M/uL (3.86-4.86); White Blood Count 8.90 thou/uL (4.3-10.9)
[2025-04-21] MEDS: CALCIUM GLUCONATE 1 GM IVPB 1 GM/50 ML BAG IV ONE (12:45)
[2025-04-21 13:31] LABS: Blood Morphology Comment NOT SEEN (NOT SEEN); Platelets Clumped FEW PRESENT; White Blood Cell Scan OK (OK)
--- NOTE | 2025-04-21 14:35 | P.PN ---
Date of Service: 04/21/25 Subjective: Opens her eyes but does not communicate verbally. No family at bedside. Physical Examination - Vitals Reviewed - Physical Exam General: In no apparent distress, Confused but follows commands and interacts if talking into her ear out loud HEENT: oropharyngeal dry but improved Respiratory: Clear to auscultation bilaterally Cardiovascular: Regular rate rhythm with no murmurs no edema Gastrointestinal: Soft, nontender/nondistended normal bowel sounds Musculoskeletal: No swelling Integumentary: No rashes Assessment and Plan - Assessment/Plan Acute metabolic encephalopathy; Mentation has improved but stagnant. Continuing with increased nutritional support; gentle hydration. However, patient continues to refuse to eat sufficiently. Odynophagia; most likely related to oropharyngeal candidiasis. Patient may have esophageal candidiasis. Patient has significant odynophagia. Will continue with increasing appetite and will advance diet as tolerated. continue with Diflucan. Thrombocytopenia; platelet count stable Type 2 diabetes mellitus; blood sugars are stable DEBBIE with metabolic acidosis; renal function improved. Metabolic acidosis/RTA has improved. Uremic continues to improve as well. Continue with gentle hydration. Hypernatremia; sodium is correcting and her mentation stable Hypocalcemia; calcium was 6.2 and albumin was 1.8; corrected calcium 8.0 DVT prophylaxis with Lovenox Disposition: Poor prognosis. Guarded. Possible hospice if not eating and refusing PEG tube. Family pending hospice discussions - Advance Directives Does patient have a Living Will: No Does patient have a Durable POA for Healthcare: No
--- NOTE | 2025-04-21 19:39 | P.PN ---
Date of Service: 04/21/25 Vital Signs Temp Pulse Resp BP Pulse Ox 97.7 F 92 H 16 150/55 H 100 04/21/25 16:00 04/21/25 16:00 04/21/25 16:00 04/21/25 16:00 04/21/25 16:00 Medications Acetaminophen (Acetaminophen 325 Mg Tablet) 650 mg PO Q6H PRN PRN Reason: Pain scale 2-4 (Mild) Calcitriol (Calcitrol 0.25 Mcg Cap) 0.5 mcg PO DAILY [facility] Last Admin: 04/21/25 10:15 Dose: 0.5 mcg Calcium Carbonate (Calcium Carb 500mg/Vit D 200 Iu Tab) 1 tab PO BID [facility] Last Admin: 04/21/25 10:15 Dose: 1 tab Dextrose (D50w 25 Gm/50 Ml Syringe) 12.5 gm IV PRN PRN; Protocol PRN Reason: HYPOGLYCEMIA PROTOCOL Last Admin: 04/18/25 17:28 Dose: 12.5 gm Enteral Nutritional Formula (Nepro Shake 237 Ml Can) 237 ml PO BID [facility] Last Admin: 04/21/25 09:00 Dose: 237 ml Ergocalciferol (Drisdol (Vitamin D=Ergocalciferol) 39140 Unit Cap) 50,000 unit PO Q7D@0900 [facility] Last Admin: 04/15/25 08:31 Dose: 50,000 unit Glucagon (Glucagon 1 Mg/Vial) 1 mg IM 1X PRN PRN Reason: HYPOGLYCEMIA Heparin Sodium (Porcine) (Heparin 5000 Unit/Ml 1 Ml Vial) 5,000 unit SQ Q8H [facility] Last Admin: 04/21/25 14:00 Dose: Not Given Hydralazine HCl (Hydralazine Hcl 20 Mg/Ml Vial) 10 mg IV Q6HP PRN PRN Reason: FOR SBP>160 OR DBP>100 [facility] Last Admin: 04/12/25 09:09 Dose: 10 mg Meropenem 1,000 mg/ Sodium (Chloride) 100 mls @ 200 mls/hr IV Q12HR [facility]; Protocol Last Admin: 04/21/25 10:15 Dose: 100 mls Albumin Human (Albumin 25%) 50 mls @ 100 mls/hr IV EVERY HD [facility] Fluconazole (Diflucan 200 Mg/100 Ml Ivpb (Premix)) 200 mg in 100 mls @ 100 mls/hr IV Q24H [facility]; Protocol Last Admin: 04/21/25 18:11 Dose: 100 mls Dextrose/Water (Dextrose In Water (1-Liter)) 1,000 mls @ 30 mls/hr IV .[id number] [facility] Last Admin: 04/21/25 12:58 Dose: 1,000 mls Insulin Glargine (Insulin Glargine 100 Unit/Ml) 15 unit SQ BEDTIME [facility] Last Admin: 04/20/25 21:00 Dose: Not Given Insulin Human Regular (Insulin Regular (Human) 100 Unit/Ml) 0 unit SQ ACHS [facility]; Protocol Last Admin: 04/21/25 16:20 Dose: Not Given Mannitol (Mannitol 25% 12.5 Gm/50 Ml Vial) 12.5 gm IV EVERY HD PRN PRN Reason: Titrate to SBP (MUST DEFINE) Multivitamins/Minerals (Multi-Vit(Centravite Senior) 1 Tab Tab) 1 tab PO DAILY [facility] Last Admin: 04/21/25 10:14 Dose: 1 tab Nystatin (Nystatin 500,000 Unit/5 Ml Udc) 500,000 unit PO QID [facility] Last Admin: 04/21/25 16:20 Dose: Not Given Ondansetron HCl (Ondansetron 4 Mg/2 Ml Vial) 4 mg IV Q8H PRN PRN Reason: NAUSEA / VOMITING Last Admin: 04/20/25 04:40 Dose: 4 mg Assessment/ Plan: Nephrology No acute events overnight Limited IH/ROS due to mental status Vitals, medications, blood work and imaging reviewed in the chart Physical Examination General: In no apparent distress. Somnolent HEENT: Atraumatic Respiratory: Clear to auscultation bilaterally, Normal air movement Cardiovascular: No edema, Regular rate/rhythm Gastrointestinal: Soft and benign, Non-distended Musculoskeletal: No clubbing, No contractures Integumentary: No rashes, No cyanosis Laboratory Data (last 24 hrs) 04/10/25 04/10/25 04/10/25 15:22 14:07 14:07 WBC 14.70 H Hgb 13.4 Hct 42.7 Plt Count 136 L Sodium 136 D 171 H* Potassium 3.5 D 4.9 BUN 16 207 H Creatinine 1.06 H 8.89 H Glucose 232 H 196 H Total Bilirubin 1.0 AST 29 ALT 33 Alkaline Phosphatase 79 Imagings Data: EXAMINATION: ONE VIEW CHEST XR CLINICAL INDICATION: ams TECHNIQUE: Frontal chest projection is submitted. Examination is limited by patient positioning and technique. COMPARISON: 01/27/2025 FINDINGS: The lungs are well inflated and clear. The heart is normal in size. No displaced fractures identified. IMPRESSION: No acute intrathoracic abnormalities. Conclusions/Impression: Stage III DEBBIE likely due to hypovolemia possibly complicated by ATN Uremia CKD NOS with Proteinuria -No NSAIDs -HD CVC placement 04-12-25 -First dialysis 04-12-25 -Dialysis does not appear necessary at this time; recommend HD CVC removal Hypernatremia/ Dehydration -Resolved Hypokalemia -Replete as ordered Hypomagnesemia -Replete as ordered HTN with CKD -Hold antihypertensives at this time DM II with CKD -Reduce Lantus due to poor oral intake -RISS Leukocytosis Anemia in chronic illness Thrombocytopenia -Monitor CBC -Continue Meropenem -Retacrit prn Metabolic Encephalopathy -Advance diet as tolerated Hospitalist note reviewed Case discussed with Dr. Arboleda Possible hospice
[2025-04-21] MEDS: INSULIN GLARGINE 100 UNIT/ML SQ SCH (21:00)
[2025-04-22 06:57] LABS: Albumin 1.5 g/dL (3.4-5.0); Anion Gap 12.3 mEq/L (5.0-15.0); BUN Blood Urea Nitrogen 33.0 mg/dL (7-18); Glucose Level 99.0 mg/dL (74-106); Magnesium 1.2 mg/dL (1.6-2.4); Potassium 3.3 mEq/L (3.5-5.1)
[2025-04-22] MEDS: Magnesium Sulfate 2gm IVPB 2 G/50 ML BAG IV SCH (09:03)
[2025-04-22 10:02] LABS: Absolute Lymphocytes (CBC) 1.8 K/uL (0.7-4.9); Hematocrit 28.1 % (36.0-45.0); Hemoglobin 9.2 g/dL (12.0-15.0); MCH 28.5 pg (27.0-35.0); MCHC 32.7 g/dL (32.0-36.0); MCV 87.3 fL (80-100); MPV 10.2 fL (7.6-11.3); Nucleated RBC Absolute Count 0.0 (0-0); Nucleated Red Blood Cells % 0.2 % (0-0); RBC Red Blood Cell Count 3.22 M/uL (3.86-4.86); White Blood Count 7.20 thou/uL (4.3-10.9)
[2025-04-22] MEDS: CALCIUM GLUCONATE 1 GM IVPB 1 GM/50 ML BAG IV ONE (16:25)
--- NOTE | 2025-04-22 16:28 | P.PN ---
Subjective Date of Service: 04/22/25 Chief Complaint: AMS Subjective: No chest pain or shortness of breath. No nausea or vomiting. No abdominal pain. Looks comfortable in the bed. No acute complaints as per family at bedside. Objective: General appearance: Alert and comfortable CVS: Normal S1 and S2 Lungs: Clear to auscultation bilaterally Abdomen: Soft, bowel sounds present, no tenderness Extremities: No lower extremity edema Physical Examination - Vital Signs Temperature: 97.3 F Blood Pressure: 153/73 Pulse: 91 Respirations: 18 Pulse Ox (%): 97 Assessment And Plan - Plan Acute metabolic encephalopathy; Mentation has improved. Continuing with increased nutritional support; gentle hydration. However, patient continues to refuse to eat sufficiently. Odynophagia; most likely related to oropharyngeal candidiasis. Patient may have esophageal candidiasis. Patient has significant odynophagia. Will continue with increasing appetite and will advance diet as tolerated. continue with Diflucan. Anemia, thrombocytopenia; counts stable Type 2 diabetes mellitus; blood sugars are stable DEBBIE with metabolic acidosis; renal function improved. Uremic continues to improve as well. Continue with gentle hydration. Hypernatremia; improved Hypocalcemia;, hypokalemia, hypomagnesemia: Replacing. Plan discussed with multiple family emergency bedside, they are leaning towards PEG tube, as per case management some of the family wants hospice, we are trying to set up a family conference.
[2025-04-22] MEDS: POTASSIUM CL 40 MEQ in NA CHLORIDE 0.9% 500 ML IV SCH (17:00)
--- NOTE | 2025-04-22 20:07 | P.PN ---
Date of Service: 04/22/25 Vital Signs Temp Pulse Resp BP Pulse Ox 97.3 F 91 H 18 153/73 H 97 04/22/25 16:28 04/22/25 16:28 04/22/25 16:28 04/22/25 16:28 04/22/25 16:28 Medications Acetaminophen (Acetaminophen 325 Mg Tablet) 650 mg PO Q6H PRN PRN Reason: Pain scale 2-4 (Mild) Calcitriol (Calcitrol 0.25 Mcg Cap) 0.5 mcg PO DAILY [facility] Last Admin: 04/22/25 09:05 Dose: 0.5 mcg Calcium Carbonate (Calcium Carb 500mg/Vit D 200 Iu Tab) 1 tab PO BID [facility] Last Admin: 04/22/25 09:05 Dose: 1 tab Dextrose (D50w 25 Gm/50 Ml Syringe) 12.5 gm IV PRN PRN; Protocol PRN Reason: HYPOGLYCEMIA PROTOCOL Last Admin: 04/18/25 17:28 Dose: 12.5 gm Enteral Nutritional Formula (Nepro Shake 237 Ml Can) 237 ml PO BID [facility] Last Admin: 04/22/25 19:44 Dose: Not Given Ergocalciferol (Drisdol (Vitamin D=Ergocalciferol) 03942 Unit Cap) 50,000 unit PO Q7D@0900 [facility] Last Admin: 04/22/25 09:05 Dose: 50,000 unit Glucagon (Glucagon 1 Mg/Vial) 1 mg IM 1X PRN PRN Reason: HYPOGLYCEMIA Heparin Sodium (Porcine) (Heparin 5000 Unit/Ml 1 Ml Vial) 5,000 unit SQ Q8H [facility] Last Admin: 04/22/25 14:00 Dose: Not Given Hydralazine HCl (Hydralazine Hcl 20 Mg/Ml Vial) 10 mg IV Q6HP PRN PRN Reason: FOR SBP>160 OR DBP>100 [facility] Last Admin: 04/12/25 09:09 Dose: 10 mg Meropenem 1,000 mg/ Sodium (Chloride) 100 mls @ 200 mls/hr IV Q12HR [facility]; Protocol Last Admin: 04/22/25 19:44 Dose: Not Given Albumin Human (Albumin 25%) 50 mls @ 100 mls/hr IV EVERY HD [facility] Fluconazole (Diflucan 200 Mg/100 Ml Ivpb (Premix)) 200 mg in 100 mls @ 100 mls/hr IV Q24H [facility]; Protocol Last Admin: 04/22/25 18:00 Dose: Not Given Dextrose/Water (Dextrose In Water (1-Liter)) 1,000 mls @ 30 mls/hr IV .[id number] [facility] Last Admin: 04/22/25 19:46 Dose: Not Given Potassium Chloride 40 meq/ (Sodium Chloride) 520 mls @ 130 mls/hr IV Q4H [facility]; Protocol Stop: 04/23/25 00:59 Insulin Glargine (Insulin Glargine 100 Unit/Ml) 12 unit SQ BEDTIME [facility] Last Admin: 04/22/25 19:47 Dose: Not Given Insulin Human Regular (Insulin Regular (Human) 100 Unit/Ml) 0 unit SQ ACHS [facility]; Protocol Last Admin: 04/22/25 19:44 Dose: Not Given Mannitol (Mannitol 25% 12.5 Gm/50 Ml Vial) 12.5 gm IV EVERY HD PRN PRN Reason: Titrate to SBP (MUST DEFINE) Multivitamins/Minerals (Multi-Vit(Centravite Senior) 1 Tab Tab) 1 tab PO DAILY [facility] Last Admin: 04/22/25 09:05 Dose: 1 tab Nystatin (Nystatin 500,000 Unit/5 Ml Udc) 500,000 unit PO QID [facility] Last Admin: 04/22/25 17:00 Dose: Not Given Ondansetron HCl (Ondansetron 4 Mg/2 Ml Vial) 4 mg IV Q8H PRN PRN Reason: NAUSEA / VOMITING Last Admin: 04/20/25 04:40 Dose: 4 mg Assessment/ Plan: Nephrology No acute events overnight Limited IH/ROS due to mental status Vitals, medications, blood work and imaging reviewed in the chart Physical Examination General: In no apparent distress. Somnolent HEENT: Atraumatic Respiratory: Clear to auscultation bilaterally, Normal air movement Cardiovascular: No edema, Regular rate/rhythm Gastrointestinal: Soft and benign, Non-distended Musculoskeletal: No clubbing, No contractures Integumentary: No rashes, No cyanosis Laboratory Data (last 24 hrs) 04/10/25 04/10/25 04/10/25 15:22 14:07 14:07 WBC 14.70 H Hgb 13.4 Hct 42.7 Plt Count 136 L Sodium 136 D 171 H* Potassium 3.5 D 4.9 BUN 16 207 H Creatinine 1.06 H 8.89 H Glucose 232 H 196 H Total Bilirubin 1.0 AST 29 ALT 33 Alkaline Phosphatase 79 Imagings Data: EXAMINATION: ONE VIEW CHEST XR CLINICAL INDICATION: ams TECHNIQUE: Frontal chest projection is submitted. Examination is limited by patient positioning and technique. COMPARISON: 01/27/2025 FINDINGS: The lungs are well inflated and clear. The heart is normal in size. No displaced fractures identified. IMPRESSION: No acute intrathoracic abnormalities. Conclusions/Impression: Stage III DEBBIE likely due to hypovolemia possibly complicated by ATN Uremia CKD NOS with Proteinuria -No NSAIDs -HD CVC placement 04-12-25 -First dialysis 04-12-25 -Dialysis does not appear necessary at this time; recommend HD CVC removal Hypernatremia/ Dehydration -Resolved Hypokalemia -Replete as ordered Hypomagnesemia -Replete as ordered HTN with CKD -Hold antihypertensives at this time DM II with CKD -Continue Lantus -RISS Hypoalbuminemia -Protein supplementation as tolerated Leukocytosis Anemia in chronic illness Thrombocytopenia -Monitor CBC -Continue Meropenem -Retacrit prn Metabolic Encephalopathy -Advance diet as tolerated Hospitalist note reviewed Case discussed with Dr. Villa Possible hospice
[2025-04-23] MEDS: NA CHLORIDE 0.9% 500 ML ONE (11:05)
[2025-04-23 11:24] LABS: Absolute Lymphocytes (CBC) 1.3 K/uL (0.7-4.9); Hematocrit 25.9 % (36.0-45.0); Hemoglobin 8.4 g/dL (12.0-15.0); MCH 28.5 pg (27.0-35.0); MCHC 32.5 g/dL (32.0-36.0); MCV 87.8 fL (80-100); MPV 11.0 fL (7.6-11.3); Nucleated RBC Absolute Count 0.0 (0-0); Nucleated Red Blood Cells % 0.5 % (0-0); RBC Red Blood Cell Count 2.95 M/uL (3.86-4.86); White Blood Count 6.40 thou/uL (4.3-10.9)
[2025-04-23 11:49] LABS: Anion Gap 13.0 mEq/L (5.0-15.0); BUN Blood Urea Nitrogen 35.0 mg/dL (7-18); Glucose Level 96.0 mg/dL (74-106); Magnesium 2.3 mg/dL (1.6-2.4); Potassium 3.0 mEq/L (3.5-5.1)
[2025-04-23] MEDS ORDERED: LIDOCAINE 2% MPF 5 ML VIAL ONE (12:00)
[2025-04-23] MEDS ORDERED: ONDANSETRON 4 MG/2 ML VIAL ONE (12:00)
[2025-04-23] MEDS ORDERED: FENTANYL CITR 100 MCG/2 ML ONE (12:00)
[2025-04-23] MEDS: BUPIVACAINE 0.5% PF 10 ML VIAL ONE (13:10)
--- NOTE | 2025-04-23 14:03 | P.BOP ---
Preoperative diagnosis: renal insuficiency Postoperative diagnosis: same Primary procedure: REmoval of hemosplit tunneled cuffed hemodialysis catheter Estimated blood loss: <1cc Specimen: intact catheter Findings: as above Anesthesia: MAC Complications: None Transferred to: Recovery Room Condition: Good
--- NOTE | 2025-04-23 15:30 | P.PN ---
Subjective Date of Service: 04/23/25 Chief Complaint: AMS Subjective: Looks comfortable in the bed. No acute complaints. Objective: General appearance: Alert and comfortable CVS: Normal S1 and S2 Lungs: Clear to auscultation bilaterally Abdomen: Soft, bowel sounds present, no tenderness Extremities: Mild lower extremity edema Physical Examination - Vital Signs Temperature: 97.2 F Blood Pressure: 137/53 Pulse: 74 Respirations: 18 Pulse Ox (%): 99 Assessment And Plan - Plan Acute metabolic encephalopathy; Mentation has improved. Continuing with increased nutritional support; gentle hydration. However, patient continues to refuse to eat sufficiently. Odynophagia; most likely related to oropharyngeal candidiasis. Patient may have esophageal candidiasis. Patient has significant odynophagia. Will continue with increasing appetite and will advance diet as tolerated. continue with Diflu can. Anemia, thrombocytopenia; blood count dropping, hold heparin for now Type 2 diabetes mellitus; blood sugars are stable DEBBIE with metabolic acidosis; renal function improved. Uremic continues to improve as well. Dialysis catheter removed. Hypernatremia; improved Hypocalcemia;, hypokalemia, hypomagnesemia: Replacing. Plan discussed with case management team, no family at bedside today, looks like family is leaning towards hospice approach
[2025-04-23] MEDS: POTASSIUM CL SA 10 MEQ TAB PO SCH (16:00)
--- NOTE | 2025-04-23 21:14 | P.PN ---
Date of Service: 04/23/25 Vital Signs Temp Pulse Resp BP Pulse Ox 97.6 F 81 18 141/66 H 99 04/23/25 16:00 04/23/25 16:00 04/23/25 16:00 04/23/25 16:00 04/23/25 16:00 Medications Acetaminophen (Acetaminophen 325 Mg Tablet) 650 mg PO Q6H PRN PRN Reason: Pain scale 2-4 (Mild) Calcitriol (Calcitrol 0.25 Mcg Cap) 0.5 mcg PO DAILY [facility] Last Admin: 04/23/25 09:00 Dose: Not Given Calcium Carbonate (Calcium Carb 500mg/Vit D 200 Iu Tab) 1 tab PO BID [facility] Last Admin: 04/23/25 20:37 Dose: Not Given Dextrose (D50w 25 Gm/50 Ml Syringe) 12.5 gm IV PRN PRN; Protocol PRN Reason: HYPOGLYCEMIA PROTOCOL Last Admin: 04/18/25 17:28 Dose: 12.5 gm Enteral Nutritional Formula (Nepro Shake 237 Ml Can) 237 ml PO BID [facility] Last Admin: 04/23/25 20:37 Dose: Not Given Ergocalciferol (Drisdol (Vitamin D=Ergocalciferol) 88697 Unit Cap) 50,000 unit PO Q7D@0900 [facility] Last Admin: 04/22/25 09:05 Dose: 50,000 unit Glucagon (Glucagon 1 Mg/Vial) 1 mg IM 1X PRN PRN Reason: HYPOGLYCEMIA Hydralazine HCl (Hydralazine Hcl 20 Mg/Ml Vial) 10 mg IV Q6HP PRN PRN Reason: FOR SBP>160 OR DBP>100 [facility] Last Admin: 04/12/25 09:09 Dose: 10 mg Meropenem 1,000 mg/ Sodium (Chloride) 100 mls @ 200 mls/hr IV Q12HR [facility]; Protocol Last Admin: 04/23/25 20:11 Dose: 100 mls Albumin Human (Albumin 25%) 50 mls @ 100 mls/hr IV EVERY HD [facility] Fluconazole (Diflucan 200 Mg/100 Ml Ivpb (Premix)) 200 mg in 100 mls @ 100 mls/hr IV Q24H [facility]; Protocol Last Admin: 04/23/25 18:00 Dose: 100 mls Dextrose/Water (Dextrose In Water (1-Liter)) 1,000 mls @ 30 mls/hr IV .[id number] [facility] Last Admin: 04/22/25 19:46 Dose: Not Given Potassium Chloride (Kcl 20 Meq/100 Ml Ivpb (Premix)) 20 meq in 100 mls @ 50 mls /hr IV Q2H [facility]; Protocol Stop: 04/24/25 00:59 Insulin Glargine (Insulin Glargine 100 Unit/Ml) 12 unit SQ BEDTIME [facility] Last Admin: 04/23/25 20:37 Dose: Not Given Insulin Human Regular (Insulin Regular (Human) 100 Unit/Ml) 0 unit SQ ACHS [facility]; Protocol Last Admin: 04/23/25 20:37 Dose: Not Given Mannitol (Mannitol 25% 12.5 Gm/50 Ml Vial) 12.5 gm IV EVERY HD PRN PRN Reason: Titrate to SBP (MUST DEFINE) Multivitamins/Minerals (Multi-Vit(Centravite Senior) 1 Tab Tab) 1 tab PO DAILY [facility] Last Admin: 04/23/25 09:00 Dose: Not Given Nystatin (Nystatin 500,000 Unit/5 Ml Udc) 500,000 unit PO QID [facility] Last Admin: 04/23/25 20:37 Dose: Not Given Ondansetron HCl (Ondansetron 4 Mg/2 Ml Vial) 4 mg IV Q8H PRN PRN Reason: NAUSEA / VOMITING Last Admin: 04/20/25 04:40 Dose: 4 mg Assessment/ Plan: Nephrology No acute events overnight Limited IH/ROS due to mental status Vitals, medications, blood work and imaging reviewed in the chart Physical Examination General: In no apparent distress. Somnolent HEENT: Atraumatic Respiratory: Clear to auscultation bilaterally, Normal air movement Cardiovascular: No edema, Regular rate/rhythm Gastrointestinal: Soft and benign, Non-distended Musculoskeletal: No clubbing, No contractures Integumentary: No rashes, No cyanosis Laboratory Data (last 24 hrs) 04/10/25 04/10/25 04/10/25 15:22 14:07 14:07 WBC 14.70 H Hgb 13.4 Hct 42.7 Plt Count 136 L Sodium 136 D 171 H* Potassium 3.5 D 4.9 BUN 16 207 H Creatinine 1.06 H 8.89 H Glucose 232 H 196 H Total Bilirubin 1.0 AST 29 ALT 33 Alkaline Phosphatase 79 Imagings Data: EXAMINATION: ONE VIEW CHEST XR CLINICAL INDICATION: ams TECHNIQUE: Frontal chest projection is submitted. Examination is limited by patient positioning and technique. COMPARISON: 01/27/2025 FINDINGS: The lungs are well inflated and clear. The heart is normal in size. No displaced fractures identified. IMPRESSION: No acute intrathoracic abnormalities. Conclusions/Impression: Stage III DEBBIE likely due to hypovolemia possibly complicated by ATN Uremia CKD NOS with Proteinuria -No NSAIDs -HD CVC placement 04-12-25 -First dialysis 04-12-25 -HD CVC removal 04-23-25 Hypernatremia/ Dehydration -Resolved Hypokalemia -Replete as ordered Hypomagnesemia -Replete prn HTN with CKD -Hold antihypertensives at this time DM II with CKD -Reduce Lantus 10 Units qhs -RISS Hypoalbuminemia -Protein supplementation as tolerated Anemia in chronic illness Thrombocytopenia -Monitor CBC -Continue Meropenem -Retacrit prn Metabolic Encephalopathy -Advance diet as tolerated Hospitalist note reviewed Case discussed with Dr. Villa Possible hospice
[2025-04-23] MEDS: KCL 20 MEQ/100 mL IVPB 20 MEQ/100 ML BAG IV SCH (21:24)
--- NOTE | 2025-04-23 22:33 | OP ---
Date of Procedure: 04/23/2025 Surgeon: Jermain Ramirez MD Preoperative Diagnosis: Renal insufficiency. Postoperative Diagnosis: Renal insufficiency. Procedure: Removal of a HemoSplit tunneled cuff hemodialysis catheter. Anesthesia: MAC plus local. Complications: None. Specimen: Intact HemoSplit catheter. Indications: This is a case of an 80-year-old patient who came to us for removal of the hemodialysis catheter. The benefits, alternatives, and risks fully explained to the family which include, but no t limited to, infection, bleeding, damage to adjacent structures, anesthesia complication, nonhealing wound, [place], and even . They also understands this may not relieve any symptoms, she might need more than one surgical intervention. She understood. Consent was signed. Description Of Procedure: The patient was brought to the operating room, placed in supine position. Anesthesia was given without complication. Chest area was prepped and draped in a sterile fashion. Local anesthesia was applied followed by the patient placed in Trendelenburg position. After time- out, local anesthesia was applied, and we made an incision in the skin. We were able to release the cuff from the hemodialysis catheter and the catheter was pulled without tension, putting pressure in the insertion site for about 10-15 minutes. No bleeding. A pressure dressing was applied, and the p atient was brought back to normal position. The incision was left to close by secondary intention. The patient tolerated the procedure well. The patient was sent to [facility] in stable condition. RANDELL/RADHA Voice ID: [id number] Report ID: [id number]
--- NOTE | 2025-04-23 23:24 | OP ---
Date of Procedure: 04/23/2025 Surgeon: Jermain Ramirez MD Preoperative Diagnosis: Renal insufficiency. Postoperative Diagnosis: Renal insufficiency. Procedure: Removal of a HemoSplit tunneled cuffed hemodialysis catheter. Anesthesia: MAC plus local. Complications: None. Specimen: Intact catheter. Indications: This is a case of an 80-year-old patient, in need of removal of a hemodialysis catheter , seems not in use anymore. Benefits, alternatives, and risks were explained to the family including , but not limited to infection, bleeding, damage to adjacent structures, anesthesia complication, DVT , PE, [place], and even . They also understood this may not relieve symptoms. She might need more t [place] one surgical intervention. Consent was signed. Description Of Procedure: The patient was brought to the operating room and placed in supine positio n. Anesthesia was done without complication. A time-out was called. Local anesthesia was applied. Incision was carried down until we released the cuff. The cuff was released. The patient was place d in Trendelenburg position and then we applied pressure for about 15 minutes. Sponge count and inst rument counts correct. No bleeding. Area was covered with sterile dressings. The patient was sent to [facility] in stable condition. RANDELL/MODMickey Voice ID: [id number] Report ID: [id number]
[2025-04-24 07:00] LABS: Absolute Lymphocytes (CBC) 1.2 K/uL (0.7-4.9); Hematocrit 23.8 % (36.0-45.0); Hemoglobin 7.8 g/dL (12.0-15.0); MCH 28.6 pg (27.0-35.0); MCHC 32.6 g/dL (32.0-36.0); MCV 87.9 fL (80-100); MPV 10.3 fL (7.6-11.3); Nucleated RBC Absolute Count 0.0 (0-0); Nucleated Red Blood Cells % 0.2 % (0-0); RBC Red Blood Cell Count 2.71 M/uL (3.86-4.86); White Blood Count 5.60 thou/uL (4.3-10.9)
[2025-04-24 07:23] LABS: Anion Gap 11.0 mEq/L (5.0-15.0); BUN Blood Urea Nitrogen 30.0 mg/dL (7-18); Glucose Level 96.0 mg/dL (74-106); Magnesium 2.0 mg/dL (1.6-2.4); Potassium 4.0 mEq/L (3.5-5.1)
[2025-04-24 09:50] LABS: White Blood Cell Scan OK (OK)
[2025-04-24 09:51] LABS: Anisocytosis SLIGHT; Blood Morphology Comment NOTED (NOT SEEN)
--- NOTE | 2025-04-24 11:09 | P.PN ---
Date of Service: 04/24/25 Vital Signs Temp Pulse Resp BP Pulse Ox 97.8 F 87 17 126/48 L 99 04/24/25 08:00 04/24/25 10:44 04/24/25 08:00 04/24/25 10:44 04/24/25 08:00 Medications Acetaminophen (Acetaminophen 325 Mg Tablet) 650 mg PO Q6H PRN PRN Reason: Pain scale 2-4 (Mild) Calcitriol (Calcitrol 0.25 Mcg Cap) 0.5 mcg PO DAILY [facility] Last Admin: 04/24/25 08:18 Dose: Not Given Calcium Carbonate (Calcium Carb 500mg/Vit D 200 Iu Tab) 1 tab PO BID JUAN Last Admin: 04/24/25 08:18 Dose: Not Given Dextrose (D50w 25 Gm/50 Ml Syringe) 12.5 gm IV PRN PRN; Protocol PRN Reason: HYPOGLYCEMIA PROTOCOL Last Admin: 04/18/25 17:28 Dose: 12.5 gm Enteral Nutritional Formula (Nepro Shake 237 Ml Can) 237 ml PO BID JUAN Last Admin: 04/24/25 08:18 Dose: Not Given Ergocalciferol (Drisdol (Vitamin D=Ergocalciferol) 15017 Unit Cap) 50,000 unit PO Q7D@0900 JUAN Last Admin: 04/22/25 09:05 Dose: 50,000 unit Glucagon (Glucagon 1 Mg/Vial) 1 mg IM 1X PRN PRN Reason: HYPOGLYCEMIA Hydralazine HCl (Hydralazine Hcl 20 Mg/Ml Vial) 10 mg IV Q6HP PRN PRN Reason: FOR SBP>160 OR DBP>100 [facility] Last Admin: 04/24/25 08:09 Dose: 10 mg Meropenem 1,000 mg/ Sodium (Chloride) 100 mls @ 200 mls/hr IV Q12HR JUAN; Protocol Last Admin: 04/24/25 08:09 Dose: 100 mls Albumin Human (Albumin 25%) 50 mls @ 100 mls/hr IV EVERY HD JUAN Fluconazole (Diflucan 200 Mg/100 Ml Ivpb (Premix)) 200 mg in 100 mls @ 100 mls/hr IV Q24H JUAN; Protocol Last Admin: 04/23/25 18:00 Dose: 100 mls Dextrose/Water (Dextrose In Water (1-Liter)) 1,000 mls @ 30 mls/hr IV .[id number] [facility] Last Admin: 04/24/25 08:10 Dose: 1,000 mls Insulin Glargine (Insulin Glargine 100 Unit/Ml) 10 unit SQ BEDTIME JUAN Insulin Human Regular (Insulin Regular (Human) 100 Unit/Ml) 0 unit SQ ACHS [facility]; Protocol Last Admin: 04/24/25 07:30 Dose: Not Given Mannitol (Mannitol 25% 12.5 Gm/50 Ml Vial) 12.5 gm IV EVERY HD PRN PRN Reason: Titrate to SBP (MUST DEFINE) Multivitamins/Minerals (Multi-Vit(Centravite Senior) 1 Tab Tab) 1 tab PO DAILY [facility] Last Admin: 04/24/25 08:18 Dose: Not Given Nystatin (Nystatin 500,000 Unit/5 Ml Udc) 500,000 unit PO QID [facility] Last Admin: 04/24/25 08:18 Dose: Not Given Ondansetron HCl (Ondansetron 4 Mg/2 Ml Vial) 4 mg IV Q8H PRN PRN Reason: NAUSEA / VOMITING Last Admin: 04/20/25 04:40 Dose: 4 mg Assessment/ Plan: Nephrology No acute events overnight Limited IH/ROS due to mental status Vitals, medications, blood work and imaging reviewed in the chart Physical Examination General: In no apparent distress. HEENT: Atraumatic Respiratory: Clear to auscultation bilaterally, Normal air movement Cardiovascular: No edema, Regular rate/rhythm Gastrointestinal: Soft and benign, Non-distended Musculoskeletal: No clubbing, No contractures Integumentary: No rashes, No cyanosis Laboratory Data (last 24 hrs) 04/10/25 04/10/25 04/10/25 15:22 14:07 14:07 WBC 14.70 H Hgb 13.4 Hct 42.7 Plt Count 136 L Sodium 136 D 171 H* Potassium 3.5 D 4.9 BUN 16 207 H Creatinine 1.06 H 8.89 H Glucose 232 H 196 H Total Bilirubin 1.0 AST 29 ALT 33 Alkaline Phosphatase 79 Imagings Data: EXAMINATION: ONE VIEW CHEST XR CLINICAL INDICATION: ams TECHNIQUE: Frontal chest projection is submitted. Examination is limited by patient positioning and technique. COMPARISON: 01/27/2025 FINDINGS: The lungs are well inflated and clear. The heart is normal in size. No displaced fractures identified. IMPRESSION: No acute intrathoracic abnormalities. Conclusions/Impression: Stage III DEBBIE likely due to hypovolemia possibly complicated by ATN Uremia CKD II with Proteinuria -No NSAIDs -HD CVC placement 04-12-25 -First dialysis 04-12-25 -HD CVC removal 04-23-25 Hypernatremia/ Dehydration -Resolved Hypokalemia -Replete prn Hypomagnesemia -Replete prn HTN with CKD -Hold antihypertensives at this time DM II with CKD -Continue Lantus 10 Units qhs -RISS Hypoalbuminemia -Protein supplementation as tolerated Anemia in chronic illness Thrombocytopenia -Monitor CBC -PRBC prn -Check anemia labs -Check PF4; hold heparin Dementia -Continue supportive care Hospitalist note reviewed Case discussed with Dr. Villa Possible hospice
[2025-04-24 11:54] LABS: Ferritin 947.9 ng/mL (8-252); Iron 53.0 ug/dL (50-170); Transferrin 88.0 mg/dL (200-360)
--- NOTE | 2025-04-24 13:09 | P.PN ---
Subjective Date of Service: 04/24/25 Chief Complaint: AMS Subjective: Looks comfortable in the bed. No family at bedside. Minimal communication. Objective: General appearance: Alert and comfortable CVS: Normal S1 and S2 Lungs: Clear to auscultation bilaterally Abdomen: Soft, bowel sounds present, no tenderness Extremities: Mild lower extremity edema Physical Examination - Vital Signs Temperature: 97.8 F Blood Pressure: 126/48 Pulse: 87 Respirations: 17 Pulse Ox (%): 99 Assessment And Plan - Plan Acute metabolic encephalopathy; Mentation has improved. Continuing with increased nutritional support. However, patient continues to refuse to eat sufficiently. Odynophagia; most likely related to oropharyngeal candidiasis. Patient may have esophageal candidiasis. Patient has significant odynophagia. Will continue with increasing appetite and will advance diet as tolerated. Finished Diflucan. Anemia, thrombocytopenia; blood count dropping, hold heparin for now, HIT sent. DC meropenem, almost given for 2 weeks, leukocytosis better, no cultures drawn Type 2 diabetes mellitus; blood sugars are stable DEBBIE with metabolic acidosis; renal function improved. Dialysis catheter removed. Hypernatremia; improved Hypocalcemia;, hypokalemia, hypomagnesemia: Replacing PRN. Plan discussed with case management team, no family at bedside today, looks like family is leaning towards hospice approach as per CM team, family will come later today
[2025-04-24] MEDS: NA CHLORIDE 0.9% 250 ML ONE ×2 (18:10→21:55)
[2025-04-24 18:36] LABS: Absolute Lymphocytes (CBC) 1.4 K/uL (0.7-4.9); Hematocrit 21.8 % (36.0-45.0); Hemoglobin 7.1 g/dL (12.0-15.0); MCH 28.4 pg (27.0-35.0); MCHC 32.5 g/dL (32.0-36.0); MCV 87.4 fL (80-100); MPV 11.0 fL (7.6-11.3); Nucleated RBC Absolute Count 0.0 (0-0); Nucleated Red Blood Cells % 0.4 % (0-0); RBC Red Blood Cell Count 2.50 M/uL (3.86-4.86); White Blood Count 5.20 thou/uL (4.3-10.9)
[2025-04-24] MEDS: INSULIN GLARGINE 100 UNIT/ML SQ SCH (21:00)
[2025-04-24 21:22] LABS: Hematocrit 19.4 % (36.0-45.0); Hemoglobin 6.3 g/dL (12.0-15.0)
[2025-04-25 00:04] VITALS: O2SAT 100
[2025-04-25 05:27] LABS: Absolute Lymphocytes (CBC) 1.3 K/uL (0.7-4.9); Hematocrit 28.6 % (36.0-45.0); Hemoglobin 9.6 g/dL (12.0-15.0); MCH 29.0 pg (27.0-35.0); MCHC 33.6 g/dL (32.0-36.0); MCV 86.2 fL (80-100); MPV 8.5 fL (7.6-11.3); Nucleated RBC Absolute Count 0.0 (0-0); Nucleated Red Blood Cells % 0.4 % (0-0); RBC Red Blood Cell Count 3.32 M/uL (3.86-4.86); White Blood Count 5.40 thou/uL (4.3-10.9)
[2025-04-25 05:41] LABS: Anion Gap 7.7 mEq/L (5.0-15.0); BUN Blood Urea Nitrogen 25.0 mg/dL (7-18); Glucose Level 109.0 mg/dL (74-106); Magnesium 1.6 mg/dL (1.6-2.4); Potassium 3.7 mEq/L (3.5-5.1)
[2025-04-25] MEDS: Multi-VIT(Centravite Senior) 1 TAB TAB PO SCH (08:51)
[2025-04-25] MEDS: NA CHLORIDE 0.9% 1,000 ML ONE (08:56)
[2025-04-25] MEDS ORDERED: [UNRECOGNIZED DRUG - OTHER] PO SCH (09:00)
[2025-04-25] MEDS: [UNRECOGNIZED DRUG - OTHER] EACH EAR SCH (09:00)
[2025-04-25] MEDS: DEXAMETH EACH EAR SCH (09:00)
[2025-04-25] MEDS: TETRAHYDROZOLINE HCL 150 DROPS/15 ML BTL EACH EYE SCH (09:00)
[2025-04-25] MEDS: CIPROFLOXACIN HCL EACH EAR SCH (09:00)
[2025-04-25] MEDS ORDERED: FOLIC ACID PO SCH (09:00)
[2025-04-25] MEDS ORDERED: MULTIVIT CALC MINS PO SCH (09:00)
[2025-04-25] MEDS: Dapagliflozin Propanediol [Farxiga] 5 MG Tablet *PT OWN MED PO SCH (09:00)
--- NOTE | 2025-04-25 09:30 | CON ---
Date of Consultation: 04/23/2025 Brief History Of Present Illness: The patient is an female with past medical history of C KD and encephalopathy who has been admitted to the hospital for some period of time with multiple iss ues, worsening renal function. She ultimately has been having poor nutrition and as such even though she is taking in p.o. intake it is significantly lower than to meet her nutritional goals due to her inability to feed herself as well as to eat adequate amounts when fed as such, I am consulted for pl acement of percutaneous endoscopic gastrostomy tube. Past Medical History: Unable to obtain. Past Surgical History: Unable to obtain. Allergies: UNABLE TO OBTAIN. Social History: Unable to obtain. Review of Systems: 10-point review of systems, unable to obtain. Physical Examination: General: At the time of my examination, she is awake and alert but nonverbal. HEENT: She is normocephalic. Sclerae icteric. Nares moist. Oropharynx clear. Neck: Supple. No JVD. Chest: Normal to expansion and excursion. Cardiovascular: Regular rate and rhythm. Pulmonary: Clear to auscultation bilaterally. Abdomen: Soft. Laboratory Data: Revealed white blood cell count of 6.4, hemoglobin 8.4, hematocrit 25.9, platelet c ount is 39. Sodium 146, potassium 3.0, chloride 109, carbon dioxide is 27, BUN 35, creatinine 0.9, g lucose is 96. Assessment And Plan: This is an 80-year-old woman who comes in with malnutrition and poor feeding to [facility]. 1. IV fluid hydration. 2. Antibiotic coverage. 3. I have explained the risks, benefits, and alternatives of percutaneous endoscopic gastrostomy tube to the patient's medical power of civil litigation attorney over the phone. The risks include bleeding, infection, d amage to the surrounding tissue, need for further operative procedures, intestinal perforation, blood clots, heart attack, strokes, unforeseen complications in the perioperative period. The patient's f amily displayed understanding of the above-stated plan. The patient will also require platelet trans fusion prior to intervention. They have agreed to proceed. HALEY/RADHA Voice ID: [id number] Report ID: [id number]
[2025-04-25] MEDS ORDERED: LIDOCAINE 1% MPF 5 ML VIAL ONE (09:54)
[2025-04-25] MEDS: CEFAZOLIN SODIUM 1 GM/VIAL ONE (10:25)
[2025-04-25] MEDS: Magnesium Sulfate 2gm IVPB 2 G/50 ML BAG IV ONE (12:44)
[2025-04-25] MEDS: D5W 1,000 ML IV SCH (12:49)
[2025-04-25] MEDS ORDERED: POTASS/SODIUM PHOSPHATE 1 PKT POWD.PACK PO ONE (13:00)
[2025-04-25] MEDS: POTASSIUM PHOS IN 0.9 % NACL 15 MMOL/250 ML BAG IV ONE (13:33)
[2025-04-25] MEDS: PANTOPRAZOLE INJ 80 MG in NA CHLORIDE 0.9% 250 ML IV SCH (13:34)
[2025-04-25] MEDS ORDERED: [UNRECOGNIZED DRUG - OTHER] OPTH SCH (14:00)
[2025-04-25] MEDS ORDERED: CIPROFLOXACIN HCL OPTH SCH (14:00)
[2025-04-25] MEDS ORDERED: DEXAMETH OPTH SCH (14:00)
--- NOTE | 2025-04-25 15:09 | P.PN ---
Subjective Date of Service: 04/25/25 Chief Complaint: AMS Subjective: No new changes (Patient's could not have a PEG tube placed due to evidence of ulcers during endoscopic evaluation. She is currently on PPI infusion. Unable to obtain review of system due to altered mental status.) Physical Examination - Vital Signs Temperature: 98.5 F Blood Pressure: 163/69 Pulse: 82 Respirations: 16 Pulse Ox (%): 99 - Physical Exam General: In no apparent distress, Confused, Other (Frail and physically deconditioned) Respiratory: Clear to auscultation bilaterally, Normal air movement Cardiovascular: No edema, Normal pulses, Regular rate/rhythm, Normal S1 S2 Neurological: Dementia Assessment And Plan - Plan Assessment Patient is a 80-year-old female who was admitted to the hospital after she presented with altered mental status. She was found to have a sodium of 170 and acute renal failure. She eventually required hemodialysis line due to refractory renal failure. Her mental status has not returned to baseline. An attempt to establish enteric access was unsuccessful today after she was found to have evidence of gastric ulcer during endoscopic evaluation. She is currently on PPI. Duodenal ulcer, gastric ulcer, hiatal hernia, reflux esophagitis Dysphagia Acute encephalopathy Suspected esophageal candidiasis Anemia and thrombocytopenia Type 2 diabetes mellitus DEBBIE with metabolic acidosis Hypernatremia Hypocalcemia, hypokalemia Hypomagnesemia Plan: Continue PPI infusion due to the ulcers above Patient has finished a course of Diflucan due to concern for esophageal candidiasis Monitor clinical response, especially increased PO intake Clinical updates given to daughter Chary Electrolyte correction Goals of care discussion
[2025-04-25] MEDS: ATORVASTATIN 40 MG TAB PO SCH (21:00)
[2025-04-26 05:46] LABS: Absolute Lymphocytes (CBC) 1.3 K/uL (0.7-4.9); Hematocrit 25.3 % (36.0-45.0); Hemoglobin 8.5 g/dL (12.0-15.0); MCH 28.8 pg (27.0-35.0); MCHC 33.6 g/dL (32.0-36.0); MCV 85.6 fL (80-100); MPV 9.6 fL (7.6-11.3); Nucleated RBC Absolute Count 0.0 (0-0); Nucleated Red Blood Cells % 0.4 % (0-0); RBC Red Blood Cell Count 2.96 M/uL (3.86-4.86); White Blood Count 4.60 thou/uL (4.3-10.9)
[2025-04-26 06:03] LABS: Anion Gap 10.3 mEq/L (5.0-15.0); BUN Blood Urea Nitrogen 20.0 mg/dL (7-18); Glucose Level 97.0 mg/dL (74-106); Magnesium 1.5 mg/dL (1.6-2.4); Potassium 3.3 mEq/L (3.5-5.1)
[2025-04-26] MEDS: CALCIUM GLUCONATE 1 GM IVPB 1 GM/50 ML BAG IV SCH (09:45)
[2025-04-26] MEDS: D5W 1,000 ML IV SCH (10:08)
[2025-04-26] MEDS: Magnesium Sulfate 2gm IVPB 2 G/50 ML BAG IV ONE (10:47)
[2025-04-26] MEDS: POTASSIUM PHOS IN 0.9 % NACL 15 MMOL/250 ML BAG IV ONE (12:43)
[2025-04-27 05:58] LABS: Absolute Lymphocytes (CBC) 1.2 K/uL (0.7-4.9); Hematocrit 24.5 % (36.0-45.0); Hemoglobin 8.2 g/dL (12.0-15.0); MCH 28.8 pg (27.0-35.0); MCHC 33.3 g/dL (32.0-36.0); MCV 86.5 fL (80-100); MPV 9.5 fL (7.6-11.3); Nucleated RBC Absolute Count 0.0 (0-0); Nucleated Red Blood Cells % 0.4 % (0-0); RBC Red Blood Cell Count 2.83 M/uL (3.86-4.86); White Blood Count 4.10 thou/uL (4.3-10.9)
[2025-04-27 06:12] LABS: Anion Gap 8.5 mEq/L (5.0-15.0); BUN Blood Urea Nitrogen 16.0 mg/dL (7-18); Glucose Level 105.0 mg/dL (74-106); Magnesium 1.8 mg/dL (1.6-2.4); Potassium 3.5 mEq/L (3.5-5.1)
[2025-04-28 07:58] LABS: Absolute Lymphocytes (CBC) 1.3 K/uL (0.7-4.9); Hematocrit 25.4 % (36.0-45.0); Hemoglobin 8.4 g/dL (12.0-15.0); MCH 28.7 pg (27.0-35.0); MCHC 33.2 g/dL (32.0-36.0); MCV 86.6 fL (80-100); MPV 9.7 fL (7.6-11.3); Nucleated RBC Absolute Count 0.0 (0-0); Nucleated Red Blood Cells % 0.3 % (0-0); RBC Red Blood Cell Count 2.93 M/uL (3.86-4.86); White Blood Count 4.80 thou/uL (4.3-10.9)
[2025-04-28 08:23] LABS: Anion Gap 10.2 mEq/L (5.0-15.0); BUN Blood Urea Nitrogen 13.0 mg/dL (7-18); Glucose Level 96.0 mg/dL (74-106); Magnesium 1.2 mg/dL (1.6-2.4); Potassium 3.2 mEq/L (3.5-5.1)
[2025-04-28] MEDS: D5W 1,000 ML IV SCH (09:33)
[2025-04-28] MEDS: CALCIUM GLUCONATE 1 GM IVPB 1 GM/50 ML BAG IV SCH (09:45)
[2025-04-28] MEDS: Magnesium Sulfate 2gm IVPB 2 G/50 ML BAG IV SCH (09:47)
[2025-04-28 10:34] LABS: Blood Morphology Comment NOT SEEN (NOT SEEN); White Blood Cell Scan OK (OK)
--- NOTE | 2025-04-28 11:34 | P.PN ---
Nephrology note (S) Remains on D5W, not taking in PO intake in appears, seen lying in bed, awakens easily but does not coverse (O) Vitals reviewed in the EMR General: Obtunded, appears chronically ill HEENT: Atraumatic, not needing O2 Respiratory: b/l air entry, Normal air movement without wheezing Cardiovascular: No edema, tachy, mostly regular Gastrointestinal: Soft and benign, Non-distended, no guarding Musculoskeletal: No contractures noted, no muscle spasms noted, mild distal edema, SCDs b/l Integumentary: No rashes Neuro: No longer obtunded, awake, tracks movements, non conversational, no tremors or myoclonus noted Laboratory Data (last 24 hrs) Reviewed in the EMR A/P) Stage III sub acute renal failure POA last mo per KETTY definition on likely underlying CKD NOS 2nd to severe dehydration, pre-renal state which in the setting of hypovolemic hypotension had likely led to at least some degree of ATN although pt was non oliguric and automated UA did not report casts Severe azotemia initally, now cleared -Renal function has improved significantly, normalized, TDC removed Severe hypertonic hypernatremia POA -Resolved but recurrent since in the setting of impaired intake, cont D5W in that setting Acute Metabolic Acidosis -Resolved Hypocalcemia, hypophosphatemia, hypokalemia, hypomagnesemia -In the setting of compromised nutritional intake, PEG tube was not inserted, cont replete lytes with IV Ca gluconate, IV KPhos and IV Mg sulfate
[2025-04-28] MEDS: POTASSIUM PHOS 30 MM in NA CHLORIDE 0.9% 500 ML IV ONE (13:58)
[2025-04-29 07:09] VITALS: BMI 27.1
[2025-04-29] MEDS: ENSURE ENLIVE 237 ML CAN PO SCH (14:00)
[2025-04-30] MEDS: COLLAGENASE 30 GM OINTMENT TOP SCH (09:00)
[2025-04-30] MEDS ORDERED: LIDOCAINE HCL JELLY 2% 6 ML SYRINGE TOP ONE (13:17)
[2025-04-30] MEDS ORDERED: LIDOCAINE 1% MPF 5 ML VIAL ONE (13:17)
--- NOTE | 2025-04-30 16:53 | CON ---
Date of Consultation: 04/30/2025 Reason For Service: Grade 4 pressure ulcer. History Of Present Illness: This is the case of an 80-year-old patient with multiple medical problem s. We know her before from hemodialysis catheters, now comes with a sacral decubitus ulcer and I was consulted for that. Past Medical History: See my previous note. Past Surgical History: See my previous note. Allergies: SEE MY PREVIOUS NOTE. Medications: See my previous note. Physical Examination: Vital Signs: Stable. General: The patient is awake, alert. Neck: Supple. Chest: Clear. Bilateral breath sounds. Integumentary: Shows a stage IV decubitus ulcer 7 x 7 x 1.5. There is black eschar present and need s to be removed today. No crepitus. Laboratory Data: Blood work reviewed including a WBC count of 4.8. I do not see any recent albumin or prealbumin. Assessment: An 80-year-old patient with stage IV sacral ulcer. Plan: Will be excisional debridement with benefits, alternatives, and risks explained to the family, which include, but not limited to, infection, bleeding, damage to adjacent structures, nonhealing wo und, [place], and even . They also understands this may require long-term therapy and if she gets di scharged [facility] She will require also frequent turning and dressing changes thus will be ordered. RANDELL/RADHA Voice ID: [id number] Report ID: [id number]
--- NOTE | 2025-04-30 22:48 | OP ---
Date of Procedure: 04/30/2025 Surgeon: Jermain Ramirez MD Preoperative Diagnosis: Grade 4 sacral decubitus ulcer. Postoperative Diagnosis: Grade 4 sacral decubitus ulcer. Procedure: Excisional debridement down to subcu of sacral decubitus ulcer, 7 x 7 x 1.5 cm Anesthesia: Local anesthetic injectable. Complications: None. Indications: This is a case of an 80-year-old patient with above diagnosis. See my consult recently . Description Of Procedure: The patient was brought in lateral decubitus position with proper protecti on. Time-out was called. Sacral area was prepped and draped in a sterile fashion. Lidocaine 1% kory in was injected for local anesthetic followed by sharp excision of the necrotic tissue with an 11 concetta de. Hemostasis was obtained with pressure. Area was irrigated and covered with wet-to-dry. The pat ient tolerated the procedure well. The patient is staying in stable condition. Please see my orders for the plan. RANDELL/RADHA Voice ID: [id number] Report ID: [id number]
[2025-05-01 12:36] VITALS: TEMP 97.6
[2025-05-01 12:37] LABS: Absolute Lymphocytes (CBC) 1.4 K/uL (0.7-4.9); Hematocrit 23.6 % (36.0-45.0); Hemoglobin 7.8 g/dL (12.0-15.0); MCH 28.6 pg (27.0-35.0); MCHC 33.0 g/dL (32.0-36.0); MCV 86.5 fL (80-100); MPV 9.5 fL (7.6-11.3); Nucleated RBC Absolute Count 0.0 (0-0); Nucleated Red Blood Cells % 0.2 % (0-0); RBC Red Blood Cell Count 2.73 M/uL (3.86-4.86); White Blood Count 7.60 thou/uL (4.3-10.9)
[2025-05-01 12:57] LABS: ALT/SGPT 15.0 U/L (13-56); AST/SGOT 12.0 U/L (15-37); Albumin 1.4 g/dL (3.4-5.0); Albumin/Globulin Ratio 0.5 (1.1-1.8); Alkaline Phosphatase 60.0 U/L (45-117); Anion Gap 10.0 mEq/L (5.0-15.0); BUN Blood Urea Nitrogen 10.0 mg/dL (7-18); Globulin 2.9 g/dL (2.3-3.5); Glucose Level 95.0 mg/dL (74-106); Potassium 3.0 mEq/L (3.5-5.1)
[2025-05-01 17:25] VITALS: BP 131/64
[2025-05-01] MEDS: PANTOPRAZOLE INJ 80 MG in NA CHLORIDE 0.9% 250 ML IV SCH (17:32)
--- NOTE | 2025-05-03 17:53 | P.PN ---
Date of Service: 04/26/25 Subjective Patient continues to decline. Clinical symptoms continue to stagnate as she really has not shown a lot of improvement. She does have oral thrush which we have treated with eating is not improved. Mentation has continued to worsen. Prognosis remains poor. Physical Examination - Vitals Reviewed - Physical Exam General: In no apparent distress, Confused but follows commands and interacts if talking into her ear out loud HEENT: oropharyngeal dry but improved Respiratory: Clear to auscultation bilaterally Cardiovascular: Regular rate rhythm with no murmurs no edema Gastrointestinal: Soft, nontender/nondistended normal bowel sounds Musculoskeletal: No swelling Integumentary: No rashes Assessment and Plan - Assessment/Plan Acute metabolic encephalopathy; Mentation has improved but stagnant. Continuing with increased nutritional support; gentle hydration. However, patient continues to refuse to eat sufficiently. Odynophagia; most likely related to oropharyngeal candidiasis. Patient may have esophageal candidiasis. Patient has significant odynophagia. Will continue with increasing appetite and will advance diet as tolerated. continue with Diflucan. Thrombocytopenia; platelet count stable Type 2 diabetes mellitus; blood sugars are stable DEBBIE with metabolic acidosis; renal function improved. Metabolic acidosis/RTA has improved. Uremic continues to improve as well. Continue with gentle hydration. Hypernatremia; sodium is correcting and her mentation stable Hypocalcemia; calcium was 6.2 and albumin was 1.8; corrected calcium 8.0 DVT prophylaxis with Lovenox Disposition: Poor prognosis. Guarded. Possible hospice if not eating and refusing PEG tube - Advance Directives Does patient have a Living Will: No Does patient have a Durable POA for Healthcare: No
--- NOTE | 2025-05-03 17:55 | P.PN ---
Date of Service: 04/27/25 Subjective Spoke to patient's family about hospice. Seems to be agreeable. Physical Examination - Vitals Reviewed - Physical Exam General: Lethargic and conditioning worsen. Severely deconditioned and muscular atrophy diffusely Assessment and Plan - Assessment/Plan Acute metabolic encephalopathy; mentation is stagnant and current clinical situation is not anticipated to improve no matter what interventions we do. I believe placing a PEG tube would be unethical in this patient who has no desire to eat or drink. Will go ahead and proceed with discussing with family regarding hospice care. Odynophagia; patient with oropharyngeal and esophageal candidiasis; treated with Diflucan Thrombocytopenia; stable Type 2 diabetes mellitus; blood sugars are stable DEBBIE with metabolic acidosis; renal function is stable. However patient not eating and this will worsen. Hypernatremia; sodium is correcting and her mentation stable Hypocalcemia; calcium was 6.2 and albumin was 1.8; corrected calcium 8.0 DVT prophylaxis with Lovenox Disposition: Poor prognosis. Guarded. Possible hospice - Advance Directives Does patient have a Living Will: No Does patient have a Durable POA for Healthcare: No
--- NOTE | 2025-05-03 17:56 | P.PN ---
Date of Service: 04/29/25 Subjective Poor prognosis. Family to meet with us in the morning. Physical Examination - Vitals Reviewed - Physical Exam General: Lethargic and conditioning worsen. Severely deconditioned and muscular atrophy diffusely Assessment and Plan - Assessment/Plan Acute metabolic encephalopathy; mentation is stagnant and current clinical situation is not anticipated to improve no matter what interventions we do. I believe placing a PEG tube would be unethical in this patient who has no desire to eat or drink. Will go ahead and proceed with discussing with family regarding hospice care. Odynophagia; patient with oropharyngeal and esophageal candidiasis; treated with Diflucan Thrombocytopenia; stable Type 2 diabetes mellitus; blood sugars are stable DEBBIE with metabolic acidosis; renal function is stable. However patient not eating and this will worsen. Hypernatremia; sodium is correcting and her mentation stable Hypocalcemia; calcium was 6.2 and albumin was 1.8; corrected calcium 8.0 DVT prophylaxis with Lovenox Disposition: Poor prognosis. Guarded. Possible hospice - Advance Directives Does patient have a Living Will: No Does patient have a Durable POA for Healthcare: No
--- NOTE | 2025-05-03 17:56 | P.PN ---
Date of Service: 04/28/25 Subjective No new changes. Family meeting in the afternoon of 05/01 regarding hospice care. Physical Examination - Vitals Reviewed - Physical Exam General: Lethargic and conditioning worsen. Severely deconditioned and muscular atrophy diffusely Assessment and Plan - Assessment/Plan Acute metabolic encephalopathy; mentation is stagnant and current clinical s ituation is not anticipated to improve no matter what interventions we do. I believe placing a PEG tube would be unethical in this patient who has no desire to eat or drink. Will go ahead and proceed with discussing with family regarding hospice care. Odynophagia; patient with oropharyngeal and esophageal candidiasis; treated with Diflucan Thrombocytopenia; stable Type 2 diabetes mellitus; blood sugars are stable DEBBIE with metabolic acidosis; renal function is stable. However patient not eating and this will worsen. Hypernatremia; sodium is correcting and her mentation stable Hypocalcemia; calcium was 6.2 and albumin was 1.8; corrected calcium 8.0 DVT prophylaxis with Lovenox Disposition: Poor prognosis. Guarded. Possible hospice - Advance Directives Does patient have a Living Will: No Does patient have a Durable POA for Healthcare: No
--- NOTE | 2025-05-03 17:57 | P.PN ---
Date of Service: 04/30/25 Subjective Poor prognosis. Family to meet with us in the morning. Patient's family to be with us this afternoon and we will proceed with hospice care if they are agreeable Physical Examination - Vitals Reviewed - Physical Exam General: Lethargic and conditioning worsen. Severely deconditioned and muscular atrophy diffusely Assessment and Plan - Assessment/Plan Acute metabolic encephalopathy; mentation is stagnant and current clinical situation is not anticipated to improve no matter what interventions we do. I believe placing a PEG tube would be unethical in this patient who has no desire to eat or drink. Will go ahead and proceed with discussing with family regarding hospice care. Odynophagia; patient with oropharyngeal and esophageal candidiasis; treated with Diflucan Thrombocytopenia; stable Type 2 diabetes mellitus; blood sugars are stable DEBBIE with metabolic acidosis; renal function is stable. However patient not eating and this will worsen. Hypernatremia; sodium is correcting and her mentation stable Hypocalcemia; calcium was 6.2 and albumin was 1.8; corrected calcium 8.0 DVT prophylaxis with Lovenox Disposition: Poor prognosis. Guarded. Possible hospice - Advance Directives Does patient have a Living Will: No Does patient have a Durable POA for Healthcare: No
--- NOTE | 2025-05-03 17:59 | P.DS ---
Discharge Date: 05/01/25 Disposition: HOSPICE-MEDICAL FACILITY Discharge Condition: GOOD Reason for Admission: AMS Brief History of Present Illness: 80-year-old female with a past medical history of chronic kidney disease and unable to elicit any history from her given her encephalopathy. There is no family at bedside. Per ED report patient's family states that she has not gotten out of bed eating or drinking anything in 3 days. She was diagnosed with a urinary tract infection 3 years ago. In the ED blood work was obtained initially showing a sodium level of 170. Repeat chemistries were within normal limits. There may have been a mixup with patients in the ED. Repeat blood work is pending. Hospital Course: Patient clinical symptoms have deteriorated. Patient not participating in not eating. Patient with stomach ulcers and not able to place PEG tube at this time. Family has decided to proceed with hospice care as patient is not improving and she has no quality life and has no desire to eat a large quantity of food. Placing a PEG tube would probably be ethical in this situation. Will go ahead and proceed with inpatient hospice. Vital Signs/Physical Exam: Temp Pulse Resp BP Pulse Ox 97.6 F 93 H 19 131/64 98 05/01/25 16:00 05/01/25 16:00 05/01/25 16:00 05/01/25 16:00 05/01/25 16:00 General: Alert, Disheveled Laboratory Data at Discharge: WBC 7.60 thou/uL (4.3-10.9) 05/01/25 12:19 Hgb 7.8 g/dL (12.0-15.0) L 05/01/25 12:19 Hct 23.6 % (36.0-45.0) L 05/01/25 12:19 Plt Count 68 thou/uL (152-406) L 05/01/25 12:19 PT 15.3 SECONDS (10-13.0) H 04/12/25 04:30 INR 1.37 04/12/25 04:30 APTT 48.2 SECONDS (27.2-37.4) H 04/12/25 04:30 Sodium 138 mEq/L (136-145) 05/01/25 12:19 Potassium 3.0 mEq/L (3.5-5.1) L 05/01/25 12:19 BUN 10 mg/dL (7-18) 05/01/25 12:19 Creatinine 1.01 mg/dL (0.55-1.02) 05/01/25 12:19 Glucose 95 mg/dL (74-106) 05/01/25 12:19 Uric Acid 9.3 mg/dL (2.6-6.0) H 04/14/25 05:56 Phosphorus 2.0 mg/dL (2.5-4.9) L 04/28/25 07:31 Magnesium 1.2 mg/dL (1.6-2.4) L 04/28/25 07:31 Total Bilirubin 1.2 mg/dL (0.2-1.0) H 05/01/25 12:19 AST 12 U/L (15-37) L 05/01/25 12:19 ALT 15 U/L (13-56) 05/01/25 12:19 Alkaline Phosphatase 60 U/L (45-117) 05/01/25 12:19 Home Medications: Amlodipine/Atorvastatin [Amlodipine-Atorvast 10-10 mg] 10 mg PO DAILY 04/11/25 Amoxicillin/Potassium Clav [Amox-Clav 875-125 mg Tablet] 1 tab PO Q12HR 04/11/25 Atorvastatin Calcium 40 mg PO BEDTIME 04/11/25 Ciprofloxacin HCl/Dexameth [Ciproflox-Dexameth Otic Susp] 2 drops EACH EAR BID* 04/11/25 Dapagliflozin Propanediol [Farxiga] 5 mg PO DAILY 04/11/25 Gabapentin 300 mg PO BID 04/11/25 Lisinopril/Hydrochlorothiazide [Lisinopril-Hctz 20-25 mg Tab] 20 mg PO DAILY 04/11/25 Multivit,Calc,Mins/Folic Acid [One-A-Day Proactive 65 Plus Tb] 1 tab PO DAILY 04/11/25 Tetrahydrozoline HCl [Eye Drops] 2 drops EACH EYE BID* 04/11/25 carvediloL [Coreg*] 3.125 mg PO BID 04/11/25 Physician Discharge Instructions: Proceed with inpatient hospice Diet: Comfort fo Followup: NONE,NONE [Primary Care Provider] - Time spent managing pt's care (in minutes): 45
== END 2025-05-01 20:27 | disposition hospice, inpatient (51) | DRG 673 ==
LOC: ER 13:24 → 2ND 16:06 → 3RD-ICU 20:45 → 4TH 04-17 09:33 → 2ND 04-25 17:56
PROVIDERS: ADMIT Family Medicine; ATTEND Hospitalist
PROC: 0JH63XZ Insertion of Tunneled Vascular Access Device into Chest Subcutaneous Tissue and Fascia, Percutaneous Approach (ICD-10-PCS; 2025-04-12)
PROC: 02HV33Z Insertion of Infusion Device into Superior Vena Cava, Percutaneous Approach (ICD-10-PCS; 2025-04-12)
PROC: 5A1D70Z Performance of Urinary Filtration, Intermittent, Less than 6 Hours Per Day (ICD-10-PCS; 2025-04-12)
PROC: 30233N1 Transfusion of Nonautologous Red Blood Cells into Peripheral Vein, Percutaneous Approach (ICD-10-PCS; 2025-04-24)
PROC: 30233R1 Transfusion of Nonautologous Platelets into Peripheral Vein, Percutaneous Approach (ICD-10-PCS; 2025-04-24)
PROC: 0DB98ZX Excision of Duodenum, Via Natural or Artificial Opening Endoscopic, Diagnostic (ICD-10-PCS; 2025-04-25)
PROC: 0DB78ZX Excision of Stomach, Pylorus, Via Natural or Artificial Opening Endoscopic, Diagnostic (ICD-10-PCS; 2025-04-25)
PROC: 0DB68ZX Excision of Stomach, Via Natural or Artificial Opening Endoscopic, Diagnostic (ICD-10-PCS; 2025-04-25)
PROC: 0JPV0XZ Removal of Tunneled Vascular Access Device from Upper Extremity Subcutaneous Tissue and Fascia, Open Approach (ICD-10-PCS; 2025-04-25)
PROC: 02PY33Z Removal of Infusion Device from Great Vessel, Percutaneous Approach (ICD-10-PCS; 2025-04-25)
PROC: 0JB70ZZ Excision of Back Subcutaneous Tissue and Fascia, Open Approach (ICD-10-PCS; principal; 2025-04-30)
DX: N17.0 Acute kidney failure with tubular necrosis (principal); E43 Unspecified severe protein-calorie malnutrition; K25.4 Chronic or unspecified gastric ulcer with hemorrhage; K26.4 Chronic or unspecified duodenal ulcer with hemorrhage; G93.41 Metabolic encephalopathy; E87.0 Hyperosmolality and hypernatremia; B37.81 Candidal esophagitis; B37.0 Candidal stomatitis; E87.21 Acute metabolic acidosis; I12.0 Hypertensive chronic kidney disease with stage 5 chronic kidney disease or end stage renal disease; E11.52 Type 2 diabetes mellitus with diabetic peripheral angiopathy with gangrene; N18.6 End stage renal disease; E11.22 Type 2 diabetes mellitus with diabetic chronic kidney disease; E11.65 Type 2 diabetes mellitus with hyperglycemia; D63.1 Anemia in chronic kidney disease; E86.0 Dehydration; E83.51 Hypocalcemia; E83.42 Hypomagnesemia; D69.6 Thrombocytopenia, unspecified; E83.39 Other disorders of phosphorus metabolism; L89.156 Pressure-induced deep tissue damage of sacral region; K44.9 Diaphragmatic hernia without obstruction or gangrene; K21.00 Gastro-esophageal reflux disease with esophagitis, without bleeding; F03.90 Unspecified dementia, unspecified severity, without behavioral disturbance, psychotic disturbance, mood disturbance, and anxiety; Z51.5 Encounter for palliative care; Z68.27 Body mass index [BMI] 27.0-27.9, adult
CPT/HCPCS: 36415; 36430; 70360; 70450; 71045; 76000; 80048; 80053; 80069; 81001; 82043; 82435; 82533; 82550; 82570; 82607; 82728; 82947; 83540; 83735; 84100; 84132; 84145; 84156; 84300; 84443; 84466; 84550; 85014; 85018; 85025; 85049; 85610; 85730; 86022; 86140; 86704; 86706; 86850; 86900; 86901; 86920; 87070; 87077; 87186; 87205; 87340; 88300; 88305; 88312; 90935; 97110; 97161; 97165; 97530; 99284; C1752; J0360; J0612; J0690; J0696; J0885; J1100; J1450; J1644; J1815; J2003; J2185; J2405; J2470; J2704; J2919; J3010; J3475; J3480; J3590; J7030; J7040; J7050; P9016; P9035; P9047; P9100; Q5106